=== PATIENT | male | born 1960 | race Caucasian/White ===

== ENCOUNTER 2016-06-12 13:14 | Inpatient (IN) | payer OTHER ==
[~2016-06-12] VITALS: Ht 170.2 cm; Wt 68.3 kg
[~2016-06-12 13:14] MED LIST: IBUP400T22 PO; OXYC-279 PO; RIVA20TA PO
--- NOTE | 2016-06-12 16:26 | RADRPT ---
PROCEDURE: US upper extremity Venous. CLINICAL INDICATION: arm swelling TECHNIQUE: Multiple sonographic images of the right upper extremity venous system was obtained uti lizing grayscale, color-flow, compressive sonography and doppler imaging with augmentation. The bella ges were reviewed on a PACS workstation. COMPARISON: None. FINDINGS: There is normal compressibility and flow within the right internal jugular vein, subclavian vein, ax illary vein, brachial, basilic, radial and ulnar veins. The right cephalic vein in the region of the mid and distal upper arm is not compressible, consisten t with thrombosis. RPTAT: AA IMPRESSION: Thrombosis of the right cephalic vein. A call report was made and the findings discussed with Kartik Rich (N) at 06/12/2016 4:19:29 PM. .Abel Thakur MD, Date Time Electronically viewed and signed by .Abel Thakur MD, on 06/12/2016 16:26 .S/
--- NOTE | 2016-06-12 16:38 | RADRPT ---
PROCEDURE: XR Cervical Spine. CLINICAL INDICATION: Cervical spine pain. TECHNIQUE: AP, lateral and odontoid views of the cervical spine were performed. The images were re viewed on a PACS workstation. COMPARISON: None available at the time of dictation. FINDINGS: There are extensive postoperative changes from posterior cervical stabilization with paired pedicle screws in the C1, C2 and C3 vertebral bodies with associated paraspinal fusion rods. The hardware a ppears intact. There is trace anterolisthesis of C2 on C3. The hardware appears intact. The remai [place] intervertebral discs are preserved. Limited visualization of the C2 vertebral body. The skull base appears intact. There is mild facet spondylosis. There is possble mild paraspinal soft tissu e swelling in the ventral soft tissues. CT would be helpful for further evaluation. There is strai ghtening of the cervical spine. The remaining visualized vertebral bodies are unremarkable. IMPRESSION: 1. Extensive postoperative changes from posterior stabilization at C1, C2 and C3, with intact surgi derik hardware. Limited visualization of the C2 vertebral body. 2. Suggestion of prevertebral soft tissue swelling, which is nonspecific. CT of the cervical spine is recommended for further evaluation. 3. Grade 1 anterolisthesis of the C2 on C3. The above findings were discussed with Patient's physician Kartik Nichole by telephone on 4:38:34 PM. RPTAT: HGAS .Barry Laureano MD, MD Date Time Electronically viewed and signed by .Barry Laureano MD, MD on 06/12/2016 16:38 .S/
[2016-06-12] MEDS ORDERED: APIXABAN 5 MG TABLET PO ONE (17:00)
[2016-06-12 17:09] LABS: ADD SCAN DIFF NO
[2016-06-12 17:22] LABS: BASOPHILS % 0.6 % (0.0-2.0); EOSINOPHILS # 0.1 10^3/ul (0.0-0.5); EOSINOPHILS % 1.7 % (0.0-7.0); HEMATOCRIT 39.5 % (42.0-52.0); HEMOGLOBIN 12.8 g/dl (14.0-18.0); INR 0.89; LYMPHOCYTES # 1.6 10^3/ul (0.8-2.9); LYMPHOCYTES % 22.8 % (15.0-51.0); MEAN CORPUSCULAR HGB CONC 32.4 g/dl (32.0-37.0); MEAN CORPUSCULAR VOLUME 92.7 fl (82.0-101.0); MEAN PLATELET VOLUME 9.3 fl (7.4-10.4); MONOCYTE # 0.9 10^3/ul (0.3-0.9); MONOCYTES % 12.9 % (0.0-11.0); NEUTROPHIL # 4.4 10^3/ul (1.6-7.5); NEUTROPHILS % 61.6 % (39.0-77.0); PLATELET COUNT 471 10^3/UL (140-415); PT RATIO 0.9; RED BLOOD COUNT 4.26 10^6/ul (4.70-6.10); RED CELL DISTRIBUTION WIDTH 12.8 % (11.5-14.5); WHITE BLOOD COUNT 7.1 10^3/ul (4.8-10.8)
[2016-06-12 17:23] LABS: PARTIAL THROMBOPLASTIN TIME 26.4 Sec (25.0-35.0)
[2016-06-12 17:29] LABS: CHLORIDE 101 mmol/L (97-110); SODIUM 145 mmol/L (135-144)
[2016-06-12 17:31] LABS: ANION GAP 18 (8-16); CARBON DIOXIDE 31 mmol/L (21-31); CREATININE 0.77 mg/dl (0.61-1.24)
[2016-06-12 17:32] LABS: BLOOD UREA NITROGEN 15 mg/dl (7-20); CALCIUM 10.1 mg/dl (8.4-10.2); GLUCOSE 98 mg/dl (70-220)
[2016-06-12 17:39] LABS: TROPONIN-I < 0.010 ng/ml (0.00-0.12)
[2016-06-12] MEDS ORDERED: ENOXAPARIN 80 MG/0.8 ML SYG SC SCH (18:00)
[2016-06-12] MEDS ORDERED: KETOROLAC 15 MG INJ IV PRN (18:00)
[2016-06-12] MEDS ORDERED: ONDANSETRON 4 MG INJ IV PRN (18:00)
[2016-06-12] MEDS ORDERED: hydrALAzine 20 MG INJ IV PRN (18:30)
[2016-06-12] MEDS ORDERED: ENOXAPARIN 40 MG/0.4 ML SYG SC SCH (18:30)
--- NOTE | 2016-06-12 19:07 | RADRPT ---
PROCEDURE: CT Head without contrast. CLINICAL INDICATION: recurrent falls TECHNIQUE: Continuous axial CT images were obtained from the base of skull to the vertex. No cont rast was administered. The calculated radiation dose measures 634 mGy centimeters. The CTDI measures 38 mGy COMPARISON: No prior studies are available for comparison. FINDINGS: The ventricles are symmetric and normal in size. There is no mass effect or midline shift. There i s no abnormal intra-axial or extra-axial fluid collection. There is no evidence of intracranial hem orrhage. There are scattered areas of mild decreased attenuation in the periventricular white matte r, consistent with mild small vessel ischemic change. The bony calvarium is intact. The orbital soft tissue contents are unremarkable. Paranasal sinuses appear clear IMPRESSION: No mass effect or acute intracranial bleed. Mild small vessel ischemic change. RPTAT: HBST . .Josr Canada MD, MD Date Time Electronically viewed and signed by .Josr Canada MD, on 06/12/2016 19:07 .T/
--- NOTE | 2016-06-12 19:08 | RADRPT ---
PROCEDURE: CT cervical spine without contrast. CLINICAL INDICATION: Trauma, neck pain. TECHNIQUE: A CT of the cervical spine was performed without intravenous contrast. Coronal and sag ittal reformats were generated. CTDIvol: 36.76 mGy. DLP: 730.18 mGy-cm. COMPARISON: Cervical spine CT for [facility] dated 02/20/2016, Chest CTA dated 01/29/2016 . FINDINGS: There is a normal cervical lordosis. The patient is status post posterior fusion from C1-C3, new si nce the prior outside CT. Discontinuity of the posterior C1 arch is unchanged, probably developmenta l. There is a healing fracture of the posterior C2 vertebral body and lateral masses. Alignment is i mproved since the prior CT due to the posterior fusion. Grade 1 C2 anterolisthesis is noted (3 mm). No acute fracture or subluxation is identified. The vertebral body heights are maintained. The pr evertebral soft tissues are normal. Streak artifact from the fusion hardware limits evaluation of the spinal canal at the operative leve ls. Borderline spinal canal stenosis is noted C3-C4 and C4-C5 secondary to a small central disk pro trusions. A broad-based central disk protrusion at C5-C6 causes mild spinal canal stenosis. There is moderate spinal canal stenosis at C6-C7 secondary to a 6 mm central disk extrusion. There is mild bilateral neural foraminal narrowing at C6-C7 due to uncovertebral joint hypertrophy. The soft tissue structures of the neck are unremarkable. Scarring and architectural distortion at the right lung apex is unchanged since the prior chest CT. IMPRESSION: 1. No acute spine fracture or subluxation. 2. Status post posterior fusion from C1-C3, transfixing a healing fracture of the posterior C2 vert ebral body and lateral masses. Osseous alignment is improved since the preoperative CT dated 2015. 3. Moderate spinal canal stenosis at C6-C7. RPTAT: HTAR .Compa De La Cruz MD, MD Date Time Electronically viewed and signed by .Compa De La Cruz MD, on 06/12/2016 19:07 .R/
--- NOTE | 2016-06-12 19:25 | RADRPT ---
PROCEDURE: US Carotids. CLINICAL INDICATION: Syncope. TECHNIQUE: Multiple sonographic of the carotid bifurcation region and vertebral arteries were obta ined utilizing hardwick scale, duplex and color-flow imaging. The images were reviewed on a PACS worksta tion. COMPARISON: Cervical spine CT of the same day. FINDINGS: Evaluation of the right carotid bifurcation region reveals mild atherosclerotic disease. Evaluation of the left carotid bifurcation region reveals minimal atherosclerotic disease. There is antegrade flow within the vertebral arteries bilaterally. RIGHT CAROTID MEASUREMENTS: Common Carotid Arterymoderate to (cm/sec) Internal Carotid Artery - proximal 51 (cm/sec) Internal Carotid Artery - mid56 (cm/sec) Internal Carotid Artery - (cm/sec) External Carotid Artery 59 (cm/sec) Vertebral Gguxbs18 (cm/sec) Internal Carotid/Common Carotid0.7 LEFT CAROTID MEASUREMENTS: Common Carotid Dsskvm232 (cm/sec) Internal Carotid Artery - proximal 52 (cm/sec) Internal Carotid Artery - mid46 (cm/sec) Internal Carotid Artery - ppqcxa10 (cm/sec) External Carotid Artery 83 (cm/sec) Vertebral Itllay49 (cm/sec) Internal Carotid/Common Carotid0.5 Validated velocity measurements with angiographic measurements, velocity criteria are extrapolated f rom diameter data as defined by the Society of Radiologists in Ultrasound Consensus Conference Radio logy 2003; 229;340-346. This study does indirectly reference the measurement of the distal ICA diam eter as the denominator for stenosis measurement. IMPRESSION: 1. Mild atherosclerotic plaques without evidence for hemodynamically significant stenosis or occlus ion. 2. Normal antegrade flow in the vertebral arteries bilaterally. RPTAT: QQ .Francine Blood MD, Date Time Electronically viewed and signed by .Francine Blood MD, MD on 06/12/2016 19:24 .N/
[2016-06-12 20:00] VITALS: TEMP 98.3
--- NOTE | 2016-06-12 20:21 | ERA ---
ER Documentation Chief Complaint Date/Time DATE: 06/12/16 TIME: 20:19 Chief Complaint HEADCAHE , RT ARM PAIN , SENT BY PMD HPI Patient is a 55-year-old male with previous DVT and PE who presents with neck pain and right arm swelling. The patient says that he has not been taking his Eliquis as he is supposed to and has not taken this medicine for the past 5 days. The patient was seen by his neurosurgeon today and was told to come to the ER to get an x-ray of his neck. He does not currently have a primary doctor. He said that he has run out of his Eliquis as well. ROS All systems reviewed and are negative except as per history of present illness. Medications Home Meds Active Scripts Oxycodone HCl/Acetaminophen (Percocet 5-325 mg Tablet) 1 Each Tablet, 1 EACH PO Q6, #1 TAB Prov:SHAD LUA MD 02/05/16 Rivaroxaban* (Xarelto*) 20 Mg Tablet, 20 MG PO WITH DINNER, #30 TAB 3 Refills Prov:SHAD LUA MD 02/05/16 Ibuprofen* (Ibuprofen*) 400 Mg Tablet, 400 MG PO Q6H Y for MILD PAIN OR TEMP ABOVE 38C, #30 TAB Prov:SHAD LUA MD 02/05/16 Allergies Allergies: Coded Allergies: No Known Allergy (Unverified , 01/29/16) PMhx/Soc History of Surgery: Yes (Hernia repair) Anesthesia Reaction: No Hx Neurological Disorder: No Hx Respiratory Disorders: Yes (LEFT LUNG PE 2015.) Hx Cardiac Disorders: No Hx Psychiatric Problems: No Hx Miscellaneous Medical Probl: No Hx Alcohol Use: No (QUIT DRINKING) Hx Substance Use: No (QUIT OVER 20 YRS AGO.) Hx Tobacco Use: No (QUIT ABOUT 16 MONTHS AGO.) Smoking Status: Former smoker FmHx Family History: No diabetes Physical Exam Vitals Vital Signs Date Time Temp Pulse Resp B/P Pulse Ox O2 Delivery O2 Flow Rate FiO2 06/12/16 20:00 98.3 60 11 127/76 100 Room Air 06/12/16 17:30 98.2 60 11 150/93 100 Room Air 06/12/16 13:28 98.1 78 18 158/83 98 Physical Exam Const: No acute distress Head: Atraumatic Eyes: Normal Conjunctiva ENT: Normal External Ears, Nose and Mouth. Neck: Full range of motion..~ No meningismus. Resp: Clear to auscultation bilaterally Cardio: Regular rate and rhythm, no murmurs Abd: Soft, non tender, non distended. Normal bowel sounds Skin: No petechiae or rashes Back: No midline or flank tenderness Ext: Right arm swelling mild compared to the left Neur: Awake and alert Psych: Normal Mood and Affect Result Diagram: 06/12/166 06/12/16 1656 Results 24 hrs Laboratory Tests Test 06/12/16 16:56 Activated Partial Thromboplast Time 26.4Sec Anion Gap 18 Basophils # 0.010^3/ul Basophils % 0.6% Blood Urea Nitrogen 15mg/dl Calcium Level 10.1mg/dl Carbon Dioxide Level 31mmol/L Chloride Level 101mmol/L Creatinine 0.77mg/dl Eosinophils # 0.110^3/ul Eosinophils % 1.7% Glucose Level 98mg/dl Hematocrit 39.5% Hemoglobin 12.8g/dl INR International Normalized Ratio 0.89 Lymphocytes # 1.610^3/ul Lymphocytes % 22.8% Mean Corpuscular Hemoglobin 30.0pg Mean Corpuscular Hemoglobin Concent 32.4g/dl Mean Corpuscular Volume 92.7fl Mean Platelet Volume 9.3fl Monocytes # 0.910^3/ul Monocytes % 12.9% Neutrophils # 4.410^3/ul Neutrophils % 61.6% Nucleated Red Blood Cells # 0.010^3/ul Nucleated Red Blood Cells % 0.0/100WBC Platelet Count 97455^3/UL Potassium Level 5.0mmol/L Prothrombin Time 12.0Sec Prothrombin Time Ratio 0.9 Red Blood Count 4.2610^6/ul Red Cell Distribution Width 12.8% Sodium Level 145mmol/L Troponin I < 0.010ng/ml White Blood Count 7.110^3/ul Current Medications Medications (Trade) Dose Ordered Sig/Imelda Route PRN Reason Start Time Stop Time Status Last Admin Dose Admin Apixaban (Eliquis) 10 mg ONCE ONCE PO 06/12/16 17:00 06/12/16 17:01 DC 06/12/16 17:01 Enoxaparin Sodium (Lovenox) 71 mg ONCE SC 06/12/16 18:00 06/12/16 18:05 DC Rivaroxaban (Xarelto) 20 mg BID PO 06/12/16 21:00 06/12/16 21:00 DC Famotidine (Pepcid) 20 mg BID PO 06/12/16 21:00 Ondansetron HCl (Zofran Inj) 4 mg Q6H PRN IV NAUSEA AND/OR VOMITING 06/12/16 18:00 Ketorolac Tromethamine (Toradol) 15 mg Q6H PRN IV PAIN 06/12/16 18:00 06/15/16 17:59 06/12/16 19:11 Acetaminophen/ Hydrocodone Bitart ([place] (10/325)) 1 tab Q6H PRN PO pain 06/12/16 18:00 Docusate Sodium (Colace) 200 mg BID PO 06/12/16 21:00 Hydralazine HCl (Apresoline) 10 mg Q6H PRN IV sbp>160mmhg 06/12/16 18:30 Enoxaparin Sodium (Lovenox) 40 mg ONCE SC 06/12/16 18:30 06/12/16 23:33 06/12/16 19:08 Procedures/MDM Ultrasound of the right arm shows cephalic vein thrombosis per radiology. PROCEDURE: CT cervical spine without contrast. CLINICAL INDICATION: Trauma, neck pain. TECHNIQUE: A CT of the cervical spine was performed without intravenous contrast. Coronal and sagittal reformats were generated. CTDIvol: 36.76 mGy. DLP: 730.18 mGy-cm. COMPARISON: Cervical spine CT for [facility] dated 02/20/2016, Chest CTA dated 01/29/2016. FINDINGS: There is a normal cervical lordosis. The patient is status post posterior fusion from C1-C3, new since the prior outside CT. Discontinuity of the posterior C1 arch is unchanged, probably developmental. There is a healing fracture of the posterior C2 vertebral body and lateral masses. Alignment is improved since the prior CT due to the posterior fusion. Grade 1 C2 anterolisthesis is noted (3 mm). No acute fracture or subluxation is identified. The vertebral body heights are maintained. The prevertebral soft tissues are normal. Streak artifact from the fusion hardware limits evaluation of the spinal canal at the operative levels. Borderline spinal canal stenosis is noted C3-C4 and C4 -C5 secondary to a small central disk protrusions. A broad-based central disk protrusion at C5-C6 causes mild spinal canal stenosis. There is moderate spinal canal stenosis at C6-C7 secondary to a 6 mm central disk extrusion. There is mild bilateral neural foraminal narrowing at C6-C7 due to uncovertebral joint hypertrophy. The soft tissue structures of the neck are unremarkable. Scarring and architectural distortion at the right lung apex is unchanged since the prior chest CT. IMPRESSION: 1. No acute spine fracture or subluxation. 2. Status post posterior fusion from C1-C3, transfixing a healing fracture of the posterior C2 vertebral body and lateral masses. Osseous alignment is improved since the preoperative CT dated 02/20/2016. 3. Moderate spinal canal stenosis at C6-C7. RPTAT: HTAR .Compa De La Cruz MD, Date Time Electronically viewed and signed by .Compa De La Cruz MD, MD on 06/12/2016 19:07 Patient is a 55-year-old male presents with right-sided arm swelling as well as cephalic vein thrombosis. The patient was given Eliquis 10 mg by mouth. The patient will need admission for further treatment as I am concerned for outpatient follow-up as he does not currently have a primary doctor and he is already out of his Eliquis. He is at high risk of a DVT and PE in the past. The patient had a CT scan which did not show any sign of acute fracture or subluxation of the neck. Departure Diagnosis: Primary Impression: Acute DVT (deep venous thrombosis) Qualified Code: I82.621 - Acute deep vein thrombosis (DVT) of other vein of right upper extremity Additional Impression: Swelling Condition: ARMIDA Barraza MD Jun 12, 2016 20:21
[2016-06-12] MEDS ORDERED: RIVAROXABAN 20 MG TABLET PO SCH (21:00)
[2016-06-12 21:20] VITALS: Ht 170.2 cm; Wt 68.3 kg
[2016-06-12 21:31] VITALS: BP 146/84; RESP 20
[2016-06-12] MEDS: DOCUSATE SODIUM 100 MG CAP PO SCH (21:52)
[2016-06-12] MEDS: FAMOTIDINE 20 MG TAB PO SCH (21:52)
[2016-06-12] MEDS: HYDROCODONE/APAP (10/325) TAB PO PRN (21:54)
[2016-06-13] MEDS ORDERED: **FLU VACCINE PREVIOUSLY DISPENSED XX PRN (00:30)
[2016-06-13 00:37] LABS: TROPONIN-I 0.013 ng/ml (0.00-0.12)
[2016-06-13 00:51] LABS: CK-MB 0.81 ng/ml (0.0-2.4)
[2016-06-13 05:11] LABS: ADD SCAN DIFF NO
[2016-06-13 05:23] LABS: BASOPHIL # 0.1 10^3/ul (0.0-0.1); BASOPHILS % 0.7 % (0.0-2.0); EOSINOPHILS # 0.2 10^3/ul (0.0-0.5); EOSINOPHILS % 2.3 % (0.0-7.0); HEMATOCRIT 39.5 % (42.0-52.0); HEMOGLOBIN 12.6 g/dl (14.0-18.0); LYMPHOCYTES # 1.8 10^3/ul (0.8-2.9); LYMPHOCYTES % 26.5 % (15.0-51.0); MEAN CORPUSCULAR HEMOGLOBIN 29.8 pg (29.0-33.0); MEAN CORPUSCULAR HGB CONC 31.9 g/dl (32.0-37.0); MEAN CORPUSCULAR VOLUME 93.4 fl (82.0-101.0); MEAN PLATELET VOLUME 9.3 fl (7.4-10.4); MONOCYTES % 14.8 % (0.0-11.0); NEUTROPHIL # 3.8 10^3/ul (1.6-7.5); PLATELET COUNT 440 10^3/UL (140-415); RED BLOOD COUNT 4.23 10^6/ul (4.70-6.10); RED CELL DISTRIBUTION WIDTH 12.9 % (11.5-14.5); WHITE BLOOD COUNT 6.8 10^3/ul (4.8-10.8)
[2016-06-13 05:37] LABS: INR 1.01; PROTIME 13.3 Sec (12.2-14.2)
[2016-06-13 05:38] LABS: PARTIAL THROMBOPLASTIN TIME 29.2 Sec (25.0-35.0)
[2016-06-13 05:42] LABS: TROPONIN-I 0.013 ng/ml (0.00-0.12)
[2016-06-13 06:11] LABS: CK-MB 0.8 ng/ml (0.0-2.4)
--- NOTE | 2016-06-13 06:16 | HP ---
DATE OF ADMISSION: 06/12/2016 PRESENTING COMPLAINT: Right upper extremity clot. HISTORY OF PRESENTING COMPLAINT: Jimmie Mccord is a 55-year-old male with a remote history of u pper and lower extremity deep venous thromboses, as well as a pulmonary embolism, who is supposed to be on Eliquis therapy who states he has not taken his Eliquis because he ran out. In addition to t hat, he had been told by his dentist that he needed a dental procedure, and as such needed to be off the Eliquis. He came to the hospital today to perform cervical x-rays as recommended by his neck s urgeon, and decided to come to the ER because he had been noticing that he had clots in upper extrem ity and wanted to get this checked out. Of note, the patient had neck surgery about February of 2016 and since he had the procedure he has been having multiple falls and has been having a lot of dizzi ness with ambulation. The neck pain is concerning and it is one of the reasons he came in, but he a lso wanted to get his upper extremity checked. An ultrasound done in the ER that showed that he had a cephalic vein thrombosis in the upper extremity and the imaging studies of his neck that was orde red by his outpatient surgeon showed extensive postoperative changes from posterior stabilization at C1, C2 and C3, with intact surgical hardware. A suggestion of prevertebral soft tissue swelling, which is nonspecific, and grade I anterolisthesis of C2 on C3. The exact circumstances surrounding the original fall is unclear; however, in the setting of a patient that needs to be on Eliquis thera py, with a history of dizziness and falls, the patient needs to be worked up to ensure that he is in deed safe to be on anticoagulation. PAST MEDICAL HISTORY: Positive for: 1. Chronic right lung mass. 2. Right lower lobe pulmonary embolism. 3. History of lower extremity deep venous thrombosis. 4. 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 Chronic pain. PAST SURGICAL HISTORY: Involves recent cervical surgery and hardware placement. ALLERGIES: THE PATIENT HAS NO KNOWN DRUG ALLERGIES. 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 The patient also reports being homeless. Denies illicit drug use, but does drink alcohol occasionally. Regarding illicit drug use , he quit over 20 years ago, and actually has quit drinking and smoking about a year ago. SURGICAL HISTORY: Positive for hernia repair. FAMILY HISTORY: Positive for cardiac disorder, hypertension, diabetes in siblings and his father. HOME MEDICATIONS: Include: 1. Eliquis 5 mg p.o. daily. 2. Ibuprofen 400 mg p.r.n. 3. Percocet 5/325, one tablet q.6. PHYSICAL EXAMINATION: VITAL SIGNS: Temperature 98.2, pulse is 60, respirations 11, blood pressure 150/93, saturations 100 % on room air. GENERAL: An unkempt gentleman, alert and oriented, currently in no distress. HEENT: Head is normocephalic. Pupils equal and reactive. Mucous membranes dry. Very poor dentitio n. NECK: Surgical scar on the back of the neck, well healed and dry. The neck is mildly stiff, but the patient says it has been since surgery. CHEST: Clear to auscultation. Reduced air entry bilaterally, likely secondary to chronic COPD. No wheezes or crackles. CARDIOVASCULAR: S1 and S2 normal. ABDOMEN: Soft, nontender, nondistended. Normal active bowel sounds. EXTREMITIES: There was no lower extremity edema. SKIN: Devoid of rash or jaundice. PSYCHIATRIC: The patient was calm and cooperative with the exam. LABORATORY VALUES: He has chronic anemia with a hemoglobin of 12, but is normocytic and normochromi c. He has also chronic thrombocytosis, with a platelet count of 471. His white count is normal. H is basic metabolic profile is also completely normal, as is his first troponin. Coagulation profile is also unremarkable. As mentioned earlier, upper extremity venous study showed cephalic vein. Cervical spine x-ray did s how some soft tissue edema and a CT scan of the brain and of the C-spine is pending at this time. ASSESSMENT: This is a 55-year-old male with multiple problems, admitted for the followin. Dizziness and recurrent falls, status post recent cervical spine repair, likely secondary to fal l in the past, who is being admitted to evaluate the safety of anticoagulation use. 2. Acute superficial DVT for which no acute treatment is indicated; however, the patient does have a chronic history of DVTs, as well as pulmonary embolism, so he will need to be restarted on his ant icoagulation. 3. History of lung mass secondary to Aspergillus, chronic. No workup is indicated at the patient d oes not complain of chest pain, cough or any pulmonary symptoms. 4. Chronic anemia, likely secondary to malnutrition and a history of heavy alcohol use in the past. 5. Remote tobacco and drug use. 6. Social issues including being homeless and gait assessment. PLAN: Admit him and have physical therapy evaluate him. Also rule out an acute coronary syndrome an d workup his dizziness with CT of the head and neck, as well as carotid Dopplers. If these come ajrrett k negative and the patient is safe to ambulate with anticoagulation, we will discharge him back on h is previous regimen. family preservation caseworker has spoken with the patient. We have given resources as to how t o get a primary care doctor that will follow. He may need assistance in finding a custodial. For pro phylaxis he will be on Lovenox and Pepcid. For further interventions and information, please review the patient's chart and my orders. Thank you very much. Dictated By: BARBARA TORREZ MD BA/FELY Conf#: [id number] DID#: [id number]
[2016-06-13 06:33] LABS: CREATININE 0.78 mg/dl (0.61-1.24)
[2016-06-13 06:34] LABS: CALCIUM 9.4 mg/dl (8.4-10.2); MAGNESIUM 1.9 mg/dl (1.7-2.5)
[2016-06-13 08:18] VITALS: BP 127/75; RESP 18
[2016-06-13] MEDS: FAMOTIDINE 20 MG TAB PO SCH ×2 (09:19→20:27)
[2016-06-13] MEDS: DOCUSATE SODIUM 100 MG CAP PO SCH ×2 (09:19→20:27)
[2016-06-13] MEDS: HYDROCODONE/APAP (10/325) TAB PO PRN ×2 (09:20→20:28)
[2016-06-13 09:27] LABS: THYROID STIMULATING HORMONE 2.14 MIU/L (0.465-4.680)
[2016-06-13 09:54] LABS: BARBITURATES Negative (NEGATIVE); BENZODIAZEPINES Negative (NEGATIVE)
[2016-06-13 09:59] LABS: CANNABINOIDS Negative (NEGATIVE); COCAINE Negative (NEGATIVE); OPIATES Negative (NEGATIVE)
[2016-06-13] MEDS: TRAMADOL XX SCH ×2 (10:00→16:00)
[2016-06-13] MEDS ORDERED: Hydrocodone/Apap (10/325) PO (10:53)
[2016-06-13] MEDS ORDERED: DOCU-216 PO (10:53)
[2016-06-13] MEDS ORDERED: APIX5TAB PO (10:53)
[2016-06-13 16:00] VITALS: BP 147/83; PULSE 59; RESP 18
[2016-06-13] MEDS ORDERED: ONDANSETRON 4 MG INJ IV STA (16:18)
[2016-06-13] MEDS ORDERED: MAGNESIUM CITRATE 300 ML BTL PO ONE (16:30)
--- NOTE | 2016-06-13 18:01 | RADRPT ---
Echocardiogram Report Patient Name: BEATRICE VALLES Gender: Male Date: 1960 Study Date: 13-Jun-2016 Mail Sorter: [facility] Location: [id number] Ref. Physician: BARBARA TORREZ Quality: Adequate Procedures: Transthoracic echocardiogram with complete 2D, M-Mode, and doppler examination. Indications: Dizziness. 2D/M Mode Doppler Measurement Value Normal Ranges Measurement Value Normal Ranges LVIDd 2D 4.7 3.5 - 5.6 cm AV Peak Zackary 1.3 m/sec LVIDs 2D 3.0 2.1 - 4.1 cm AV Peak PG 7.1 mmHg LVPWd 2D 1.0 0.6 - 1.1 cm LVOT Peak Zackary 1.3 m/sec IVSd 2D 1.0 0.6 - 1.1 cm LVOT Peak PG 6.5 mmHg AoR Diam 2D 2.9 2.0 - 3.7 cm MV E Peak Zackary 1.0 m/sec EDV 2D 100.6 cm3 MV A Peak Zackary 1.0 m/sec ESV 2D 25.8 cm3 MV E/A 0.9 MV Decel Time 294 msec MV Decel Stark 3 MV E/A 0.9 TR Peak Zackary 2.7 m/sec TR Peak PG 30.0 mmHg Findings Left Ventricle: Normal left ventricular systolic function. Normal left ventricular cavity size. Normal left ventricular wall thickness. Ejection fraction is visually estimated at 60 %. Abnormal Diastolic Function. Right Ventricle: Normal right ventricular size. Normal right ventricular systolic function. Left Atrium: The left atrium is normal in size. Right Atrium: The right atrium is normal in size. Mitral Valve: Mild mitral leaflet calcification. Mild mitral annular calcification. Trace mitral regurgitation. Aortic Valve: Trileaflet aortic valve. Trace aortic valve regurgitation. Tricuspid Valve: Estimated peak PA systolic pressure 33 mmHg. There is mild tricuspid regurgitation. Pulmonic Valve: There is trace pulmonic regurgitation. Pericardium: Normal pericardium with no significant pericardial effusion. Aorta: Normal aortic root. IVC: Normal size and normal respiratory collapse consistent with normal right atrial pressure. Conclusions 1.Normal left ventricular systolic function. Normal left ventricular cavity size. Normal left ventricular wall thickness. Ejection fraction is visually estimated at 60 %. Abnormal Diastolic Function. 2.Mild mitral leaflet calcification. Mild mitral annular calcification. Trace mitral regurgitation. 3.Trileaflet aortic valve. Trace aortic valve regurgitation. 4.Estimated peak PA systolic pressure 33 mmHg. There is mild tricuspid regurgitation. Electronically Signed By: Avery Noyola 13-Jun-2016 18:00:52 -0800 Patient Name: BEATRICE VALLES Study Date: 13-Jun-2016 [id number]
[2016-06-13] MEDS: APIXABAN 5 MG TABLET PO SCH (20:28)
[2016-06-13 21:38] VITALS: BP 137/79; RESP 20
[2016-06-14 06:17] LABS: ADD SCAN DIFF NO
[2016-06-14 06:25] LABS: BASOPHIL # 0.1 10^3/ul (0.0-0.1); BASOPHILS % 0.8 % (0.0-2.0); EOSINOPHILS # 0.1 10^3/ul (0.0-0.5); EOSINOPHILS % 1.8 % (0.0-7.0); HEMATOCRIT 39.1 % (42.0-52.0); HEMOGLOBIN 12.7 g/dl (14.0-18.0); LYMPHOCYTES # 1.6 10^3/ul (0.8-2.9); LYMPHOCYTES % 22.5 % (15.0-51.0); MEAN CORPUSCULAR HEMOGLOBIN 30.4 pg (29.0-33.0); MEAN CORPUSCULAR HGB CONC 32.5 g/dl (32.0-37.0); MEAN CORPUSCULAR VOLUME 93.5 fl (82.0-101.0); MEAN PLATELET VOLUME 9.5 fl (7.4-10.4); MONOCYTE # 1.1 10^3/ul (0.3-0.9); MONOCYTES % 14.6 % (0.0-11.0); NEUTROPHIL # 4.3 10^3/ul (1.6-7.5); NEUTROPHILS % 59.6 % (39.0-77.0); PLATELET COUNT 454 10^3/UL (140-415); RED BLOOD COUNT 4.18 10^6/ul (4.70-6.10); RED CELL DISTRIBUTION WIDTH 12.7 % (11.5-14.5); WHITE BLOOD COUNT 7.2 10^3/ul (4.8-10.8)
[2016-06-14 06:36] LABS: POTASSIUM 4.4 mmol/L (3.5-5.1)
[2016-06-14 06:39] LABS: CREATININE 0.81 mg/dl (0.61-1.24)
[2016-06-14 08:57] VITALS: BP 136/79; RESP 20
[2016-06-14] MEDS: FAMOTIDINE 20 MG TAB PO SCH (09:15)
[2016-06-14] MEDS: APIXABAN 5 MG TABLET PO SCH (09:15)
[2016-06-14] MEDS: DOCUSATE SODIUM 100 MG CAP PO SCH (09:15)
[2016-06-14] MEDS: TRAMADOL XX SCH (10:00)
[2016-06-14] MEDS ORDERED: MECL-77 PO (13:27)
[2016-06-14] MEDS ORDERED: MECLIZINE 12.5 MG TAB PO SCH ×2 (13:30→21:00)
--- NOTE | 2016-06-14 14:13 | DS ---
Date/Time of Note Date/Time of Note DATE: 06/14/16 TIME: 14:10 Discharge Summary Admission/Discharge Info Admit Date/Time Jun 12, 2016 at 17:58 Discharge Date/Time 06/14/16 Final Diagnosis See dictated d/c summery from 06/13/16 Patient Condition: Stable Hospital Course see dictated d/c summary from 06/13/16. The patient's discharge was held because of dizziness and we tried to do an MRI , however this could not be done because patient has plates and screws in his neck. As of today, his dizziness while still present is much better per patient , he's tolerating a diet without nausea and is stable for continued outpt followup. Patient is to followup with his neck surgeon and he is to pick a primary care clinic from the list he was given and followup as soon as possible. Patient has verbalized understanding and agreement with this plan. Home Meds Active Scripts Meclizine Hcl* (Meclizine Hcl*) 25 Mg Tablet, 12.5 MG PO TID for 30 Days, TAB Prov:BARBARA TORREZ 06/14/16 Apixaban* (Eliquis*) 5 Mg Tablet, 5 MG PO BID for 30 Days, TAB 2 Refills Prov:BARBARA TORREZ 06/13/16 [Hydrocodone/Apap (10325)] 1 TAB TAB No Conflict Check, 1 TAB PO Q6H Y for pain , #30 Prov:BARBARA TORREZ 06/13/16 Docusate Sodium (Dok) 100 Mg Capsule, 200 MG PO BID for 30 Days, CAP Prov:BARBARA TORREZ 06/13/16 Ibuprofen* (Ibuprofen*) 400 Mg Tablet, 400 MG PO Q6H Y for MILD PAIN OR TEMP ABOVE 38C, #30 TAB Prov:SHAD LUA MD 02/05/16 Discontinued Scripts Oxycodone HCl/Acetaminophen (Percocet 5-325 mg Tablet) 1 Each Tablet, 1 EACH PO Q6, #1 TAB Prov:SHAD LUA MD 02/05/16 Rivaroxaban* (Xarelto*) 20 Mg Tablet, 20 MG PO WITH DINNER, #30 TAB 3 Refills Prov:SHAD LUA MD 02/05/16 Pending Labs Laboratory Tests Test 06/14/16 05:15 06/14/16 05:25 Anion Gap 14 (8-16) Blood Urea Nitrogen 15mg/dl (7-20) Calcium Level 9.0mg/dl (8.4-10.2) Carbon Dioxide Level 30mmol/L (21-31) Chloride Level 101mmol/L (97-110) Creatinine 0.81mg/dl (0.61-1.24) Glucose Level 89mg/dl (70-220) Potassium Level 4.4mmol/L (3.5-5.1) Sodium Level 141mmol/L (135-144) Basophils # 0.110^3/ul (0.0-0.1) Basophils % 0.8% (0.0-2.0) Eosinophils # 0.110^3/ul (0.0-0.5) Eosinophils % 1.8% (0.0-7.0) Hematocrit 39.1% (42.0-52.0) Hemoglobin 12.7g/dl (14.0-18.0) Lymphocytes # 1.610^3/ul (0.8-2.9) Lymphocytes % 22.5% (15.0-51.0) Mean Corpuscular Hemoglobin 30.4pg (29.0-33.0) Mean Corpuscular Hemoglobin Concent 32.5g/dl (32.0-37.0) Mean Corpuscular Volume 93.5fl (82.0-101.0) Mean Platelet Volume 9.5fl (7.4-10.4) Monocytes # 1.110^3/ul (0.3-0.9) Monocytes % 14.6% (0.0-11.0) Neutrophils # 4.310^3/ul (1.6-7.5) Neutrophils % 59.6% (39.0-77.0) Nucleated Red Blood Cells # 0.010^3/ul (0.0-0.0) Nucleated Red Blood Cells % 0.0/100WBC (0.0-0.0) Platelet Count 95619^3/UL (140-415) Red Blood Count 4.1810^6/ul (4.70-6.10) Red Cell Distribution Width 12.7% (11.5-14.5) White Blood Count 7.210^3/ul (4.8-10.8) BARBARA TORREZ Jun 14, 2016 14:13
--- NOTE | 2016-06-14 19:50 | DS ---
DATE OF ADMISSION: 06/12/2016 DATE OF DISCHARGE: 06/14/2016 PRESENTING COMPLAINTS: Were multiple and included: 1. Feeling of having a blood clot in the right upper extremity. 2. Dizziness. 3. Frequent falls. 4. Neck pain. ADMISSION DIAGNOSES: 1. Essentially dizziness and recurrent falls, status post recent cervical spine repair in February 2016 who is being admitted to evaluate safety of anticoagulation use. 2. Acute superficial deep vein thrombosis in the setting of chronic deep vein thromboses, as well a s a pulmonary embolism. 3. 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 4. Chronic anemia. 5. Remote tobacco and drug use. 6. Homelessness. DISCHARGE DIAGNOSES: 1. Essentially dizziness and recurrent falls, status post recent cervical spine repair in February 2016 who is being admitted to evaluate safety of anticoagulation use. His dizziness had been evalua jammie multiple studies including a CT scan of brain, carotid Dopplers of the neck, CT spine of the nec k as well. The CT spine of the neck did show a recent fusion from February 2016 as well as moderate spinal canal stenosis at C6 and C7, but showed that his fracture is healing well. Did not recommen d any further interventions. The patient had just seen his surgeon prior to coming to the emergency room. He was also seen by physical therapy and in their evaluation, they recommended that the [place] ent be found a homeless halfway and did not need any acute care PT needs. 2. Acute superficial deep vein thrombosis in the setting of chronic deep vein thromboses, as well a s a pulmonary embolism. 3. 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 4. Chronic anemia. 5. Remote tobacco and drug use. 6. Homelessness. HOSPITAL COURSE: Full details are available in the chart for review. In summary, this is a fairly pleasant 55-year-old unfortunate male came to the emergency room today after he had come to the [facility] to obtain cervical spine x-rays that were recommended by his neck surgeon. He had sustained a fracture in the neck and this was repaired in 02/2016. He went in today for a follow up with his [facility] dol[facility] and his surgeon recommended that he get C spine x-rays. He came to get that done in the [facility] and then he decided to stop in the emergency room because he was having some pain in the neck, h ad been having some history of falls. He also felt a knot in his right upper extremity that he was concerned was a new DVT. He had some dizziness as well. In the emergency room, they did a right up per extremity ultrasound and erroneously felt the patient had a new DVT when in actual fact he had a superficial thrombophlebitis. We were called to admit the patient for thrombolysis management. Ho wever, the patient ended up being admitted to evaluate this dizziness and his falls, especially in t he setting of anticoagulation use. He has been worked up extensively. The only concerning factor i n his symptomatology was the persistent dizziness. We tried to get an MRI, but due to the presence of plates and screws in his neck, we could not due this. As such, once physical therapy ____ him, alisha morris was started on meclizine therapy. This seemed to improve his symptoms significantly and, at this time, he is able to tolerate a diet, had no nausea or vomiting, ambulating without assistance, and i t is my opinion that the patient remained stable for outpatient followup. He has been seen by huseyin greene and given resources to pick a primary care clinic where he can be followed for his symptoms . He was also encouraged to keep this follow up with neck surgeon what was prescribed further. He is also encouraged, as well, to return to the emergency room if any symptoms recur. He is encourage d to stay away from substance use. Encouraged to stay away from alcohol, as he is on blood thinner medication that can really cause a lot of problems if he falls or he hits his head. He is also enco uraged to stay compliant with his medication and not to stop blood thinner medicine except told inte rpreted by the physician. He has verbalized understanding with this plan and he is stable to be dis charged. DISCHARGE MEDICATIONS: 1. Eliquis 5 mg b.i.d. 2. Colace 200 b.i.d. 3. Meclizine 12.5 p.o. t.i.d. 4. [place] 10/325 one tab every 6. DISCHARGE INSTRUCTIONS: The patient has been strongly encouraged to use fall precautions and stay o n a low cholesterol, low fat diet. Is encouraged as well to use his pain medication only when he is close to a bed or when he can lie down. Again, the patient verbalized understanding and agreement with all this. Overall time spent with discharge coordination so far has been in fact more than half an hour. Dictated By: BARBARA TORREZ MD, BA/FELY Conf#: [id number] DID#: [id number]
== END 2016-06-14 15:00 | disposition home or self-care (01) | DRG 301 ==
LOC: FTE 13:14 → PP2 17:58
PROVIDERS: ADMIT Family Medicine; ATTEND Family Medicine
DX: I82.621 Acute embolism and thrombosis of deep veins of right upper extremity (principal); D64.9 Anemia, unspecified; R42 Dizziness and giddiness; Z87.891 Personal history of nicotine dependence; Z59.0 Homelessness; R29.6 Repeated falls; Z98.1 Arthrodesis status
CPT/HCPCS: 36415; 70450; 72040; 72125; 80048; 80061; 80307; 82550; 82553; 83036; 83735; 84443; 84484; 85025; 85610; 85730; 93005; 93306; 93880; 93971; 96372; 96374; 97161; J1650; J1885; J2405

== ENCOUNTER 2016-07-08 19:02 | Emergency (ER) | payer OTHER ==
[~2016-07-08] VITALS: Ht 172.7 cm; Wt 72.0 kg
[~2016-07-08 19:02] MED LIST changes: +APIX5TAB PO; +DOCU-216 PO; +Hydrocodone/Apap (10/325) PO; +MECL-77 PO; -OXYC-279 PO; -RIVA20TA PO
[2016-07-08 19:52] VITALS: Ht 172.7 cm; Wt 72.0 kg
[2016-07-09] MEDS ORDERED: SOD CHLORIDE 0.9% 500 ML IV STA (00:05)
[2016-07-09] MEDS ORDERED: METOCLOPRAMIDE 10 MG INJ IV STA (00:05)
--- NOTE | 2016-07-09 00:51 | RADRPT ---
PROCEDURE: CT Brain without contrast. CLINICAL INDICATION: Fall 1 week ago. Pain. TECHNIQUE: Serial axial computed tomographic images of the brain was performed on a multidetector CT scanner from the skull base through the vertex without contrast. CTDlvol = 45 mGy and DLP = 720 m Gy-cm. One of the following 3 dose reduction techniques were used: Automated exposure control; adju stment of the mA and/or kV according to patient size; or use of iterative reconstruction technique. COMPARISON: 06/12/2016 FINDINGS: There is no fracture. The ventricles and sulci are normal in size and configuration for age. There is no midline shift. There is no acute stroke. There is moderate degree of supratentorial periven tricular and subcortical white matter hypodensities. No acute intracranial hemorrhage or abnormal e xtra-axial fluid collection. Visualized paranasal sinuses are clear. IMPRESSION: 1. No fracture. 2. No acute post-traumatic intracranial abnormality. 3. Nonspecific white matter changes most commonly seen with small vessel disease. RPTAT: HMVK .Michel Garcia MD, Date Time Electronically viewed and signed by .Michel Garcia MD, on 07/09/2016 00:51 .K/
--- NOTE | 2016-07-09 00:58 | RADRPT ---
PROCEDURE: CT cervical spine without contrast. CLINICAL INDICATION: Fall 1 week ago, neck pain. TECHNIQUE: A CT of the cervical spine was performed without intravenous contrast. Coronal and sagitt al reformats were generated. CTDIvol: 22 mGy. DLP: 126 mGy-cm. COMPARISON: 06/12/2016. FINDINGS: There is a normal cervical lordosis. The patient is status post posterior fusion from C1-C3, unchang ed since prior study. Discontinuity of the posterior C1 arch is unchanged, likely developmental. The re is a healing fracture of the posterior C2 vertebral body and lateral masses. Alignment is unchang ed since the prior CT due to the posterior fusion. There is unchanged 3 mm grade 1 C2 anterolisthesi s. No acute fracture or subluxation is identified. The vertebral body heights are maintained. The pr evertebral soft tissues are normal. Streak artifact from the fusion hardware limits evaluation of the spinal canal at the operative leve ls. Borderline spinal canal stenosis is noted C3-C4 and C4-C5 secondary to a small central disk prot rusions. A broad-based central disk protrusion at C5-C6 causes mild spinal canal stenosis. There is moderate spinal canal stenosis at C6-C7 secondary to a 6 mm central disk extrusion. There is mild b ilateral neural foraminal narrowing at C6-C7 due to uncovertebral joint hypertrophy. Extensive right upper lobe apical pleuroparenchymal changes including a spiculated cavitary lesion i s redemonstrated. IMPRESSION: 1. No acute spine fracture or subluxation. 2. Status post posterior fusion from C1-C3, transfixing a healing fracture of the posterior C2 vert ebral body and lateral masses. Alignment is unchanged as compared to 06/12/2016. 3. Unchanged multilevel degenerative changes. 4. Redemonstrated spiculated cavitary lesion right upper lobe with pleural-parenchymal changes. Co nsiderations include a infectious/inflammatory or neoplastic process. RPTAT: HMVK .Michel Garcia MD, Date Time Electronically viewed and signed by .Michel Garcia MD, on 07/09/2016 00:58 .K/
[2016-07-09 01:07] LABS: ADD SCAN DIFF NO
[2016-07-09 01:09] LABS: BASOPHIL # 0.1 10^3/ul (0.0-0.1); BASOPHILS % 0.7 % (0.0-2.0); EOSINOPHILS # 0.2 10^3/ul (0.0-0.5); HEMATOCRIT 37.3 % (42.0-52.0); HEMOGLOBIN 11.8 g/dl (14.0-18.0); LYMPHOCYTES # 1.7 10^3/ul (0.8-2.9); LYMPHOCYTES % 24.1 % (15.0-51.0); MEAN CORPUSCULAR HEMOGLOBIN 29.4 pg (29.0-33.0); MEAN CORPUSCULAR HGB CONC 31.6 g/dl (32.0-37.0); MEAN CORPUSCULAR VOLUME 92.8 fl (82.0-101.0); MONOCYTE # 0.9 10^3/ul (0.3-0.9); MONOCYTES % 12.6 % (0.0-11.0); NEUTROPHIL # 4.2 10^3/ul (1.6-7.5); NEUTROPHILS % 58.9 % (39.0-77.0); PLATELET COUNT 353 10^3/UL (140-415); RED BLOOD COUNT 4.02 10^6/ul (4.70-6.10); RED CELL DISTRIBUTION WIDTH 12.9 % (11.5-14.5); WHITE BLOOD COUNT 7.1 10^3/ul (4.8-10.8)
[2016-07-09 01:26] LABS: POTASSIUM 3.7 mmol/L (3.5-5.1)
[2016-07-09 01:28] LABS: CREATININE 0.7 mg/dl (0.61-1.24)
[2016-07-09 01:29] LABS: CALCIUM 8.7 mg/dl (8.4-10.2)
[2016-07-09 01:37] LABS: INR 0.91; PROTIME 12.3 Sec (12.2-14.2)
[2016-07-09 02:25] VITALS: BP 131/75; PULSE 68; RESP 17; TEMP 98.6
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
== END 2016-07-09 02:25 | disposition home or self-care (01) ==
LOC: E/R 19:02
DX: R42 Dizziness and giddiness (principal); F17.210 Nicotine dependence, cigarettes, uncomplicated; R40.2142 Coma scale, eyes open, spontaneous, at arrival to emergency department; R40.2252 Coma scale, best verbal response, oriented, at arrival to emergency department; R40.2362 Coma scale, best motor response, obeys commands, at arrival to emergency department; I82.409 Acute embolism and thrombosis of unspecified deep veins of unspecified lower extremity
CPT/HCPCS: 70450; 72125; 80048; 85025; 85610; 85730; J2765; J7040; 36415; 96374

== ENCOUNTER 2016-08-05 16:24 | Emergency (ER) | payer OTHER ==
[~2016-08-05] VITALS: Ht 167.6 cm; Wt 73.5 kg
[2016-08-05 16:37] VITALS: Ht 167.6 cm; Wt 73.5 kg
[2016-08-05] MEDS ORDERED: CETI10CA PO (17:01)
[2016-08-05] MEDS ORDERED: FLUT9.9S NASAL (17:01)
[2016-08-05] MEDS ORDERED: CYCL-319 PO (17:01)
[2016-08-05] MEDS ORDERED: ACET500C5 PO (17:03)
[2016-08-05] MEDS ORDERED: TRAM50TA2 PO (17:08)
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
== END 2016-08-05 17:06 | disposition home or self-care (01) ==
LOC: FTE 16:24 → E/R 17:06
DX: H93.93 Unspecified disorder of ear, bilateral (principal); M54.2 Cervicalgia; Z79.01 Long term (current) use of anticoagulants; Z87.891 Personal history of nicotine dependence
CPT/HCPCS: 99284

== ENCOUNTER 2016-08-14 12:31 | Emergency (ER) | payer OTHER ==
[~2016-08-14] VITALS: Ht 167.6 cm; Wt 74.0 kg
[~2016-08-14 12:31] MED LIST changes: +ACET500C5 PO; +CETI10CA PO; +CYCL-319 PO; +FLUT9.9S NASAL; +TRAM50TA2 PO
[2016-08-14 12:40] VITALS: Ht 167.6 cm; Wt 74.0 kg
[2016-08-14] MEDS ORDERED: ONDANSETRON 4 MG INJ IV STA (14:50)
[2016-08-14] MEDS ORDERED: HYDROCODONE/APAP (5/325) TAB PO ONE (15:00)
[2016-08-14] MEDS ORDERED: ONDANSETRON 4 MG TAB PO ONE (15:00)
[2016-08-14] MEDS ORDERED: SOD CHLORIDE 0.9% 500 ML IV ONE (15:00)
[2016-08-14] MEDS ORDERED: ONDANSETRON (ODT) 4 MG TAB ODT STA (15:04)
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
[2016-08-14 15:26] LABS: ADD SCAN DIFF NO
[2016-08-14 15:29] LABS: BASOPHILS % 0.5 % (0.0-2.0); EOSINOPHILS # 0.1 10^3/ul (0.0-0.5); EOSINOPHILS % 1.7 % (0.0-7.0); HEMATOCRIT 37.8 % (42.0-52.0); HEMOGLOBIN 12.4 g/dl (14.0-18.0); LYMPHOCYTES # 1.8 10^3/ul (0.8-2.9); LYMPHOCYTES % 22.2 % (15.0-51.0); MEAN CORPUSCULAR HEMOGLOBIN 28.8 pg (29.0-33.0); MEAN CORPUSCULAR HGB CONC 32.8 g/dl (32.0-37.0); MEAN CORPUSCULAR VOLUME 87.9 fl (82.0-101.0); MEAN PLATELET VOLUME 8.7 fl (7.4-10.4); MONOCYTE # 0.9 10^3/ul (0.3-0.9); MONOCYTES % 10.4 % (0.0-11.0); NEUTROPHIL # 5.3 10^3/ul (1.6-7.5); NEUTROPHILS % 64.2 % (39.0-77.0); PLATELET COUNT 606 10^3/UL (140-415); RED CELL DISTRIBUTION WIDTH 13.1 % (11.5-14.5); WHITE BLOOD COUNT 8.2 10^3/ul (4.8-10.8)
[2016-08-14 15:39] LABS: ALBUMIN 4.5 g/dl (3.3-4.9); POTASSIUM 4.1 mmol/L (3.5-5.1)
[2016-08-14 15:41] LABS: ALBUMIN/GLOBULIN RATIO 1.12; BILIRUBIN,INDIRECT 0.2 mg/dl (0-1.1); BILIRUBIN,TOTAL 0.2 mg/dl (0.2-1.3); CREATININE 0.88 mg/dl (0.61-1.24); TOTAL PROTEIN 8.5 g/dl (6.1-8.1)
[2016-08-14 15:42] LABS: CALCIUM 9.7 mg/dl (8.4-10.2)
[2016-08-14] MEDS ORDERED: HYDR-906 PO (17:00)
== END 2016-08-14 17:35 | disposition home or self-care (01) ==
LOC: FTE 12:31
DX: M54.2 Cervicalgia (principal); R42 Dizziness and giddiness; Z87.891 Personal history of nicotine dependence
CPT/HCPCS: 80053; 85025; 93005; Z7610

== ENCOUNTER 2018-01-27 00:05 | Inpatient (IN) | END 2018-02-18 09:20 | disposition left against medical advice (07) | DRG 163 ==

== ENCOUNTER 2018-03-07 20:48 | Inpatient (IN) | END 2018-03-17 12:37 | disposition home or self-care (01) | DRG 200 ==

== ENCOUNTER 2018-03-23 14:34 | Emergency (ER) | END 2018-03-23 23:00 | disposition home or self-care (01) ==

== ENCOUNTER 2018-04-21 15:22 | Inpatient (IN) | payer OTHER ==
[~2018-04-21] VITALS: Ht 167.6 cm; Wt 67.0 kg
[~2018-04-21 15:22] MED LIST changes: -ACET500C5 PO; -APIX5TAB PO; -CETI10CA PO; -CYCL-319 PO; -DOCU-216 PO; -FLUT9.9S NASAL; -Hydrocodone/Apap (10/325) PO; -IBUP400T22 PO; -MECL-77 PO; +MUPI22OI2 TOP; +RIVA20TA5 PO; +SULF-182 PO; -TRAM50TA2 PO
[2018-04-21] MEDS ORDERED: IOHEXOL 300MG/ML 150 ML BTL ONE (19:32)
[2018-04-21] MEDS ORDERED: SOD CHLORIDE 0.9% 100 ML ONE (19:32)
--- NOTE | 2018-04-21 19:35 | ERD ---
ER Documentation Chief Complaint Chief Complaint CWP R side, SOB, requests suture removal from lung Sx w months ago HPI 57-year-old male presents to the emergency department on referral from his primary care doctor for evaluation of right-sided chest pain. Patient is a somewhat limited historian. History is further obtained from sarai valiente of his records. Patient is a few months removed from a tube drainage of a right-sided hydropne umothorax with multiple complications including a previous pulmonary embolism, for which she is anticoagulated, as well as aspergillosis. He presents the emergency department complaining of right-sided chest wall pain with no fevers, chills or sputum production. He states he is feeling slightly short of breath and the chest pain is new. However, he is unable to describe for me exactly what happened since his last hospitalization and how this pain has changed. ROS All systems reviewed and are negative except as per history of present illness. Medications Home Meds Discontinued Scripts Sulfamethoxazole/Trimethoprim (Sulfamethoxazole-Tmp Ds Tablet) 1 Each Tablet, 1 TAB PO BID, #20 TAB Prov:KELIN SCHULTZ NP 03/16/18 Mupirocin* (Bactroban*) 2% -22 Gram Oint...g., 1 APPLIC TOP BID for 7 Days, #1 UNIT Prov:KELIN SCHULTZ NP 03/16/18 Rivaroxaban* (Xarelto*) 20 Mg Tablet, 20 MG PO WITH DINNER for 30 Days, #30 TAB Prov:KELIN SCHULTZ NP 03/16/18 Allergies Allergies: Coded Allergies: No Known Allergy (Unverified , 04/21/18) PMhx/Soc History of Surgery: Yes (R lung sx, cervical spine w/ titanium screws, IVC filter, L inguinal hernia) Anesthesia Reaction: No Hx Neurological Disorder: No Hx Respiratory Disorders: Yes (R lung surgery) Hx Cardiac Disorders: No Hx Psychiatric Problems: No Hx Miscellaneous Medical Probl: No Hx Alcohol Use: Yes (sometimes daily) Hx Substance Use: Yes (marijuana 30 yrs ago) Hx Tobacco Use: Yes (smoked for 41 yrs, quit 4 yrs ago) FmHx Noncontributory for chief complaint Physical Exam Vitals Vital Signs Date Temp Pulse Resp B/P (MAP) Pulse Ox O2 O2 Flow FiO2 Time Delivery Rate 04/21/18 98.7 112 18 129/90 98 15:31 (103) Physical Exam GENERAL: Disheveled gentleman with poor hygiene HEENT: Pupils equal, round, and reactive to light. EOMI. There is no scleral icterus. NECK: C-spine is soft and supple, there is no meningismus. There is no cervical lymphadenopathy. LUNGS: Decreased breath sounds in the right side. No significant tachypnea or retractions. The left side appears normal. Chest wall has previous thoracotomy scars as well as sutures in place without evidence of infection on the anterior chest wall. HEART: Regular rate and rhythm, no murmurs, clicks, rubs or gallops. ABDOMEN: Soft, non-tender, non-distended. There are bowel sounds in all four quadrants. No rebound or guarding. EXTREMITIES: There is no peripheral cyanosis or edema. No focal swelling or erythema. NEURO: The patient moves all four extremities with 5/5 strength. Cranial nerves II - XII are intact. Normal gait. Alert and oriented SKIN: There is no apparent rash or petechiae. HEME/LYMPHATIC: There is no evidence of excessive bruising or lymphedema. PSYCHIATRIC: The patient does not appear anxious or depressed. Result Diagram: 04/21/18184604/21/181846 Results 24 hrs Laboratory Tests Test 04/21/18 18:47 White Blood Count 12.6 10^3/ul Red Blood Count 4.06 10^6/ul Hemoglobin 10.5 g/dl Hematocrit 33.1 % Mean Corpuscular Volume 81.5 fl Mean Corpuscular Hemoglobin 25.9 pg Mean Corpuscular Hemoglobin Concent 31.7 g/dl Red Cell Distribution Width 17.1 % Platelet Count 719 10^3/UL Mean Platelet Volume 8.3 fl Immature Granulocytes % 2.000 % Neutrophils % % Lymphocytes % % Monocytes % % Eosinophils % % Basophils % % Nucleated Red Blood Cells % 0.0 /100WBC Immature Granulocytes # 0.250 10^3/ul Neutrophils # 10^3/ul Lymphocytes # 10^3/ul Monocytes # 10^3/ul Eosinophils # 10^3/ul Basophils # 10^3/ul Nucleated Red Blood Cells # 10^3/ul Prothrombin Time 13.7 Sec Prothrombin Time Ratio 1.1 INR International Normalized Ratio 1.04 Activated Partial Thromboplast Time 30.0 Sec Sodium Level 137 mmol/L Potassium Level 4.6 mmol/L Chloride Level 100 mmol/L Carbon Dioxide Level 30 mmol/L Anion Gap 7 Blood Urea Nitrogen 12 mg/dl Creatinine 0.88 mg/dl Est Glomerular Filtrat Rate mL/min > 60 mL/min Glucose Level 99 mg/dl Calcium Level 9.2 mg/dl Troponin I < 0.012 ng/ml Procedures/MDM Patient was taken to a room, seen and evaluated. Comfort measures were initiated. Diagnostic tests were ordered and reviewed. 3 LEAD RHYTHM STRIP: Normal sinus rhythm without ectopy EK lead EKG reviewed by myself: Normal Sinus Rhythm Normal [place] and intervals No ST elevation, depression, or T wave inversion Impression: Normal EKG RADIOLOGY: Reviewed with the radiologist CONSULTATION: Hospitalist was notified for admission, Dr Sol has been called for consultation REEVALUATION: 193: Diagnostic tests were appreciated and arrangements were made for admission to the hospital MEDICAL DECISION MAKIN-year-old male who appears somewhat homeless presents the emergency department with right-sided chest pain and shortness of breath. His evaluation demonstrates what appears to be a reaccumulation of an underlying hydropneumothorax according to his x-ray and compared to studies from previous x-rays. He does not appear to be septic with no evidence of empyema based on his clinical presentation and normal white count and afebrile status. However, given the ongoing recurrence of this fluid and possible pneumothorax, he will require admission to the hospital for further surgical consultation, consideration of IR placement of a drainage catheter as it appears to be localized and potentially lobulated. A CT scan of the chest has been ordered and is pending at this time which will further define what is happening with the right sided chest concerns. Departure Diagnosis: Primary Impression: Hydropneumothorax Condition: ANABELL Vinson Apr 21, 2018 19:35
--- NOTE | 2018-04-21 20:05 | NUR ---
Procedure Ordered:CHEST W/IV CONTRAST Reason for Exam Today: Previous Exams: Allergies:NKDA Current Medications Taken: Glucophage ( ) Metformin ( ) Previous reaction to contrast media: Yes ( ) No ( ) : Yes ( ) No ( ) Asthma: Yes ( ) No (X ) Diabetes: Yes ( ) No ( X) Myeloma: Yes ( ) No ( X) Heart Disease: Yes ( ) No (X ) Cardiac Disease: Yes ( ) No ( X) Kidney Disease: Yes ( ) No ( X) Vascular Disease: Yes ( ) No ( X) Patient Teaching done: Yes ( X) No ( ) Outboard Technician Used: Yes ( ) No ( X) Name of Outboard Technician: Language Used: As part of the test requested by your doctor, contrast media may be injected into your vein while the x-rays are being taken. Occasionally, reactions from IV contrast may occur. The physician and staff of this hospital are trained to treat these reactions. Select the type of Contrast that will be given to patient: Isovue 300 ( ) Isovue 370 ( ) Visipaque ( ) Cystografin ( ) Gastrographin ( ) Redi-cat ( ) Volumen ( ) [id number](X) Amount of contrast to be given: 90CC IV ( X) PO ( ) Date given:04/21/18 Lab Values: BUN: 12 Creatinine:0.88 Reason why contrast cannot be given: Location of patient pre-procedure:[facility] 14 Location of patient post procedure:[facility] 14
[2018-04-21] MEDS ORDERED: VANCOMYCIN 1 GM (PMX) 250 ML IVPB ONE (21:30)
[2018-04-21] MEDS ORDERED: PIPER-TAZO 3.375 GM IV (PMX) 100 ML IVPB ONE (21:30)
[2018-04-21 22:48] VITALS: PULSE 78
[2018-04-21 22:50] VITALS: BP 130/75; PULSE 77; RESP 20; Ht 167.6 cm; Wt 67.0 kg
[2018-04-21 23:42] VITALS: BP 130/74; PULSE 77; RESP 18
--- NOTE | 2018-04-21 23:57 | HP ---
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 PLAN -ER is reached out to cardiothoracic surgeon recommended addressing issue with IR -He will be placed on broad-spectrum antibiotic -Supplemental oxygen and bronchodilators as needed -Patient stated that he has not been taking his blood thinners saying that he is homeless. -Social work/case work aide consult Result Diagram: 04/21/187 04/21/18 1847 Results 24hrs Laboratory Tests Test 04/21/18 18:47 White Blood Count 12.6 #H Red Blood Count 4.06 L Hemoglobin 10.5 L Hematocrit 33.1 L Mean Corpuscular Volume 81.5 L Mean Corpuscular Hemoglobin 25.9 L Mean Corpuscular Hemoglobin Concent 31.7 L Red Cell Distribution Width 17.1 H Platelet Count 719 #H Mean Platelet Volume 8.3 Immature Granulocytes % 2.000 H Neutrophils % Segmented Neutrophils % (Manual) 75 Lymphocytes % Lymphocytes % (Manual) 9 L Monocytes % Monocytes % (Manual) 11 Eosinophils % Eosinophils % (Manual) 4 Basophils % Basophils % (Manual) 1 Nucleated Red Blood Cells % 0.0 Immature Granulocytes # 0.250 H Neutrophils # Lymphocytes (Manual) 1.1 Lymphocytes # Monocytes # Monocytes # (Manual) 1.3 H Eosinophils # Basophils # Basophils # (Manual) 0.1 H Nucleated Red Blood Cells # Platelet Estimate INCREASED Giant Platelets 4 H Polychromasia 1+ Anisocytosis 1+ Target Cells 1+ Prothrombin Time 13.7 Prothrombin Time Ratio 1.1 INR International Normalized Ratio 1.04 Activated Partial Thromboplast Time 30.0 Sodium Level 137 Potassium Level 4.6 Chloride Level 100 Carbon Dioxide Level 30 Anion Gap 7 Blood Urea Nitrogen 12 Creatinine 0.88 Est Glomerular Filtrat Rate mL/min > 60 Glucose Level 99 Calcium Level 9.2 Troponin I < 0.012 HPI/ROS Admit Date/Time Admit Date/Time Apr 21, 2018 at 19:36 Hx of Present Illness This is a 57-year-old homeless male with a history of COPD, chronic PE on anticoagulation, right lower leg DVT(2015), right pleural effusion status post right thoracotomy and total pulmonary decortication along with bronchoscopy on 02/07/2018, and right-sided pneumothorax status post chest tube 03/07/18 and placement of a Heimlich valve 03/18/18. Patient presents the ER complaining of shortness of breath and right-sided chest pain. He was admitted here recently and had placement of a chest tube and placement of a Heimlich valve. Chest tube has been removed and Heimlich valve has since discharge been removed. Today in the ER, chest CT shows Large loculated relatively thick-walled hydropneumothorax on the right, with relatively high attenuation fluid which could represent pus or blood. He said he is homeless. He said he only takes his blood thinners sporadically. He is a symptom of right-sided chest pain and shortness of breath has been progressively getting worse. Upon presentation, oxygen saturation was 90% on room air. PMH/Family/Social Past Medical History Medical History: other (See HPI) Coded Allergies: No Known Allergy (Unverified , 04/21/18) Past Surgical History Past Surgical Hx: other (See HPI) Family History Significant Family History: no pertinent family hx Social History Alcohol Use: other Smoking Status: Former smoker Drug Use: other Exam/Review of Systems Vital Signs Vitals Vital Signs Date Temp Pulse Resp B/P (MAP) Pulse Ox O2 O2 Flow FiO2 Time Delivery Rate 04/21/18 98.3 77 18 130/74 97 23:42 (92) 04/21/18 Nasal 2.0 22:50 Cannula Exam Constitutional: alert, oriented Eyes: EOMI, PERRL Respiratory: other (Severely diminished breath sounds on the right side. Thank you right lateral chest/upper back scar which is healing well) Cardiovascular: regular rate and rhythm, nl pulses Gastrointestinal: soft Extremities: normal pulses AMBER MORALES MD Apr 21, 2018 23:57
[2018-04-22] VITALS (12 sets, daily range): BP systolic 122–139; BP diastolic 70–84; PULSE 71–99; RESP 19–20
[2018-04-22] MEDS ORDERED: ALBUTEROL/IPRATROPIUM (NEB) 3 ML AMP HHN PRN
[2018-04-22] MEDS ORDERED: NACL 0.9% 3 ML SYG IV SCH
--- NOTE | 2018-04-22 | NUR ---
PT ADMITTED FROM ER WITH STABLE CONDITION VITAL SIGN STABLE SEND MONEY SAMPSON $93 dollar and two knife and I/D CARD CREDIT CARD WITH SAFE DEPOSIT WITH SECURITY AND CARRY OUT MD ORDERS
[2018-04-22] MEDS: PIPER-TAZO 3.375 GM IV (PMX) 100 ML IVPB SCH ×5 (02:00→23:54)
[2018-04-22] MEDS: HYDROCODONE/APAP (5/325) TAB PO PRN ×3 (05:49→19:54)
--- NOTE | 2018-04-22 07:13 | NUR ---
VANCOMYCIN PER RX 57 yo MALE Allergy: NKA 56 67kg CC: right-sided pneumothorax status post chest tube 03/07/18 and placement of a Heimlich valve 03/18/18 OtHer antibiotics: Zosyn Labs: WBC 10.2 BUN and creatinine 11/0.85 A/P: Vancomycin 1000MG IVPB Q12H
[2018-04-22] MEDS ORDERED: VANCOMYCIN 750 MG (PMX) 250 ML IVPB SCH (08:00)
[2018-04-22] MEDS ORDERED: VANCOMYCIN IV PER PHARMACY XX SCH (09:00)
[2018-04-22] MEDS: VANCOMYCIN 1 GM 250 ML IVPB SCH ×2 (09:04→19:53)
--- NOTE | 2018-04-22 12:41 | PN ---
Date/Time of Note Date/Time of Note DATE: 04/22/18 TIME: 12:37 Assessment/Plan VTE Prophylaxis Risk score (from Ns)>0 risk: 3 SCD applied (from Ns): No SCD contraindicated: low risk/ambulating Pharmacological prophylaxis: NA/contraindicated Pharm contraindication: surgical contra Lines/Catheters [facility] Saline Lock Assessment/Plan Hospital Course Assessment and plan 1. Recurrent right hemopneumothorax. h/o VATS. Mild stable, consider IR guided pigtail. 2. Failure to thrive consider snf 3. Nonadherence high risk of recurrent pneumothorax demise. Patient has been counseled regarding this safety issue over the last few months 4. History of aspergillosis 5. Chronic PE w rt lwr ext DVT; sp IVCf status, due to nonadherence/high risk coagulopathy 6. Past tobacco 7. Likely chronic COPD 8 H/o MRSA chest wall cellulitis 9. Cervical spine disease 10. Anemia Subjective: No distress. Occasional cough with taking deep breaths. No hemoptysis. No diaphoresis fever. Objective vital signs stable Physical exam No pallor icterus adenopathy Regular no murmur gallop Diminished right no tachypnea at rest Bowel sounds diminished nontender nondistended no RG No edema Result Diagram: 04/22/18 0530 04/22/18 0530 Results 24hrs Laboratory Tests Test 04/21/18 18:47 04/22/18 05:30 White Blood Count 12.6 #H 10.2 Red Blood Count 4.06 L 4.22 L Hemoglobin 10.5 L 10.8 L Hematocrit 33.1 L 34.8 L Mean Corpuscular Volume 81.5 L 82.5 Mean Corpuscular Hemoglobin 25.9 L 25.6 L Mean Corpuscular Hemoglobin Concent 31.7 L 31.0 L Red Cell Distribution Width 17.1 H 17.3 H Platelet Count 719 #H 763 H Mean Platelet Volume 8.3 8.6 Immature Granulocytes % 2.000 H 1.900 H Neutrophils % 63.6 Segmented Neutrophils % (Manual) 75 Lymphocytes % 14.3 L Lymphocytes % (Manual) 9 L Monocytes % 11.0 Monocytes % (Manual) 11 Eosinophils % 7.9 H Eosinophils % (Manual) 4 Basophils % 1.3 Basophils % (Manual) 1 Nucleated Red Blood Cells % 0.0 0.0 Immature Granulocytes # 0.250 H 0.190 H Neutrophils # 6.5 Lymphocytes (Manual) 1.1 Lymphocytes # 1.5 Monocytes # 1.1 H Monocytes # (Manual) 1.3 H Eosinophils # 0.8 H Basophils # 0.1 Basophils # (Manual) 0.1 H Nucleated Red Blood Cells # 0.0 Platelet Estimate INCREASED Giant Platelets 4 H Polychromasia 1+ Anisocytosis 1+ Target Cells 1+ Prothrombin Time 13.7 Prothrombin Time Ratio 1.1 INR International Normalized Ratio 1.04 Activated Partial Thromboplast Time 30.0 Sodium Level 137 141 Potassium Level 4.6 3.9 Chloride Level 100 106 Carbon Dioxide Level 30 26 Anion Gap 7 9 Blood Urea Nitrogen 12 11 Creatinine 0.88 0.85 Est Glomerular Filtrat Rate mL/min > 60 > 60 Glucose Level 99 118 Calcium Level 9.2 9.2 Troponin I < 0.012 Magnesium Level 2.1 Total Bilirubin 0.0 L Direct Bilirubin 0.00 Indirect Bilirubin 0.0 Aspartate Amino Transf (AST/SGOT) 19 Alanine Aminotransferase (ALT/SGPT) < 6 L Alkaline Phosphatase 94 Total Protein 8.0 Albumin 3.8 Globulin 4.20 H Albumin/Globulin Ratio 0.90 Exam/Review of Systems Vital Signs Vitals Vital Signs Date Temp Pulse Resp B/P (MAP) Pulse Ox O2 O2 Flow FiO2 Time Delivery Rate 04/22/18 93 12:06 04/22/18 98.7 20 122/70 97 Room Air 11:30 (87) 04/21/18 2.0 22:50 Intake and Output 04/21/18 04/21/18 04/22/18 1515:00 23:00 07:00 IntakeIntake Total 400 ml OutputOutput Total 750 ml BalanceBalance -350 ml Medications Medications Current Medications IV Flush (NS 3 ml) 3 ml PER PROTOCOL IV ; Start 04/22/18 at 00:00 Ondansetron HCl (Zofran Inj) 4 mg Q6H PRN IV NAUSEA AND/OR VOMITING; Start 04/22/18 at 00:00 Acetaminophen (Tylenol Tab) 650 mg Q6H PRN PO PAIN LEVEL 1-3 OR FEVER; Start 04/22/18 at 00:00 Acetaminophen/ Hydrocodone Bitart ([place] (5/325)) 1 tab Q6H PRN PO PAIN LEVEL 4-6 Last administered on 04/22/18at 05:49; Admin Dose 1 TAB; Start 04/22/18 at 00:00 Acetaminophen/ Hydrocodone Bitart ([place] (5/325)) 2 tab Q6H PRN PO PAIN LEVEL 7-10; Start 04/22/18 at 00:00 Albuterol/ Ipratropium (Duoneb) 3 ml Q2H RESP THERAPY PRN HHN SHORTNESS OF BREATH; Start 04/22/18 at 00:00 Piperacillin Sod/ Tazobactam Sod 100 ml @ 200 mls/hr Q6 IVPB Last administered on 04/22/18at 11:25; Admin Dose 200 MLS/HR; Start 04/22/18 at 02:00 Influenza Virus Vaccine Quadrival (Fluzone) 0.5 ml ONCE ONCE IM* ; Start 04/23/18 at 10:00; Stop 04/23/18 at 10:01 Vancomycin HCl (Vanco Iv Per Pharmacy) VANCOMYCIN PER PHARMACY PER PROTOCOL XX ; Start 04/22/18 at 09:00 Vancomycin HCl 250 ml @ 125 mls/hr Q12H IVPB Last administered on 04/22/18at 09:04; Admin Dose 125 MLS/HR; Start 04/22/18 at 08:00 KALEY RAYGOZA MD Apr 22, 2018 12:41
[2018-04-22] MEDS ORDERED: DOCUSATE SODIUM 100 MG CAP PO PRN (13:00)
[2018-04-22] MEDS: LACTOBACILLUS RHAMNOSUS CAP PO SCH ×2 (14:00→23:02)
--- NOTE | 2018-04-22 14:10 | NUR ---
SW: HOMELESS KIMI met with this 57-year-old Divehi speaking male at bedside to assess living situation, and to provide appropriate community resources. Patient familiar to this database report writer from previous admissions, please see previous admission SW notes for more information. Patient states he is currently homeless, and stats that he stays in front of a business. Patient states that he has been housed for a total of 9 months between 2004 and today. Patient states that he got a divorce about 20 years ago. Patient states that he is currently disabled and is receiving about $221 in GR and $192 in foodstamps monthly. Patient states that he has a mother who lives in [place], and some family who lives in [place]. However, patient states that he does not want to go stay with family. He states that he wants to return back to his current residency, which is on the [place] on [facility]. Patient adamant that he wants to return back to [facility]. SW offered him viable placement options, such as recuperative care in [place], as well as winter shelters, however patient adamantly refused and states that he wants to go back to his current living armaments because he is "used to it." Patient states that he no longer has a gym membership, and he showers by cleaning up with a bucket of water. Patient declined resources for showers, food pantry, shelters, recuperative care, litigation attorney who specializes for SS benefits, etc, however patient declined any/ all resources. Patient was receptive to section 8 housing resource. SW also provided patient with 2 bus tokens. All other questions/ concerns denied at this time. SW remains available as needed throughout patient's treatment process. Addendum: 04/22/18 at 1427 by ADAM ESTES KIMI offered patient new clothing, however patient declined stating he has clothing.
[2018-04-22] MEDS: FAMOTIDINE 20 MG TAB PO SCH (14:28)
--- NOTE | 2018-04-22 18:44 | NUR ---
RN Notes Pt a/o x 4, stable on O2 2L NC. POC reviewed and was carried out, hourly rounding performed, needs anticipated, complained of pain & was medicated as ordered, room kept clean and clutter free. Pt scheduled to have pigtail insertion in IR on Wednesday. Per Pantera BADILLO, he will consent the pt on Wednesday prior to procedure. Will endorse accordingly to night RN.
[2018-04-23] VITALS (9 sets, daily range): BP systolic 106–136; BP diastolic 51–82; PULSE 66–101; RESP 20–22
--- NOTE | 2018-04-23 05:28 | NUR ---
END OF SHIFT REPORT NO UNDUE DEVELOPMENT. VITALS STABLE. PAIN MEDS GIVEN ONCE
[2018-04-23] MEDS: PIPER-TAZO 3.375 GM IV (PMX) 100 ML IVPB SCH ×2 (05:55→12:27)
[2018-04-23] MEDS: HYDROCODONE/APAP (5/325) TAB PO PRN ×2 (07:20→12:27)
[2018-04-23] MEDS: FAMOTIDINE 20 MG TAB PO SCH (08:28)
[2018-04-23] MEDS: VANCOMYCIN 1 GM 250 ML IVPB SCH (08:29)
[2018-04-23] MEDS: LACTOBACILLUS RHAMNOSUS CAP PO SCH ×2 (08:29→21:30)
--- NOTE | 2018-04-23 09:49 | NUR ---
VANCO PER RX PROTOCOL: DAY # 2 S/O: TEMP = 99 SCR/BUN = 0.83/9 WBC = 10.2 VANCO TR = 6.7 A/P: PT CLEARING VANCO 1GM Q 12HR BETTER THAN EXPECTED. CHANGE VANCO TO 1.5GM Q 12HR WITH TR LEVEL ON 4TH DOSE TO CHECK CLEARANCE. WILL CONTINUE TO FOLLOW.
--- NOTE | 2018-04-23 10:52 | NUR ---
RN NOTES Flu Vaccine followed up from pharmacy, still pending. RN to follow up again,
--- NOTE | 2018-04-23 15:54 | PN ---
Date/Time of Note Date/Time of Note DATE: 04/23/18 TIME: 15:53 Assessment/Plan VTE Prophylaxis Risk score (from Ns)>0 risk: 7 SCD applied (from Ns): No SCD contraindicated: low risk/ambulating Pharmacological prophylaxis: LMWH Lines/Catheters [facility] Saline Lock Assessment/Plan Hospital Course Assessment and plan 1. Recurrent right hemopneumothorax. h/o VATS. Mild stable, IR guided pigtail on Wednesday. 2. Failure to thrive consider snf 3. Nonadherence high risk of recurrent pneumothorax/progression of comorbidities. 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 Past tobacco 7. Likely chronic COPD 8 H/o MRSA chest wall cellulitis 9. Cervical spine disease 10. Anemia S: 04/22 no distress. Occasional cough with taking deep breaths. No hemoptysis. No diaphoresis fever. 04/23 no events. Some pleurisy chest pain. Some neck pain. Some cough no hemoptysis. No fever. Objective vital signs stable Physical exam No pallor Regular no murmur gallop Dimin rt no tachypnea at rest Bowel sounds dimin nt nd no RRG No edema Result Diagram: 04/23/18 0718 04/23/18 0718 Results 24hrs Laboratory Tests Test 04/23/18 07:18 White Blood Count 10.2 Red Blood Count 4.27 L Hemoglobin 10.9 L Hematocrit 34.9 L Mean Corpuscular Volume 81.7 L Mean Corpuscular Hemoglobin 25.5 L Mean Corpuscular Hemoglobin Concent 31.2 L Red Cell Distribution Width 17.1 H Platelet Count 710 H Mean Platelet Volume 8.2 Immature Granulocytes % 1.600 H Neutrophils % 67.4 Lymphocytes % 13.2 L Monocytes % 10.1 Eosinophils % 6.6 Basophils % 1.1 Nucleated Red Blood Cells % 0.0 Immature Granulocytes # 0.160 H Neutrophils # 6.9 Lymphocytes # 1.3 Monocytes # 1.0 H Eosinophils # 0.7 H Basophils # 0.1 Nucleated Red Blood Cells # 0.0 Prothrombin Time 14.0 Prothrombin Time Ratio 1.1 INR International Normalized Ratio 1.07 Sodium Level 140 Potassium Level 4.5 Chloride Level 104 Carbon Dioxide Level 27 Anion Gap 9 Blood Urea Nitrogen 9 Creatinine 0.83 Est Glomerular Filtrat Rate mL/min > 60 Glucose Level 108 Hemoglobin A1c 5.3 Calcium Level 9.6 Magnesium Level 2.0 Total Bilirubin 0.1 L Direct Bilirubin 0.00 Indirect Bilirubin 0.1 Aspartate Amino Transf (AST/SGOT) 18 Alanine Aminotransferase (ALT/SGPT) 12 L Alkaline Phosphatase 84 Total Protein 7.8 Albumin 3.8 Globulin 4.00 H Albumin/Globulin Ratio 0.95 Thyroid Stimulating Hormone (TSH) 0.833 Vancomycin Level Trough 6.7 L Exam/Review of Systems Vital Signs Vitals Vital Signs Date Temp Pulse Resp B/P (MAP) Pulse Ox O2 O2 Flow FiO2 Time Delivery Rate 04/23/18 98.0 66 20 136/76 96 Nasal 2.0 15:06 (96) Cannula Intake and Output 04/22/18 04/22/18 04/23/18 1515:00 23:00 07:00 IntakeIntake Total 350 ml 1550 ml 100 ml OutputOutput Total 800 ml BalanceBalance 350 ml 750 ml 100 ml Medications Medications Current Medications IV Flush (NS 3 ml) 3 ml PER PROTOCOL IV ; Start 04/22/18 at 00:00 Ondansetron HCl (Zofran Inj) 4 mg Q6H PRN IV NAUSEA AND/OR VOMITING; Start 04/22/18 at 00:00 Acetaminophen (Tylenol Tab) 650 mg Q6H PRN PO PAIN LEVEL 1-3 OR FEVER; Start 04/22/18 at 00:00 Acetaminophen/ Hydrocodone Bitart ([place] (5/325)) 1 tab Q6H PRN PO PAIN LEVEL 4-6 Last administered on 04/22/18at 14:28; Admin Dose 1 TAB; Start 04/22/18 at 00:00 Acetaminophen/ Hydrocodone Bitart ([place] (5/325)) 2 tab Q6H PRN PO PAIN LEVEL 7-10 Last administered on 04/23/18at 12:27; Admin Dose 2 TAB; Start 04/22/18 at 00:00 Albuterol/ Ipratropium (Duoneb) 3 ml Q2H RESP THERAPY PRN HHN SHORTNESS OF BREATH; Start 04/22/18 at 00:00 Piperacillin Sod/ Tazobactam Sod 100 ml @ 200 mls/hr Q6 IVPB Last administered on 04/23/18at 12:27; Admin Dose 200 MLS/HR; Start 04/22/18 at 02:00 Vancomycin HCl (Vanco Iv Per Pharmacy) VANCOMYCIN PER PHARMACY PER PROTOCOL XX ; Start 04/22/18 at 09:00 Lactobacillus Acidophilus/ Rhamnosus (Culturelle) 1 cap BID PO Last administered on 04/23/18at 08:29; Admin Dose 1 CAP; Start 04/22/18 at 14:00 Docusate Sodium (Colace) 200 mg BID PRN PO CONSTIPATION; Start 04/22/18 at 13:00 Famotidine (Pepcid) 20 mg DAILY PO Last administered on 04/23/18at 08:28; Admin Dose 20 MG; Start 04/22/18 at 13:00 Vancomycin HCl 1.5 gm/Sodium Chloride 250 ml @ 83.333 mls/ hr Q12H IVPB ; Start 04/23/18 at 20:00 KALEY RAYGOZA MD Apr 23, 2018 15:54
[2018-04-23] MEDS ORDERED: BISACODYL 10 MG SUPP PR PRN (16:00)
[2018-04-23] MEDS ORDERED: MAGNESIUM HYDROXIDE 30ML CUP PO PRN (16:00)
[2018-04-23] MEDS ORDERED: BISACODYL (EC) 5 MG TAB PO PRN (16:00)
[2018-04-23] MEDS ORDERED: IBUPROFEN 800 MG TAB PO PRN (16:00)
[2018-04-23] MEDS: HYDROCODONE/APAP (10/325) TAB PO PRN ×2 (16:45→20:45)
[2018-04-23] MEDS: ENOXAPARIN 40 MG/0.4 ML SYG SC SCH (17:19)
[2018-04-23] MEDS: VANCOMYCIN 1.5 GM in SOD CHLORIDE 0.9% 250 ML IVPB SCH (20:47)
[2018-04-24] VITALS (10 sets, daily range): BP systolic 99–140; BP diastolic 60–89; PULSE 67–99; RESP 18–22
[2018-04-24] MEDS: FAMOTIDINE 20 MG TAB PO SCH (08:20)
[2018-04-24] MEDS: HYDROCODONE/APAP (10/325) TAB PO PRN ×2 (08:20→21:20)
[2018-04-24] MEDS: LACTOBACILLUS RHAMNOSUS CAP PO SCH ×2 (08:20→21:20)
[2018-04-24] MEDS: VANCOMYCIN 1.5 GM in SOD CHLORIDE 0.9% 250 ML IVPB SCH ×2 (08:21→21:20)
[2018-04-24] MEDS: ENOXAPARIN 40 MG/0.4 ML SYG SC SCH (08:27)
--- NOTE | 2018-04-24 13:53 | PN ---
Date/Time of Note Date/Time of Note DATE: 04/24/18 TIME: 13:50 Assessment/Plan VTE Prophylaxis Risk score (from Ns)>0 risk: 7 SCD applied (from Ns): No SCD contraindicated: low risk/ambulating Pharmacological prophylaxis: NA/contraindicated Pharm contraindication: low risk/ambulating Lines/Catheters IV Catheter Type (from Nrs): Saline Lock Assessment/Plan Hospital Course Assessment and plan 1. Recurrent RT hemopneumothorax. h/o VATS. Mild stable, IR guided pigtail on tomorrow. 2. Ftt consider snf 3. Nonadherence high risk of recurrent pneumothorax/progression of comorbidities. has been counseled regarding this issue over the last few months 4. History of aspergillosis 5. Chr PE w rt lwr ext DVT; sp IVCf status, due to nonadherence/high risk coagu lopathy 6. Past tobacco 7. Likely chronic COPD 8 H/o MRSA chest wall cellulitis 9. Cervical spine disease 10. Anemia S: 04/22 no distress. Occasional cough with taking deep breaths. No hemoptysis. No diaphoresis fever. 04/23 no events. Some pleurisy chest pain. Some neck pain. Some cough no hemoptysis. No fever. /6: No events O: vss Physical exam No pallor Regular no m/r/g Dimin rt no tachypnea at rest Bs dimin nt nd no RRG No edema Result Diagram: 04/23/1818 04/23/18 0718 Exam/Review of Systems Vital Signs Vitals Vital Signs Date Temp Pulse Resp B/P (MAP) Pulse Ox O2 O2 Flow FiO2 Time Delivery Rate 04/24/18 97.6 99 20 140/89 96 Nasal 2.0 11:46 (106) Cannula Intake and Output 04/23/18 04/23/18 04/24/18 1515:00 23:00 07:00 IntakeIntake Total 350 ml 1400 ml 600 ml OutputOutput Total 2000 ml 1000 ml BalanceBalance 350 ml -600 ml -400 ml Medications Medications Current Medications IV Flush (NS 3 ml) 3 ml PER PROTOCOL IV ; Start 04/22/18 at 00:00 Ondansetron HCl (Zofran Inj) 4 mg Q6H PRN IV NAUSEA AND/OR VOMITING; Start 04/22 at 00:00 Acetaminophen (Tylenol Tab) 650 mg Q6H PRN PO PAIN LEVEL 1-3 OR FEVER; Start 04/22/18 at 00:00 Albuterol/ Ipratropium (Duoneb) 3 ml Q2H RESP THERAPY PRN HHN SHORTNESS OF BREATH; Start 04/22/18 at 00:00 Vancomycin HCl (Vanco Iv Per Pharmacy) VANCOMYCIN PER PHARMACY PER PROTOCOL XX ; Start 04/22/18 at 09:00 Lactobacillus Acidophilus/ Rhamnosus (Culturelle) 1 cap BID PO Last administered on 04/24/18at 08:20; Admin Dose 1 CAP; Start 04/22/18 at 14:00 Famotidine (Pepcid) 20 mg DAILY PO Last administered on 04/24/18at 08:20; Admin Dose 20 MG; Start 04/22/18 at 13:00 Vancomycin HCl 1.5 gm/Sodium Chloride 250 ml @ 83.333 mls/ hr Q12H IVPB Last administered on 04/24/18at 08:21; Admin Dose 83.333 MLS/HR; Start 04/23/18 at 20:00 Enoxaparin Sodium (Lovenox) 40 mg DAILY SC Last administered on 04/24/18at 08:27; Admin Dose 40 MG; Start 04/23/18 at 16:00; Stop 04/24/18 at 17:00 Docusate Sodium (Colace) 100 mg BID PRN PO CONSTIPATION; Start 04/23/18 at 16:00 Magnesium Hydroxide (Milk Of Mag) 30 ml DAILY PRN PO CONSTIPATION; Start 04/23/18 at 16:00 Bisacodyl (Dulcolax) 10 mg DAILY PRN PO CONSTIPATION; Start 04/23/18 at 16:00 Bisacodyl (Dulcolax Supp) 10 mg Q48H PRN [place] CONSTIPATION; Start 04/23/18 at 16:00 Acetaminophen/ Hydrocodone Bitart ([place] (10/325)) 1 tab Q3H PRN PO MODERATE PAIN LEVEL 4-6 Last administered on 04/24/18at 08:20; Admin Dose 1 TAB; Start 04/23/18 at 16:00 Ibuprofen (Motrin) 800 mg Q6H PRN PO MILD PAIN LEVEL 1-3; Start 04/23/18 at 16:00 Miscellaneous Information (*Rx Drug Level Order Reminder*) VANCO TR 04/25 AT 0700 ONCE ONCE XX ; Start 04/25/18 at 07:00; Stop 04/25/18 at 07:01 KALEY RAYGOZA MD Apr 24, 2018 13:53
--- NOTE | 2018-04-24 17:54 | NUR ---
EOSS Pt a/o x 4, stable on O2 2L NC, no sob/ noted. POC reviewed and was carried out, hourly rounding performed, needs anticipated, complained of pain & was medicated as ordered, room kept clean and clutter free. Pt scheduled to have pigtail insertion in IR on Wednesday. Per Pantera BADILLO, he will consent the pt on Wednesday prior to procedure. NPO PMN. Will endorse accordingly to night RN.
[2018-04-25] VITALS (12 sets, daily range): BP systolic 100–125; BP diastolic 62–79; PULSE 50–108; RESP 16–18
[2018-04-25] MEDS ORDERED: KETOROLAC 30 MG INJ IV ONE (01:00)
[2018-04-25] MEDS ORDERED: traMADol 50 MG TAB ONE (01:09)
[2018-04-25] MEDS ORDERED: KETOROLAC 30 MG INJ ONE (01:13)
[2018-04-25] MEDS: HYDROCODONE/APAP (10/325) TAB PO PRN ×3 (01:30→20:03)
[2018-04-25] MEDS: traMADol 50 MG TAB PO PRN (01:30)
[2018-04-25] MEDS ORDERED: RIVA20TA5 PO (03:50)
--- NOTE | 2018-04-25 06:03 | NUR ---
EOSS -Pt VSS -on 2L O2 nasal cannula, sats WNL -SR on monitor -PRN Haviland given for back pain -No s/sx of distress or acute changes noted -NPO since midnight for IR guided pigtail procedure. Radiology to obtain consent. -Flu vaccine has been requested again from pharmacy -Pt been taking xarelto at bedside while inpatient. Med not listed as ordered med on eMAR. Medrecon seems incomplete, no home meds reported. Pt stated he's been taking this since and the prescription was also from [facility]. Home medrecon updated. Added Xarelto. -Pt complained Haviland was not helping his pain at all. Notified Dr. Geiger, orders received and carried out to administer one time dose of Toradol and add tramadol 50mg q6 PRN. -Hourly rouding done -Fall precautions implemented -Needs attended -Will endorse to AM nurse accordingly
[2018-04-25] MEDS: VANCOMYCIN 1.5 GM in SOD CHLORIDE 0.9% 250 ML IVPB SCH ×2 (09:14→20:34)
[2018-04-25] MEDS: FAMOTIDINE 20 MG TAB PO SCH (09:15)
[2018-04-25] MEDS: LACTOBACILLUS RHAMNOSUS CAP PO SCH ×2 (09:21→20:39)
--- NOTE | 2018-04-25 09:39 | NUR ---
Chest Tube placement- THIS NURSE SPOKE WITH DR TY REGARDING PROCEDURE FOR TODAY AND INFORMED HIM OF PT TAKING HIS OWN BLOOD THINNER MEDICATION ON CORNER CUTTER LAST NIGHT. DR TY INFORMED THIS NURSE THAT PROCEDURE TO BE CANCELLED AND RESCHEDULED FOR OR ON 04/26/18. [employer] NOTIFIED OF CHANGE IN PROCEDURE TO OR. THIS NURSE TALKED WITH PT'S PRIMARY NURSE JUSTINO WYNN AND INFORMED HER THAT PROCEDURE CANCELLED FOR TODAY AND WILL BE DONE IN OR ON 04/26/[address] TY. SHE VERBALIZED UNDERSTANDING, AND PT TO BE NPO AFTER MIDNIGHT TONIGHT.
--- NOTE | 2018-04-25 10:15 | NUR ---
VANCO PER RX: 04/25 VANC TR = 13.2 Comments/Plan: CONTINUE VANCO 1.5 GM IVPB Q12H.
--- NOTE | 2018-04-25 10:46 | PN ---
Date/Time of Note Date/Time of Note DATE: 04/25/18 TIME: 10:45 Assessment/Plan VTE Prophylaxis Risk score (from Ns)>0 risk: 4 SCD applied (from [facility]): No SCD contraindicated: other Pharmacological prophylaxis: NA/contraindicated Pharm contraindication: other (Awaiting procedure) Lines/Catheters IV Catheter Type (from [facility]): Saline Lock Assessment/Plan Hospital Course SUBJECTIVE: Complains of right chest wall pain. OBJECTIVE: Physical Exam General: Adequately build 57 year-old male lying in bed in no apparent distress. HEENT: Normocephalic, atraumatic. Eyes: Anicteric sclerae, conjunctivae clear. ENT: Nasal septum midline, oral mucosa is moist. Neck supple, no JVD noticed. Respiratory: Bilaterally diminished breath sounds. No use of accessory muscles of respiration. Right-sided chest tube to water seal. Cardiovascular: S1, S2 heard. Regular rate and rhythm. Abdomen: Soft, nontender, and nondistended. Bowel sounds positive in all 4 quadrants. Genitourinary: Deferred. Extremities: No cyanosis, no clubbing, no edema. Peripheral pulses palpable. Neurologic: Cranial nerves II through XII grossly intact. The patient is awake, alert, and oriented. Skin: Right chest wall incision from thoracotomy. Labs & Vitals per chart ASSESSMENT & PLAN This is a 57-year-old male with COPD, chronic PE on anticoagulation, right pleural effusion status post right thoracotomy and total pulmonary decortication along with bronchoscopy on 02/07/2018, and right-sided pneumothorax The patient was S/P chest tube placement on 03/08/2018 by IR and was discharged with a Heimlich valve in place. The patient's chest tube was recently discontinued by thoracic surgery. The patient came back to the emergency room on 04/21/2017 complaining of dyspnea with the chest x-ray done on 04/21/2018 showing interval d evelopment of a probably loculated right pneumohydrothorax. Therefore, the patient was admitted to inpatient setting. 1. Right Hydropneumothorax. -Plan for IR placement of chest tube. 2. History of pulmonary embolism and DVT. -Status post IVC filter placement. -Factor Xa inhibitors on hold because of planned CT placement. 3. History of aspergillosis. 4. COPD. -Continue inhaled bronchodilators. 5. Microcytic anemia. -Monitor H&H closely. 6. Fluids, electrolytes, and nutrition. -Regular diet. 7. DVT prophylaxis -Resume factor Xa inhibitors after chest tube placement. 8. Plan. -Await history of placement by IR. The patient was seen in collaboration with Dr. Roth. Result Diagram: 04/23/18 0718 04/25/18 0658 Results 24hrs Laboratory Tests Test 04/25/18 06:58 Blood Urea Nitrogen 16 Creatinine 0.80 Vancomycin Level Trough 13.2 Exam/Review of Systems Vital Signs Vitals Vital Signs Date Temp Pulse Resp B/P (MAP) Pulse Ox O2 O2 Flow FiO2 Time Delivery Rate 04/25/18 64 09:01 04/25/18 98.2 16 100/62 97 Room Air 07:35 (75) 04/24/18 2.0 20:01 Intake and Output 04/24/18 04/24/18 04/25/18 1515:00 23:00 07:00 IntakeIntake Total 750 ml 650 ml BalanceBalance 750 ml 650 ml Medications Medications Current Medications IV Flush (NS 3 ml) 3 ml PER PROTOCOL IV ; Start 04/22/18 at 00:00 Ondansetron HCl (Zofran Inj) 4 mg Q6H PRN IV NAUSEA AND/OR VOMITING; Start 04/22/18 at 00:00 Acetaminophen (Tylenol Tab) 650 mg Q6H PRN PO PAIN LEVEL 1-3 OR FEVER; Start 04/22/18 at 00:00 Albuterol/ Ipratropium (Duoneb) 3 ml Q2H RESP THERAPY PRN HHN SHORTNESS OF BRINA ATH; Start 04/22/18 at 00:00 Vancomycin HCl (Vanco Iv Per Pharmacy) VANCOMYCIN PER PHARMACY PER PROTOCOL XX ; Start 04/22/18 at 09:00 Lactobacillus Acidophilus/ Rhamnosus (Culturelle) 1 cap BID PO Last administered on 04/25/18at 09:21; Admin Dose 1 CAP; Start 04/22/18 at 14:00 Famotidine (Pepcid) 20 mg DAILY PO Last administered on 04/25/18at 09:15; Admin Dose 20 MG; Start 04/22/18 at 13:00 Vancomycin HCl 1.5 gm/Sodium Chloride 250 ml @ 83.333 mls/ hr Q12H IVPB Last administered on 04/25/18at 09:14; Admin Dose 83.333 MLS/HR; Start 04/23/18 at 20:00 Docusate Sodium (Colace) 100 mg BID PRN PO CONSTIPATION; Start 04/23/18 at 16:00 Magnesium Hydroxide (Milk Of Mag) 30 ml DAILY PRN PO CONSTIPATION; Start 04/23/18 at 16:00 Bisacodyl (Dulcolax) 10 mg DAILY PRN PO CONSTIPATION; Start 04/23/18 at 16:00 Bisacodyl (Dulcolax Supp) 10 mg Q48H PRN [place] CONSTIPATION; Start 04/23/18 at 16:00 Acetaminophen/ Hydrocodone Bitart ([place] (10/325)) 1 tab Q3H PRN PO MODERATE PAIN LEVEL 4-6 Last administered on 04/25/18at 01:30; Admin Dose 1 TAB; Start 04/23/18 at 16:00 Ibuprofen (Motrin) 800 mg Q6H PRN PO MILD PAIN LEVEL 1-3 Last administered on 04/25/18at 09:15; Admin Dose 800 MG; Start 04/23/18 at 16:00 Tramadol HCl (Ultram) 50 mg Q6H PRN PO MODERATE PAIN LEVEL 4-6 Last administered on 04/25/18at 01:30; Admin Dose 50 MG; Start 04/25/18 at 01:00 KELIN SCHULTZ NP Apr 25, 2018 10:46
[2018-04-25] MEDS: ALBUTEROL/IPRATROPIUM (NEB) 3 ML AMP HHN SCH ×2 (13:25→20:00)
[2018-04-26] VITALS (23 sets, daily range): BP systolic 95–160; BP diastolic 46–90; PULSE 66–93; RESP 14–23
--- NOTE | 2018-04-26 05:28 | NUR ---
END OF SHIFT REPORT NO UNDUE DEVELOPMENT. VITALS STABLE. KEPT ON NPO FOR PLEURX PLACEMENT
[2018-04-26] MEDS: ALBUTEROL/IPRATROPIUM (NEB) 3 ML AMP HHN SCH ×3 (07:59→20:08)
[2018-04-26] MEDS: HYDROCODONE/APAP (10/325) TAB PO PRN ×2 (08:18→20:00)
[2018-04-26] MEDS: LACTOBACILLUS RHAMNOSUS CAP PO SCH ×2 (08:18→20:00)
[2018-04-26] MEDS: VANCOMYCIN 1.5 GM in SOD CHLORIDE 0.9% 250 ML IVPB SCH ×2 (08:19→19:59)
[2018-04-26] MEDS: FAMOTIDINE 20 MG TAB PO SCH (08:19)
--- NOTE | 2018-04-26 09:38 | NUR ---
Nurses Note: Pt. off Unit. Pt. went down to OR for Pigtail Placement. Report given to Sindy OR nurse.
--- NOTE | 2018-04-26 09:50 | PREAC ---
Date/Time of Note Date/Time of Note DATE: 04/26/18 TIME: 09:49 Anesthesia Eval and Record Evaluation Time Pre-Procedure Interview DATE: 04/26/18 TIME: 09:49 Age 57 Sex male NPO: 8 hrs Preoperative diagnosis Right hydropneumothorax Planned procedure Placement of right chest pigtail catheter Past Medical History Past Medical History: Includes Pulm: Other (Right hydropneumothorax) Heme: Anemia Surgery & Anesthesia Issues No known issue Meds Anticoagulation: No Beta Leydi within 24 hr: No Reason Beta Leydi not given: Pt. not on B-Leydi Reported Medications Rivaroxaban* (Xarelto*) 20 Mg Tablet, 20 MG PO WITH DINNER, TAB 04/25/18 Discontinued Scripts Sulfamethoxazole/Trimethoprim (Sulfamethoxazole-Tmp Ds Tablet) 1 Each Tablet, 1 TAB PO BID, #20 TAB Prov:KELIN SCHULTZ NP 03/16/18 Mupirocin* (Bactroban*) 2% -22 Gram Oint...g., 1 APPLIC TOP BID for 7 Days, #1 UNIT Prov:KELIN SCHULTZ NP 03/16/18 Rivaroxaban* (Xarelto*) 20 Mg Tablet, 20 MG PO WITH DINNER for 30 Days, #30 TAB Prov:KELIN SCHULTZ NP 03/16/18 Current Medications IV Flush (NS 3 ml) 3 ml PER PROTOCOL IV ; Start 04/22/18 at 00:00 Ondansetron HCl (Zofran Inj) 4 mg Q6H PRN IV NAUSEA AND/OR VOMITING; Start 04/22/18 at 00:00 Acetaminophen (Tylenol Tab) 650 mg Q6H PRN PO PAIN LEVEL 1-3 OR FEVER; Start 04/22/18 at 00:00 Albuterol/ Ipratropium (Duoneb) 3 ml Q2H RESP THERAPY PRN HHN SHORTNESS OF BREATH; Start 04/22/18 at 00:00 Vancomycin HCl (Vanco Iv Per Pharmacy) VANCOMYCIN PER PHARMACY PER PROTOCOL XX ; Start 04/22/18 at 09:00 Lactobacillus Acidophilus/ Rhamnosus (Culturelle) 1 cap BID PO Last administered on 04/26/18at 08:18; Admin Dose 1 CAP; Start 04/22/18 at 14:00 Famotidine (Pepcid) 20 mg DAILY PO Last administered on 04/26/18 08:19; Admin Dose 20 MG; Start 04/22/18 at 13:00 Vancomycin HCl 1.5 gm/Sodium Chloride 250 ml @ 83.333 mls/ hr Q12H IVPB Last administered on 04/26/18 08:19; Admin Dose 83.333 MLS/HR; Start 04/23/18 at 20:00 Docusate Sodium (Colace) 100 mg BID PRN PO CONSTIPATION; Start 04/23/18 at 16:00 Magnesium Hydroxide (Milk Of Mag) 30 ml DAILY PRN PO CONSTIPATION; Start 04/23/18 at 16:00 Bisacodyl (Dulcolax) 10 mg DAILY PRN PO CONSTIPATION; Start 04/23/18 at 16:00 Bisacodyl (Dulcolax Supp) 10 mg Q48H PRN [place] CONSTIPATION; Start 04/23/18 at 16:00 Acetaminophen/ Hydrocodone Bitart ([place] (10/325)) 1 tab Q3H PRN PO MODERATE PAIN LEVEL 4-6 Last administered on 04/26/18at 08:18; Admin Dose 1 TAB; Start 04/23/18 at 16:00 Ibuprofen (Motrin) 800 mg Q6H PRN PO MILD PAIN LEVEL 1-3 Last administered on 04/25/18 09:15; Admin Dose 800 MG; Start 04/23/18 at 16:00 Tramadol HCl (Ultram) 50 mg Q6H PRN PO MODERATE PAIN LEVEL 4-6 Last administered on 04/25/18 01:30; Admin Dose 50 MG; Start 04/25/18 at 01:00 Albuterol/ Ipratropium (Duoneb) 3 ml Q6HWA RESP THERAPY HHN Last administered on 04/26/18at 07:59; Admin Dose 3 ML; Start 04/25/18 at 14:00 Meds reviewed: Yes Allergies Coded Allergies: No Known Allergy (Unverified , 04/21/18) Allergies Reviewed: Yes Labs/Studies Labs Reviewed: Reviewed by anesthesiologist Result Diagram: 04/26/1821 04/26/1821 Laboratory Tests 04/26/18 05:21 test: N/A Pre-procedure Exam Last vitals Vital Signs Date Temp Pulse Resp B/P (MAP) Pulse Ox O2 O2 Flow FiO2 Time Delivery Rate 04/26/18 93 09:06 04/26/18 18 96 21 08:00 04/26/18 98.1 107/63 Nasal 07:24 (78) Cannula 04/25/18 2.0 08:00 Airway: Adequate mouth opening ( ) Mallampati: Mallampati I Teeth: Abnormal (4 lower teeth left) Lung: Abnormal (Coarse and attenuated on right lung) Heart: Normal ASA Physical Status ASA physical status: 3 Emergency: None Planned Anesthetic General/MAC: LMA, MAC Planned Pain Management Parenteral pain med Pre-operative Attestations Prior to commencing anesthesia and surgery, the patient was re-evaluated, there was verification of: *The patient's identity *The results of appropriate recent lab work and preoperative vital signs *The above evaluation not changing prior to induction *Anesthetic plan, risk benefits, alternative and complications discussed with patient/family; questions answered; patient/family understands, accepts and wishes to proceed. ABEBA ANTHONY MD Apr 26, 2018 09:50
[2018-04-26] MEDS ORDERED: PROPOFOL 20 ML ONE (10:12)
[2018-04-26] MEDS ORDERED: FENTAnyl 50 MCG/ML VIAL ONE (10:15)
[2018-04-26] MEDS ORDERED: MIDAZOLAM 1 MG/ML 2 ML INJ ONE (10:15)
[2018-04-26] MEDS ORDERED: LIDOCAINE 2% (MDV) 20 ML INJ ONE (10:51)
[2018-04-26] MEDS ORDERED: FENTAnyl 50 MCG/ML VIAL IV PRN ×3 (11:30)
[2018-04-26] MEDS ORDERED: MIDAZOLAM 1 MG/ML 2 ML INJ IV PRN (11:30)
[2018-04-26] MEDS ORDERED: ONDANSETRON 4 MG INJ IV PRN (11:30)
[2018-04-26] MEDS ORDERED: DIPHENHYDRAMINE 50 MG INJ IV PRN (11:30)
[2018-04-26] MEDS ORDERED: METOCLOPRAMIDE 10 MG INJ IV PRN (11:30)
[2018-04-26] MEDS ORDERED: MEPERIDINE 25 MG INJ IV PRN (11:30)
--- NOTE | 2018-04-26 11:47 | HPN ---
Date/Time of Note Date/Time of Note DATE: 04/26/18 TIME: 11:47 Interval H&P Admission Note Pt. seen H&P reviewed: No system changes INOCENCIO TY MD Apr 26, 2018 11:47
--- NOTE | 2018-04-26 11:55 | NUR ---
PACU NOTES: PATIENT AWAKE AND ALERT. ON 2 L NC 100% S/P RIGHT CHEST PIGTAIL CATHETER PLACEMENT W/ TEGADERM DRESSING PLACED. PIGTAIL CONNECTED TO CHEST TUBE W/ 35 ML PURULENT OUTPUT. TOLERATED P.O FLUIDS AND VOIDED IN THE URINAL 200 ML. COMPLAIN OF PAIN MEDICATED. Addendum: 04/26/18 at 1212 by FREDDY SHANE RN MEDICATED W/ FENTANYL IV 50 MCQ FOR PAIN 12/27 DR. TY PLACED ORDER TO PLACE PLEUR EVAC TO 80 WALL SUCTION, RESUME PRE OP DIET, TRANSFER TO ROOM 605.
--- NOTE | 2018-04-26 12:25 | PAC ---
Date/Time of Note Date/Time of Note DATE: 04/26/18 TIME: 12:25 Post-Anesthesia Notes Post-Anesthesia Note Last documented vital signs Vital Signs Date Temp Pulse Resp B/P (MAP) Pulse Ox O2 O2 Flow FiO2 Time Delivery Rate 04/26/18 70 12:16 04/26/18 15 104/71 100 Nasal 11:49 (82) Cannula 04/26/18 3.0 11:47 04/26/18 98.3 11:18 04/26/18 21 08:00 Activity: WNL Respiratory function: WNL Cardiovascular function: WNL Mental status: Baseline Pain reasonably controlled: Yes Hydration appropriate: Yes Nausea/Vomiting absent: Yes ABEBA ANTHONY MD Apr 26, 2018 12:25
--- NOTE | 2018-04-26 12:44 | NUR ---
Nurses Note: Pt. back to room 605 from OR. Pt. came back with Right Chest Tube to Pleur-Evac connected to 80 wall suction. Chest Tube output 100ml. Pt. is awake and oriented. Vital signs are stable. Pt. on 2L NC saturation 100%. Diet resumed to regular. Pt. eating lunch at this time. Will continue to monitor.
--- NOTE | 2018-04-26 13:01 | NUR ---
Pt. was off unit. Addendum: 04/26/18 at 1301 by CANDICE CROFT RN Amended: Links added.
--- NOTE | 2018-04-26 14:30 | PN ---
Date/Time of Note Date/Time of Note DATE: 04/26/18 TIME: 14:26 Assessment/Plan VTE Prophylaxis Risk score (from Ns)>0 risk: 1 SCD applied (from [facility] [place] Yes Pharmacological prophylaxis: NA/contraindicated Pharm contraindication: other (S/P CT placement on 04/26/2017.) Lines/Catheters IV Catheter Type (from [place]): Peripheral IV Assessment/Plan Hospital Course SUBJECTIVE: Complains of right chest wall pain. OBJECTIVE: Physical Exam General: Adequately build 57 year-old male lying in bed in no apparent distress. HEENT: Normocephalic, atraumatic. Eyes: Anicteric sclerae, conjunctivae clear. ENT: Nasal septum midline, oral mucosa is moist. Neck supple, no JVD noticed. Respiratory: Bilaterally diminished breath sounds. No use of accessory muscles of respiration. Right-sided chest tube to water seal. Cardiovascular: S1, S2 heard. Regular rate and rhythm. Abdomen: Soft, nontender, and nondistended. Bowel sounds positive in all 4 quadrants. Genitourinary: Deferred. Extremities: No cyanosis, no clubbing, no edema. Peripheral pulses palpable. Neurologic: Cranial nerves II through XII grossly intact. The patient is awake, alert, and oriented. Skin: Right chest wall incision from thoracotomy. Right sided chest tube to suction draining whitish yellow fluid. Labs & Vitals per chart ASSESSMENT & PLAN This is a 57-year-old male with COPD, chronic PE on anticoagulation, right pleural effusion status post right thoracotomy and total pulmonary decortication along with bronchoscopy on 02/07/2018, and right-sided pneumothorax The patient was S/P chest tube placement on 03/08/2018 by IR and was discharged with a Espinoza lich valve in place. The patient's chest tube was recently discontinued by thoracic surgery. The patient came back to the emergency room on 04/21/2017 complaining of dyspnea with the chest x-ray done on 04/21/2018 showing interval development of a probably loculated right pneumohydrothorax. Therefore, the patient was admitted to inpatient setting. 1. Right Hydropneumothorax. -S/P IR placement of chest tube on 04/26/2018. -Send fluid studies. 2. History of pulmonary embolism and DVT. -Status post IVC filter placement. -Factor Xa inhibitors on hold because of recent CT placement. 3. History of aspergillosis. 4. COPD. -Continue inhaled bronchodilators. 5. Microcytic anemia. -Monitor H&H closely. 6. Fluids, electrolytes, and nutrition. -Regular diet. 7. DVT prophylaxis -Resume factor Xa inhibitors after chest tube placement when it is safe. 8. Plan. -Continue CT drainage. -Send fluid studies. -Await pulmonary evaluation. The patient was seen in collaboration with Dr. Roth. Result Diagram: 04/26/1852004/26/1821 Results 24hrs Laboratory Tests Test 04/26/18 05:21 White Blood Count 11.7 H Red Blood Count 4.49 L Hemoglobin 11.2 L Hematocrit 37.2 L Mean Corpuscular Volume 82.9 Mean Corpuscular Hemoglobin 24.9 L Mean Corpuscular Hemoglobin Concent 30.1 L Red Cell Distribution Width 16.6 H Platelet Count 664 H Mean Platelet Volume 8.4 Immature Granulocytes % 1.600 H Neutrophils % 73.2 Lymphocytes % 10.4 L Monocytes % 9.7 Eosinophils % 4.2 Basophils % 0.9 Nucleated Red Blood Cells % 0.0 Immature Granulocytes # 0.190 H Neutrophils # 8.6 H Lymphocytes # 1.2 Monocytes # 1.1 H Eosinophils # 0.5 Basophils # 0.1 Nucleated Red Blood Cells # 0.0 Sodium Level 138 Potassium Level 5.2 H Chloride Level 101 Carbon Dioxide Level 30 Anion Gap 7 Blood Urea Nitrogen 15 Creatinine 0.75 Est Glomerular Filtrat Rate mL/min > 60 Glucose Level 106 Calcium Level 9.8 Phosphorus Level 4.1 Magnesium Level 1.8 Exam/Review of Systems Vital Signs Vitals Vital Signs Date Temp Pulse Resp B/P (MAP) Pulse Ox O2 O2 Flow FiO2 Time Delivery Rate 04/26/18 88 18 95 21 14:00 04/26/18 Nasal 2.0 12:50 Cannula 04/26/18 98.6 115/70 12:39 (85) Intake and Output 04/25/18 04/25/18 04/26/18 1515:00 23:00 07:00 IntakeIntake Total 100 ml 900 ml 500 ml OutputOutput Total 300 ml 1050 ml BalanceBalance -200 ml 900 ml -550 ml Medications Medications Current Medications IV Flush (NS 3 ml) 3 ml PER PROTOCOL IV ; Start 04/22/18 at 00:00 Ondansetron HCl (Zofran Inj) 4 mg Q6H PRN IV NAUSEA AND/OR VOMITING; Start 04/22/18 at 00:00 Acetaminophen (Tylenol Tab) 650 mg Q6H PRN PO PAIN LEVEL 1-3 OR FEVER; Start 04/22/18 at 00:00 Albuterol/ Ipratropium (Duoneb) 3 ml Q2H RESP THERAPY PRN HHN SHORTNESS OF BREATH; Start 04/22/18 at 00:00 Vancomycin HCl (Vanco Iv Per Pharmacy) VANCOMYCIN PER PHARMACY PER PROTOCOL XX ; Start 04/22/18 at 09:00 Lactobacillus Acidophilus/ Rhamnosus (Culturelle) 1 cap BID PO Last administered on 04/26/18at 08:18; Admin Dose 1 CAP; Start 04/22/18 at 14:00 Famotidine (Pepcid) 20 mg DAILY PO Last administered on 04/26/18at 08:19; Admin Dose 20 MG; Start 04/22/18 at 13:00 Vancomycin HCl 1.5 gm/Sodium Chloride 250 ml @ 83.333 mls/ hr Q12H IVPB Last administered on 04/26/18at 08:19; Admin Dose 83.333 MLS/HR; Start 04/23/18 at 20:00 Docusate Sodium (Colace) 100 mg BID PRN PO CONSTIPATION; Start 04/23/18 at 16:00 Magnesium Hydroxide (Milk Of Mag) 30 ml DAILY PRN PO CONSTIPATION; Start 04/23/18 at 16:00 Bisacodyl (Dulcolax) 10 mg DAILY PRN PO CONSTIPATION; Start 04/23/18 at 16:00 Bisacodyl (Dulcolax Supp) 10 mg Q48H PRN [place] CONSTIPATION; Start 04/23/18 at 16:00 Acetaminophen/ Hydrocodone Bitart ([place] (10/325)) 1 tab Q3H PRN PO MODERATE PAIN LEVEL 4-6 Last administered on 04/26/18at 08:18; Admin Dose 1 TAB; Start 04/23/18 at 16:00 Ibuprofen (Motrin) 800 mg Q6H PRN PO MILD PAIN LEVEL 1-3 Last administered on 04/25/18at 09:15; Admin Dose 800 MG; Start 04/23/18 at 16:00 Tramadol HCl (Ultram) 50 mg Q6H PRN PO MODERATE PAIN LEVEL 4-6 Last administered on 04/25/18at 01:30; Admin Dose 50 MG; Start 04/25/18 at 01:00 Albuterol/ Ipratropium (Duoneb) 3 ml Q6HWA RESP THERAPY HHN Last administered on 04/26/18at 14:00; Admin Dose 3 ML; Start 04/25/18 at 14:00 Fentanyl (Sublimaze) 25 mcg PACU ORDER PRN IV MILD PAIN LEVEL 1-3; Start 04/26/18 at 11:30; Stop 04/26/18 at 16:00 Fentanyl (Sublimaze) 50 mcg PACU ORDER PRN IV MODERATE PAIN LEVEL 4-6 Last administered on 04/26/18at 12:01; Admin Dose 50 MCG; Start 04/26/18 at 11:30; Stop 04/26/18 at 16:00 Fentanyl (Sublimaze) 75 mcg PACU ORDER PRN IV SEVERE PAIN LEVEL 7-10; Start 04/26/18 at 11:30; Stop 04/26/18 at 16:00 Ondansetron HCl (Zofran Inj) 4 mg PACU ORDER PRN IV NAUSEA AND/OR VOMITING; Start 04/26/18 at 11:30; Stop 04/26/18 at 16:00 Metoclopramide HCl (Reglan) 10 mg PACU ORDER PRN IV NAUSEA AND/OR VOMITING; Start 04/26/18 at 11:30; Stop 04/26/18 at 16:00 Meperidine HCl (Demerol) 25 mg PACU ORDER PRN IV POST OPERATIVE SHIVERING; Start 04/26/18 at 11:30; Stop 04/26/18 at 16:00 Diphenhydramine HCl (Benadryl) 25 mg PACU ORDER PRN IV PRURITUS; Start 04/26/18 at 11:30; Stop 04/26/18 at 16:00 Midazolam HCl (Versed) 0.5 mg PACU ORDER PRN IV ANXIETY; Start 04/26/18 at 11:30; Stop 04/26/18 at 16:00 KELIN SCHULTZ NP Apr 26, 2018 14:30
--- NOTE | 2018-04-26 18:38 | NUR ---
EOSS: Pt. went down to OR for Pigtail placement. Pt. with Right Chest Tube to Pleur-Evac to 80 wall suction. Body fluid specimen collected and sent to lab. Vital signs remained stable. Pt's diet resumed to regular. Pt. tolerated feeding very well. Pt. did not complain of pain since pt's got back to unit. Effective hourly rounding complete. All needs meet. Will continue to monitor and report care to day shift.
[2018-04-27] VITALS (11 sets, daily range): BP systolic 103–138; BP diastolic 60–77; PULSE 57–120; RESP 18–20
--- NOTE | 2018-04-27 06:42 | NUR ---
END OF SHIFT REPORT DRAINED 150 ML OF PALE YELLOW EXUDATE FROM THE PLEURX CATHETER.. PLEUREVAC CONNECTED TO 80 MM WALL SUCTION PRESSURE GIVEN PAIN MEDS ONCE; VITALS STABLE; SINUS RHYTHM ON MONITOR.
[2018-04-27] MEDS: ALBUTEROL/IPRATROPIUM (NEB) 3 ML AMP HHN SCH ×3 (08:52→19:52)
[2018-04-27] MEDS: VANCOMYCIN 1.5 GM in SOD CHLORIDE 0.9% 250 ML IVPB SCH ×2 (09:27→20:02)
[2018-04-27] MEDS: FAMOTIDINE 20 MG TAB PO SCH (09:27)
[2018-04-27] MEDS: LACTOBACILLUS RHAMNOSUS CAP PO SCH ×2 (09:28→20:39)
--- NOTE | 2018-04-27 10:53 | CONS ---
Date/Time of Note Date/Time of Note DATE: 04/27/18 TIME: 10:50 Assessment/Plan Assessment/Plan Assessment/Plan Assessment and recommendations; 1. Patient admitted with right recurrent pneumothorax with pneumonia involving right lung. Status post chest tube placement. Currently on appropriate antimicrobial regimen. 2. Significant right-sided pleural thickening preventing full right lung reexpansion also explaining failed VATS procedure. Continue current supportive care. Result Diagram: 04/27/18 0520 04/27/18 0520 Results 24hrs Laboratory Tests Test 04/26/18 14:51 04/26/18 15:30 04/27/18 05:20 Lactate Dehydrogenase 431 Body Fluid Type THORACENTHESIS Body Fluid Volume 10.0 Body Fluid Color MILKY Body Fluid Appearance TURBID Body Fluid WBC 7039 Body Fluid RBC (Auto) 633846 Body Fluid Polynuclear WBCs (%) 87.3 Body Fluid Mononuclear Cells % Auto 12.7 White Blood Count 9.8 Red Blood Count 4.26 L Hemoglobin 10.7 L Hematocrit 35.1 L Mean Corpuscular Volume 82.4 Mean Corpuscular Hemoglobin 25.1 L Mean Corpuscular Hemoglobin Concent 30.5 L Red Cell Distribution Width 16.7 H Platelet Count 613 H Mean Platelet Volume 8.6 Immature Granulocytes % 1.900 H Neutrophils % 65.6 Lymphocytes % 14.2 L Monocytes % 13.3 H Eosinophils % 4.0 Basophils % 1.0 Nucleated Red Blood Cells % 0.0 Immature Granulocytes # 0.190 H Neutrophils # 6.4 Lymphocytes # 1.4 Monocytes # 1.3 H Eosinophils # 0.4 Basophils # 0.1 Nucleated Red Blood Cells # 0.0 Sodium Level 140 Potassium Level 4.9 Chloride Level 102 Carbon Dioxide Level 29 Anion Gap 9 Blood Urea Nitrogen 14 Creatinine 0.73 Est Glomerular Filtrat Rate mL/min > 60 Glucose Level 115 Calcium Level 9.9 Phosphorus Level 5.0 H Magnesium Level 2.0 Consultation Date/Type/Reason Admit Date/Time Apr 21, 2018 at 19:36 Date of Consultation: Apr 27, 2018 Type of Consult Pulmonary History of presenting illness; Patient is a 57-year-old male with a history of recurrent right pneumothorax status post attempted VATS admitted again for shortness of breath. Chest x-ray showing recurrent 50% right pneumothorax with infiltrative changes on chest x- ray. Patient underwent a tube thoracostomy by interventional radiology yesterday. Patient is feeling better and denies any significant shortness of breath. Past medical history; 1. History of underlying severe emphysema. 2. Status post right-sided VATS for recurrent right pneumothorax with apparent failure. 3. History of recurrent right pneumothorax status post multiple chest tube placements. 4. Chronic pain. Medications; reviewed. Allergies; none. Social history; patient is a strong history of heavy smoking. Family history; noncontributory. Occupational history; patient is on disability. Review of systems; denies any headache, chest pain, shortness of breath has improved. Denies any coughing or wheezing. Any hemoptysis or sputum production. Any fever or chills. Denies any weight loss. Any orthopnea. Any melena or hematochezia. General exam; middle-aged male, appears quite emaciated awake and alert. Currently in no distress. Past Medical History Medical History: other (See HPI) Medications Current Medications IV Flush (NS 3 ml) 3 ml PER PROTOCOL IV ; Start 04/22/18 at 00:00 Ondansetron HCl (Zofran Inj) 4 mg Q6H PRN IV NAUSEA AND/OR VOMITING; Start 04/22/18 at 00:00 Acetaminophen (Tylenol Tab) 650 mg Q6H PRN PO PAIN LEVEL 1-3 OR FEVER; Start 04/22/18 at 00:00 Albuterol/ Ipratropium (Duoneb) 3 ml Q2H RESP THERAPY PRN HHN SHORTNESS OF BREATH; Start 04/22/18 at 00:00 Vancomycin HCl (Vanco Iv Per Pharmacy) VANCOMYCIN PER PHARMACY PER PROTOCOL XX ; Start 04/22/18 at 09:00 Lactobacillus Acidophilus/ Rhamnosus (Culturelle) 1 cap BID PO Last administered on 04/27/18at 09:28; Admin Dose 1 CAP; Start 04/22/18 at 14:00 Famotidine (Pepcid) 20 mg DAILY PO Last administered on 04/27/18at 09:27; Admin Dose 20 MG; Start 04/22/18 at 13:00 Vancomycin HCl 1.5 gm/Sodium Chloride 250 ml @ 83.333 mls/ hr Q12H IVPB Last administered on 04/27/18at 09:27; Admin Dose 83.333 MLS/HR; Start 04/23/18 at 20:00 Docusate Sodium (Colace) 100 mg BID PRN PO CONSTIPATION; Start 04/23/18 at 16:00 Magnesium Hydroxide (Milk Of Mag) 30 ml DAILY PRN PO CONSTIPATION; Start 04/23/18 at 16:00 Bisacodyl (Dulcolax) 10 mg DAILY PRN PO CONSTIPATION; Start 04/23/18 at 16:00 Bisacodyl (Dulcolax Supp) 10 mg Q48H PRN [place] CONSTIPATION; Start 04/23/18 at 16:00 Acetaminophen/ Hydrocodone Bitart ([place] (10/325)) 1 tab Q3H PRN PO MODERATE PAIN LEVEL 4-6 Last administered on 04/26/18at 20:00; Admin Dose 1 TAB; Start 04/23/18 at 16:00 Ibuprofen (Motrin) 800 mg Q6H PRN PO MILD PAIN LEVEL 1-3 Last administered on 04/25/18at 09:15; Admin Dose 800 MG; Start 04/23/18 at 16:00 Tramadol HCl (Ultram) 50 mg Q6H PRN PO MODERATE PAIN LEVEL 4-6 Last administered on 04/25/18at 01:30; Admin Dose 50 MG; Start 04/25/18 at 01:00 Albuterol/ Ipratropium (Duoneb) 3 ml Q6HWA RESP THERAPY HHN Last administered on 04/27/18at 08:52; Admin Dose 3 ML; Start 04/25/18 at 14:00 Allergies: Coded Allergies: No Known Allergy (Unverified , 04/21/18) Past Surgical History Past Surgical Hx: other (See HPI) Social History Alcohol Use: other Smoking Status: Former smoker Drug Use: other Exam/Review of Systems Vital Signs Vitals Vital Signs Date Temp Pulse Resp B/P (MAP) Pulse Ox O2 O2 Flow FiO2 Time Delivery Rate 04/27/18 82 20 96 21 08:52 04/27/18 98.1 124/77 Room Air 07:48 (93) 04/27/18 2.0 07:33 Intake and Output 04/26/18 04/26/18 04/27/18 1515:00 23:00 07:00 IntakeIntake Total 380 ml 1750 ml 600 ml OutputOutput Total 555 ml 900 ml 1250 ml BalanceBalance -175 ml 850 ml -650 ml Exam HEENT exam; supple neck, no JVD. No lymphadenopathy. Midline trachea. No thyromegaly. Patient has a multiple carious teeth. Chest exam; diminished breath sounds throughout. S1-S2 audible, no murmurs. Regular rhythm. Right sided chest tube in place. Abdomen exam; soft, scaphoid. Nontender. No organomegaly. Bowel sounds audible. Extremity exam; no peripheral edema or clubbing. ARCHIT[employer]DEL [employer]ER exam; no focal deficit. Medications Medications Current Medications IV Flush (NS 3 ml) 3 ml PER PROTOCOL IV ; Start 04/22/18 at 00:00 Ondansetron HCl (Zofran Inj) 4 mg Q6H PRN IV NAUSEA AND/OR VOMITING; Start 04/22/18 at 00:00 Acetaminophen (Tylenol Tab) 650 mg Q6H PRN PO PAIN LEVEL 1-3 OR FEVER; Start 04/22/18 at 00:00 Albuterol/ Ipratropium (Duoneb) 3 ml Q2H RESP THERAPY PRN HHN SHORTNESS OF BREATH; Start 04/22/18 at 00:00 Vancomycin HCl (Vanco Iv Per Pharmacy) VANCOMYCIN PER PHARMACY PER PROTOCOL XX ; Start 04/22/18 at 09:00 Lactobacillus Acidophilus/ Rhamnosus (Culturelle) 1 cap BID PO Last administered on 04/27/18at 09:28; Admin Dose 1 CAP; Start 04/22/18 at 14:00 Famotidine (Pepcid) 20 mg DAILY PO Last administered on 04/27/18at 09:27; Admin Dose 20 MG; Start 04/22/18 at 13:00 Vancomycin HCl 1.5 gm/Sodium Chloride 250 ml @ 83.333 mls/ hr Q12H IVPB Last administered on 04/27/18at 09:27; Admin Dose 83.333 MLS/HR; Start 04/23/18 at 20:00 Docusate Sodium (Colace) 100 mg BID PRN PO CONSTIPATION; Start 04/23/18 at 16:00 Magnesium Hydroxide (Milk Of Mag) 30 ml DAILY PRN PO CONSTIPATION; Start 04/23/18 at 16:00 Bisacodyl (Dulcolax) 10 mg DAILY PRN PO CONSTIPATION; Start 04/23/18 at 16:00 Bisacodyl (Dulcolax Supp) 10 mg Q48H PRN [place] CONSTIPATION; Start 04/23/18 at 16:00 Acetaminophen/ Hydrocodone Bitart ([place] (325)) 1 tab Q3H PRN PO MODERATE PAIN LEVEL 4-6 Last administered on 04/26/18 20:00; Admin Dose 1 TAB; Start 04/23/18 at 16:00 Ibuprofen (Motrin) 800 mg Q6H PRN PO MILD PAIN LEVEL 1-3 Last administered on 04/25/18 09:15; Admin Dose 800 MG; Start 04/23/18 at 16:00 Tramadol HCl (Ultram) 50 mg Q6H PRN PO MODERATE PAIN LEVEL 4-6 Last administered on 04/25/18at 01:30; Admin Dose 50 MG; Start 04/25/18 at 01:00 Albuterol/ Ipratropium (Duoneb) 3 ml Q6HWA RESP THERAPY HHN Last administered on 04/27/18at 08:52; Admin Dose 3 ML; Start 04/25/18 at 14:00 NEEL BAZZI Apr 27, 2018 10:53
[2018-04-27] MEDS: HYDROCODONE/APAP (10/325) TAB PO PRN ×3 (14:30→21:53)
--- NOTE | 2018-04-27 14:51 | PN ---
Date/Time of Note Date/Time of Note DATE: 04/27/18 TIME: 14:49 Assessment/Plan VTE Prophylaxis Risk score (from Ns)>0 risk: 6 SCD applied (from [facility] [place]): No SCD contraindicated: other Pharmacological prophylaxis: other Lines/Catheters IV [facility] Type (from [facility]): Peripheral IV Assessment/Plan Hospital Course SUBJECTIVE: Complains of right chest wall pain. OBJECTIVE: Physical Exam General: Adequately build 57 year-old male lying in bed in no apparent distress. HEENT: Normocephalic, atraumatic. Eyes: Anicteric sclerae, conjunctivae clear. ENT: Nasal septum midline, oral mucosa is moist. Neck supple, no JVD noticed. Respiratory: Bilaterally diminished breath sounds. No use of accessory muscles of respiration. Right-sided chest tube to suction. Cardiovascular: S1, S2 heard. Regular rate and rhythm. Abdomen: Soft, nontender, and nondistended. Bowel sounds positive in all 4 quadrants. Genitourinary: Deferred. Extremities: No cyanosis, no clubbing, no edema. Peripheral pulses palpable. Neurologic: Cranial nerves II through XII grossly intact. The patient is awake, alert, and oriented. Skin: Right chest wall incision from thoracotomy. Right sided chest tube to suction draining whitish yellow fluid. Labs & Vitals per chart ASSESSMENT & PLAN This is a 57-year-old male with COPD, chronic PE on anticoagulation, right pleural effusion status post right thoracotomy and total pulmonary decortication along with bronchoscopy on 02/07/2018, and right-sided pneumothorax The patient was S/P chest tube placement on 03/08/2018 by IR and was discharged with a Heimlich valve in place. The patient's chest tube was recently discontinued by thoracic surgery. The patient came back to the emergency room on 04/21/2017 c omplaining of dyspnea with the chest x-ray done on 04/21/2018 showing interval development of a probably loculated right pneumohydrothorax. Therefore, the patient was admitted to inpatient setting. 1. Right Hydropneumothorax. -S/P IR placement of chest tube on 04/26/2018. -Fluid studies negative so far. -On antimicrobials. 2. History of pulmonary embolism and DVT. -Status post IVC filter placement. -Factor Xa inhibitors on hold because of recent CT placement. 3. History of aspergillosis. 4. COPD. -Continue inhaled bronchodilators. 5. Microcytic anemia. -Monitor H&H closely. 6. Fluids, electrolytes, and nutrition. -Regular diet. 7. DVT prophylaxis -Resume factor Xa inhibitors after chest tube placement when it is safe. 8. Plan. -Continue CT drainage. -Await clinical improvement and further pulmonology recommendations. The patient was seen in collaboration with Dr. Roth. Result Diagram: 04/27/18 0520 04/27/18 0520 Results 24hrs Laboratory Tests Test 04/26/18 14:51 04/26/18 15:30 04/27/18 05:20 Lactate Dehydrogenase 431 Body Fluid Type THORACENTHESIS Body Fluid Volume 10.0 Body Fluid Color MILKY Body Fluid Appearance TURBID Body Fluid WBC 7039 Body Fluid RBC (Auto) 214688 Body Fluid Polynuclear WBCs (%) 87.3 Body Fluid Mononuclear Cells % Auto 12.7 White Blood Count 9.8 Red Blood Count 4.26 L Hemoglobin 10.7 L Hematocrit 35.1 L Mean Corpuscular Volume 82.4 Mean Corpuscular Hemoglobin 25.1 L Mean Corpuscular Hemoglobin Concent 30.5 L Red Cell Distribution Width 16.7 H Platelet Count 613 H Mean Platelet Volume 8.6 Immature Granulocytes % 1.900 H Neutrophils % 65.6 Lymphocytes % 14.2 L Monocytes % 13.3 H Eosinophils % 4.0 Basophils % 1.0 Nucleated Red Blood Cells % 0.0 Immature Granulocytes # 0.190 H Neutrophils # 6.4 Lymphocytes # 1.4 Monocytes # 1.3 H Eosinophils # 0.4 Basophils # 0.1 Nucleated Red Blood Cells # 0.0 Sodium Level 140 Potassium Level 4.9 Chloride Level 102 Carbon Dioxide Level 29 Anion Gap 9 Blood Urea Nitrogen 14 Creatinine 0.73 Est Glomerular Filtrat Rate mL/min > 60 Glucose Level 115 Calcium Level 9.9 Phosphorus Level 5.0 H Magnesium Level 2.0 Exam/Review of Systems Vital Signs Vitals Vital Signs Date Temp Pulse Resp B/P (MAP) Pulse Ox O2 O2 Flow FiO2 Time Delivery Rate 04/27/18 120 12:06 04/27/18 98.6 20 105/60 96 Room Air 11:33 (75) 04/27/18 21 08:52 04/27/18 2.0 07:33 Intake and Output 04/26/18 04/26/18 04/27/18 1515:00 23:00 07:00 IntakeIntake Total 380 ml 1750 ml 600 ml OutputOutput Total 555 ml 900 ml 1250 ml BalanceBalance -175 ml 850 ml -650 ml Medications Medications Current Medications IV Flush (NS 3 ml) 3 ml PER PROTOCOL IV ; Start 04/22/18 at 00:00 Ondansetron HCl (Zofran Inj) 4 mg Q6H PRN IV NAUSEA AND/OR VOMITING; Start 04/22/18 at 00:00 Acetaminophen (Tylenol Tab) 650 mg Q6H PRN PO PAIN LEVEL 1-3 OR FEVER; Start at 00:00 Albuterol/ Ipratropium (Duoneb) 3 ml Q2H RESP THERAPY PRN HHN SHORTNESS OF BREATH; Start 04/22/18 at 00:00 Vancomycin HCl (Vanco Iv Per Pharmacy) VANCOMYCIN PER PHARMACY PER PROTOCOL XX ; Start 04/22/18 at 09:00 Lactobacillus Acidophilus/ Rhamnosus (Culturelle) 1 cap BID PO Last admin istered on 04/27/18at 09:28; Admin Dose 1 CAP; Start 04/22/18 at 14:00 Famotidine (Pepcid) 20 mg DAILY PO Last administered on 04/27/18at 09:27; Admin Dose 20 MG; Start 04/22/18 at 13:00 Vancomycin HCl 1.5 gm/Sodium Chloride 250 ml @ 83.333 mls/ hr Q12H IVPB Last administered on 04/27/18at 09:27; Admin Dose 83.333 MLS/HR; Start 04/23/18 at 20:00 Docusate Sodium (Colace) 100 mg BID PRN PO CONSTIPATION; Start 04/23/18 at 16:00 Magnesium Hydroxide (Milk Of Mag) 30 ml DAILY PRN PO CONSTIPATION; Start 04/23/18 at 16:00 Bisacodyl (Dulcolax) 10 mg DAILY PRN PO CONSTIPATION; Start 04/23/18 at 16:00 Bisacodyl (Dulcolax Supp) 10 mg Q48H PRN [place] CONSTIPATION; Start 04/23/18 at 16:00 Acetaminophen/ Hydrocodone Bitart ([place] (10/325)) 1 tab Q3H PRN PO MODERATE PAIN LEVEL 4-6 Last administered on 04/27/18at 14:30; Admin Dose 1 TAB; Start 04/23/18 at 16:00 Ibuprofen (Motrin) 800 mg Q6H PRN PO MILD PAIN LEVEL 1-3 Last administered on 04/25/18at 09:15; Admin Dose 800 MG; Start 04/23/18 at 16:00 Tramadol HCl (Ultram) 50 mg Q6H PRN PO MODERATE PAIN LEVEL 4-6 Last administered on 04/25/18at 01:30; Admin Dose 50 MG; Start 04/25/18 at 01:00 Albuterol/ Ipratropium (Duoneb) 3 ml Q6HWA RESP THERAPY HHN Last administered on 04/27/18at 08:52; Admin Dose 3 ML; Start 04/25/18 at 14:00 KELIN SCHULTZ NP Apr 27, 2018 14:51
--- NOTE | 2018-04-27 18:27 | NUR ---
EOSS: No acute events during shift. Pt's vital signs remained stable. Pending microbiology cultures. Continue Chest Tube draining. Hourly rounding complete. All needs meet. Fall precautions initiated. Bed in lowest position. Call light within reach. --Pt. refused bed alarm during shift.
[2018-04-28] VITALS (11 sets, daily range): BP systolic 109–131; BP diastolic 70–82; PULSE 71–96; RESP 20
--- NOTE | 2018-04-28 07:05 | NUR ---
END OF SHIFT REPORT NO UNDUE DEVELOPMENT. MINIMAL DRAINAGE (25 CC FOR SHIFT). PLEASE COUNT OVER 575 ML. CULTURE STUDIES OF PLEURAL FLUID PENDING.
[2018-04-28] MEDS: FAMOTIDINE 20 MG TAB PO SCH (08:19)
[2018-04-28] MEDS: LACTOBACILLUS RHAMNOSUS CAP PO SCH ×2 (08:19→20:21)
[2018-04-28] MEDS: VANCOMYCIN 1.5 GM in SOD CHLORIDE 0.9% 250 ML IVPB SCH ×2 (08:19→20:21)
[2018-04-28] MEDS: HYDROCODONE/APAP (10/325) TAB PO PRN ×4 (08:24→20:21)
[2018-04-28] MEDS: ALBUTEROL/IPRATROPIUM (NEB) 3 ML AMP HHN SCH ×3 (08:55→20:00)
--- NOTE | 2018-04-28 10:43 | CONS ---
Date/Time of Note Date/Time of Note DATE: 04/28/18 TIME: 10:41 Assessment/Plan Assessment/Plan Assessment/Plan Assessment recommendations; 1. Patient with a history of severe emphysema admitted for recurrent right pneu mothorax. Status post failed VATS procedure as well as failed chest tube placement in the past. 2. Significant right pleural thickening preventing lung reexpansion. Causing a significant therapeutic challenge. 3. Right-sided pneumonia. Continue current supportive care. Obtain follow-up chest x-ray in 48 hours. Result Diagram: 04/28/18 0526 04/28/18 0526 Results 24hrs Laboratory Tests Test 04/28/18 05:26 White Blood Count 11.2 H Red Blood Count 4.17 L Hemoglobin 10.5 L Hematocrit 33.6 L Mean Corpuscular Volume 80.6 L Mean Corpuscular Hemoglobin 25.2 L Mean Corpuscular Hemoglobin Concent 31.3 L Red Cell Distribution Width 16.7 H Platelet Count 571 H Mean Platelet Volume 8.6 Immature Granulocytes % 1.500 H Neutrophils % 68.2 Lymphocytes % 12.3 L Monocytes % 12.3 H Eosinophils % 4.8 Basophils % 0.9 Nucleated Red Blood Cells % 0.0 Immature Granulocytes # 0.170 H Neutrophils # 7.6 H Lymphocytes # 1.4 Monocytes # 1.4 H Eosinophils # 0.5 Basophils # 0.1 Nucleated Red Blood Cells # 0.0 Sodium Level 138 Potassium Level 4.6 Chloride Level 102 Carbon Dioxide Level 27 Anion Gap 9 Blood Urea Nitrogen 14 Creatinine 0.69 Est Glomerular Filtrat Rate mL/min > 60 Glucose Level 114 Calcium Level 9.9 Phosphorus Level 4.8 Magnesium Level 1.8 Consultation Date/Type/Reason Admit Date/Time Apr 21, 2018 at 19:36 Initial Consult Date 04/27/18 Type of Consult Pulmonary History of presenting illness; Patient is a 57-year-old male with a history of recurrent right pneumothorax status post attempted VATS admitted again for shortness of breath. Chest x-ray showing recurrent 50% right pneumothorax with infiltrative changes on chest x- ray. Patient underwent a tube thoracostomy by interventional radiology yesterday. Patient is feeling better and denies any significant shortness of breath. Past medical history; 1. History of underlying severe emphysema. 2. Status post right-sided VATS for recurrent right pneumothorax with apparent failure. 3. History of recurrent right pneumothorax status post multiple chest tube placements. 4. Chronic pain. Medications; reviewed. Allergies; none. Social history; patient is a strong history of heavy smoking. Family history; noncontributory. Occupational history; patient is on disability. Review of systems; denies any headache, chest pain, shortness of breath has improved. Denies any coughing or wheezing. Any hemoptysis or sputum production. Any fever or chills. Denies any weight loss. Any orthopnea. Any melena or hematochezia. General exam; middle-aged male, appears quite emaciated awake and alert. Currently in no distress. 24 HR Interval Summary Free Text/Dictation Patient's condition is stable. Denies any shortness of breath. Any coughing or chest pain. General exam; middle-aged male, awake alert, currently in no distress. Exam/Review of Systems Vital Signs Vitals Vital Signs Date Temp Pulse Resp B/P (MAP) Pulse Ox O2 O2 Flow FiO2 Time Delivery Rate 04/28/18 96 08:24 04/28/18 97.6 20 129/80 100 Nasal 08:05 (96) Cannula 04/27/18 2.0 20:00 04/27/18 21 19:52 Intake and Output 04/27/18 04/27/18 04/28/18 1515:00 23:00 07:00 IntakeIntake Total 1250 ml 1000 ml OutputOutput Total 900 ml 2025 ml BalanceBalance 350 ml -1025 ml Exam H HEENT exam; supple neck, no JVD. No lymphadenopathy. Midline trachea. No thyromegaly. Patient has carious teeth. Chest exam; diminished breath sounds bilaterally. Right side chest tube in place. S1-S2 audible, no murmurs. Regular rhythm. Abdomen exam; soft, scaphoid. Nontender. Bowel sounds audible. Extremity exam; no peripheral edema or clubbing. SHELTER MONITOR exam; no focal deficit. Medications Medications Current Medications IV Flush (NS 3 ml) 3 ml PER PROTOCOL IV ; Start 04/22/18 at 00:00 Ondansetron HCl (Zofran Inj) 4 mg Q6H PRN IV NAUSEA AND/OR VOMITING; Start 04/22/18 at 00:00 Acetaminophen (Tylenol Tab) 650 mg Q6H PRN PO PAIN LEVEL 1-3 OR FEVER; Start 04/22/18 at 00:00 Albuterol/ Ipratropium (Duoneb) 3 ml Q2H RESP THERAPY PRN HHN SHORTNESS OF BREATH; Start 04/22/18 at 00:00 Vancomycin HCl (Vanco Iv Per Pharmacy) VANCOMYCIN PER PHARMACY PER PROTOCOL XX ; Start 04/22/18 at 09:00 Lactobacillus Acidophilus/ Rhamnosus (Culturelle) 1 cap BID PO Last administered on 04/28/18at 08:19; Admin Dose 1 CAP; Start 04/22/18 at 14:00 Famotidine (Pepcid) 20 mg DAILY PO Last administered on 04/28/18 08:19; Admin Dose 20 MG; Start 04/22/18 at 13:00 Vancomycin HCl 1.5 gm/Sodium Chloride 250 ml @ 83.333 mls/ hr Q12H IVPB Last administered on 04/28/18 08:19; Admin Dose 83.333 MLS/HR; Start 04/23/18 at 20:00 Docusate Sodium (Colace) 100 mg BID PRN PO CONSTIPATION; Start 04/23/18 at 16:00 Magnesium Hydroxide (Milk Of Mag) 30 ml DAILY PRN PO CONSTIPATION; Start 04/23/18 at 16:00 Bisacodyl (Dulcolax) 10 mg DAILY PRN PO CONSTIPATION; Start 04/23/18 at 16:00 Bisacodyl (Dulcolax Supp) 10 mg Q48H PRN [place] CONSTIPATION; Start 04/23/18 at 16:00 Acetaminophen/ Hydrocodone Bitart ([place] (10/325)) 1 tab Q3H PRN PO MODERATE PAIN LEVEL 4-6 Last administered on 04/28/18at 08:24; Admin Dose 1 TAB; Start 04/23/18 at 16:00 Ibuprofen (Motrin) 800 mg Q6H PRN PO MILD PAIN LEVEL 1-3 Last administered on 04/25/18at 09:15; Admin Dose 800 MG; Start 04/23/18 at 16:00 Tramadol HCl (Ultram) 50 mg Q6H PRN PO MODERATE PAIN LEVEL 4-6 Last administered on 04/25/18at 01:30; Admin Dose 50 MG; Start 04/25/18 at 01:00 Albuterol/ Ipratropium (Duoneb) 3 ml Q6HWA RESP THERAPY HHN Last administered on 1/9/19at 19:52; Admin Dose 3 ML; Start 04/25/18 at 14:00 NEEL BAZZI Apr 28, 2018 10:43
--- NOTE | 2018-04-28 13:43 | PN ---
Date/Time of Note Date/Time of Note DATE: 04/28/18 TIME: 13:43 Assessment/Plan VTE Prophylaxis Risk score (from Ns)>0 risk: 3 [place] [facility] [place] contraindicated: other Pharmacological prophylaxis: rivaroxaban Lines/Catheters IV Catheter Type (from [facility]): Saline Lock Urinary Cath still in place: No Assessment/Plan Hospital Course SUBJECTIVE: Complains of right chest wall pain. OBJECTIVE: Physical Exam General: Adequately build 57 year-old male lying in bed in no apparent distress. HEENT: Normocephalic, atraumatic. Eyes: Anicteric sclerae, conjunctivae clear. ENT: Nasal septum midline, oral mucosa is moist. Neck supple, no JVD noticed. Respiratory: Bilaterally diminished breath sounds. No use of accessory muscles of respiration. Right-sided chest tube to suction. Cardiovascular: S1, S2 heard. Regular rate and rhythm. Abdomen: Soft, nontender, and nondistended. Bowel sounds positive in all 4 quadrants. Genitourinary: Deferred. Extremities: No cyanosis, no clubbing, no edema. Peripheral pulses palpable. Neurologic: Cranial nerves II through XII grossly intact. The patient is awake, alert, and oriented. Skin: Right chest wall incision from thoracotomy. Right sided chest tube to suction draining whitish yellow fluid. Labs & Vitals per chart ASSESSMENT & PLAN This is a 57-year-old male with COPD, chronic PE on anticoagulation, right pleural effusion status post right thoracotomy and total pulmonary decortication along with bronchoscopy on 02/07/2018, and right-sided pneumothorax The patient was S/P chest tube placement on 03/08/2018 by IR and was discharged with a Heimlich valve in place. The patient's chest tube was recently discontinued by thoracic surgery. The patient came back to the emergency room on 04/21/2017 complaining of dyspnea with the chest x-ray done on 04/21/2018 showing interval development of a probably loculated right pneumohydrothorax. Therefore, the patient was admitted to inpatient setting. 1. Right Hydropneumothorax. -S/P IR placement of chest tube on 04/26/2018. -Fluid studies negative so far. -On antimicrobials. 2. History of pulmonary embolism and DVT. -Status post IVC filter placement. -Factor Xa inhibitors will be resumed. 3. History of aspergillosis. 4. COPD. -Continue inhaled bronchodilators. 5. Microcytic anemia. -Monitor H&H closely. 6. Fluids, electrolytes, and nutrition. -Regular diet. 7. DVT prophylaxis -Resume factor Xa inhibitors. 8. Plan. -Continue CT drainage. -Await clinical improvement and further pulmonology recommendations. The patient was seen in collaboration with Dr. Roth. Result Diagram: 04/28/18 0526 04/28/18 0526 Results 24hrs Laboratory Tests Test 04/28/18 05:26 White Blood Count 11.2 H Red Blood Count 4.17 L Hemoglobin 10.5 L Hematocrit 33.6 L Mean Corpuscular Volume 80.6 L Mean Corpuscular Hemoglobin 25.2 L Mean Corpuscular Hemoglobin Concent 31.3 L Red Cell Distribution Width 16.7 H Platelet Count 571 H Mean Platelet Volume 8.6 Immature Granulocytes % 1.500 H Neutrophils % 68.2 Lymphocytes % 12.3 L Monocytes % 12.3 H Eosinophils % 4.8 Basophils % 0.9 Nucleated Red Blood Cells % 0.0 Immature Granulocytes # 0.170 H Neutrophils # 7.6 H Lymphocytes # 1.4 Monocytes # 1.4 H Eosinophils # 0.5 Basophils # 0.1 Nucleated Red Blood Cells # 0.0 Sodium Level 138 Potassium Level 4.6 Chloride Level 102 Carbon Dioxide Level 27 Anion Gap 9 Blood Urea Nitrogen 14 Creatinine 0.69 Est Glomerular Filtrat Rate mL/min > 60 Glucose Level 114 Calcium Level 9.9 Phosphorus Level 4.8 Magnesium Level 1.8 Exam/Review of Systems Vital Signs Vitals Vital Signs Date Temp Pulse Resp B/P (MAP) Pulse Ox O2 O2 Flow FiO2 Time Delivery Rate 04/28/18 86 20 96 21 13:22 04/28/18 98.5 112/70 Room Air 11:36 (84) 04/27/18 2.0 20:00 Intake and Output 04/27/18 04/27/18 04/28/18 1414:59 22:59 06:59 IntakeIntake Total 1250 ml 1000 ml OutputOutput Total 900 ml 2025 ml BalanceBalance 350 ml -1025 ml Medications Medications Current Medications IV Flush (NS 3 ml) 3 ml PER PROTOCOL IV ; Start 04/22/18 at 00:00 Ondansetron HCl (Zofran Inj) 4 mg Q6H PRN IV NAUSEA AND/OR VOMITING; Start 04/22/18 at 00:00 Acetaminophen (Tylenol Tab) 650 mg Q6H PRN PO PAIN LEVEL 1-3 OR FEVER; Start 04/22/18 at 00:00 Albuterol/ Ipratropium (Duoneb) 3 ml Q2H RESP THERAPY PRN HHN SHORTNESS OF BREATH; Start 04/22/18 at 00:00 Vancomycin HCl (Vanco Iv Per Pharmacy) VANCOMYCIN PER PHARMACY PER PROTOCOL XX ; Start 04/22/18 at 09:00 Lactobacillus Acidophilus/ Rhamnosus (Culturelle) 1 cap BID PO Last administered on 04/28/18at 08:19; Admin Dose 1 CAP; Start 04/22/18 at 14:00 Famotidine (Pepcid) 20 mg DAILY PO Last administered on 04/28/18at 08:19; Admin Dose 20 MG; Start 04/22/18 at 13:00 Vancomycin HCl 1.5 gm/Sodium Chloride 250 ml @ 83.333 mls/ hr Q12H IVPB Last a dministered on 04/28/18at 08:19; Admin Dose 83.333 MLS/HR; Start 04/23/18 at 20:00 Docusate Sodium (Colace) 100 mg BID PRN PO CONSTIPATION; Start 04/23/18 at 16:00 Magnesium Hydroxide (Milk Of Mag) 30 ml DAILY PRN PO CONSTIPATION; Start 04/23/18 at 16:00 Bisacodyl (Dulcolax) 10 mg DAILY PRN PO CONSTIPATION; Start 04/23/18 at 16:00 Bisacodyl (Dulcolax Supp) 10 mg Q48H PRN [place] CONSTIPATION; Start 04/23/18 at 16:00 Acetaminophen/ Hydrocodone Bitart ([place] (10/325)) 1 tab Q3H PRN PO MODERATE PAIN LEVEL 4-6 Last administered on 04/28/18at 13:20; Admin Dose 1 TAB; Start 04/23/18 at 16:00 Ibuprofen (Motrin) 800 mg Q6H PRN PO MILD PAIN LEVEL 1-3 Last administered on 04/25/18at 09:15; Admin Dose 800 MG; Start 04/23/18 at 16:00 Tramadol HCl (Ultram) 50 mg Q6H PRN PO MODERATE PAIN LEVEL 4-6 Last administe red on 04/25/18at 01:30; Admin Dose 50 MG; Start 04/25/18 at 01:00 Albuterol/ Ipratropium (Duoneb) 3 ml Q6HWA RESP THERAPY HHN Last administered on 04/28/18at 13:22; Admin Dose 3 ML; Start 04/25/18 at 14:00 KELIN SCHULTZ NP Apr 28, 2018 13:43
[2018-04-28] MEDS: RIVAROXABAN 20 MG TABLET PO SCH (17:55)
--- NOTE | 2018-04-28 18:36 | NUR ---
EOSS Patient stable, pain controlled with PRN norco 10325 1 tab Q3H, right pleurX patent to pleurvac with only 20cc out of purulent drainage, administered vancomycin and patient will start maxipime on shift superintendent, restarted xarelto for left leg DVT, tolerating diet well, ambulating independently, no complaints, will endorse care to shift superintendent. Addendum: 04/28/18 at 1840 by NATACHA MARTINEZ RN Patient refusing bed alarm.
[2018-04-28] MEDS: traMADol 50 MG TAB PO PRN (20:25)
[2018-04-28] MEDS: CEFEPIME 1GM/50 ML (PMX) 50 ML IVPB SCH (20:29)
[2018-04-29] VITALS (9 sets, daily range): BP systolic 99–117; BP diastolic 59–77; PULSE 81–95; RESP 18–81
[2018-04-29] MEDS: HYDROCODONE/APAP (10/325) TAB PO PRN ×6 (03:36→22:32)
[2018-04-29] MEDS: traMADol 50 MG TAB PO PRN (03:36)
--- NOTE | 2018-04-29 06:45 | NUR ---
EOSS VSS. SR on monitor. On room air. No acute changes overnight. PRN [place] & Tramadol given for pain. Right pleurX patent and draining, 10cc out for this shift. Can ambulate independently. No respiratory distress noted. Pt refusing bed alarm. Educated aboutpt on fall precautions. Hourly rounding done.
[2018-04-29] MEDS: LACTOBACILLUS RHAMNOSUS CAP PO SCH ×2 (08:32→20:47)
[2018-04-29] MEDS: FAMOTIDINE 20 MG TAB PO SCH (08:32)
[2018-04-29] MEDS: CEFEPIME 1GM/50 ML (PMX) 50 ML IVPB SCH ×2 (08:32→20:47)
[2018-04-29] MEDS: ALBUTEROL/IPRATROPIUM (NEB) 3 ML AMP HHN SCH ×3 (08:50→20:58)
--- NOTE | 2018-04-29 08:56 | PN ---
Date/Time of Note Date/Time of Note DATE: 04/29/18 TIME: 08:56 Assessment/Plan VTE Prophylaxis Risk score (from Ns)>0 risk: 5 SCD applied (from [facility] [place]): No SCD contraindicated: other Pharmacological prophylaxis: apixaban Lines/Catheters IV Catheter Type (from [facility]): Saline Lock Urinary Cath still in place: No Assessment/Plan Hospital Course SUBJECTIVE: Complains of right chest wall pain. OBJECTIVE: Physical Exam General: Adequately build 57 year-old male lying in bed in no apparent distress. HEENT: Normocephalic, atraumatic. Eyes: Anicteric sclerae, conjunctivae clear. ENT: Nasal septum midline, oral mucosa is moist. Neck supple, no JVD noticed. Respiratory: Bilaterally diminished breath sounds. No use of accessory muscles of respiration. Right-sided chest tube to suction. Cardiovascular: S1, S2 heard. Regular rate and rhythm. Abdomen: Soft, nontender, and nondistended. Bowel sounds positive in all 4 quadrants. Genitourinary: Deferred. Extremities: No cyanosis, no clubbing, no edema. Peripheral pulses palpable. Neurologic: Cranial nerves II through XII grossly intact. The patient is awake, alert, and oriented. Skin: Right chest wall incision from thoracotomy. Right sided chest tube to suction draining whitish yellow fluid. Labs & Vitals per chart ASSESSMENT & PLAN This is a 57-year-old male with COPD, chronic PE on anticoagulation, right pleural effusion status post right thoracotomy and total pulmonary decortication along with bronchoscopy on 02/07/2018, and right-sided pneumothorax The patient was S/P chest tube placement on 03/08/2018 by IR and was discharged with a Heimlich valve in place. The patient's chest tube was recently discontinued by thoracic surgery. The patient came back to the emergency room on 04/21/2017 complaining of dyspnea with the chest x-ray done on 04/21/2018 showing interval development of a probably loculated right pneumohydrothorax. Therefore, the patient was admitted to inpatient setting. 1. Right Hydropneumothorax. -S/P IR placement of chest tube on 04/26/2018. -Fluid studies negative so far. -On antimicrobials. 2. History of pulmonary embolism and DVT. -Status post IVC filter placement. -On factor Xa inhibitors. 3. History of aspergillosis. 4. COPD. -Continue inhaled bronchodilators. 5. Microcytic anemia. -Monitor H&H closely. 6. Fluids, electrolytes, and nutrition. -Regular diet. 7. DVT prophylaxis -Factor Xa inhibitors. 8. Plan. -Continue CT drainage. -Await clinical improvement and further pulmonology recommendations. -Transfer the patient to Med/Surg. The patient was seen in collaboration with Dr. Roth. Result Diagram: 04/29/18 0515 04/29/18 0515 Results 24hrs Laboratory Tests Test 04/29/18 05:15 04/29/18 07:25 White Blood Count 9.1 Red Blood Count 4.16 L Hemoglobin 10.5 L Hematocrit 33.7 L Mean Corpuscular Volume 81.0 L Mean Corpuscular Hemoglobin 25.2 L Mean Corpuscular Hemoglobin Concent 31.2 L Red Cell Distribution Width 16.7 H Platelet Count 541 H Mean Platelet Volume 8.8 Immature Granulocytes % 2.400 H Neutrophils % 71.5 Lymphocytes % 7.7 L Monocytes % 13.1 H Eosinophils % 4.4 Basophils % 0.9 Nucleated Red Blood Cells % 0.0 Immature Granulocytes # 0.220 H Neutrophils # 6.5 Lymphocytes # 0.7 L Monocytes # 1.2 H Eosinophils # 0.4 Basophils # 0.1 Nucleated Red Blood Cells # 0.0 Sodium Level 135 Potassium Level 4.2 Chloride Level 100 Carbon Dioxide Level 28 Anion Gap 7 Blood Urea Nitrogen 12 Creatinine 0.67 Est Glomerular Filtrat Rate mL/min > 60 Glucose Level 109 Calcium Level 9.6 Phosphorus Level 4.1 Magnesium Level 1.8 Vancomycin Level Trough 15.6 Exam/Review of Systems Vital Signs Vitals Vital Signs Date Temp Pulse Resp B/P (MAP) Pulse Ox O2 O2 Flow FiO2 Time Delivery Rate 04/29/18 83 08:24 04/29/18 98.0 20 99/59 (72) 98 Room Air 07:52 04/28/18 21 13:22 04/27/18 2.0 20:00 Intake and Output 04/28/18 04/28/18 04/29/18 1515:00 23:00 07:00 IntakeIntake Total 250 ml 1550 ml 1050 ml OutputOutput Total 1340 ml 1100 ml BalanceBalance 250 ml 210 ml -50 ml Medications Medications Current Medications IV Flush (NS 3 ml) 3 ml PER PROTOCOL IV ; Start 04/22/18 at 00:00 Ondansetron HCl (Zofran Inj) 4 mg Q6H PRN IV NAUSEA AND/OR VOMITING; Start 04/22/18 at 00:00 Acetaminophen (Tylenol Tab) 650 mg Q6H PRN PO PAIN LEVEL 1-3 OR FEVER; Start 04/22/18 at 00:00 Albuterol/ Ipratropium (Duoneb) 3 ml Q2H RESP THERAPY PRN HHN SHORTNESS OF BREATH; Start 04/22/18 at 00:00 Vancomycin HCl (Vanco Iv Per Pharmacy) VANCOMYCIN PER PHARMACY PER PROTOCOL XX ; Start 04/22/18 at 09:00 Lactobacillus Acidophilus/ Rhamnosus (Culturelle) 1 cap BID PO Last administered on 04/29/18at 08:32; Admin Dose 1 CAP; Start 04/22/18 at 14:00 Famotidine (Pepcid) 20 mg DAILY PO Last administered on 04/29/18at 08:32; Admin Dose 20 MG; Start 04/22/18 at 13:00 Vancomycin HCl 1.5 gm/Sodium Chloride 250 ml @ 83.333 mls/ hr Q12H IVPB Last administered on 04/28/18at 20:21; Admin Dose 83.333 MLS/HR; Start 04/23/18 at 20:00 Docusate Sodium (Colace) 100 mg BID PRN PO CONSTIPATION; Start 04/23/18 at 16:00 Magnesium Hydroxide (Milk Of Mag) 30 ml DAILY PRN PO CONSTIPATION; Start 04/23/18 at 16:00 Bisacodyl (Dulcolax) 10 mg DAILY PRN PO CONSTIPATION; Start 04/23/18 at 16:00 Bisacodyl (Dulcolax Supp) 10 mg Q48H PRN [place] CONSTIPATION; Start 04/23/18 at 16:00 Acetaminophen/ Hydrocodone Bitart ([place] (10/325)) 1 tab Q3H PRN PO MODERATE PAIN LEVEL 4-6 Last administered on 04/29/18at 08:32; Admin Dose 1 TAB; Start 04/23/18 at 16:00 Ibuprofen (Motrin) 800 mg Q6H PRN PO MILD PAIN LEVEL 1-3 Last administered on 04/25/18at 09:15; Admin Dose 800 MG; Start 04/23/18 at 16:00 Tramadol HCl (Ultram) 50 mg Q6H PRN PO MODERATE PAIN LEVEL 4-6 Last administered on 04/29/18 03:36; Admin Dose 50 MG; Start 04/25/18 at 01:00 Albuterol/ Ipratropium (Duoneb) 3 ml Q6HWA RESP THERAPY HHN Last administered on 04/28/18 13:22; Admin Dose 3 ML; Start 04/25/18 at 14:00 Cefepime HCl 50 ml @ 100 mls/hr Q12 IVPB Last administered on 04/29/18 08:32; Admin Dose 100 MLS/HR; Start 04/28/18 at 21:00 Rivaroxaban (Xarelto) 20 mg WITH DINNER PO Last administered on 04/28/18 17:55; Admin Dose 20 MG; Start 04/28/18 at 18:00 KELIN SCHULTZ NP Apr 29, 2018 08:56
[2018-04-29] MEDS: VANCOMYCIN 1.5 GM in SOD CHLORIDE 0.9% 250 ML IVPB SCH ×2 (09:51→10:26)
--- NOTE | 2018-04-29 10:09 | CONS ---
Date/Time of Note Date/Time of Note DATE: 04/29/18 TIME: 10:07 Assessment/Plan Assessment/Plan Assessment/Plan Assessment and recommendations; 1. Patient admitted with recurrent right pneumothorax status post VATS proc edure on the right side with apparent failure. This likely is due to very stiff right lung with significant right pleural thickening preventing full lung reexpansion. 2. Underlying severe emphysema. 3. Right-sided superimposed pneumonia. Continue current supportive care. Obtain follow-up chest x-ray. Result Diagram: 04/29/18 0515 04/29/18 0515 Results 24hrs Laboratory Tests Test 04/29/18 05:15 04/29/18 07:25 White Blood Count 9.1 Red Blood Count 4.16 L Hemoglobin 10.5 L Hematocrit 33.7 L Mean Corpuscular Volume 81.0 L Mean Corpuscular Hemoglobin 25.2 L Mean Corpuscular Hemoglobin Concent 31.2 L Red Cell Distribution Width 16.7 H Platelet Count 541 H Mean Platelet Volume 8.8 Immature Granulocytes % 2.400 H Neutrophils % 71.5 Lymphocytes % 7.7 L Monocytes % 13.1 H Eosinophils % 4.4 Basophils % 0.9 Nucleated Red Blood Cells % 0.0 Immature Granulocytes # 0.220 H Neutrophils # 6.5 Lymphocytes # 0.7 L Monocytes # 1.2 H Eosinophils # 0.4 Basophils # 0.1 Nucleated Red Blood Cells # 0.0 Sodium Level 135 Potassium Level 4.2 Chloride Level 100 Carbon Dioxide Level 28 Anion Gap 7 Blood Urea Nitrogen 12 Creatinine 0.67 Est Glomerular Filtrat Rate mL/min > 60 Glucose Level 109 Calcium Level 9.6 Phosphorus Level 4.1 Magnesium Level 1.8 Vancomycin Level Trough 15.6 Consultation Date/Type/Reason Admit Date/Time Apr 21, 2018 at 19:36 Initial Consult Date 04/27/18 Type of Consult Pulmonary History of presenting illness; Patient is a 57-year-old male with a history of recurrent right pneumothorax status post attempted VATS admitted again for shortness of breath. Chest x-ray showing recurrent 50% right pneumothorax with infiltrative changes on chest x- ray. Patient underwent a tube thoracostomy by interventional radiology yesterday. Patient is feeling better and denies any significant shortness of breath. Past medical history; 1. History of underlying severe emphysema. 2. Status post right-sided VATS for recurrent right pneumothorax with apparent failure. 3. History of recurrent right pneumothorax status post multiple chest tube placements. 4. Chronic pain. Medications; reviewed. Allergies; none. Social history; patient is a strong history of heavy smoking. Family history; noncontributory. Occupational history; patient is on disability. Review of systems; denies any headache, chest pain, shortness of breath has improved. Denies any coughing or wheezing. Any hemoptysis or sputum production. Any fever or chills. Denies any weight loss. Any orthopnea. Any melena or hematochezia. General exam; middle-aged male, appears quite emaciated awake and alert. Currently in no distress. 24 HR Interval Summary Free Text/Dictation Patient's condition is stable. Remains awake and alert. Denies any shortness of breath at rest. Any chest pain. General exam; middle-aged male, awake alert, currently in no distress. Exam/Review of Systems Vital Signs Vitals Vital Signs Date Temp Pulse Resp B/P (MAP) Pulse Ox O2 O2 Flow FiO2 Time Delivery Rate 04/29/18 83 08:24 04/29/18 98.0 20 99/59 (72) 98 Room Air 07:52 04/28/18 21 13:22 04/27/18 2.0 20:00 Intake and Output 04/28/18 04/28/18 04/29/18 1515:00 23:00 07:00 IntakeIntake Total 250 ml 1550 ml 1050 ml OutputOutput Total 1340 ml 1100 ml BalanceBalance 250 ml 210 ml -50 ml Exam H EENT exam; supple neck, no JVD. No lymphadenopathy. Midline trachea. No thyromegaly. No neck masses. Chest exam; diminished breath sounds bilaterally. More pronounced in right lung. Right-sided chest tube in place. S1-S2 audible, no murmurs. Regular rh ythm. Abdomen exam; soft, scaphoid. Nontender. No organomegaly. Bowel sounds audible. Extremity exam; no peripheral edema or clubbing. SUPPLIER QUALITY MANAGER exam; no focal deficit. Medications Medications Current Medications IV Flush (NS 3 ml) 3 ml PER PROTOCOL IV ; Start 04/22/18 at 00:00 Ondansetron HCl (Zofran Inj) 4 mg Q6H PRN IV NAUSEA AND/OR VOMITING; Start 04/22/18 at 00:00 Acetaminophen (Tylenol Tab) 650 mg Q6H PRN PO PAIN LEVEL 1-3 OR FEVER; Start 04/22/18 at 00:00 Albuterol/ Ipratropium (Duoneb) 3 ml Q2H RESP THERAPY PRN HHN SHORTNESS OF BREATH; Start 04/22/18 at 00:00 Vancomycin HCl (Vanco Iv Per Pharmacy) VANCOMYCIN PER PHARMACY PER PROTOCOL XX ; Start 04/22/18 at 09:00 Lactobacillus Acidophilus/ Rhamnosus (Culturelle) 1 cap BID PO Last ad ministered on 04/29/18at 08:32; Admin Dose 1 CAP; Start 04/22/18 at 14:00 Famotidine (Pepcid) 20 mg DAILY PO Last administered on 04/29/18 08:32; Admin Dose 20 MG; Start 04/22/18 at 13:00 Vancomycin HCl 1.5 gm/Sodium Chloride 250 ml @ 83.333 mls/ hr Q12H IVPB Last administered on 04/29/18at 09:51; Admin Dose 83.333 MLS/HR; Start 04/23/18 at 20:00 Docusate Sodium (Colace) 100 mg BID PRN PO CONSTIPATION; Start 04/23/18 at 16:00 Magnesium Hydroxide (Milk Of Mag) 30 ml DAILY PRN PO CONSTIPATION; Start 04/23/18 at 16:00 Bisacodyl (Dulcolax) 10 mg DAILY PRN PO CONSTIPATION; Start 04/23/18 at 16:00 Bisacodyl (Dulcolax Supp) 10 mg Q48H PRN [place] CONSTIPATION; Start 04/23/18 at 16:00 Acetaminophen/ Hydrocodone Bitart ([place] (10/325)) 1 tab Q3H PRN PO MODERATE PAIN LEVEL 4-6 Last administered on 04/29/18 08:32; Admin Dose 1 TAB; Start 04/23/18 at 16:00 Ibuprofen (Motrin) 800 mg Q6H PRN PO MILD PAIN LEVEL 1-3 Last administered on 04/25/18at 09:15; Admin Dose 800 MG; Start 04/23/18 at 16:00 Tramadol HCl (Ultram) 50 mg Q6H PRN PO MODERATE PAIN LEVEL 4-6 Last administered on 04/29/18at 03:36; Admin Dose 50 MG; Start 04/25/18 at 01:00 Albuterol/ Ipratropium (Duoneb) 3 ml Q6HWA RESP THERAPY HHN Last administered on 04/28/18at 13:22; Admin Dose 3 ML; Start 04/25/18 at 14:00 Cefepime HCl 50 ml @ 100 mls/hr Q12 IVPB Last administered on 04/29/18at 08:32; Admin Dose 100 MLS/HR; Start 04/28/18 at 21:00 Rivaroxaban (Xarelto) 20 mg WITH DINNER PO Last administered on 04/28/18at 17:55; Admin Dose 20 MG; Start 04/28/18 at 18:00 Ketorolac Tromethamine (Toradol) 30 mg Q6H PRN IV PAIN LEVEL 1-3; Start at 09:30; Stop 05/01/18 at 09:30 NEEL BAZZI Apr 29, 2018 10:09
[2018-04-29] MEDS: KETOROLAC 30 MG INJ IV PRN ×3 (10:25→23:07)
--- NOTE | 2018-04-29 11:33 | NUR ---
Vancomycin per Rx Vancomycin trough = 15.6 SCr 0.67 Change Vancomycin to 1.25 gm IV q12h
--- NOTE | 2018-04-29 14:14 | NUR ---
Patient cleared for downgrade to Med/Surg Rm [id number], handicapped teacher discontinued and returned to nursing station, belongings sent with patient, endorsed care to Socorro BADILLO @ [phone], patient transferred via bed by transport.
--- NOTE | 2018-04-29 17:56 | NUR ---
Chest tube output noted to be very thick. ISAK Tirado made aware. Ordered to call the machine burrer. Dr. Mann, flight communications operator for [facility], made aware. Ordered chest x-ray for tomorrow.
[2018-04-29] MEDS: RIVAROXABAN 20 MG TABLET PO SCH (18:18)
--- NOTE | 2018-04-29 18:39 | NUR ---
No acute changes during shift. Pt safe and free from injury. Chest tube draining thick purulent output. 20mL output from chest tube. Pt pain monitored and controlled through shift. No signs of discomfort or distress. No SOB. Pt currently in bed watching TV. Bed alarm on, call light within reach. Will continue to monitor.
[2018-04-29] MEDS: VANCOMYCIN HCL 1.25 GM in SOD CHLORIDE 0.9% 250 ML IVPB SCH (22:26)
--- NOTE | 2018-04-29 23:38 | NUR ---
Home medications sent down to pharmacy. 1. Tussin Mucus and Chest Congestion bottle 2. [employer] cough drops 3. Vapor rub bottle 4. Pure Aid antibiotic ointment 5. Xarelto 20mg tablet bottle Patient agreed to allow RN to send down to pharmacy. Please dispense back to patient upon discharge.
[2018-04-30] MEDS: GUAIFENESIN 20 MG/ML 5ML CUP PO PRN ×5 (00:33→20:40)
[2018-04-30] MEDS: CEPASTAT LOZENGE MT PRN ×4 (00:33→20:40)
[2018-04-30] MEDS: HYDROCODONE/APAP (10/325) TAB PO PRN ×2 (01:26→08:31)
[2018-04-30] MEDS: ONDANSETRON 4 MG INJ IV PRN (01:29)
[2018-04-30] MEDS: KETOROLAC 30 MG INJ IV PRN ×3 (05:04→20:26)
--- NOTE | 2018-04-30 06:51 | NUR ---
RN Notes Patient had non changes in condition overnight. Pain adequately managed with PRN Toradol and [place]. Received order for cough syrup and cough drops from Dr. Sinha and carried out. Patient continues to have intermittent coughing. Chest tube drainage output noted and recorded. Hourly rounding provided; patient's bed at lowest position and bed alarm activated. Will continue to montior and endorse to oncoming RN for continuity of care.
[2018-04-30 08:00] VITALS: BP 110/62; PULSE 84; RESP 20
[2018-04-30] MEDS: CEFEPIME 1GM/50 ML (PMX) 50 ML IVPB SCH (08:31)
[2018-04-30] MEDS: FAMOTIDINE 20 MG TAB PO SCH (08:32)
[2018-04-30] MEDS: LACTOBACILLUS RHAMNOSUS CAP PO SCH ×2 (08:32→20:26)
[2018-04-30] MEDS: ALBUTEROL/IPRATROPIUM (NEB) 3 ML AMP HHN SCH ×3 (09:06→20:13)
[2018-04-30] MEDS: VANCOMYCIN HCL 1.25 GM in SOD CHLORIDE 0.9% 250 ML IVPB SCH (10:57)
[2018-04-30 14:00] VITALS: BP 120/74; PULSE 76; RESP 20
--- NOTE | 2018-04-30 14:59 | PN ---
Date/Time of Note Date/Time of Note DATE: 04/30/18 TIME: 14:58 Assessment/Plan VTE Prophylaxis Risk score (from Ns)>0 risk: 6 SCD applied (from [facility] [place] No SCD contraindicated: other Pharmacological prophylaxis: apixaban Lines/Catheters IV Catheter Type (from [facility]): Saline Lock Urinary Cath still in place: No Assessment/Plan Hospital Course SUBJECTIVE: Complains of right chest wall pain. OBJECTIVE: Physical Exam General: Adequately build 57 year-old male lying in bed in no apparent distress. HEENT: Normocephalic, atraumatic. Eyes: Anicteric sclerae, conjunctivae clear. ENT: Nasal septum midline, oral mucosa is moist. Neck supple, no JVD noticed. Respiratory: Bilaterally diminished breath sounds. No use of accessory muscles of respiration. Right-sided chest tube to suction. Cardiovascular: S1, S2 heard. Regular rate and rhythm. Abdomen: Soft, nontender, and nondistended. Bowel sounds positive in all 4 quadrants. Genitourinary: Deferred. Extremities: No cyanosis, no clubbing, no edema. Peripheral pulses palpable. Neurologic: Cranial nerves II through XII grossly intact. The patient is awake, alert, and oriented. Skin: Right chest wall incision from thoracotomy. Right sided chest tube to suction draining whitish yellow fluid. Labs & Vitals per chart ASSESSMENT & PLAN This is a 57-year-old male with COPD, chronic PE on anticoagulation, right pleural effusion status post right thoracotomy and total pulmonary decortication along with bronchoscopy on 02/07/2018, and right-sided pneumothorax The patient was S/P chest tube placement on 03/08/2018 by IR and was discharged with a Heimlich valve in place. The patient's chest tube was recently discontinued by thoracic surgery. The patient came back to the emergency room on 04/21/2017 complaining of dyspnea with the chest x-ray done on 04/21/2018 showing interval development of a probably loculated right pneumohydrothorax. Therefore, the patient was admitted to inpatient setting. 1. Right Hydropneumothorax. -S/P IR placement of chest tube on 04/26/2018. -Fluid studies negative so far. -On antimicrobials. 2. History of pulmonary embolism and DVT. -Status post IVC filter placement. -On factor Xa inhibitors. 3. History of aspergillosis. 4. COPD. -Continue inhaled bronchodilators. 5. Microcytic anemia. -Monitor H&H closely. 6. Fluids, electrolytes, and nutrition. -Regular diet. 7. DVT prophylaxis -Factor Xa inhibitors. 8. Plan. -Continue CT drainage. -Await clinical improvement and further pulmonology recommendations. -DC antimicrobials since the fluid cultures are negative to date. The patient was seen in collaboration with Dr. Roth. Result Diagram: 04/30/18 1329 04/30/18 1329 Results 24hrs Laboratory Tests Test 04/30/18 10:35 04/30/18 13:29 Lab Scanned Report REFERENCE LAB White Blood Count 6.2 # Red Blood Count 4.00 L Hemoglobin 9.9 L Hematocrit 32.4 L Mean Corpuscular Volume 81.0 L Mean Corpuscular Hemoglobin 24.8 L Mean Corpuscular Hemoglobin Concent 30.6 L Red Cell Distribution Width 16.4 H Platelet Count 458 H Mean Platelet Volume 9.0 Immature Granulocytes % 1.600 H Neutrophils % 65.0 Lymphocytes % 11.9 L Monocytes % 16.2 H Eosinophils % 4.2 Basophils % 1.1 Nucleated Red Blood Cells % 0.0 Immature Granulocytes # 0.100 H Neutrophils # 4.0 Lymphocytes # 0.7 L Monocytes # 1.0 H Eosinophils # 0.3 Basophils # 0.1 Nucleated Red Blood Cells # 0.0 Sodium Level 140 Potassium Level 4.2 Chloride Level 103 Carbon Dioxide Level 27 Anion Gap 10 Blood Urea Nitrogen 18 Creatinine 0.82 Est Glomerular Filtrat Rate mL/min > 60 Glucose Level 126 Calcium Level 9.0 Phosphorus Level 5.2 H Magnesium Level 1.8 Iron Level 18 L Total Iron Binding Capacity 345 Percent Iron Saturation 5 L Ferritin Pending Exam/Review of Systems Vital Signs Vitals Vital Signs Date Temp Pulse Resp B/P (MAP) Pulse Ox O2 O2 Flow FiO2 Time Delivery Rate 04/30/18 86 20 92 21 13:40 04/30/18 98.8 110/62 08:00 (78) 04/29/18 Room Air 20:00 04/27/18 2.0 20:00 Intake and Output 04/29/18 04/29/18 04/30/18 1515:00 23:00 07:00 IntakeIntake Total 300 ml 290 ml 490 ml OutputOutput Total 70 ml 40 ml BalanceBalance 300 ml 220 ml 450 ml Medications Medications Current Medications IV Flush (NS 3 ml) 3 ml PER PROTOCOL IV ; Start 04/22/18 at 00:00 Ondansetron HCl (Zofran Inj) 4 mg Q6H PRN IV NAUSEA AND/OR VOMITING Last administered on 04/30/18at 01:29; Admin Dose 4 MG; Start 04/22/18 at 00:00 Acetaminophen (Tylenol Tab) 650 mg Q6H PRN PO PAIN LEVEL 1-3 OR FEVER; Start 04/22/18 at 00:00 Albuterol/ Ipratropium (Duoneb) 3 ml Q2H RESP THERAPY PRN HHN SHORTNESS OF BREATH Last administered on 04/30/18at 01:15; Admin Dose 3 ML; Start 04/22/18 at 00:00 Vancomycin HCl (Vanco Iv Per Pharmacy) VANCOMYCIN PER PHARMACY PER PROTOCOL XX ; Start 04/22/18 at 09:00 Lactobacillus Acidophilus/ Rhamnosus (Culturelle) 1 cap BID PO Last administered on 04/30/18at 08:32; Admin Dose 1 CAP; Start 04/22/18 at 14:00 Famotidine (Pepcid) 20 mg DAILY PO Last administered on 04/30/18at 08:32; Admin Dose 20 MG; Start 04/22/18 at 13:00 Docusate Sodium (Colace) 100 mg BID PRN PO CONSTIPATION; Start 04/23/18 at 16:00 Magnesium Hydroxide (Milk Of Mag) 30 ml DAILY PRN PO CONSTIPATION; Start 04/23/18 at 16:00 Bisacodyl (Dulcolax) 10 mg DAILY PRN PO CONSTIPATION; Start 04/23/18 at 16:00 Bisacodyl (Dulcolax Supp) 10 mg Q48H PRN [place] CONSTIPATION; Start 04/23/18 at 16:00 Acetaminophen/ Hydrocodone Bitart ([place] (10/325)) 1 tab Q3H PRN PO MODERATE PAIN LEVEL 4-6 Last administered on 04/30/18 08:31; Admin Dose 1 TAB; Start 04/23/18 at 16:00 Ibuprofen (Motrin) 800 mg Q6H PRN PO MILD PAIN LEVEL 1-3 Last administered on 04/25/18 09:15; Admin Dose 800 MG; Start 04/23/18 at 16:00 Tramadol HCl (Ultram) 50 mg Q6H PRN PO MODERATE PAIN LEVEL 4-6 Last administered on 04/29/18 03:36; Admin Dose 50 MG; Start 04/25/18 at 01:00 Albuterol/ Ipratropium (Duoneb) 3 ml Q6HWA RESP THERAPY HHN Last administered on 04/30/18 13:40; Admin Dose 3 ML; Start 04/25/18 at 14:00 Cefepime HCl 50 ml @ 100 mls/hr Q12 IVPB Last administered on 04/30/18 08:31; Admin Dose 100 MLS/HR; Start 04/28/18 at 21:00 Rivaroxaban (Xarelto) 20 mg WITH DINNER PO Last administered on 04/29/18 18:18; Admin Dose 20 MG; Start 04/28/18 at 18:00 Ketorolac Tromethamine (Toradol) 30 mg Q6H PRN IV PAIN LEVEL 1-3 Last administered on 04/30/18 12:18; Admin Dose 30 MG; Start 04/29/18 at 09:30; Stop 05/01/18 at 09:30 Vancomycin HCl 1.25 gm/Sodium Chloride 250 ml @ 83.333 mls/ hr Q12H IVPB Last administered on 04/30/18 10:57; Admin Dose 83.333 MLS/HR; Start 04/29/18 at 22:00 Guaifenesin (Robitussin Liquid Cup) 100 mg Q4H PRN PO COUGH Last administered on 04/30/18 12:17; Admin Dose 100 MG; Start 04/30/18 at 00:00 Phenol (Cepastat Lozenge) 1 lozenge Q1H PRN MT COUGH Last administered on 04/30/18at 12:18; Admin Dose 1 LOZENGE; Start 04/30/18 at 00:00 Miscellaneous Information Patients own medicat... BID@10,16 XX ; Start 04/30/18 at 10:00 KELIN SCHULTZ NP Apr 30, 2018 14:59
[2018-04-30] MEDS ORDERED: HYDROmorphONE 1 MG/ML SYG IV ONE (16:30)
[2018-04-30] MEDS: RIVAROXABAN 20 MG TABLET PO SCH (17:50)
--- NOTE | 2018-04-30 18:39 | NUR ---
No acute changes during shift. Pt safe and free from injury. Chest tube draining thick purulent output. 20mL output from chest tube. Pt pain monitored and controlled through shift. No signs of discomfort or distress. No SOB. Pt currently sleeping comfortably in bed. Bed alarm on, call light within reach. Will continue to monitor.
[2018-04-30 20:15] VITALS: BP 117/60; PULSE 90; RESP 18
[2018-04-30] MEDS: ACETAMINOPHEN 325 MG TAB PO PRN (20:40)
[2018-04-30] MEDS: OXYCODONE/ACETAMINOPHEN (5/325) TAB PO PRN (22:20)
[2018-05-01] MEDS: traMADol 50 MG TAB PO PRN (00:12)
[2018-05-01 02:22] VITALS: BP 129/78; PULSE 72; RESP 18
[2018-05-01] MEDS: KETOROLAC 30 MG INJ IV PRN ×2 (02:30→08:36)
[2018-05-01] MEDS: OXYCODONE/ACETAMINOPHEN (5/325) TAB PO PRN ×4 (05:47→22:25)
[2018-05-01] MEDS: ALBUTEROL/IPRATROPIUM (NEB) 3 ML AMP HHN SCH ×3 (07:44→20:51)
[2018-05-01 08:06] VITALS: BP 124/71; PULSE 68; RESP 17
[2018-05-01] MEDS: GUAIFENESIN 20 MG/ML 5ML CUP PO PRN ×2 (08:37→17:57)
[2018-05-01] MEDS: FAMOTIDINE 20 MG TAB PO SCH (08:37)
[2018-05-01] MEDS: LACTOBACILLUS RHAMNOSUS CAP PO SCH ×2 (08:37→20:47)
--- NOTE | 2018-05-01 11:31 | PN ---
Date/Time of Note Date/Time of Note DATE: 05/01/18 TIME: 11:31 Assessment/Plan VTE Prophylaxis Risk score (from Ns)>0 risk: 4 SCD applied (from [facility] [place] No SCD contraindicated: other Pharmacological prophylaxis: apixaban Lines/Catheters IV Catheter Type (from [facility]): Saline Lock Urinary Cath still in place: No Assessment/Plan Hospital Course SUBJECTIVE: Complains of right chest wall pain. OBJECTIVE: Physical Exam General: Adequately build 57 year-old male lying in bed in no apparent distress. HEENT: Normocephalic, atraumatic. Eyes: Anicteric sclerae, conjunctivae clear. ENT: Nasal septum midline, oral mucosa is moist. Neck supple, no JVD noticed. Respiratory: Bilaterally diminished breath sounds. No use of accessory muscles of respiration. Right-sided chest tube to suction. Cardiovascular: S1, S2 heard. Regular rate and rhythm. Abdomen: Soft, nontender, and nondistended. Bowel sounds positive in all 4 quadrants. Genitourinary: Deferred. Extremities: No cyanosis, no clubbing, no edema. Peripheral pulses palpable. Neurologic: Cranial nerves II through XII grossly intact. The patient is awake, alert, and oriented. Skin: Right chest wall incision from thoracotomy. Right sided chest tube to suction draining whitish yellow fluid. Labs & Vitals per chart ASSESSMENT & PLAN This is a 57-year-old male with COPD, chronic PE on anticoagulation, right pleural effusion status post right thoracotomy and total pulmonary decortication along with bronchoscopy on 02/07/2018, and right-sided pneumothorax The patient was S/P chest tube placement on 03/08/2018 by IR and was discharged with a Heimlich valve in place. The patient's chest tube was recently discontinued by thoracic surgery. The patient came back to the emergency room on 04/21/2017 complaining of dyspnea with the chest x-ray done on 04/21/2018 showing interval development of a probably loculated right pneumohydrothorax. Therefore, the patient was admitted to inpatient setting. 1. Right Hydropneumothorax. -S/P IR placement of chest tube on 04/26/2018. -Fluid studies negative so far. -On antimicrobials. 2. History of pulmonary embolism and DVT. -Status post IVC filter placement. -On factor Xa inhibitors. 3. History of aspergillosis. 4. COPD. -Continue inhaled bronchodilators. 5. Microcytic anemia. -Monitor H&H closely. 6. Fluids, electrolytes, and nutrition. -Regular diet. 7. DVT prophylaxis -Factor Xa inhibitors. 8. Plan. -Continue CT drainage. -Await clinical improvement and further pulmonology recommendations. -Antimicrobials discontinued on 04/30/2018 since the fluid cultures are negative to date. The patient was seen in collaboration with Dr. Roth. Result Diagram: 04/30/18 1329 04/30/18 1329 Results 24hrs Laboratory Tests Test 04/30/18 13:29 05/01/18 10:56 White Blood Count 6.2 # Red Blood Count 4.00 L Hemoglobin 9.9 L Hematocrit 32.4 L Mean Corpuscular Volume 81.0 L Mean Corpuscular Hemoglobin 24.8 L Mean Corpuscular Hemoglobin Concent 30.6 L Red Cell Distribution Width 16.4 H Platelet Count 458 H Mean Platelet Volume 9.0 Immature Granulocytes % 1.600 H Neutrophils % 65.0 Lymphocytes % 11.9 L Monocytes % 16.2 H Eosinophils % 4.2 Basophils % 1.1 Nucleated Red Blood Cells % 0.0 Immature Granulocytes # 0.100 H Neutrophils # 4.0 Lymphocytes # 0.7 L Monocytes # 1.0 H Eosinophils # 0.3 Basophils # 0.1 Nucleated Red Blood Cells # 0.0 Sodium Level 140 Potassium Level 4.2 Chloride Level 103 Carbon Dioxide Level 27 Anion Gap 10 Blood Urea Nitrogen 18 Creatinine 0.82 Est Glomerular Filtrat Rate mL/min > 60 Glucose Level 126 Calcium Level 9.0 Phosphorus Level 5.2 H Magnesium Level 1.8 Iron Level 18 L Total Iron Binding Capacity 345 Percent Iron Saturation 5 L Ferritin 49.8 Lab Scanned Report REFERENCE LAB Exam/Review of Systems Vital Signs Vitals Vital Signs Date Temp Pulse Resp B/P (MAP) Pulse Ox O2 O2 Flow FiO2 Time Delivery Rate 05/01/18 98.2 68 17 124/71 96 Room Air 08:06 (88) 05/01/18 21 07:46 04/27/18 2.0 20:00 Intake and Output 04/30/18 04/30/18 05/01/18 1515:00 23:00 07:00 IntakeIntake Total 660 ml 120 ml OutputOutput Total 2 ml 20 ml 650 ml BalanceBalance 658 ml -20 ml -530 ml Medications Medications Current Medications IV Flush (NS 3 ml) 3 ml PER PROTOCOL IV ; Start 04/22/18 at 00:00 Ondansetron HCl (Zofran Inj) 4 mg Q6H PRN IV NAUSEA AND/OR VOMITING Last administered on 04/30/18 01:29; Admin Dose 4 MG; Start 04/22/18 at 00:00 Acetaminophen (Tylenol Tab) 650 mg Q6H PRN PO PAIN LEVEL 1-3 OR FEVER Last administered on 04/30/18 20:40; Admin Dose 650 MG; Start 04/22/18 at 00:00 Albuterol/ Ipratropium (Duoneb) 3 ml Q2H RESP THERAPY PRN HHN SHORTNESS OF BREATH Last administered on 04/30/18 01:15; Admin Dose 3 ML; Start 04/22/18 at 00:00 Lactobacillus Acidophilus/ Rhamnosus (Culturelle) 1 cap BID PO Last administered on 05/01/18 08:37; Admin Dose 1 CAP; Start 04/22/18 at 14:00 Famotidine (Pepcid) 20 mg DAILY PO Last administered on 05/01/18 08:37; Admin Dose 20 MG; Start 04/22/18 at 13:00 Docusate Sodium (Colace) 100 mg BID PRN PO CONSTIPATION; Start 04/23/18 at 16:00 Magnesium Hydroxide (Milk Of Mag) 30 ml DAILY PRN PO CONSTIPATION; Start 04/23/18 at 16:00 Bisacodyl (Dulcolax) 10 mg DAILY PRN PO CONSTIPATION; Start 04/23/18 at 16:00 Bisacodyl (Dulcolax Supp) 10 mg Q48H PRN [place] CONSTIPATION; Start 04/23/18 at 16:00 Ibuprofen (Motrin) 800 mg Q6H PRN PO MILD PAIN LEVEL 1-3 Last administered on 04/25/18 09:15; Admin Dose 800 MG; Start 04/23/18 at 16:00 Tramadol HCl (Ultram) 50 mg Q6H PRN PO MODERATE PAIN LEVEL 4-6 Last administer ed on 05/01/18 00:12; Admin Dose 50 MG; Start 04/25/18 at 01:00 Albuterol/ Ipratropium (Duoneb) 3 ml Q6HWA RESP THERAPY HHN Last administered on 1/13/19at 07:44; Admin Dose 3 ML; Start 04/25/18 at 14:00 Rivaroxaban (Xarelto) 20 mg WITH DINNER PO Last administered on 04/30/18 17:50; Admin Dose 20 MG; Start 04/28/18 at 18:00 Guaifenesin (Robitussin Liquid Cup) 100 mg Q4H PRN PO COUGH Last administered on 05/01/18at 08:37; Admin Dose 100 MG; Start 04/30/18 at 00:00 Phenol (Cepastat Lozenge) 1 lozenge Q1H PRN [place] COUGH Last administered on 04/30/18at 20:40; Admin Dose 1 LOZENGE; Start 04/30/18 at 00:00 Miscellaneous Information Patients own medicat... BID@10,16 XX ; Start 04/30/18 at 10:00 Oxycodone/ Acetaminophen (Percocet (5/ 325)) 1 tab Q4H PRN PO MODERATE PAIN LEVEL 4-6 Last administered on 05/01/18at 05:47; Admin Dose 1 TAB; Start 04/30/18 at 16:30 KELIN SCHULTZ NP May 01, 2018 11:31
[2018-05-01 15:42] VITALS: BP 111/64; PULSE 64; RESP 17
[2018-05-01] MEDS: RIVAROXABAN 20 MG TABLET PO SCH (17:57)
--- NOTE | 2018-05-01 18:18 | NUR ---
No acute changes during shift. Pt safe and free from injury. Chest tube draining thick purulent output. 20mL output from chest tube. Pt pain monitored and controlled through shift. No signs of discomfort or distress. No SOB. Pt currently comfortable in bed watching TV. Bed alarm on, call light within reach. Will continue to monitor.
[2018-05-01 20:15] VITALS: BP 103/60; PULSE 68; RESP 18
[2018-05-02 02:00] VITALS: BP 119/66; PULSE 73; RESP 18
[2018-05-02] MEDS: OXYCODONE/ACETAMINOPHEN (5/325) TAB PO PRN ×2 (05:01→10:24)
--- NOTE | 2018-05-02 06:24 | NUR ---
END OF SHIFT SUMMARY: PATIENT RESTING COMFORTABLY. V/S STABLE, AFEBRILE. NO ACUTE CHANGES NOTED THIS SHIFT. PERCOCET GIVEN X 2 THIS SHIFT WITH ADEQUATE PAIN RELIEF NOTED . CHEST TUBE DRAINING THICK PURULENT OUTPUT WITH 10 ML OUTPUT THIS SHIFT. CALL LIGHT AND PHONE IN REACH. INSTRUCTED PATIENT TO CALL FOR ASSISTANCE. BED ALARM SET. NO SOB AT THIS TIME. WILL ENDORSE PLAN OF CARE TO AM RN.
[2018-05-02 08:28] VITALS: BP 129/82; PULSE 71; RESP 18
[2018-05-02] MEDS: LACTOBACILLUS RHAMNOSUS CAP PO SCH ×2 (08:36→19:45)
[2018-05-02] MEDS: FAMOTIDINE 20 MG TAB PO SCH (08:36)
--- NOTE | 2018-05-02 09:21 | PN ---
Date/Time of Note Date/Time of Note DATE: 05/02/18 TIME: 09: Assessment/Plan VTE Prophylaxis Risk score (from Ns)>0 risk: 4 SCD applied (from Ns): No SCD contraindicated: low risk/ambulating Pharmacological prophylaxis: NA/contraindicated Pharm contraindication: surgical contra Lines/Catheters [facility] Saline Lock Urinary Cath still in place: No Assessment/Plan Hospital Course Assessment and plan 1. Recurrent RT hemopneumothorax. h/o VATS. stable, sp IR guided pigtail. dc ct when stable; vs CTS consult? 2. Ftt consider snf 3. Nonadherence high risk of recurrent pneumothorax/progression of comorbidities. 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 Past tobacco 7. Likely chronic COPD 8 H/o MRSA chest wall cellulitis 9. Cervical spine disease 10. Anemia S: 04/22 no distress. Occasional cough with taking deep breaths. No hemoptysis. No diaphoresis fever. 04/23 no events. Some pleurisy chest pain. Some neck pain. Some cough no hemoptysis. No fever. /: No events 05/02: Ongoing pain. Appears comfortable however. No fever no diarrhea. Output remains thick O: vss Physical exam No pallor Regular no m/r/g Dimin rt no tachypnea; c t-tube c/d/i Bs dimin nt nd no RRG No edema Result Diagram: 04/30/18 1329 04/30/18 1329 Results 24hrs Laboratory Tests Test 05/01/18 10:56 Lab Scanned Report REFERENCE LAB Exam/Review of Systems Vital Signs Vitals Vital Signs Date Temp Pulse Resp B/P (MAP) Pulse Ox O2 O2 Flow FiO2 Time Delivery Rate 05/02/18 98.1 71 18 129/82 96 Room Air 08:28 (98) 05/01/18 21 07:46 Intake and Output 05/01/18 05/01/18 05/02/18 1515:00 23:00 07:00 IntakeIntake Total 520 ml 460 ml OutputOutput Total 10 ml 415 ml 1135 ml BalanceBalance -10 ml 105 ml -675 ml Medications Medications Current Medications IV Flush (NS 3 ml) 3 ml PER PROTOCOL IV ; Start 04/22/18 at 00:00 Ondansetron HCl (Zofran Inj) 4 mg Q6H PRN IV NAUSEA AND/OR VOMITING Last administered on 04/30/18 01:29; Admin Dose 4 MG; Start 04/22/18 at 00:00 Acetaminophen (Tylenol Tab) 650 mg Q6H PRN PO PAIN LEVEL 1-3 OR FEVER Last administered on 04/30/18 20:40; Admin Dose 650 MG; Start 04/22/18 at 00:00 Albuterol/ Ipratropium (Duoneb) 3 ml Q2H RESP THERAPY PRN HHN SHORTNESS OF BREATH Last administered on 04/30/18 01:15; Admin Dose 3 ML; Start 04/22/18 at 00:00 Lactobacillus Acidophilus/ Rhamnosus (Culturelle) 1 cap BID PO Last administered on 05/02/18 08:36; Admin Dose 1 CAP; Start 04/22/18 at 14:00 Famotidine (Pepcid) 20 mg DAILY PO Last administered on 05/02/18 08:36; Admin Dose 20 MG; Start 04/22/18 at 13:00 Docusate Sodium (Colace) 100 mg BID PRN PO CONSTIPATION; Start 04/23/18 at 16:00 Magnesium Hydroxide (Milk Of Mag) 30 ml DAILY PRN PO CONSTIPATION; Start 04/23/18 at 16:00 Bisacodyl (Dulcolax) 10 mg DAILY PRN PO CONSTIPATION; Start 04/23/18 at 16:00 Bisacodyl (Dulcolax Supp) 10 mg Q48H PRN [place] CONSTIPATION; Start 04/23/18 at 16:00 Ibuprofen (Motrin) 800 mg Q6H PRN PO MILD PAIN LEVEL 1-3 Last administered on 04/25/18 09:15; Admin Dose 800 MG; Start 04/23/18 at 16:00 Tramadol HCl (Ultram) 50 mg Q6H PRN PO MODERATE PAIN LEVEL 4-6 Last administered on 05/01/18 00:12; Admin Dose 50 MG; Start 04/25/18 at 01:00 Albuterol/ Ipratropium (Duoneb) 3 ml Q6HWA RESP THERAPY HHN Last administered on 1/13/19at 20:51; Admin Dose 3 ML; Start 04/25/18 at 14:00 Rivaroxaban (Xarelto) 20 mg WITH DINNER PO Last administered on 05/01/18at 17:57; Admin Dose 20 MG; Start 04/28/18 at 18:00 Guaifenesin (Robitussin Liquid Cup) 100 mg Q4H PRN PO COUGH Last administered on 05/01/18at 17:57; Admin Dose 100 MG; Start 04/30/18 at 00:00 Phenol (Cepastat Lozenge) 1 lozenge Q1H PRN [place] COUGH Last administered on 04/30/18at 20:40; Admin Dose 1 LOZENGE; Start 04/30/18 at 00:00 Miscellaneous Information Patients own medicat... BID@10,16 XX ; Start 04/30/18 at 10:00 Oxycodone/ Acetaminophen (Percocet (5/ 325)) 1 tab Q4H PRN PO MODERATE PAIN LEVEL 4-6 Last administered on 05/02/18at 05:01; Admin Dose 1 TAB; Start 04/30/18 at 16:30 KALEY RAYGOZA MD May 02, 2018 09:21
[2018-05-02] MEDS: traMADol 50 MG TAB PO PRN (13:22)
[2018-05-02 15:01] VITALS: BP 136/75; PULSE 68
[2018-05-02] MEDS: HYDROmorphONE 1 MG/ML SYG IV PRN ×2 (15:36→19:45)
--- NOTE | 2018-05-02 16:54 | NUR ---
NURSE NOTES; patient alert and oriented able to verbalized needs remained stable throughout the shift with no acute changes. No SOB or distress, Chest tube patent and intact draining well. assessed and reassessed for pain, medicated with pain medications as ordered. IV patent and intact. safety precautions observed, hourly rounding done, bed alarm and bed brakes on for safety, call light and telephone within reach art all times. Will continue to monitor. Will endorse accordingly to next shift for continuity of care.
[2018-05-02] MEDS: ALBUTEROL/IPRATROPIUM (NEB) 3 ML AMP HHN SCH (17:22)
[2018-05-02] MEDS: RIVAROXABAN 20 MG TABLET PO SCH (17:59)
[2018-05-02] MEDS: ONDANSETRON 4 MG INJ IV PRN (19:50)
[2018-05-02 20:10] VITALS: BP 106/64; PULSE 71; RESP 18
[2018-05-03] MEDS: HYDROmorphONE 1 MG/ML SYG IV PRN ×4 (00:29→13:15)
[2018-05-03] MEDS: ALBUTEROL/IPRATROPIUM (NEB) 3 ML AMP HHN SCH ×3 (01:06→15:03)
[2018-05-03 02:17] VITALS: BP 102/59; PULSE 64; RESP 18
[2018-05-03] MEDS: ONDANSETRON 4 MG INJ IV PRN ×2 (05:03→16:06)
[2018-05-03 08:00] VITALS: BP 97/59; PULSE 63; RESP 17
[2018-05-03] MEDS: LACTOBACILLUS RHAMNOSUS CAP PO SCH ×2 (09:09→21:56)
--- NOTE | 2018-05-03 09:20 | CONS ---
Date/Time of Note Date/Time of Note DATE: 05/03/18 TIME: 09:16 Assessment/Plan Assessment/Plan Assessment/Plan Dictation service down full note to follw today Adjusted pain meds to increase dilaudid to 1 mg q4 prn only... explained rationale to patient from a respiratory standpoint... he understands and agrees to pain reg orders Result Diagram: 04/30/18 1329 04/30/18 1329 Consultation Date/Type/Reason Admit Date/Time Apr 21, 2018 at 19:36 Subjective hx not possible: pt non-verbal Eyes: no complaints Respiratory: other Cardiovascular: no complaints; No chest pain, No edema, No lightheadedness, No orthopenea, No palpitations, No paroxysmal nocturnal dyspnea, No other Gastrointestinal: no complaints; No pain, No blood, No constipation, No decreased appetite, No diarrhea, No flatus, No nausea, No passing stool, No vomiting, No other Genitourinary: no complaints; No bleeding, No dysuria, No discharge, No flank pain, No hematuria, No other Musculoskeletal: no complaints; No back pain, No bone/joint pain, No neck pain, No restricted range of motion, No swelling, No other Neurologic: no complaints; No confusion, No dizziness, No focal-weakness, No headache, No syncope, No seizure, No other Psychological: no complaints, nl mood/affect, anxiety Past Medical History Medical History: other (See HPI) Medications Current Medications IV Flush (NS 3 ml) 3 ml PER PROTOCOL IV ; Start 04/22/18 at 00:00 Ondansetron HCl (Zofran Inj) 4 mg Q6H PRN IV NAUSEA AND/OR VOMITING Last administered on 05/03/18at 05:03; Admin Dose 4 MG; Start 04/22/18 at 00:00 Acetaminophen (Tylenol Tab) 650 mg Q6H PRN PO PAIN LEVEL 1-3 OR FEVER Last administered on 04/30/18at 20:40; Admin Dose 650 MG; Start 04/22/18 at 00:00 Albuterol/ Ipratropium (Duoneb) 3 ml Q2H RESP THERAPY PRN HHN SHORTNESS OF BREATH Last administered on 04/30/18at 01:15; Admin Dose 3 ML; Start 04/22/18 at 00:00 Lactobacillus Acidophilus/ Rhamnosus (Culturelle) 1 cap BID PO Last administered on 05/02/18 19:45; Admin Dose 1 CAP; Start 04/22/18 at 14:00 Docusate Sodium (Colace) 100 mg BID PRN PO CONSTIPATION; Start 04/23/18 at 16:00 Magnesium Hydroxide (Milk Of Mag) 30 ml DAILY PRN PO CONSTIPATION Last administered on 05/02/18 10:29; Admin Dose 30 ML; Start 04/23/18 at 16:00 Bisacodyl (Dulcolax) 10 mg DAILY PRN PO CONSTIPATION; Start 04/23/18 at 16:00 Bisacodyl (Dulcolax Supp) 10 mg Q48H PRN [place] CONSTIPATION; Start 04/23/18 at 16:00 Ibuprofen (Motrin) 800 mg Q6H PRN PO MILD PAIN LEVEL 1-3 Last administered on 04/25/18 09:15; Admin Dose 800 MG; Start 04/23/18 at 16:00 Rivaroxaban (Xarelto) 20 mg WITH DINNER PO Last administered on 05/02/18at 17:59; Admin Dose 20 MG; Start 04/28/18 at 18:00 Guaifenesin (Robitussin Liquid Cup) 100 mg Q4H PRN PO COUGH Last administered on 05/01/18 17:57; Admin Dose 100 MG; Start 04/30/18 at 00:00 Phenol (Cepastat Lozenge) 1 lozenge Q1H PRN MT COUGH Last administered on 04/30/18at 20:40; Admin Dose 1 LOZENGE; Start 04/30/18 at 00:00 Miscellaneous Information Patients own medicat... BID@10,16 XX ; Start 04/30/18 at 10:00 Oxycodone/ Acetaminophen (Percocet (5/ 325)) 1 tab Q4H PRN PO MODERATE PAIN LEVEL 4-6 Last administered on 05/02/18 10:24; Admin Dose 1 TAB; Start 04/30/18 at 16:30 Albuterol/ Ipratropium (Duoneb) 3 ml Q8H RESP THERAPY HHN Last administered on 05/03/18 08:22; Admin Dose 3 ML; Start 05/02/18 at 16:00 Hydromorphone HCl (Dilaudid) 1 mg Q4H PRN IV SEVERE PAIN LEVEL 7-10 Last administered on 05/03/18at 05:05; Admin Dose 1 MG; Start 05/02/18 at 14:00 Allergies: Coded Allergies: No Known Allergy (Unverified , 04/21/18) Past Surgical History Past Surgical Hx: other (See HPI) Social History Alcohol Use: other Smoking Status: Former smoker Drug Use: other Exam/Review of Systems Vital Signs Vitals Vital Signs Date Temp Pulse Resp B/P (MAP) Pulse Ox O2 O2 Flow FiO2 Time Delivery Rate 05/03/18 69 16 95 21 08:23 05/03/18 97.7 97/59 (72) Room Air 08:00 Intake and Output 05/02/18 05/02/18 05/03/18 1515:00 23:00 07:00 IntakeIntake Total 400 ml 420 ml 1750 ml OutputOutput Total 375 ml 230 ml 1125 ml BalanceBalance 25 ml 190 ml 625 ml Exam Constitutional: alert, oriented, well developed Psych: anxiety Head: normocephalic, atraumatic; No lacerations, No hematomas, No other Eyes: nl conjunctiva, EOMI, nl lids, nl sclera, PERRL; No icteric, No fundi, disc, No other ENMT: nl external ears & nose, nl lips & teeth, nl nasal mucosa & septum; No mucosa pink and moist, No intubated, No tympanic membranes, No other Neck: supple, non-tender; No jvd, No bruits, No masses, No thyromegaly, No nuchal rigidity, No other Respiratory: congested cough, crackles/rales, diminished breath sounds, wheezing Cardiovascular: regular rate and rhythm, nl pulses; No bruits, No diastolic murmur, No edema, No gallop, No irregular rhythm, No jugular venous distention (JVD), No murmurs/extra sounds, No rub, No systolic murmur, No S3, No S4, No other Gastrointestinal: No soft, No nl liver, spleen, No non-tender, No ascites, No bowel sounds, No distended, No firm, No hepatomegaly, No mass, No rebound or guarding, No splenomegaly, No surgical scars, No tender, No other 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, nl mental status, nl speech, nl strength; No confused, No DTR's symmetric, No focal weakness, No lethargic, No numbness, No reflexes, No unresponsive, No other Medications Medications Current Medications IV Flush (NS 3 ml) 3 ml PER PROTOCOL IV ; Start 04/22/18 at 00:00 Ondansetron HCl (Zofran Inj) 4 mg Q6H PRN IV NAUSEA AND/OR VOMITING Last administered on 05/03/18 05:03; Admin Dose 4 MG; Start 04/22/18 at 00:00 Acetaminophen (Tylenol Tab) 650 mg Q6H PRN PO PAIN LEVEL 1-3 OR FEVER Last administered on 04/30/18 20:40; Admin Dose 650 MG; Start 04/22/18 at 00:00 Albuterol/ Ipratropium (Duoneb) 3 ml Q2H RESP THERAPY PRN HHN SHORTNESS OF BREATH Last administered on 04/30/18 01:15; Admin Dose 3 ML; Start 04/22/18 at 00:00 Lactobacillus Acidophilus/ Rhamnosus (Culturelle) 1 cap BID PO Last administered on 05/02/18 19:45; Admin Dose 1 CAP; Start 04/22/18 at 14:00 Docusate Sodium (Colace) 100 mg BID PRN PO CONSTIPATION; Start 04/23/18 at 16:00 Magnesium Hydroxide (Milk Of Mag) 30 ml DAILY PRN PO CONSTIPATION Last administered on 05/02/18 10:29; Admin Dose 30 ML; Start 04/23/18 at 16:00 Bisacodyl (Dulcolax) 10 mg DAILY PRN PO CONSTIPATION; Start 04/23/18 at 16:00 Bisacodyl (Dulcolax Supp) 10 mg Q48H PRN [place] CONSTIPATION; Start 04/23/18 at 16:00 Ibuprofen (Motrin) 800 mg Q6H PRN PO MILD PAIN LEVEL 1-3 Last administered on 04/25/18 09:15; Admin Dose 800 MG; Start 04/23/18 at 16:00 Rivaroxaban (Xarelto) 20 mg WITH DINNER PO Last administered on 05/02/18 17:59; Admin Dose 20 MG; Start 04/28/18 at 18:00 Guaifenesin (Robitussin Liquid Cup) 100 mg Q4H PRN PO COUGH Last administered on 05/01/18 17:57; Admin Dose 100 MG; Start 04/30/18 at 00:00 Phenol (Cepastat Lozenge) 1 lozenge Q1H PRN MT COUGH Last administered on 04/30/18at 20:40; Admin Dose 1 LOZENGE; Start 04/30/18 at 00:00 Miscellaneous Information Patients own medicat... BID@10,16 XX ; Start 04/30/18 at 10:00 Oxycodone/ Acetaminophen (Percocet (5/ 325)) 1 tab Q4H PRN PO MODERATE PAIN LEVEL 4-6 Last administered on 05/02/18 10:24; Admin Dose 1 TAB; Start 04/30/18 at 16:30 Albuterol/ Ipratropium (Duoneb) 3 ml Q8H RESP THERAPY HHN Last administered on 05/03/18 08:22; Admin Dose 3 ML; Start 05/02/18 at 16:00 Hydromorphone HCl (Dilaudid) 1 mg Q4H PRN IV SEVERE PAIN LEVEL 7-10 Last administered on 05/03/18 05:05; Admin Dose 1 MG; Start 05/02/18 at 14:00 SHERIF MYERS May 03, 2018 09:20
[2018-05-03] MEDS: OXYCODONE/ACETAMINOPHEN (5/325) TAB PO PRN ×2 (09:48→23:02)
--- NOTE | 2018-05-03 14:22 | PN ---
Date/Time of Note Date/Time of Note DATE: 05/03/18 TIME: 14:09 Assessment/Plan VTE Prophylaxis Risk score (from Ns)>0 risk: 6 SCD applied (from Ns): No SCD contraindicated: other (no) Pharmacological prophylaxis: other (eliquis) Lines/Catheters IV [facility]from [facility] Saline Lock Urinary Cath still in place: No Assessment/Plan Assessment/Plan This is a 57-year-old male with COPD, chronic PE on anticoagulation, right pleural effusion status post right thoracotomy and total pulmonary decortication along with bronchoscopy on 02/07/2018, and right-sided pneumothorax The patient was S/P chest tube placement on 03/08/2018 by IR and was discharged with a Heimlich valve in place. The patient's chest tube was recently discontinued by thoracic surgery. The patient came back to the emergency room on 04/21/2017 complaining of dyspnea with the chest x-ray done on 04/21/2018 showing interval development of a probably loculated right pneumohydrothorax. Therefore, the patient was admitted to inpatient setting. 1. Right Hydropneumothorax. -S/P IR placement of chest tube on 04/26/2018. -Fluid studies negative so far. -On antimicrobials. 2. History of pulmonary embolism and DVT. -Prior note documents patient had an IVC filter; unclear if this device is still in place. -Will get KUB to further evaluate. -IVC filters are a source of thrombi and significantly increase the risk of PE. If one is present on KUB it should be removed by IR. -On Xarelto 3. History of aspergillosis. 4. COPD. -Continue inhaled bronchodilators. 5. Microcytic anemia. -Monitor H&H closely. 6. Fluids, electrolytes, and nutrition. -Regular diet. 7. DVT prophylaxis -Factor Xa inhibitors. 8. Plan. - Patient has chronic pain likely related to the R thorax pathology. Recently started on IV Dilaudid q4h (05/02) by pain management consult. This should be tapered down to a more appropriate oral or transcutaneous regimen for long-term control. - Prior documentation mentions an IVC filter. Will get KUB to eval if this device is still in place. If so it should be removed by IR. - Patient is homeless so placement will be tough. Result Diagram: 04/30/18 1329 04/30/18 1329 Subjective 24 Hr Interval Summary Free Text/Dictation Patient was started on IV dilaudid by pain management consult yesterday... previously had been on oral opiates. He continues to have lots of pain. Mostly mid chest stabbing pleuritic pain, positional, best when lying on left side, worse in any other position. Worsens w ith deep breaths. Exam/Review of Systems Vital Signs Vitals Vital Signs Date Temp Pulse Resp B/P (MAP) Pulse Ox O2 O2 Flow FiO2 Time Delivery Rate 05/03/18 69 16 95 21 08:23 05/03/18 97.7 97/59 (72) Room Air 08:00 Intake and Output 05/02/18 05/02/18 05/03/18 1515:00 23:00 07:00 IntakeIntake Total 400 ml 420 ml 1750 ml OutputOutput Total 375 ml 230 ml 1125 ml BalanceBalance 25 ml 190 ml 625 ml Exam General: Adequately build 57 year-old male lying in bed in no apparent distress. HEENT: Normocephalic, atraumatic. Eyes: Anicteric sclerae, conjunctivae clear. ENT: Nasal septum midline, oral mucosa is moist. Neck supple, no JVD noticed. Respiratory: Bilaterally diminished breath sounds. No use of accessory muscles of respiration. Right-sided chest tube to suction. Cardiovascular: S1, S2 heard. Regular rate and rhythm. Abdomen: Soft, nontender, and nondistended. Bowel sounds positive in all 4 quadrants. Genitourinary: Deferred. Extremities: No cyanosis, no clubbing, no edema. Peripheral pulses palpable. Skin: Right chest wall incision from thoracotomy. Right sided chest tube to suction draining serous fluid. Medications Medications Current Medications IV Flush (NS 3 ml) 3 ml PER PROTOCOL IV ; Start 04/22/18 at 00:00 Ondansetron HCl (Zofran Inj) 4 mg Q6H PRN IV NAUSEA AND/OR VOMITING Last administered on 05/03/18at 05:03; Admin Dose 4 MG; Start 04/22/18 at 00:00 Acetaminophen (Tylenol Tab) 650 mg Q6H PRN PO PAIN LEVEL 1-3 OR FEVER Last administered on 04/30/18at 20:40; Admin Dose 650 MG; Start 04/22/18 at 00:00 Albuterol/ Ipratropium (Duoneb) 3 ml Q2H RESP THERAPY PRN HHN SHORTNESS OF BREATH Last administered on 04/30/18at 01:15; Admin Dose 3 ML; Start 04/22/18 at 00:00 Lactobacillus Acidophilus/ Rhamnosus (Culturelle) 1 cap BID PO Last administered on 05/03/18 09:09; Admin Dose 1 CAP; Start 04/22/18 at 14:00 Docusate Sodium (Colace) 100 mg BID PRN PO CONSTIPATION; Start 04/23/18 at 16:00 Magnesium Hydroxide (Milk Of Mag) 30 ml DAILY PRN PO CONSTIPATION Last administered on 05/02/18 10:29; Admin Dose 30 ML; Start 04/23/18 at 16:00 Bisacodyl (Dulcolax) 10 mg DAILY PRN PO CONSTIPATION; Start 04/23/18 at 16:00 Bisacodyl (Dulcolax Supp) 10 mg Q48H PRN [place] CONSTIPATION; Start 04/23/18 at 16 :00 Ibuprofen (Motrin) 800 mg Q6H PRN PO MILD PAIN LEVEL 1-3 Last administered on 04/25/18at 09:15; Admin Dose 800 MG; Start 04/23/18 at 16:00 Rivaroxaban (Xarelto) 20 mg WITH DINNER PO Last administered on 05/02/18at 17:59; Admin Dose 20 MG; Start 04/28/18 at 18:00 Guaifenesin (Robitussin Liquid Cup) 100 mg Q4H PRN PO COUGH Last administered on 05/01/18 17:57; Admin Dose 100 MG; Start 04/30/18 at 00:00 Phenol (Cepastat Lozenge) 1 lozenge Q1H PRN MT COUGH Last administered on 04/30/18at 20:40; Admin Dose 1 LOZENGE; Start 04/30/18 at 00:00 Miscellaneous Information Patients own medicat... BID@10,16 XX ; Start 04/30/18 at 10:00 Oxycodone/ Acetaminophen (Percocet (5/ 325)) 1 tab Q4H PRN PO MODERATE PAIN LEVEL 4-6 Last administered on 05/03/18 09:48; Admin Dose 1 TAB; Start 04/30/18 at 16:30 Albuterol/ Ipratropium (Duoneb) 3 ml Q8H RESP THERAPY HHN Last administered on 05/03/18at 08:22; Admin Dose 3 ML; Start 05/02/18 at 16:00 Hydromorphone HCl (Dilaudid) 1 mg Q4H PRN IV SEVERE PAIN LEVEL 7-10 Last administered on 05/03/18at 13:15; Admin Dose 1 MG; Start 05/02/18 at 14:00 NESTOR WEST MD May 03, 2018 14:20
[2018-05-03 14:36] VITALS: BP 104/59; PULSE 61; RESP 17
[2018-05-03] MEDS ORDERED: KETOROLAC 15 MG INJ IV PRN (15:30)
[2018-05-03] MEDS: RIVAROXABAN 20 MG TABLET PO SCH (17:35)
--- NOTE | 2018-05-03 18:06 | NUR ---
POOR APPETITE NOTED, PT. HOARDING SOME MEALS TRAYS AND UNABLE TO STATE WHEN WAS THE LAST MEAL TRAYS SEND TO HIM. 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 EPISODES OF PAIN DISCOMFORT 7-9/10 CHEST WHEN BREATHING, GIVEN PAIN MEDICATION PER ORDERS AND AFTER 30- MINUTES PAIN SCALE 2/10. EMPHASIZED GOOD PROPER HYGIENE OFFERED SHOWER / BATHING REFUSED 3X, JUST CHANGED LINENS. PLEURX INTACT W/ CHEST TUBE, KEPT CLEAN DRY , VS WITHIN RANGE WILL CONTINUE POC .
[2018-05-03 20:25] VITALS: BP 99/60; PULSE 65; RESP 18
[2018-05-04] MEDS: ALBUTEROL/IPRATROPIUM (NEB) 3 ML AMP HHN SCH ×3 (00:30→16:00)
[2018-05-04 02:16] VITALS: BP 101/72; PULSE 69; RESP 18
[2018-05-04] MEDS: OXYCODONE/ACETAMINOPHEN (5/325) TAB PO PRN ×4 (05:54→20:37)
[2018-05-04 07:53] VITALS: BP 90/52; PULSE 63; RESP 14
[2018-05-04] MEDS: LACTOBACILLUS RHAMNOSUS CAP PO SCH ×2 (08:38→20:37)
[2018-05-04 14:27] VITALS: BP 119/64; PULSE 61; RESP 16
--- NOTE | 2018-05-04 15:32 | PN ---
Date/Time of Note Date/Time of Note DATE: 05/04/18 TIME: 15:27 Assessment/Plan VTE Prophylaxis Risk score (from Ns)>0 risk: 6 SCD applied (from Ns): Yes Pharmacological prophylaxis: rivaroxaban Lines/Catheters IV Catheter Type (from Nrsg): Saline Lock Urinary Cath still in place: No Assessment/Plan Hospital Course This is a 57-year-old male with COPD, chronic PE on anticoagulation, right pleural effusion status post right thoracotomy and total pulmonary decortication along with bronchoscopy on 02/07/2018, and right-sided pneumothorax The patient was S/P chest tube placement on 03/08/2018 by IR and was discharged with a Heimlich valve in place. The patient's chest tube was recently discontinued by thoracic surgery. The patient came back to the emergency room on 04/21/2017 c omplaining of dyspnea with the chest x-ray done on 04/21/2018 showing interval development of a probably loculated right pneumohydrothorax. 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 - IVC filter in placed on KUB - IVC filters are a source of thrombi and significantly increase the risk of PE. Can consider removal -On Xarelto Plan. - Patient has chronic pain likely related to the R thorax pathology. Recently started on IV Dilaudid q4h (05/02) by pain management consult. This should be tapered down to a more appropriate oral or transcutaneous regimen for long-term control. - Prior documentation mentions an IVC filter. Will get KUB to eval if this device is still in place. If so it should be removed by IR. - Patient is homeless so placement will be tough. Result Diagram: 05/04/18 0556 05/04/18 0556 Results 24hrs Laboratory Tests Test 05/04/18 05:56 White Blood Count 5.7 Red Blood Count 4.77 Hemoglobin 11.8 L Hematocrit 37.8 L Mean Corpuscular Volume 79.2 L Mean Corpuscular Hemoglobin 24.7 L Mean Corpuscular Hemoglobin Concent 31.2 L Red Cell Distribution Width 15.8 H Platelet Count 542 H Mean Platelet Volume 8.8 Immature Granulocytes % 1.000 H Neutrophils % 62.1 Lymphocytes % 23.6 Monocytes % 10.5 Eosinophils % 1.6 Basophils % 1.2 Nucleated Red Blood Cells % 0.0 Immature Granulocytes # 0.060 H Neutrophils # 3.6 Lymphocytes # 1.4 Monocytes # 0.6 Eosinophils # 0.1 Basophils # 0.1 Nucleated Red Blood Cells # 0.0 Sodium Level 135 Potassium Level 4.0 Chloride Level 95 L Carbon Dioxide Level 29 Anion Gap 11 Blood Urea Nitrogen 19 Creatinine 0.75 Est Glomerular Filtrat Rate mL/min > 60 Glucose Level 143 Calcium Level 9.5 Magnesium Level 2.0 Total Bilirubin 0.0 L Direct Bilirubin 0.00 Indirect Bilirubin 0.0 Aspartate Amino Transf (AST/SGOT) 35 Alanine Aminotransferase (ALT/SGPT) 9 L Alkaline Phosphatase 78 Total Protein 7.7 Albumin 3.8 Globulin 3.90 H Albumin/Globulin Ratio 0.97 Subjective 24 Hr Interval Summary Free Text/Dictation Still having a good deal of pain, requesting dilaudid. Depsite this appears fairly comfortable Chest tube still in place with white fluid drainage. I spoke to Dr Mann who recommended we place a pleurex Exam/Review of Systems Vital Signs Vitals Vital Signs Date Temp Pulse Resp B/P (MAP) Pulse Ox O2 O2 Flow FiO2 Time Delivery Rate 05/04/18 98.4 61 16 119/64 93 14:27 (82) 05/03/18 21 15:05 05/03/18 Room Air 14:36 Intake and Output 05/03/18 05/03/18 05/04/18 1515:00 23:00 07:00 IntakeIntake Total 1600 ml 1225 ml OutputOutput Total 850 ml 1215 ml BalanceBalance 750 ml 10 ml Exam Comfortable appearing Chest tube in R chest to water seal Medications Medications Current Medications IV Flush (NS 3 ml) 3 ml PER PROTOCOL IV ; Start 04/22/18 at 00:00 Ondansetron HCl (Zofran Inj) 4 mg Q6H PRN IV NAUSEA AND/OR VOMITING Last administered on 05/03/18at 16:06; Admin Dose 4 MG; Start 04/22/18 at 00:00 Acetaminophen (Tylenol Tab) 650 mg Q6H PRN PO PAIN LEVEL 1-3 OR FEVER Last adm inistered on 04/30/18 20:40; Admin Dose 650 MG; Start 04/22/18 at 00:00 Albuterol/ Ipratropium (Duoneb) 3 ml Q2H RESP THERAPY PRN HHN SHORTNESS OF BREATH Last administered on 04/30/18 01:15; Admin Dose 3 ML; Start 04/22/18 at 00:00 Lactobacillus Acidophilus/ Rhamnosus (Culturelle) 1 cap BID PO Last administered on 05/04/18 08:38; Admin Dose 1 CAP; Start 04/22/18 at 14:00 Docusate Sodium (Colace) 100 mg BID PRN PO CONSTIPATION; Start 04/23/18 at 16:00 Magnesium Hydroxide (Milk Of Mag) 30 ml DAILY PRN PO CONSTIPATION Last administered on 05/02/18 10:29; Admin Dose 30 ML; Start 04/23/18 at 16:00 Bisacodyl (Dulcolax) 10 mg DAILY PRN PO CONSTIPATION; Start 04/23/18 at 16:00 Bisacodyl (Dulcolax Supp) 10 mg Q48H PRN [place] CONSTIPATION; Start 04/23/18 at 16:00 Rivaroxaban (Xarelto) 20 mg WITH DINNER PO Last administered on 05/03/18 17:35; Admin Dose 20 MG; Start 04/28/18 at 18:00 Guaifenesin (Robitussin Liquid Cup) 100 mg Q4H PRN PO COUGH Last administered on 05/01/18 17:57; Admin Dose 100 MG; Start 04/30/18 at 00:00 Phenol (Cepastat Lozenge) 1 lozenge Q1H PRN MT COUGH Last administered on 04/30/18 20:40; Admin Dose 1 LOZENGE; Start 04/30/18 at 00:00 Miscellaneous Information Patients own medicat... BID@10,16 XX ; Start 04/30/18 at 10:00 Oxycodone/ Acetaminophen (Percocet (5/ 325)) 1 tab Q4H PRN PO MODERATE PAIN LEVEL 4-6 Last administered on 05/04/18 11:11; Admin Dose 1 TAB; Start 04/30/18 at 16:30 Albuterol/ Ipratropium (Duoneb) 3 ml Q8H RESP THERAPY HHN Last administered on 1/15/19at 15:03; Admin Dose 3 ML; Start 05/02/18 at 16:00 Ketorolac Tromethamine (Toradol) 15 mg Q6H PRN IV PAIN Last administered on 05/03/18at 17:35; Admin Dose 15 MG; Start 05/03/18 at 15:30; Stop 05/06/18 at 15:29 MAXIM WILLIAMSON MD May 04, 2018 15:32
[2018-05-04] MEDS: RIVAROXABAN 20 MG TABLET PO SCH (18:07)
--- NOTE | 2018-05-04 18:12 | NUR ---
No acute changes during shift. Pt safe and free from injury. Chest tube draining thick purulent output. 10mL output from chest tube. Pt pain monitored and controlled through shift. No signs of discomfort or distress. No SOB. Pt currently comfortable in bed watching TV. Bed alarm on, call light within reach. Will continue to monitor.
[2018-05-04 20:00] VITALS: BP 115/69; PULSE 62; RESP 18
[2018-05-05 02:00] VITALS: BP 117/63; PULSE 66; RESP 18
[2018-05-05] MEDS: ALBUTEROL/IPRATROPIUM (NEB) 3 ML AMP HHN SCH ×3 (08:00→16:18)
[2018-05-05 08:04] VITALS: BP 109/64; PULSE 70; RESP 20
[2018-05-05] MEDS: LACTOBACILLUS RHAMNOSUS CAP PO SCH ×2 (09:00→20:50)
--- NOTE | 2018-05-05 10:47 | CONS ---
Date/Time of Note Date/Time of Note DATE: 05/05/18 TIME: 10:45 Consult Date/Type/Reason Admit Date/Time Apr 21, 2018 at 19:36 Initial Consult Date 04/27/18 Type of Consultation: Pulm Subjective Pleurex catheter to be placed today. Objective Vital Signs Date Temp Pulse Resp B/P (MAP) Pulse Ox O2 O2 Flow FiO2 Time Delivery Rate 05/05/18 98.0 70 20 109/64 95 Room Air 08:04 (79) 05/05/18 21 00:13 Intake and Output 05/04/18 05/04/18 05/05/18 1515:00 23:00 07:00 IntakeIntake Total 2000 ml 500 ml OutputOutput Total 400 ml 1210 ml 1325 ml BalanceBalance -400 ml 790 ml -825 ml Results/Medications Result Diagram: 05/04/18 0556 05/04/18 0556 Medications Current Medications IV Flush (NS 3 ml) 3 ml PER PROTOCOL IV ; Start 04/22/18 at 00:00 Ondansetron HCl (Zofran Inj) 4 mg Q6H PRN IV NAUSEA AND/OR VOMITING Last administered on 05/03/18at 16:06; Admin Dose 4 MG; Start 04/22/18 at 00:00 Acetaminophen (Tylenol Tab) 650 mg Q6H PRN PO PAIN LEVEL 1-3 OR FEVER Last administered on 04/30/18at 20:40; Admin Dose 650 MG; Start 04/22/18 at 00:00 Albuterol/ Ipratropium (Duoneb) 3 ml Q2H RESP THERAPY PRN HHN SHORTNESS OF BREATH Last administered on 04/30/18at 01:15; Admin Dose 3 ML; Start 04/22/18 at 00:00 Lactobacillus Acidophilus/ Rhamnosus (Culturelle) 1 cap BID PO Last administered on 05/04/18at 20:37; Admin Dose 1 CAP; Start 04/22/18 at 14:00 Docusate Sodium (Colace) 100 mg BID PRN PO CONSTIPATION; Start 04/23/18 at 16:00 Magnesium Hydroxide (Milk Of Mag) 30 ml DAILY PRN PO CONSTIPATION Last administered on 05/02/18at 10:29; Admin Dose 30 ML; Start 04/23/18 at 16:00 Bisacodyl (Dulcolax) 10 mg DAILY PRN PO CONSTIPATION; Start 04/23/18 at 16:00 Bisacodyl (Dulcolax Supp) 10 mg Q48H PRN [place] CONSTIPATION; Start 04/23/18 at 16:00 Rivaroxaban (Xarelto) 20 mg WITH DINNER PO Last administered on 05/04/18at 18:07; Admin Dose 20 MG; Start 04/28/18 at 18:00 Guaifenesin (Robitussin Liquid Cup) 100 mg Q4H PRN PO COUGH Last administered on 05/01/18at 17:57; Admin Dose 100 MG; Start 04/30/18 at 00:00 Phenol (Cepastat Lozenge) 1 lozenge Q1H PRN MT COUGH Last administered on 04/30/18 20:40; Admin Dose 1 LOZENGE; Start 04/30/18 at 00:00 Miscellaneous Information Patients own medicat... BID@10,16 XX ; Start 04/30/18 at 10:00 Oxycodone/ Acetaminophen (Percocet (5/ 325)) 1 tab Q4H PRN PO MODERATE PAIN LEVEL 4-6 Last administered on 05/04/18at 20:37; Admin Dose 1 TAB; Start 04/30/18 at 16:30 Albuterol/ Ipratropium (Duoneb) 3 ml Q8H RESP THERAPY HHN Last administered on 05/03/18at 15:03; Admin Dose 3 ML; Start 05/02/18 at 16:00 Ketorolac Tromethamine (Toradol) 15 mg Q6H PRN IV PAIN Last administered on 05/03/18at 17:35; Admin Dose 15 MG; Start 05/03/18 at 15:30; Stop 05/06/18 at 15:29 Assessment/Plan Chief Complaint/Hosp Course Plan: Pleurex catheter together binder caser to arrange home health with drainage of pleurex every other day. dc planning. LIDIA MEADE MD, [facility] May 05, 2018 10:47
--- NOTE | 2018-05-05 11:12 | NUR ---
RN Notes: Pt was picked up by RN at Radiology for U/S and Fluoroscopic Guided Right PLEUREX Catheter Placement. Pt remains alert and oriented, breathing even and unlabored, no acute distress noted. Addendum: 05/05/18 at 1500 by BARBARA BURGER RN Around 1335 pt came back to the floor as per Daniel from Radiology the procedure was cancelled and per Daniel Florian coordinate with Dr. Mann and both MD said to keep current chest tube and no pending procedure as of this time. Verified with Dr. Mann regarding NPO status per MD resume previous diet and pt's medication orders including blood thinner medication. Pt aware. remains alert and oriented, no acute distress noted.
[2018-05-05] MEDS ORDERED: LIDOCAINE 1% (MDV) 20 ML INJ ONE (11:33)
[2018-05-05] MEDS ORDERED: HEPARIN 1000 UNITS/NS (A-LINE) 1,000 ML ONE (11:33)
[2018-05-05] MEDS ORDERED: MIDAZOLAM 1 MG/ML 2 ML INJ ONE (11:34)
[2018-05-05] MEDS ORDERED: FENTAnyl 50 MCG/ML VIAL ONE (11:34)
[2018-05-05 14:29] VITALS: BP 123/79; PULSE 60; RESP 18
[2018-05-05] MEDS: OXYCODONE/ACETAMINOPHEN (5/325) TAB PO PRN (14:44)
--- NOTE | 2018-05-05 15:40 | PN ---
Date/Time of Note Date/Time of Note DATE: 05/05/18 TIME: 15:38 Assessment/Plan VTE Prophylaxis Risk score (from Ns)>0 risk: 7 SCD applied (from Ns): Yes SCD contraindicated: low risk/ambulating Pharmacological prophylaxis: NA/contraindicated Pharm contraindication: surgical contra Lines/Catheters IV Catheter Type (from [facility]): Saline Lock Urinary Cath still in place: No Assessment/Plan Hospital Course Assessment and plan 1. Recurrent RT hemopneumothorax. h/o VATS. stable, sp IR guided pigtail. For Pleurx drainage catheter today. 2. Ftt consider snf 3. Nonadherence high risk of recurrent pneumothorax/progression of comorbiditie s. 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 Past tobacco 7. Likely chronic COPD 8 H/o MRSA chest wall cellulitis 9. Cervical spine disease 10. Anemia S: 04/22 no distress. Occasional cough with taking deep breaths. No hemoptysis. No diaphoresis fever. 04/23 no events. Some pleurisy chest pain. Some neck pain. Some cough no hemoptysis. No fever. /: No events 05/02: Ongoing pain. Appears comfortable however. No fever no diarrhea. Output remains thick 05/05: Ongoing "pain" no fever. for Pleurx catheter exchange/placement and IVC filter removal if feasible O: vss Physical exam -Deferred, patient in IR lab Result Diagram: 05/04/18 0556 05/04/18 0556 Results 24hrs Laboratory Tests Test 05/05/18 10:18 Prothrombin Time 15.2 H Prothrombin Time Ratio 1.2 INR International Normalized Ratio 1.19 Activated Partial Thromboplast Time 33.6 Exam/Review of Systems Vital Signs Vitals Vital Signs Date Temp Pulse Resp B/P (MAP) Pulse Ox O2 O2 Flow FiO2 Time Delivery Rate 05/05/18 98.3 60 18 123/79 95 Room Air 14:29 (94) 05/05/18 21 00:13 Intake and Output 05/04/18 05/04/18 05/05/18 1515:00 23:00 07:00 IntakeIntake Total 2000 ml 500 ml OutputOutput Total 400 ml 1210 ml 1325 ml BalanceBalance -400 ml 790 ml -825 ml Medications Medications Current Medications IV Flush (NS 3 ml) 3 ml PER PROTOCOL IV ; Start 04/22/18 at 00:00 Ondansetron HCl (Zofran Inj) 4 mg Q6H PRN IV NAUSEA AND/OR VOMITING Last administered on 05/03/18 16:06; Admin Dose 4 MG; Start 04/22/18 at 00:00 Acetaminophen (Tylenol Tab) 650 mg Q6H PRN PO PAIN LEVEL 1-3 OR FEVER Last administered on 04/30/18 20:40; Admin Dose 650 MG; Start 04/22/18 at 00:00 Albuterol/ Ipratropium (Duoneb) 3 ml Q2H RESP THERAPY PRN HHN SHORTNESS OF BREATH Last administered on 04/30/18 01:15; Admin Dose 3 ML; Start 04/22/18 at 00:00 Lactobacillus Acidophilus/ Rhamnosus (Culturelle) 1 cap BID PO Last administered on 05/04/18 20:37; Admin Dose 1 CAP; Start 04/22/18 at 14:00 Docusate Sodium (Colace) 100 mg BID PRN PO CONSTIPATION; Start 04/23/18 at 16:00 Magnesium Hydroxide (Milk Of Mag) 30 ml DAILY PRN PO CONSTIPATION Last administered on 05/02/18 10:29; Admin Dose 30 ML; Start 04/23/18 at 16:00 Bisacodyl (Dulcolax) 10 mg DAILY PRN PO CONSTIPATION; Start 04/23/18 at 16:00 Bisacodyl (Dulcolax Supp) 10 mg Q48H PRN [place] CONSTIPATION; Start 04/23/18 at 16:00 Rivaroxaban (Xarelto) 20 mg WITH DINNER PO Last administered on 05/04/18 18:07; Admin Dose 20 MG; Start 04/28/18 at 18:00 Guaifenesin (Robitussin Liquid Cup) 100 mg Q4H PRN PO COUGH Last administered on 05/01/18 17:57; Admin Dose 100 MG; Start 04/30/18 at 00:00 Phenol (Cepastat Lozenge) 1 lozenge Q1H PRN MT COUGH Last administered on 04/30/18 20:40; Admin Dose 1 LOZENGE; Start 04/30/18 at 00:00 Miscellaneous Information Patients own medicat... BID@10,16 XX ; Start 04/30/18 at 10:00 Oxycodone/ Acetaminophen (Percocet (5/ 325)) 1 tab Q4H PRN PO MODERATE PAIN LEVEL 4-6 Last administered on 05/05/18at 14:44; Admin Dose 1 TAB; Start 04/30/18 at 16:30 Albuterol/ Ipratropium (Duoneb) 3 ml Q8H RESP THERAPY HHN Last administered on 05/03/18at 15:03; Admin Dose 3 ML; Start 05/02/18 at 16:00 Ketorolac Tromethamine (Toradol) 15 mg Q6H PRN IV PAIN Last administered on 05/03/18at 17:35; Admin Dose 15 MG; Start 05/03/18 at 15:30; Stop 05/06/18 at 15:29 KALEY RAYGOZA MD May 05, 2018 15:40
[2018-05-05] MEDS: RIVAROXABAN 20 MG TABLET PO SCH (17:26)
--- NOTE | 2018-05-05 17:51 | NUR ---
RN Notes: Pt remains alert and oriented. No acute changes during this shift. Chest tube draining thick purulent output. 10mL output from chest tube. Pt c/o pain and medicated as ordered with some relief. No signs of discomfort or distress. No SOB. Pt currently comfortable in bed watching TV. Bed alarm on, call light within reach. Will continue to monitor and will endorse to next shift for continuity of care
[2018-05-05 20:00] VITALS: BP 123/75; PULSE 72; RESP 18
[2018-05-06] MEDS: ALBUTEROL/IPRATROPIUM (NEB) 3 ML AMP HHN SCH ×3 (00:46→15:49)
[2018-05-06 02:00] VITALS: BP 123/66; PULSE 75; RESP 18
[2018-05-06 08:13] VITALS: BP 115/75; PULSE 65; RESP 18
[2018-05-06] MEDS: LACTOBACILLUS RHAMNOSUS CAP PO SCH ×3 (09:00→20:30)
--- NOTE | 2018-05-06 12:17 | CONS ---
Date/Time of Note Date/Time of Note DATE: 05/06/18 TIME: 12:16 Consult Date/Type/Reason Admit Date/Time Apr 21, 2018 at 19:36 Initial Consult Date 04/27/18 Type of Consultation: Pulm Subjective Increase in ptx noted this morning. Objective Vital Signs Date Temp Pulse Resp B/P (MAP) Pulse Ox O2 O2 Flow FiO2 Time Delivery Rate 05/06/18 98.1 65 18 115/75 97 Room Air 08:13 (88) 05/06/18 21 00:46 Intake and Output 05/05/18 05/05/18 05/06/18 1515:00 23:00 07:00 IntakeIntake Total 480 ml 200 ml OutputOutput Total 420 ml 625 ml 300 ml BalanceBalance -420 ml -145 ml -100 ml Exam GENERAL: Chronically ill-appearing gentleman VITAL SIGNS: NECK: Supple. No JVD or lymphadenopathy. CARDIAC: S1, S2, no added sounds or murmurs. CHEST: Diminished air entry with diffuse bilateral expiratory wheezing. ABDOMEN: Soft, nontender. No guarding or rebound. EXTREMITIES: No cyanosis, clubbing or edema. NEUROLOGIC: Generalized weakness. Results/Medications Result Diagram: 05/04/18 0556 05/04/18 0556 Medications Current Medications IV Flush (NS 3 ml) 3 ml PER PROTOCOL IV ; Start 04/22/18 at 00:00 Ondansetron HCl (Zofran Inj) 4 mg Q6H PRN IV NAUSEA AND/OR VOMITING Last administered on 05/03/18at 16:06; Admin Dose 4 MG; Start 04/22/18 at 00:00 Acetaminophen (Tylenol Tab) 650 mg Q6H PRN PO PAIN LEVEL 1-3 OR FEVER Last administered on 04/30/18at 20:40; Admin Dose 650 MG; Start 04/22/18 at 00:00 Albuterol/ Ipratropium (Duoneb) 3 ml Q2H RESP THERAPY PRN HHN SHORTNESS OF BREATH Last administered on 04/30/18at 01:15; Admin Dose 3 ML; Start 04/22/18 at 00:00 Lactobacillus Acidophilus/ Rhamnosus (Culturelle) 1 cap BID PO Last administered on 05/05/18at 20:50; Admin Dose 1 CAP; Start 04/22/18 at 14:00 Docusate Sodium (Colace) 100 mg BID PRN PO CONSTIPATION; Start 04/23/18 at 16:00 Magnesium Hydroxide (Milk Of Mag) 30 ml DAILY PRN PO CONSTIPATION Last administered on 05/02/18at 10:29; Admin Dose 30 ML; Start 04/23/18 at 16:00 Bisacodyl (Dulcolax) 10 mg DAILY PRN PO CONSTIPATION; Start 04/23/18 at 16:00 Bisacodyl (Dulcolax Supp) 10 mg Q48H PRN [place] CONSTIPATION; Start 04/23/18 at 16:00 Rivaroxaban (Xarelto) 20 mg WITH DINNER PO Last administered on 05/05/18at 17:26; Admin Dose 20 MG; Start 04/28/18 at 18:00 Guaifenesin (Robitussin Liquid Cup) 100 mg Q4H PRN PO COUGH Last administered on 05/01/18at 17:57; Admin Dose 100 MG; Start 04/30/18 at 00:00 Phenol (Cepastat Lozenge) 1 lozenge Q1H PRN MT COUGH Last administered on 04/30/18at 20:40; Admin Dose 1 LOZENGE; Start 04/30/18 at 00:00 Miscellaneous Information Patients own medicat... BID@10,16 XX ; Start 04/30/18 at 10:00 Oxycodone/ Acetaminophen (Percocet (5/ 325)) 1 tab Q4H PRN PO MODERATE PAIN LEVEL 4-6 Last administered on 05/05/18at 14:44; Admin Dose 1 TAB; Start 04/30/18 at 16:30 Albuterol/ Ipratropium (Duoneb) 3 ml Q8H RESP THERAPY HHN Last administered on 05/06/18at 00:46; Admin Dose 3 ML; Start 05/02/18 at 16:00 Ketorolac Tromethamine (Toradol) 15 mg Q6H PRN IV PAIN Last administered on 05/03/18at 17:35; Admin Dose 15 MG; Start 05/03/18 at 15:30; Stop 05/06/18 at 15:29 Assessment/Plan Chief Complaint/Hosp Course Plan: Worsening ptx, not enough drainage for pleurex catheter Thoracic to re eval, chest tube to suction. LIDIA MEADE MD, [facility] May 06, 2018 12:17
--- NOTE | 2018-05-06 13:00 | NUR ---
labor relations representative came three times to draw the blood .patient refused blood draw.explained to him how important to check the blood test.he verbalized understanding.he said''leave me alone,i do not want any blood draw ,let me sleep''
[2018-05-06] MEDS: OXYCODONE/ACETAMINOPHEN (5/325) TAB PO PRN (13:42)
[2018-05-06 14:55] VITALS: BP 110/70; PULSE 70; RESP 18
--- NOTE | 2018-05-06 15:14 | NUR ---
MD ALPESH CAT PLANNING PLEUREX CATH INTERMITTENT DRAINAGE; PATIENT IS HOMELESS, REFERRED PATIENT TO [facility]. IF NOT ACCEPTED WILL NEED TO GO TO RECUPERATIVE CARE WITH HH AWAITS ACCEPTANCE. Addendum: 05/06/18 at 1517 by ROBERT PINEDA Amended: Links added.
--- NOTE | 2018-05-06 17:00 | NUR ---
Notified regarding the has not see the patient yet .i paged his office earlier .He said''I spoke with him also regarding this ,we will see the next chest xray results at 5 pm. Addendum: 05/06/18 at 1853 by KO OTERO RN Amended: Links added.
[2018-05-06] MEDS: RIVAROXABAN 20 MG TABLET PO SCH (18:11)
--- NOTE | 2018-05-06 18:30 | NUR ---
all needs met.no acute events.call light within reach.bed alarm on.chest tube in placed with suctioning.no sob ,no distress noted.
--- NOTE | 2018-05-06 18:53 | NUR ---
still no xray results.will endorse to night nurse to notify regarding the chest xray results.
--- NOTE | 2018-05-06 19:30 | NUR ---
Paged regarding the patient's refused blood draw since this morning.tried several times untill 3 pm,he still refusing.waitied for to see the patient.so paged 's office now and connected with now (personnel consultant doctor.).just notified him that patient refused blood draw since this morning.endorsed the patient to night nurse with stable condition.ask her to call regarding the chest xray results .
--- NOTE | 2018-05-06 20:16 | NUR ---
Paged Dr Joe office in regards to chest x ray results. Spoke W/ Dr Moreno who is biomedical electronics technician. Notified MD of results w/ ches x ray results, received orders for chest x ray in am. Will continue with plan of care
[2018-05-06 20:23] VITALS: BP 121/74; PULSE 66; RESP 18
--- NOTE | 2018-05-06 23:41 | PN ---
Date/Time of Note Date/Time of Note DATE: 05/06/18 TIME: 23:40 Assessment/Plan VTE Prophylaxis Risk score (from Ns)>0 risk: 7 SCD applied (from [facility] No SCD contraindicated: low risk/ambulating Pharmacological prophylaxis: NA/contraindicated Pharm contraindication: surgical contra Lines/Catheters IV [facility] (from [facility] Saline Lock Urinary Cath still in place: No Assessment/Plan Hospital Course Assessment and plan 1. Recurrent RT hemopneumothorax. h/o VATS. stable, sp IR guided pigtail. sp Pleurx drainage catheter. may need CTS eval 2. Ftt consider snf 3. Nonadherence high risk of recurrent pneumothorax/progression of comorbidities. 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 Past tobacco 7. Likely chronic COPD 8 H/o MRSA chest wall cellulitis 9. Cervical spine disease 10. Anemia S: 04/22 no distress. Occasional cough with taking deep breaths. No hemoptysis. No diaphoresis fever. 04/23 no events. Some pleurisy chest pain. Some neck pain. Some cough no hemoptysis. No fever. /: No events 05/02: Ongoing pain. Appears comfortable however. No fever no diarrhea. Output remains thick 05/05: Ongoing "pain" no fever. for Pleurx catheter exchange/placement and IVC filter removal if feasible 05/06: Ongoing pain same is has been earlier this week. No fever diarrhea. O: vss Physical exam No pallor JVD Regular no murmur rub gallop Diminished breath sounds bilaterally more on the right no tachypnea Benign No edema/Homans Result Diagram: 05/04/18 0556 05/04/18 0556 Exam/Review of Systems Vital Signs Vitals Vital Signs Date Temp Pulse Resp B/P (MAP) Pulse Ox O2 O2 Flow FiO2 Time Delivery Rate 05/06/18 97.9 66 18 121/74 99 20:23 (90) 05/06/18 21 15:49 05/06/18 Room Air 14:55 Intake and Output 05/05/18 05/05/18 05/06/18 1515:00 23:00 07:00 IntakeIntake Total 480 ml 200 ml OutputOutput Total 420 ml 625 ml 300 ml BalanceBalance -420 ml -145 ml -100 ml Medications Medications Current Medications IV Flush (NS 3 ml) 3 ml PER PROTOCOL IV ; Start 04/22/18 at 00:00 Ondansetron HCl (Zofran Inj) 4 mg Q6H PRN IV NAUSEA AND/OR VOMITING Last administered on 05/03/18 16:06; Admin Dose 4 MG; Start 04/22/18 at 00:00 Acetaminophen (Tylenol Tab) 650 mg Q6H PRN PO PAIN LEVEL 1-3 OR FEVER Last administered on 04/30/18 20:40; Admin Dose 650 MG; Start 04/22/18 at 00:00 Albuterol/ Ipratropium (Duoneb) 3 ml Q2H RESP THERAPY PRN HHN SHORTNESS OF BREATH Last administered on 04/30/18 01:15; Admin Dose 3 ML; Start 04/22/18 at 00:00 Lactobacillus Acidophilus/ Rhamnosus (Culturelle) 1 cap BID PO Last administered on 05/06/18 20:30; Admin Dose 1 CAP; Start 04/22/18 at 14:00 Docusate Sodium (Colace) 100 mg BID PRN PO CONSTIPATION; Start 04/23/18 at 16:00 Magnesium Hydroxide (Milk Of Mag) 30 ml DAILY PRN PO CONSTIPATION Last administered on 05/02/18 10:29; Admin Dose 30 ML; Start 04/23/18 at 16:00 Bisacodyl (Dulcolax) 10 mg DAILY PRN PO CONSTIPATION; Start 04/23/18 at 16:00 Bisacodyl (Dulcolax Supp) 10 mg Q48H PRN [place] CONSTIPATION; Start 04/23/18 at 16:00 Rivaroxaban (Xarelto) 20 mg WITH DINNER PO Last administered on 05/06/18 18:11; Admin Dose 20 MG; Start 04/28/18 at 18:00 Guaifenesin (Robitussin Liquid Cup) 100 mg Q4H PRN PO COUGH Last administered on 05/01/18 17:57; Admin Dose 100 MG; Start 04/30/18 at 00:00 Phenol (Cepastat Lozenge) 1 lozenge Q1H PRN MT COUGH Last administered on 04/30/18 20:40; Admin Dose 1 LOZENGE; Start 04/30/18 at 00:00 Miscellaneous Information Patients own medicat... BID@ XX ; Start 04/30/18 at 10:00 Oxycodone/ Acetaminophen (Percocet (5/ 325)) 1 tab Q4H PRN PO MODERATE PAIN LEVEL 4-6 Last administered on 05/06/18at 13:42; Admin Dose 1 TAB; Start 04/30/18 at 16:30 Albuterol/ Ipratropium (Duoneb) 3 ml Q8H RESP THERAPY HHN Last administered on 05/06/18at 00:46; Admin Dose 3 ML; Start 05/02/18 at 16:00 KALEY RAYGOZA MD May 06, 2018 23:41
[2018-05-07 02:12] VITALS: BP 165/82; PULSE 60; RESP 20
[2018-05-07 07:25] VITALS: BP 114/65; PULSE 66; RESP 17
[2018-05-07] MEDS: ALBUTEROL/IPRATROPIUM (NEB) 3 ML AMP HHN SCH ×3 (08:00→16:05)
[2018-05-07] MEDS: LACTOBACILLUS RHAMNOSUS CAP PO SCH ×2 (08:58→22:06)
--- NOTE | 2018-05-07 11:43 | PN ---
Date/Time of Note Date/Time of Note DATE: 05/07/18 TIME: 11:41 Assessment/Plan Lines/Catheters IV Catheter Type (from Nrsg): Saline Lock [place] in Place (from Nrsg): No Assessment/Plan Assessment/Plan Right PTX stable pigtail not funtioning will remove pigtail cath monitor CXR Subjective 24 Hr Interval Summary Constitutional: improved Pain Control: mild Exam/Review of Systems Vital Signs Vitals Vital Signs Date Temp Pulse Resp B/P (MAP) Pulse Ox O2 O2 Flow FiO2 Time Delivery Rate 05/07/18 73 18 97 21 08:23 05/07/18 98.4 114/65 Room Air 07:25 (81) Intake and Output 05/06/18 05/06/18 05/07/18 1515:00 23:00 07:00 IntakeIntake Total 300 ml 300 ml OutputOutput Total 1000 ml 710 ml 1000 ml BalanceBalance -700 ml -410 ml -1000 ml Exam ENMT: nl external ears & nose, nl lips & teeth, nl nasal mucosa & septum, mucosa pink and moist Neck: supple, non-tender Respiratory: clear to auscultation, normal air movement Cardiovascular: regular rate and rhythm, nl pulses Gastrointestinal: soft, nl liver, spleen, non-tender Musculoskeletal: nl extremities to inspection, nl gait and stance Results Result Diagram: 05/07/188 05/07/18437 KARLI DANIEL MD May 07, 2018 11:43
--- NOTE | 2018-05-07 12:02 | NUR ---
RN Notes: DR. Sol came and removed pt's chest tube covered with dry dressing, no active drainage at this time, pt tolerated well, ordered for CXR. Will continue to monitor. Pt remains alert and oriented, breathing even and unlabored, no sob noted. Addendum: 05/07/18 at 1207 by BARBARA BURGER RN Per Dr. Sol pigtail not functioning and removed pigtail catheter and covered site with dry dressing. Addendum: 05/07/18 at 1325 by BARBARA BURGER RN DR. Donovan dental front office assistant of DR. Mann and Viktoriya made aware regarding CXR result, no any order received, also paged Dr. Sol, waiting for call back. Pt remains alert and oriented, afebrile, breathing even and unlabored, VS WNL, no sob noted, SPO2 96% RA. Dr. Sol called back and ordered to call Radiology for Pigtail catheter placement, Niyah from Radiology aware.
[2018-05-07 13:19] VITALS: BP 104/63; PULSE 75; RESP 17
--- NOTE | 2018-05-07 13:30 | CONS ---
Date/Time of Note Date/Time of Note DATE: 05/07/18 TIME: 13:28 Consult Date/Type/Reason Admit Date/Time Apr 21, 2018 at 19:36 Initial Consult Date 04/27/18 Type of Consultation: Pulm Subjective No events. Pigtail removed. Post CXR slightly larger right PTX. No change in symptoms Objective Vital Signs Date Temp Pulse Resp B/P (MAP) Pulse Ox O2 O2 Flow FiO2 Time Delivery Rate 05/07/18 98.4 75 17 104/63 96 Room Air 13:19 (77) 05/07/18 21 08:23 Intake and Output 05/06/18 05/06/18 05/07/18 1414:59 22:59 06:59 IntakeIntake Total 300 ml 300 ml OutputOutput Total 1000 ml 710 ml 1000 ml BalanceBalance -700 ml -410 ml -1000 ml Exam NECK: Supple. No JVD or lymphadenopathy. CARDIAC: S1, S2, no added sounds or murmurs. CHEST: Diminished air entry with diffuse bilateral expiratory wheezing. ABDOMEN: Soft, nontender. No guarding or rebound. EXTREMITIES: No cyanosis, clubbing or edema. NEUROLOGIC: Generalized weakness. Results/Medications Result Diagram: 05/07/18 0438 05/07/18 0438 Results 24 hrs Laboratory Tests Test 05/07/18 04:38 White Blood Count 8.9 # Red Blood Count 4.78 Hemoglobin 11.9 L Hematocrit 38.2 L Mean Corpuscular Volume 79.9 L Mean Corpuscular Hemoglobin 24.9 L Mean Corpuscular Hemoglobin Concent 31.2 L Red Cell Distribution Width 15.7 H Platelet Count 653 #H Mean Platelet Volume 9.3 Immature Granulocytes % 3.800 H Neutrophils % 56.1 Lymphocytes % 25.5 Monocytes % 11.2 H Eosinophils % 2.5 Basophils % 0.9 Nucleated Red Blood Cells % 0.0 Immature Granulocytes # 0.340 H Neutrophils # 5.0 Lymphocytes # 2.3 Monocytes # 1.0 H Eosinophils # 0.2 Basophils # 0.1 Nucleated Red Blood Cells # 0.0 Prothrombin Time 14.2 Prothrombin Time Ratio 1.1 INR International Normalized Ratio 1.09 Activated Partial Thromboplast Time 20.0 L Sodium Level 137 Potassium Level 4.3 Chloride Level 99 Carbon Dioxide Level 28 Anion Gap 10 Blood Urea Nitrogen 10 Creatinine 0.71 Est Glomerular Filtrat Rate mL/min > 60 Glucose Level 97 Calcium Level 9.5 Phosphorus Level 3.7 Magnesium Level 1.9 Medications Current Medications IV Flush (NS 3 ml) 3 ml PER PROTOCOL IV ; Start 04/22/18 at 00:00 Ondansetron HCl (Zofran Inj) 4 mg Q6H PRN IV NAUSEA AND/OR VOMITING Last administered on 05/03/18 16:06; Admin Dose 4 MG; Start 04/22/18 at 00:00 Acetaminophen (Tylenol Tab) 650 mg Q6H PRN PO PAIN LEVEL 1-3 OR FEVER Last administered on 04/30/18 20:40; Admin Dose 650 MG; Start 04/22/18 at 00:00 Albuterol/ Ipratropium (Duoneb) 3 ml Q2H RESP THERAPY PRN HHN SHORTNESS OF BREATH Last administered on 04/30/18 01:15; Admin Dose 3 ML; Start 04/22/18 at 00:00 Lactobacillus Acidophilus/ Rhamnosus (Culturelle) 1 cap BID PO Last administered on 05/07/18 08:58; Admin Dose 1 CAP; Start 04/22/18 at 14:00 Docusate Sodium (Colace) 100 mg BID PRN PO CONSTIPATION; Start 04/23/18 at 16:00 Magnesium Hydroxide (Milk Of Mag) 30 ml DAILY PRN PO CONSTIPATION Last administered on 05/02/18 10:29; Admin Dose 30 ML; Start 04/23/18 at 16:00 Bisacodyl (Dulcolax) 10 mg DAILY PRN PO CONSTIPATION; Start 04/23/18 at 16:00 Bisacodyl (Dulcolax Supp) 10 mg Q48H PRN [place] CONSTIPATION; Start 04/23/18 at 16:00 Rivaroxaban (Xarelto) 20 mg WITH DINNER PO Last administered on 05/06/18 18:11; Admin Dose 20 MG; Start 04/28/18 at 18:00 Guaifenesin (Robitussin Liquid Cup) 100 mg Q4H PRN PO COUGH Last administered on 05/01/18 17:57; Admin Dose 100 MG; Start 04/30/18 at 00:00 Phenol (Cepastat Lozenge) 1 lozenge Q1H PRN MT COUGH Last administered on 04/30/18 20:40; Admin Dose 1 LOZENGE; Start 04/30/18 at 00:00 Miscellaneous Information Patients own medicat... BID@10,16 XX ; Start 04/30/18 at 10:00 Oxycodone/ Acetaminophen (Percocet (5/ 325)) 1 tab Q4H PRN PO MODERATE PAIN LEVEL 4-6 Last administered on 05/06/18at 13:42; Admin Dose 1 TAB; Start 04/30/18 at 16:30 Albuterol/ Ipratropium (Duoneb) 3 ml Q8H RESP THERAPY HHN Last administered on 05/06/18at 00:46; Admin Dose 3 ML; Start 05/02/18 at 16:00 Assessment/Plan Additional Assessment/Plan IMP: 1. Right PTX with trapped lung--appears slightly worse after removal of pigtail though may be due to cycle of respiration RECS: 1. Will discuss with Thoracic Surgery 2. Am end-exp CXR CHARLY CARRENO MD May 07, 2018 13:30
[2018-05-07 14:16] VITALS: BP 104/62; PULSE 75
--- NOTE | 2018-05-07 14:58 | NUR ---
RN Notes: Called Radiology dept spoke to Niyah to follow up the time of Pigtail Catheter placement, per Niyah IR doctor is not available today but if MD want STAT order they did to coordinate with IR doctor to come in the hospital. Paged Dr. Sol. Addendum: 05/07/18 at 1527 by BARBARA BURGER RN Charge NurseKimberly made aware that no available IR doctor to do the procedure as per Radiology, per Kimberly she inform Nursing Deicer Repairer and they will follow up with Dr. Sol. Addendum: 05/07/18 at 1658 by BARBARA BURGER RN Received a call back from DR. Sol, per just continue to monitor pt and it's ok if not able to do the Pigtail catheter placement today. Will continue to monitor and will endorse for continuity of care. Pt remains alert and oriented, denies sob, breathing even and unlabored.
--- NOTE | 2018-05-07 16:32 | PN ---
Date/Time of Note Date/Time of Note DATE: 05/07/18 TIME: 16:31 Assessment/Plan VTE Prophylaxis Risk score (from Nsg)>0 risk: 6 SCD applied (from Ns): No SCD contraindicated: low risk/ambulating Pharmacological prophylaxis: LMWH Lines/Catheters IV Catheter Type (from Nrs): Saline Lock Urinary Cath still in place: No Assessment/Plan Hospital Course Assessment and plan 1. Recurrent RT hemopneumothorax. h/o VATS. stable, sp IR guided pigtail. sp Pleurx drainage catheter. Pigtail unfortunately not working, removed 2. Ftt consider snf 3. Nonadherence high risk of recurrent pneumothorax/progression of comorbidities. 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 Past tobacco 7. Likely chronic COPD 8 H/o MRSA chest wall cellulitis 9. Cervical spine disease 10. Anemia S: 04/22 no distress. Occasional cough with taking deep breaths. No hemoptysis. No diaphoresis fever. 04/23 no events. Some pleurisy chest pain. Some neck pain. Some cough no hemoptysis. No fever. /: No events 05/02: Ongoing pain. Appears comfortable however. No fever no diarrhea. Output remains thick 05/05: Ongoing "pain" no fever. for Pleurx catheter exchange/placement and IVC filter removal if feasible 05/06: Ongoing pain same is has been earlier this week. No fever diarrhea. 05/07: Ongoing pain discomfort even after chest tube removed. Appears comfortable/ similar to yesterday O: vss Physical exam No pallor JVD Regular no murmur rub gallop Diminb bs bilat, more on the right no tachypnea Benign No edema/Homans Result Diagram: 05/07/18 0438 05/07/18 0438 Results 24hrs Laboratory Tests Test 05/07/18 04:38 White Blood Count 8.9 # Red Blood Count 4.78 Hemoglobin 11.9 L Hematocrit 38.2 L Mean Corpuscular Volume 79.9 L Mean Corpuscular Hemoglobin 24.9 L Mean Corpuscular Hemoglobin Concent 31.2 L Red Cell Distribution Width 15.7 H Platelet Count 653 #H Mean Platelet Volume 9.3 Immature Granulocytes % 3.800 H Neutrophils % 56.1 Lymphocytes % 25.5 Monocytes % 11.2 H Eosinophils % 2.5 Basophils % 0.9 Nucleated Red Blood Cells % 0.0 Immature Granulocytes # 0.340 H Neutrophils # 5.0 Lymphocytes # 2.3 Monocytes # 1.0 H Eosinophils # 0.2 Basophils # 0.1 Nucleated Red Blood Cells # 0.0 Prothrombin Time 14.2 Prothrombin Time Ratio 1.1 INR International Normalized Ratio 1.09 Activated Partial Thromboplast Time 20.0 L Sodium Level 137 Potassium Level 4.3 Chloride Level 99 Carbon Dioxide Level 28 Anion Gap 10 Blood Urea Nitrogen 10 Creatinine 0.71 Est Glomerular Filtrat Rate mL/min > 60 Glucose Level 97 Calcium Level 9.5 Phosphorus Level 3.7 Magnesium Level 1.9 Exam/Review of Systems Vital Signs Vitals Vital Signs Date Temp Pulse Resp B/P (MAP) Pulse Ox O2 O2 Flow FiO2 Time Delivery Rate 05/07/18 98.4 75 104/62 96 Room Air 14:16 (76) 05/07/18 17 13:19 05/07/18 21 08:23 Intake and Output 05/06/18 05/06/18 05/07/18 1515:00 23:00 07:00 IntakeIntake Total 300 ml 300 ml OutputOutput Total 1000 ml 710 ml 1000 ml BalanceBalance -700 ml -410 ml -1000 ml Medications Medications Current Medications IV Flush (NS 3 ml) 3 ml PER PROTOCOL IV ; Start 04/22/18 at 00:00 Ondansetron HCl (Zofran Inj) 4 mg Q6H PRN IV NAUSEA AND/OR VOMITING Last administered on 05/03/18at 16:06; Admin Dose 4 MG; Start 04/22/18 at 00:00 Acetaminophen (Tylenol Tab) 650 mg Q6H PRN PO PAIN LEVEL 1-3 OR FEVER Last administered on 04/30/18at 20:40; Admin Dose 650 MG; Start 04/22/18 at 00:00 Albuterol/ Ipratropium (Duoneb) 3 ml Q2H RESP THERAPY PRN HHN SHORTNESS OF BREATH Last administered on 04/30/18at 01:15; Admin Dose 3 ML; Start 04/22/18 at 00:00 Lactobacillus Acidophilus/ Rhamnosus (Culturelle) 1 cap BID PO Last administered on 05/07/18at 08:58; Admin Dose 1 CAP; Start 04/22/18 at 14:00 Docusate Sodium (Colace) 100 mg BID PRN PO CONSTIPATION; Start 04/23/18 at 16:00 Magnesium Hydroxide (Milk Of Mag) 30 ml DAILY PRN PO CONSTIPATION Last adminis tered on 05/02/18at 10:29; Admin Dose 30 ML; Start 04/23/18 at 16:00 Bisacodyl (Dulcolax) 10 mg DAILY PRN PO CONSTIPATION; Start 04/23/18 at 16:00 Bisacodyl (Dulcolax Supp) 10 mg Q48H PRN [place] CONSTIPATION; Start 04/23/18 at 16:00 Rivaroxaban (Xarelto) 20 mg WITH DINNER PO Last administered on 05/06/18 18:11; Admin Dose 20 MG; Start 04/28/18 at 18:00 Guaifenesin (Robitussin Liquid Cup) 100 mg Q4H PRN PO COUGH Last administered on 05/01/18at 17:57; Admin Dose 100 MG; Start 04/30/18 at 00:00 Phenol (Cepastat Lozenge) 1 lozenge Q1H PRN MT COUGH Last administered on 04/30/18at 20:40; Admin Dose 1 LOZENGE; Start 04/30/18 at 00:00 Miscellaneous Information Patients own medicat... BID@10,16 XX ; Start 04/30/18 at 10:00 Oxycodone/ Acetaminophen (Percocet (5/ 325)) 1 tab Q4H PRN PO MODERATE PAIN LE JIA 4-6 Last administered on 05/06/18at 13:42; Admin Dose 1 TAB; Start 04/30/18 at 16:30 Albuterol/ Ipratropium (Duoneb) 3 ml Q8H RESP THERAPY HHN Last administered on 05/06/18 00:46; Admin Dose 3 ML; Start 05/02/18 at 16:00 KALEY RAYGOZA MD May 07, 2018 16:32
[2018-05-07] MEDS: RIVAROXABAN 20 MG TABLET PO SCH (17:17)
[2018-05-07 20:00] VITALS: BP 108/63; PULSE 75
[2018-05-08] MEDS: ALBUTEROL/IPRATROPIUM (NEB) 3 ML AMP HHN SCH ×3 (00:30→15:49)
[2018-05-08 02:00] VITALS: BP 102/69; PULSE 70
--- NOTE | 2018-05-08 07:27 | NUR ---
RN Notes Patient had no change in condition overnight. Patient is s/p chest tube removal, no complaints of pain and no signs of pain observed. Hourly rounding provided, patient's oxygen saturation within normal limits on room air. Will endorse accordingly to oncoming RN for continuation of care.
[2018-05-08 08:08] VITALS: BP 104/64; PULSE 73; RESP 16
[2018-05-08] MEDS: LACTOBACILLUS RHAMNOSUS CAP PO SCH ×2 (10:26→21:15)
--- NOTE | 2018-05-08 10:38 | PN ---
Date/Time of Note Date/Time of Note DATE: 05/08/18 TIME: 10:37 Assessment/Plan VTE Prophylaxis Risk score (from Ns)>0 risk: 5 SCD applied (from Ns): No SCD contraindicated: low risk/ambulating Pharmacological prophylaxis: NA/contraindicated Pharm contraindication: surgical contra Lines/Catheters [facility]from [facility] Saline Lock Urinary Cath still in place: No Assessment/Plan Hospital Course Assessment and plan 1. Recurrent Rt hemopneumothorax. h/o VATS. stable, sp IR guided pigtail. sp Pleurx drainage catheter. Pigtail unfortunately not working, removed. Possible Rpt P catheter placement soon 2. Ftt consider snf 3. Nonadherence high risk of recurrent pneumothorax/progression of comorbidities. 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 Past tobacco 7. Likely chronic COPD 8 H/o MRSA chest wall cellulitis 9. Cervical spine disease 10. Anemia S: 04/22 no distress. Occasional cough with taking deep breaths. No hemoptysis. No diaphoresis fever. 04/23 no events. Some pleurisy chest pain. Some neck pain. Some cough no hemoptysis. No fever. /: No events 05/02: Ongoing pain. Appears comfortable however. No fever no diarrhea. Output remains thick 05/05: Ongoing "pain" no fever. for Pleurx catheter exchange/placement and IVC filter removal if feasible 05/06: Ongoing pain same is has been earlier this week. No fever diarrhea. 05/07: Ongoing pain discomfort even after chest tube removed. Appears comfortable/ similar to yesterday 05/08: No events overnight O: vss Physical exam No pallor JVD Regular no murmur rub gallop Diminb bs bilat, more on the right no tachypnea Benign No edema/Homans Result Diagram: 05/07/1843705/07/18437 Exam/Review of Systems Vital Signs Vitals Vital Signs Date Temp Pulse Resp B/P (MAP) Pulse Ox O2 O2 Flow FiO2 Time Delivery Rate 05/08/18 97 Room Air 10:05 05/08/18 97.9 73 16 104/64 08:08 (77) 05/07/18 21 08:23 Intake and Output 05/07/18 05/07/18 05/08/18 1515:00 23:00 07:00 IntakeIntake Total 360 ml 300 ml 240 ml OutputOutput Total 570 ml BalanceBalance -210 ml 300 ml 240 ml Medications Medications Current Medications IV Flush (NS 3 ml) 3 ml PER PROTOCOL IV ; Start 04/22/18 at 00:00 Ondansetron HCl (Zofran Inj) 4 mg Q6H PRN IV NAUSEA AND/OR VOMITING Last administered on 05/03/18 16:06; Admin Dose 4 MG; Start 04/22/18 at 00:00 Acetaminophen (Tylenol Tab) 650 mg Q6H PRN PO PAIN LEVEL 1-3 OR FEVER Last administered on 04/30/18at 20:40; Admin Dose 650 MG; Start 04/22/18 at 00:00 Albuterol/ Ipratropium (Duoneb) 3 ml Q2H RESP THERAPY PRN HHN SHORTNESS OF BREATH Last administered on 04/30/18at 01:15; Admin Dose 3 ML; Start 04/22/18 at 00:00 Lactobacillus Acidophilus/ Rhamnosus (Culturelle) 1 cap BID PO Last administe red on 05/08/18at 10:26; Admin Dose 1 CAP; Start 04/22/18 at 14:00 Docusate Sodium (Colace) 100 mg BID PRN PO CONSTIPATION; Start 04/23/18 at 16:00 Magnesium Hydroxide (Milk Of Mag) 30 ml DAILY PRN PO CONSTIPATION Last administered on 05/02/18 10:29; Admin Dose 30 ML; Start 04/23/18 at 16:00 Bisacodyl (Dulcolax) 10 mg DAILY PRN PO CONSTIPATION; Start 04/23/18 at 16:00 Bisacodyl (Dulcolax Supp) 10 mg Q48H PRN [place] CONSTIPATION; Start 04/23/18 at 16:00 Rivaroxaban (Xarelto) 20 mg WITH DINNER PO Last administered on 05/07/18at 17:17; Admin Dose 20 MG; Start 04/28/18 at 18:00 Guaifenesin (Robitussin Liquid Cup) 100 mg Q4H PRN PO COUGH Last administered on 05/01/18at 17:57; Admin Dose 100 MG; Start 04/30/18 at 00:00 Phenol (Cepastat Lozenge) 1 lozenge Q1H PRN MT COUGH Last administered on 04/30/18at 20:40; Admin Dose 1 LOZENGE; Start 04/30/18 at 00:00 Miscellaneous Information Patients own medicat... BID@10,16 XX ; Start 04/30/18 at 10:00 Oxycodone/ Acetaminophen (Percocet (5/ 325)) 1 tab Q4H PRN PO MODERATE PAIN LEVEL 4-6 Last administered on 05/06/18at 13:42; Admin Dose 1 TAB; Start 04/30/18 at 16:30 Albuterol/ Ipratropium (Duoneb) 3 ml Q8H RESP THERAPY HHN Last administered on 05/06/18at 00:46; Admin Dose 3 ML; Start 05/02/18 at 16:00 KALEY RAYGOZA MD May 08, 2018 10:38
[2018-05-08 12:22] VITALS: RESP 16
--- NOTE | 2018-05-08 12:36 | CONS ---
Date/Time of Note Date/Time of Note DATE: 05/08/18 TIME: 12:35 Consult Date/Type/Reason Admit Date/Time Apr 21, 2018 at 19:36 Initial Consult Date 04/27/18 Type of Consultation: Pulm Subjective No events. No worsening dyspnea noted. Objective Vital Signs Date Temp Pulse Resp B/P (MAP) Pulse Ox O2 O2 Flow FiO2 Time Delivery Rate 05/08/18 16 95 Room Air 12:22 05/08/18 97.9 73 104/64 08:08 (77) 05/07/18 21 08:23 Intake and Output 05/07/18 05/07/18 05/08/18 1515:00 23:00 07:00 IntakeIntake Total 360 ml 300 ml 240 ml OutputOutput Total 570 ml BalanceBalance -210 ml 300 ml 240 ml Exam NECK: Supple. No JVD or lymphadenopathy. CARDIAC: S1, S2, no added sounds or murmurs. CHEST: Diminished air entry with diffuse bilateral expiratory wheezing. ABDOMEN: Soft, nontender. No guarding or rebound. EXTREMITIES: No cyanosis, clubbing or edema. NEUROLOGIC: Generalized weakness. Results/Medications Result Diagram: 05/07/1843705/07/18 0438 Medications Current Medications IV Flush (NS 3 ml) 3 ml PER PROTOCOL IV ; Start 04/22/18 at 00:00 Ondansetron HCl (Zofran Inj) 4 mg Q6H PRN IV NAUSEA AND/OR VOMITING Last administered on 05/03/18at 16:06; Admin Dose 4 MG; Start 04/22/18 at 00:00 Acetaminophen (Tylenol Tab) 650 mg Q6H PRN PO PAIN LEVEL 1-3 OR FEVER Last administered on 04/30/18at 20:40; Admin Dose 650 MG; Start 04/22/18 at 00:00 Albuterol/ Ipratropium (Duoneb) 3 ml Q2H RESP THERAPY PRN HHN SHORTNESS OF BREATH Last administered on 04/30/18at 01:15; Admin Dose 3 ML; Start 04/22/18 at 00:00 Lactobacillus Acidophilus/ Rhamnosus (Culturelle) 1 cap BID PO Last administered on 05/08/18at 10:26; Admin Dose 1 CAP; Start 04/22/18 at 14:00 Docusate Sodium (Colace) 100 mg BID PRN PO CONSTIPATION; Start 04/23/18 at 16:00 Magnesium Hydroxide (Milk Of Mag) 30 ml DAILY PRN PO CONSTIPATION Last administered on 05/02/18at 10:29; Admin Dose 30 ML; Start 04/23/18 at 16:00 Bisacodyl (Dulcolax) 10 mg DAILY PRN PO CONSTIPATION; Start 04/23/18 at 16:00 Bisacodyl (Dulcolax Supp) 10 mg Q48H PRN [place] CONSTIPATION; Start 04/23/18 at 16:00 Guaifenesin (Robitussin Liquid Cup) 100 mg Q4H PRN PO COUGH Last administered on 05/01/18at 17:57; Admin Dose 100 MG; Start 04/30/18 at 00:00 Phenol (Cepastat Lozenge) 1 lozenge Q1H PRN MT COUGH Last administered on 04/30/18at 20:40; Admin Dose 1 LOZENGE; Start 04/30/18 at 00:00 Miscellaneous Information Patients own medicat... BID@10,16 XX ; Start 04/30/18 at 10:00 Oxycodone/ Acetaminophen (Percocet (5/ 325)) 1 tab Q4H PRN PO MODERATE PAIN LEVEL 4-6 Last administered on 05/06/18at 13:42; Admin Dose 1 TAB; Start 04/30/18 at 16:30 Albuterol/ Ipratropium (Duoneb) 3 ml Q8H RESP THERAPY HHN Last administered on 05/06/18at 00:46; Admin Dose 3 ML; Start 05/02/18 at 16:00 Rivaroxaban (Xarelto) 20 mg WITH DINNER PO ; Start 05/09/18 at 21:00; Status Future Hold Assessment/Plan Additional Assessment/Plan IMP: 1. Right PTX with trapped lung--appears slightly worse after removal of pigtail though may be due to cycle of respiration RECS: 1. Will discuss with Thoracic Surgery--> question is would he benefit from another tube 2. Am end-exp CXR CHARLY CARRENO MD May 08, 2018 12:36
--- NOTE | 2018-05-08 12:57 | NUR ---
Dr. Donovan here. Advised that pigtail catheter can't be placed until tomorrow. Dr. Dexter texted and advised earlier this am
[2018-05-08 14:31] VITALS: BP 111/57; PULSE 68; RESP 16
[2018-05-08 17:43] VITALS: RESP 16
--- NOTE | 2018-05-08 17:44 | NUR ---
End of shift- Pt. refused to ambulate or sit in chair this shift. Just wanted to sleep all shift. Turns off bed alarm and takes himself to the bathroom. Refused old chest tube dressing site to be changed. Declined Percocet all shift.
[2018-05-08 20:00] VITALS: BP 105/63; PULSE 73; RESP 18
[2018-05-09 02:00] VITALS: BP 109/68; PULSE 67; RESP 16
[2018-05-09] MEDS: morphine 4 MG/ML VIAL IV PRN ×4 (03:23→19:54)
--- NOTE | 2018-05-09 06:58 | NUR ---
RN Notes No changes in condition overnight. Patient has been NPO since 299, for pending pigtail catheter placement today. New orders received for patient's pain management. Administered IV Morphine x 1 for complaint of pain. Patient is refusing to have a bath, ini preparation for procedure. Will endorse to \ Addendum: 05/09/18 at 0701 by GILLES CHAND RN Will endorse to oncoming RN for continuity of care.
[2018-05-09] MEDS: ALBUTEROL/IPRATROPIUM (NEB) 3 ML AMP HHN SCH ×3 (08:00→16:00)
[2018-05-09 08:13] VITALS: BP 105/63; PULSE 59; RESP 18
[2018-05-09] MEDS: LACTOBACILLUS RHAMNOSUS CAP PO SCH ×2 (08:36→20:39)
--- NOTE | 2018-05-09 09:56 | CONS ---
Date/Time of Note Date/Time of Note DATE: 05/09/18 TIME: 09:53 Assessment/Plan Assessment/Plan Assessment/Plan Assessment and recommendations; 1. Patient admitted for right recurrent pneumothorax status post prior chest tube placement as well as VATS procedure. There is significant right pleural thickening preventing full lung reexpansion posing a therapeutic dilemma. 2. Underlying severe emphysema. 3. Interval resolution of right-sided pneumonia. Continue on supportive care. Patient to undergo repeat right-sided chest tube placement by interventional radiologist. Result Diagram: 05/07/18 0438 05/07/18 0438 Consultation Date/Type/Reason Admit Date/Time Apr 21, 2018 at 19:36 Initial Consult Date 04/27/18 Type of Consult Pulmonary History of presenting illness; Patient is a 57-year-old male with a history of recurrent right pneumothorax status post attempted VATS admitted again for shortness of breath. Chest x-ray showing recurrent 50% right pneumothorax with infiltrative changes on chest x- ray. Patient underwent a tube thoracostomy by interventional radiology yesterday. Patient is feeling better and denies any significant shortness of breath. Past medical history; 1. History of underlying severe emphysema. 2. Status post right-sided VATS for recurrent right pneumothorax with apparent failure. 3. History of recurrent right pneumothorax status post multiple chest tube placements. 4. Chronic pain. Medications; reviewed. Allergies; none. Social history; patient is a strong history of heavy smoking. Family history; noncontributory. Occupational history; patient is on disability. Review of systems; denies any headache, chest pain, shortness of breath has improved. Denies any coughing or wheezing. Any hemoptysis or sputum production. Any fever or chills. Denies any weight loss. Any orthopnea. Any melena or hematochezia. General exam; middle-aged male, appears quite emaciated awake and alert. Cur rently in no distress. 24 HR Interval Summary Free Text/Dictation Patient's condition is stable overall. Denies any shortness of breath at rest. General exam; middle-aged male, awake alert, currently no distress. Exam/Review of Systems Vital Signs Vitals Vital Signs Date Temp Pulse Resp B/P (MAP) Pulse Ox O2 O2 Flow FiO2 Time Delivery Rate 05/09/18 70 18 95 21 08:24 05/09/18 98.1 105/63 08:13 (77) 05/09/18 Room Air 02:00 Intake and Output 05/08/18 05/08/18 05/09/18 1515:00 23:00 07:00 IntakeIntake Total 240 ml 1780 ml OutputOutput Total 650 ml 350 ml BalanceBalance -410 ml 1780 ml -350 ml Exam H EENT exam; supple neck, no JVD. No lymphadenopathy. Midline trachea. No thyromegaly. Chest exam; diminished breath sounds bilaterally. S1-S2 audible, no murmurs. Dressing applied over prior right chest tube site. Abdomen exam; soft, scaphoid. Nontender. Bowel sounds audible. Extremity exam; no peripheral edema. [employer] exam; no focal deficit. Medications Medications Current Medications IV Flush (NS 3 ml) 3 ml PER PROTOCOL IV ; Start 04/22/18 at 00:00 Ondansetron HCl (Zofran Inj) 4 mg Q6H PRN IV NAUSEA AND/OR VOMITING Last administered on 05/03/18at 16:06; Admin Dose 4 MG; Start 04/22/18 at 00:00 Acetaminophen (Tylenol Tab) 650 mg Q6H PRN PO PAIN LEVEL 1-3 OR FEVER Last administered on 04/30/18at 20:40; Admin Dose 650 MG; Start 04/22/18 at 00:00 Albuterol/ Ipratropium (Duoneb) 3 ml Q2H RESP THERAPY PRN HHN SHORTNESS OF BREATH Last administered on 04/30/18at 01:15; Admin Dose 3 ML; Start 04/22/18 at 00:00 Lactobacillus Acidophilus/ Rhamnosus (Culturelle) 1 cap BID PO Last administered on 05/08/18at 21:15; Admin Dose 1 CAP; Start 04/22/18 at 14:00 Docusate Sodium (Colace) 100 mg BID PRN PO CONSTIPATION; Start 04/23/18 at 16:00 Magnesium Hydroxide (Milk Of Mag) 30 ml DAILY PRN PO CONSTIPATION Last administered on 05/02/18at 10:29; Admin Dose 30 ML; Start 04/23/18 at 16:00 Bisacodyl (Dulcolax) 10 mg DAILY PRN PO CONSTIPATION; Start 04/23/18 at 16:00 Bisacodyl (Dulcolax Supp) 10 mg Q48H PRN [place] CONSTIPATION; Start 04/23/18 at 16:00 Guaifenesin (Robitussin Liquid Cup) 100 mg Q4H PRN PO COUGH Last administered on 05/01/18at 17:57; Admin Dose 100 MG; Start 04/30/18 at 00:00 Phenol (Cepastat Lozenge) 1 lozenge Q1H PRN MT COUGH Last administered on 04/06at 20:40; Admin Dose 1 LOZENGE; Start 04/30/18 at 00:00 Miscellaneous Information Patients own medicat... BID@,16 XX ; Start 04/30/18 at 10:00 Albuterol/ Ipratropium (Duoneb) 3 ml Q8H RESP THERAPY HHN Last administered on 05/06/18at 00:46; Admin Dose 3 ML; Start 05/02/18 at 16:00 Rivaroxaban (Xarelto) 20 mg WITH DINNER PO ; Start 05/09/18 at 21:00; Status Future Hold Oxycodone/ Acetaminophen (Endocet (/ 325)) 1 tab Q4H PRN PO MODERATE PAIN LEVEL 4-6; Start 05/08/18 at 20:00 Morphine Sulfate (morphine) 4 mg Q6 PRN IV SEVERE PAIN LEVEL 7-10 Last administered on 05/09/18at 09:37; Admin Dose 4 MG; Start 05/08/18 at 20:00 NEEL BAZZI May 09, 2018 09:56
[2018-05-09] MEDS ORDERED: MIDAZOLAM 1 MG/ML 2 ML INJ ONE (12:24)
[2018-05-09] MEDS ORDERED: LIDOCAINE 1% (MPF) 5 ML VIAL ONE (12:24)
[2018-05-09] MEDS ORDERED: FENTAnyl 50 MCG/ML VIAL ONE (12:24)
--- NOTE | 2018-05-09 14:05 | RADRPT ---
PROCEDURE: ULTRASOUND AND FLUOROSCOPICALLY-GUIDED PERCUTANEOUS PLACEMENT OF TUNNELED RIGHT PLEURAL DRAINAGE CATHETER. CLINICAL INDICATION: Large right pleural effusion and shortness of breath. TECHNIQUE: Prior to the procedure, informed consent was obtained. Risks including bleeding, infection, and pneum othorax were explained to the patient. The patient understood and was willing to proceed. A procedura l pause was performed. The patient's name, date of , and procedure to be performed were verified . The central line was inserted with all elements of maximal sterile barrier technique. All of the fo llowing were used: head covering, facial mask, sterile gown, sterile gloves, a large sterile sheet, h and hygiene, and 2% chlorhexidine for cutaneous antisepsis. The right lateral chest wall was preppe d and draped in the usual sterile fashion. Limited sonography of the right side of chest was then performed. No pleural effusion is identified. Limited intraoperative fluoroscopy was formed which demonstrates existing pig tail pleural drainage c atheter. Following the local injection of Xylocaine, the right pleural space was punctured under sonographic g uidance posterior laterally with an 18-gauge needle into the pleural space. Aspiration was performed. Unable to drain any fluid. Findings discussed with ordering physician Dr. Mann. Due to lack of pl eural effusion at the time of procedure no catheter was placed. COMPARISON: Chest x-ray done earlier the same day. FINDINGS: No pleural effusion is identified. IMPRESSION: Due to lack of pleural effusion at the time of procedure no catheter was placed. RPTAT: QQ Physician Magdaleno Date Time Electronically viewed and signed by Physician Magdaleno on 05/09/2018 14:05 Misty/
--- NOTE | 2018-05-09 14:18 | NUR ---
CT GUIDED PIGTAIL CATH PROCEDURE AND SEDATION PER DR. GOODWIN. PT IN THE DPT INFORMED CONSENT OBTAINED BY THE MD. PT AGREED TO CONTINUE WITH PROCEDURE. NO COMPLICATIONS BEFORE AND AFTER PROCEDURE. PIGTAIL PLACED TO RT LUNG CONNECTED TO VACUUM TO GRAVITY PER MD. SEDATION USED DURING PROCEDURE WAS VERSED 1MG AND FENTANYL 25MCG IVP RX PER MD. REPORT OVER THE PHONE GIVEN TO NURSE ABEBE CHRISTIANSEN RN.
[2018-05-09 15:02] VITALS: BP 116/75; PULSE 74; RESP 17
[2018-05-09] MEDS: OXYCODONE/ACETAMINOPHEN (10/325) TAB PO PRN (17:57)
--- NOTE | 2018-05-09 18:36 | PN ---
Date/Time of Note Date/Time of Note DATE: 05/09/18 TIME: 18:33 Assessment/Plan VTE Prophylaxis Risk score (from Nsg)>0 risk: 5 SCD applied (from Ns): No SCD contraindicated: low risk/ambulating Pharmacological prophylaxis: LMWH, rivaroxaban, apixaban Lines/Catheters [facility] Saline Lock Urinary Cath still in place: No Assessment/Plan Hospital Course Assessment and plan 1. Recurrent Rt hemopneumothorax. h/o VATS. stable, sp IR guided pigtail, then Pleurx, removed. Rpt ct placed. not sure what the end -point will be. 2. Ftt consider snf 3. Nonadherence high risk of recurrent pneumothorax/progression of comor bidities. has been counseled regarding this issue over the last few months 4. History of aspergillosis 5. 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 ivc filter removed? 6. Past tobacco 7. Likely chronic COPD 8 H/o MRSA chest wall cellulitis 9. Cervical spine disease 10. Anemia S: 04/22 no distress. Occasional cough with taking deep breaths. No hemoptysis. No diaphoresis fever. 04/23 no events. Some pleurisy chest pain. Some neck pain. Some cough no hemoptysis. No fever. /: No events 05/02: Ongoing pain. Appears comfortable however. No fever no diarrhea. Output remains thick 05/05: Ongoing "pain" no fever. for Pleurx catheter exchange/placement and IVC filter removal if feasible 05/06: Ongoing pain same is has been earlier this week. No fever diarrhea. 05/07: Ongoing pain discomfort even after chest tube removed. Appears comfortable/ similar to yesterday 05/08: No events overnight 05/09: Events noted. Chest tube placed. Fever appears stable O: vss Physical exam No pallor JVD Regular no murmur rub gallop Diminb bs bilat, more on the right no tachypnea; rt c-tube c/d/i Benign No edema/Homans Result Diagram: 05/07/18 0438 05/07/18 0438 Exam/Review of Systems Vital Signs Vitals Vital Signs Date Temp Pulse Resp B/P (MAP) Pulse Ox O2 O2 Flow FiO2 Time Delivery Rate 05/09/18 98.2 74 17 116/75 100 15:02 (89) 05/09/18 21 08:24 05/09/18 Room Air 02:00 Intake and Output 05/08/18 05/08/18 05/09/18 1515:00 23:00 07:00 IntakeIntake Total 240 ml 1780 ml OutputOutput Total 650 ml 350 ml BalanceBalance -410 ml 1780 ml -350 ml Medications Medications Current Medications IV Flush (NS 3 ml) 3 ml PER PROTOCOL IV ; Start 04/22/18 at 00:00 Ondansetron HCl (Zofran Inj) 4 mg Q6H PRN IV NAUSEA AND/OR VOMITING Last administered on 05/03/18at 16:06; Admin Dose 4 MG; Start 04/22/18 at 00:00 Acetaminophen (Tylenol Tab) 650 mg Q6H PRN PO PAIN LEVEL 1-3 OR FEVER Last a dministered on 04/30/18at 20:40; Admin Dose 650 MG; Start 04/22/18 at 00:00 Albuterol/ Ipratropium (Duoneb) 3 ml Q2H RESP THERAPY PRN HHN SHORTNESS OF BREATH Last administered on 04/30/18at 01:15; Admin Dose 3 ML; Start 04/22/18 at 00:00 Lactobacillus Acidophilus/ Rhamnosus (Culturelle) 1 cap BID PO Last administered on 05/08/18at 21:15; Admin Dose 1 CAP; Start 04/22/18 at 14:00 Docusate Sodium (Colace) 100 mg BID PRN PO CONSTIPATION; Start 04/23/18 at 16:00 Magnesium Hydroxide (Milk Of Mag) 30 ml DAILY PRN PO CONSTIPATION Last administered on 05/02/18at 10:29; Admin Dose 30 ML; Start 04/23/18 at 16:00 Bisacodyl (Dulcolax) 10 mg DAILY PRN PO CONSTIPATION; Start 04/23/18 at 16:00 Bisacodyl (Dulcolax Supp) 10 mg Q48H PRN [place] CONSTIPATION; Start 04/23/18 at 16:00 Guaifenesin (Robitussin Liquid Cup) 100 mg Q4H PRN PO COUGH Last administered on 05/01/18at 17:57; Admin Dose 100 MG; Start 04/30/18 at 00:00 Phenol (Cepastat Lozenge) 1 lozenge Q1H PRN MT COUGH Last administered on 04/30/18at 20:40; Admin Dose 1 LOZENGE; Start 04/30/18 at 00:00 Miscellaneous Information Patients own medicat... BID@10,16 XX ; Start 04/30/18 at 10:00 Albuterol/ Ipratropium (Duoneb) 3 ml Q8H RESP THERAPY HHN Last administered on 05/06/18at 00:46; Admin Dose 3 ML; Start 05/02/18 at 16:00 Rivaroxaban (Xarelto) 20 mg WITH DINNER PO ; Start 05/09/18 at 21:00; Status Future Hold Oxycodone/ Acetaminophen (Endocet ()) 1 tab Q4H PRN PO MODERATE PAIN LEVEL 4-6 Last administered on 05/09/18at 17:57; Admin Dose 1 TAB; Start 05/08/18 at 20:00 Morphine Sulfate (morphine) 4 mg Q6 PRN IV SEVERE PAIN LEVEL 7-10 Last administered on 05/09/18at 15:36; Admin Dose 4 MG; Start 05/08/18 at 20:00 KALEY RAYGOZA MD May 09, 2018 18:36
[2018-05-09 20:00] VITALS: BP 95/56; PULSE 64; RESP 18
[2018-05-09] MEDS: RIVAROXABAN 20 MG TABLET PO SCH (21:21)
[2018-05-10] MEDS: ALBUTEROL/IPRATROPIUM (NEB) 3 ML AMP HHN SCH ×3 (00:25→15:56)
[2018-05-10] MEDS: ACETAMINOPHEN 325 MG TAB PO PRN ×3 (00:35→13:16)
[2018-05-10] MEDS: morphine 4 MG/ML VIAL IV PRN ×4 (01:48→20:34)
[2018-05-10 02:00] VITALS: BP 118/71; PULSE 71; RESP 18
[2018-05-10 07:58] VITALS: BP 100/89; PULSE 64; RESP 16
[2018-05-10] MEDS: LACTOBACILLUS RHAMNOSUS CAP PO SCH ×2 (08:33→20:19)
--- NOTE | 2018-05-10 09:45 | CONS ---
Date/Time of Note Date/Time of Note DATE: 05/10/18 TIME: 09:43 Assessment/Plan Assessment/Plan Assessment/Plan Assessment and recommendations; 1. Patient admitted for recurrent right pneumothorax status post multiple chest tubes as well as right-sided VATS procedure performed 2 months ago with no success. This is likely due to very thick pleura preventing full lung reexpansion. 2. Underlying COPD. 3. Status post treatment for pneumonia. Continue current supportive care. Obtain follow-up chest x-ray in 48 hours. There is no significant change in chest x-ray after chest tube placement. Result Diagram: 05/10/18 0602 05/10/18 0602 Results 24hrs Laboratory Tests Test 05/10/18 06:02 White Blood Count 8.1 Red Blood Count 4.27 L Hemoglobin 10.6 L Hematocrit 34.0 L Mean Corpuscular Volume 79.6 L Mean Corpuscular Hemoglobin 24.8 L Mean Corpuscular Hemoglobin Concent 31.2 L Red Cell Distribution Width 15.7 H Platelet Count 617 H Mean Platelet Volume 9.2 Immature Granulocytes % 4.500 H Neutrophils % 60.0 Lymphocytes % 19.9 Monocytes % 11.9 H Eosinophils % 2.7 Basophils % 1.0 Nucleated Red Blood Cells % 0.0 Immature Granulocytes # 0.360 H Neutrophils # 4.8 Lymphocytes # 1.6 Monocytes # 1.0 H Eosinophils # 0.2 Basophils # 0.1 Nucleated Red Blood Cells # 0.0 Sodium Level 138 Potassium Level 3.8 Chloride Level 103 Carbon Dioxide Level 25 Anion Gap 10 Blood Urea Nitrogen 16 Creatinine 0.65 Est Glomerular Filtrat Rate mL/min > 60 Glucose Level 120 Calcium Level 9.3 Troponin I < 0.012 Consultation Date/Type/Reason Admit Date/Time Apr 21, 2018 at 19:36 Initial Consult Date 04/27/18 Type of Consult Pulmonary History of presenting illness; Patient is a 57-year-old male with a history of recurrent right pneumothorax status post attempted VATS admitted again for shortness of breath. Chest x-ray showing recurrent 50% right pneumothorax with infiltrative changes on chest x- ray. Patient underwent a tube thoracostomy by interventional radiology yesterday. Patient is feeling better and denies any significant shortness of breath. Past medical history; 1. History of underlying severe emphysema. 2. Status post right-sided VATS for recurrent right pneumothorax with apparent failure. 3. History of recurrent right pneumothorax status post multiple chest tube placements. 4. Chronic pain. Medications; reviewed. Allergies; none. Social history; patient is a strong history of heavy smoking. Family history; noncontributory. Occupational history; patient is on disability. Review of systems; denies any headache, chest pain, shortness of breath has improved. Denies any coughing or wheezing. Any hemoptysis or sputum production. Any fever or chills. Denies any weight loss. Any orthopnea. Any melena or hematochezia. General exam; middle-aged male, appears quite emaciated awake and alert. Currently in no distress. 24 HR Interval Summary Free Text/Dictation Patient's condition is stable. Underwent right-sided chest tube placement by interventional radiologist. Patient denies any chest pain, shortness breath, coughing, wheezing. General exam; middle-aged male, awake alert, currently no distress. Exam/Review of Systems Vital Signs Vitals Vital Signs Date Temp Pulse Resp B/P (MAP) Pulse Ox O2 O2 Flow FiO2 Time Delivery Rate 05/10/18 97.6 64 16 100/89 97 07:58 (93) 05/10/18 21 00:25 05/09/18 Room Air 02:00 Intake and Output 05/09/18 05/09/18 05/10/18 1515:00 23:00 07:00 IntakeIntake Total 480 ml OutputOutput Total 600 ml 200 ml 900 ml BalanceBalance -600 ml 280 ml -900 ml Exam H EENT exam; supple neck, no JVD. No lymphadenopathy. Midline trachea. No thyromegaly. Patient is mostly edentulous. Chest exam; right side chest tube in place. Diminished breath sounds throughout. S1-S2 audible, no murmurs. Abdomen exam; soft, scaphoid. Nontender. No organomegaly. Bowel sounds audible. Extremity exam; no peripheral edema or clubbing. SPECIAL EVENT ASSISTANT exam; no focal deficit. Medications Medications Current Medications IV Flush (NS 3 ml) 3 ml PER PROTOCOL IV ; Start 04/22/18 at 00:00 Ondansetron HCl (Zofran Inj) 4 mg Q6H PRN IV NAUSEA AND/OR VOMITING Last administered on 05/03/18at 16:06; Admin Dose 4 MG; Start 04/22/18 at 00:00 Acetaminophen (Tylenol Tab) 650 mg Q6H PRN PO PAIN LEVEL 1-3 OR FEVER Last administered on 05/10/18 08:38; Admin Dose 650 MG; Start 04/22/18 at 00:00 Albuterol/ Ipratropium (Duoneb) 3 ml Q2H RESP THERAPY PRN HHN SHORTNESS OF BREATH Last administered on 04/30/18at 01:15; Admin Dose 3 ML; Start 04/22/18 at 00:00 Lactobacillus Acidophilus/ Rhamnosus (Culturelle) 1 cap BID PO Last administered on 05/10/18at 08:33; Admin Dose 1 CAP; Start 04/22/18 at 14:00 Docusate Sodium (Colace) 100 mg BID PRN PO CONSTIPATION; Start 04/23/18 at 16:00 Magnesium Hydroxide (Milk Of Mag) 30 ml DAILY PRN PO CONSTIPATION Last administered on 05/02/18at 10:29; Admin Dose 30 ML; Start 04/23/18 at 16:00 Bisacodyl (Dulcolax) 10 mg DAILY PRN PO CONSTIPATION; Start 04/23/18 at 16:00 Bisacodyl (Dulcolax Supp) 10 mg Q48H PRN [place] CONSTIPATION; Start 04/23/18 at 16:00 Guaifenesin (Robitussin Liquid Cup) 100 mg Q4H PRN PO COUGH Last administered on 05/01/18at 17:57; Admin Dose 100 MG; Start 04/30/18 at 00:00 Phenol (Cepastat Lozenge) 1 lozenge Q1H PRN MT COUGH Last administered on 04/30/18at 20:40; Admin Dose 1 LOZENGE; Start 04/30/18 at 00:00 Miscellaneous Information Patients own medicat... BID@10,16 XX ; Start 04/30/18 at 10:00 Albuterol/ Ipratropium (Duoneb) 3 ml Q8H RESP THERAPY HHN Last administered on 05/10/18at 00:25; Admin Dose 3 ML; Start 05/02/18 at 16:00 Rivaroxaban (Xarelto) 20 mg WITH DINNER PO Last administered on 05/09/18at 21:21; Admin Dose 20 MG; Start 05/09/18 at 21:00; Status Future Hold Oxycodone/ Acetaminophen (Endocet (10)) 1 tab Q4H PRN PO MODERATE PAIN LE JIA 4-6 Last administered on 05/09/18at 17:57; Admin Dose 1 TAB; Start 05/08/18 at 20:00 Morphine Sulfate (morphine) 4 mg Q6 PRN IV SEVERE PAIN LEVEL 7-10 Last administered on 05/10/18at 08:33; Admin Dose 4 MG; Start 05/08/18 at 20:00 NEEL BAZZI May 10, 2018 09:45
[2018-05-10 14:40] VITALS: BP 123/71; PULSE 69; RESP 16
--- NOTE | 2018-05-10 16:24 | PN ---
Date/Time of Note Date/Time of Note DATE: 05/10/18 TIME: 16:23 Assessment/Plan VTE Prophylaxis Risk score (from Nsg)>0 risk: 6 SCD applied (from Ns): No SCD contraindicated: low risk/ambulating Pharmacological prophylaxis: rivaroxaban Lines/Catheters IV Catheter Type (from Nrs): Saline Lock Urinary Cath still in place: No Assessment/Plan Hospital Course Assessment and plan 1. Recurrent Rt hemopneumothorax; thick pleura. h/o VATS. stable, sp IR guided pigtail, then Pleurx, removed. Rpt ct placed. not sure what the end -point will be. 2. Ftt consider snf 3. Nonadherence high risk of recurrent pneumothorax/progression of comorbi dities. has been counseled regarding this issue over the last few months 4. History of aspergillosis; f/u titers pending 5. 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 ivc filter removed? 6. Past tobacco 7. Likely chronic COPD 8 H/o MRSA chest wall cellulitis 9. Cervical spine disease 10. Anemia S: 04/22 no distress. Occasional cough with taking deep breaths. No hemoptysis. No diaphoresis fever. 04/23 no events. Some pleurisy chest pain. Some neck pain. Some cough no hemoptysis. No fever. /: No events 05/02: Ongoing pain. Appears comfortable however. No fever no diarrhea. Output remains thick 05/05: Ongoing "pain" no fever. for Pleurx catheter exchange/placement and IVC filter removal if feasible 05/06: Ongoing pain same is has been earlier this week. No fever diarrhea. 05/07: Ongoing pain discomfort even after chest tube removed. Appears comfortable/ similar to yesterday 05/08: No events overnight 05/09: Events noted. Chest tube placed. Fever appears stable /: No events O: vss Physical exam No pallor JVD Regular no murmur rub gallop Diminb bs bilat, more on the right no tachypnea; rt c-tube c/d/i Benign No edema/Homans Result Diagram: 05/10/18 0602 05/10/18 0602 Results 24hrs Laboratory Tests Test 05/10/18 06:02 05/10/18 10:00 White Blood Count 8.1 Red Blood Count 4.27 L Hemoglobin 10.6 L Hematocrit 34.0 L Mean Corpuscular Volume 79.6 L Mean Corpuscular Hemoglobin 24.8 L Mean Corpuscular Hemoglobin Concent 31.2 L Red Cell Distribution Width 15.7 H Platelet Count 617 H Mean Platelet Volume 9.2 Immature Granulocytes % 4.500 H Neutrophils % 60.0 Lymphocytes % 19.9 Monocytes % 11.9 H Eosinophils % 2.7 Basophils % 1.0 Nucleated Red Blood Cells % 0.0 Immature Granulocytes # 0.360 H Neutrophils # 4.8 Lymphocytes # 1.6 Monocytes # 1.0 H Eosinophils # 0.2 Basophils # 0.1 Nucleated Red Blood Cells # 0.0 Sodium Level 138 Potassium Level 3.8 Chloride Level 103 Carbon Dioxide Level 25 Anion Gap 10 Blood Urea Nitrogen 16 Creatinine 0.65 Est Glomerular Filtrat Rate mL/min > 60 Glucose Level 120 Calcium Level 9.3 Troponin I < 0.012 Lab Scanned Report REFERENCE LAB Exam/Review of Systems Vital Signs Vitals Vital Signs Date Temp Pulse Resp B/P (MAP) Pulse Ox O2 O2 Flow FiO2 Time Delivery Rate 05/10/18 97.8 69 16 123/71 97 14:40 (88) 05/10/18 21 00:25 05/09/18 Room Air 02:00 Intake and Output 05/09/18 05/09/18 05/10/18 1515:00 23:00 07:00 IntakeIntake Total 480 ml OutputOutput Total 600 ml 200 ml 900 ml BalanceBalance -600 ml 280 ml -900 ml Medications Medications Current Medications IV Flush (NS 3 ml) 3 ml PER PROTOCOL IV ; Start 04/22/18 at 00:00 Ondansetron HCl (Zofran Inj) 4 mg Q6H PRN IV NAUSEA AND/OR VOMITING Last administered on 05/03/18at 16:06; Admin Dose 4 MG; Start 04/22/18 at 00:00 Acetaminophen (Tylenol Tab) 650 mg Q6H PRN PO PAIN LEVEL 1-3 OR FEVER Last administered on 05/10/18at 13:16; Admin Dose 650 MG; Start 04/22/18 at 00:00 Albuterol/ Ipratropium (Duoneb) 3 ml Q2H RESP THERAPY PRN HHN SHORTNESS OF BREATH Last administered on 04/30/18at 01:15; Admin Dose 3 ML; Start 04/22/18 at 00:00 Lactobacillus Acidophilus/ Rhamnosus (Culturelle) 1 cap BID PO Last administered on 05/10/18at 08:33; Admin Dose 1 CAP; Start 04/22/18 at 14:00 Docusate Sodium (Colace) 100 mg BID PRN PO CONSTIPATION; Start 04/23/18 at 16:00 Magnesium Hydroxide (Milk Of Mag) 30 ml DAILY PRN PO CONSTIPATION Last administered on 05/02/18at 10:29; Admin Dose 30 ML; Start 04/23/18 at 16:00 Bisacodyl (Dulcolax) 10 mg DAILY PRN PO CONSTIPATION; Start 04/23/18 at 16:00 Bisacodyl (Dulcolax Supp) 10 mg Q48H PRN [place] CONSTIPATION; Start 04/23/18 at 16:00 Guaifenesin (Robitussin Liquid Cup) 100 mg Q4H PRN PO COUGH Last administered on 05/01/18at 17:57; Admin Dose 100 MG; Start 04/30/18 at 00:00 Phenol (Cepastat Lozenge) 1 lozenge Q1H PRN MT COUGH Last administered on 04/30/18at 20:40; Admin Dose 1 LOZENGE; Start 04/30/18 at 00:00 Miscellaneous Information Patients own medicat... BID@10,16 XX ; Start 04/30/18 at 10:00 Albuterol/ Ipratropium (Duoneb) 3 ml Q8H RESP THERAPY HHN Last administered on 05/10/18at 00:25; Admin Dose 3 ML; Start 05/02/18 at 16:00 Rivaroxaban (Xarelto) 20 mg WITH DINNER PO Last administered on 05/09/18 21:21; Admin Dose 20 MG; Start 05/09/18 at 21:00; Status Future Hold Oxycodone/ Acetaminophen (Endocet (10 325)) 1 tab Q4H PRN PO MODERATE PAIN LEVEL 4-6 Last administered on 05/09/18at 17:57; Admin Dose 1 TAB; Start 05/08/18 at 20:00 Morphine Sulfate (morphine) 4 mg Q6 PRN IV SEVERE PAIN LEVEL 7-10 Last administered on 05/10/18 14:30; Admin Dose 4 MG; Start 05/08/18 at 20:00 KALEY RAYGOZA MD May 10, 2018 16:24
--- NOTE | 2018-05-10 17:00 | NUR ---
Patient on bed rest, alert and oriented X 4. Right chest pigtail attached to Chest tube. Minimal purulent yellow output observed in the tubing but nothing in the pleura vac. Patient continue with Morphine every 6 hours for pain control. Stable condition, will continue with care plan.
[2018-05-10] MEDS: RIVAROXABAN 20 MG TABLET PO SCH (18:25)
[2018-05-10 20:00] VITALS: BP 106/56; PULSE 74; RESP 18
[2018-05-11 02:00] VITALS: BP 107/57; PULSE 66; RESP 18
[2018-05-11] MEDS: DOCUSATE SODIUM 100 MG CAP PO PRN (02:42)
[2018-05-11] MEDS: morphine 4 MG/ML VIAL IV PRN ×5 (02:42→22:35)
--- NOTE | 2018-05-11 06:12 | NUR ---
End of Shift RN Note: No acute changes noted during my shift. Pt stable and displayed no s/s of acute distress during my shift. Chest tube in place set to suction, patent and draining. Dressing is dry and intact. Will continue to monitor and endorse to next shift accordingly.
[2018-05-11 08:01] VITALS: BP 101/55; PULSE 60; RESP 16
[2018-05-11] MEDS: ALBUTEROL/IPRATROPIUM (NEB) 3 ML AMP HHN SCH ×3 (08:17→16:08)
[2018-05-11] MEDS: LACTOBACILLUS RHAMNOSUS CAP PO SCH ×2 (08:33→20:49)
--- NOTE | 2018-05-11 10:36 | CONS ---
Assessment/Plan Assessment/Plan Assessment/Plan Assessment recommendations; next 1. Patient admitted with recurrent right pneumothorax status post multiple chest tube placement as well as VATS procedure in the past without any significant improvement in pneumothorax with recurrence. 2. History of aspergillosis with significant right pleural thickening preventing full right lung reexpansion. Posing a significant treatment dilemma. 3. Underlying severe emphysema. Continue current supportive care. Will obtain follow-up chest x-ray in 24 hours. Result Diagram: 05/10/18 0602 05/10/18 0602 Consultation Date/Type/Reason Admit Date/Time Apr 21, 2018 at 19:36 Initial Consult Date 04/27/18 Type of Consult Pulmonary History of presenting illness; Patient is a 57-year-old male with a history of recurrent right pneumothorax status post attempted VATS admitted again for shortness of breath. Chest x-ray showing recurrent 50% right pneumothorax with infiltrative changes on chest x- ray. Patient underwent a tube thoracostomy by interventional radiology yesterday. Patient is feeling better and denies any significant shortness of breath. Past medical history; 1. History of underlying severe emphysema. 2. Status post right-sided VATS for recurrent right pneumothorax with apparent failure. 3. History of recurrent right pneumothorax status post multiple chest tube plac ements. 4. Chronic pain. Medications; reviewed. Allergies; none. Social history; patient is a strong history of heavy smoking. Family history; noncontributory. Occupational history; patient is on disability. Review of systems; denies any headache, chest pain, shortness of breath has improved. Denies any coughing or wheezing. Any hemoptysis or sputum production. Any fever or chills. Denies any weight loss. Any orthopnea. Any melena or hematochezia. General exam; middle-aged male, appears quite emaciated awake and alert. Currently in no distress. 24 HR Interval Summary Free Text/Dictation Patient's condition is stable. Denies any shortness of breath at rest. Any coughing wheezing or chest pain. General exam; elderly male, awake and alert. Currently no distress. Laying comfortably in bed. Exam/Review of Systems Vital Signs Vitals Vital Signs Date Temp Pulse Resp B/P (MAP) Pulse Ox O2 O2 Flow FiO2 Time Delivery Rate 05/11/18 72 20 97 21 08:19 05/11/18 97.7 101/55 08:01 (70) 05/09/18 Room Air 02:00 Intake and Output 05/10/18 05/10/18 05/11/18 1515:00 23:00 07:00 IntakeIntake Total 500 ml 1300 ml OutputOutput Total 750 ml 1200 ml BalanceBalance 500 ml 550 ml -1200 ml Exam H EENT exam; supple neck, no JVD. No lymphadenopathy. Midline trachea. No thyromegaly. Patient is mostly edentulous. Chest exam; diminished breath sounds throughout. S1-S2 audible, no murmurs. Regular rhythm. Right-sided chest tube in place. Abdomen exam; soft, no organomegaly. Bowel sounds audible. Extremity exam; no peripheral edema or clubbing. CASHIER MANAGER exam; no focal deficit. Medications Medications Current Medications IV Flush (NS 3 ml) 3 ml PER PROTOCOL IV ; Start 04/22/18 at 00:00 Ondansetron HCl (Zofran Inj) 4 mg Q6H PRN IV NAUSEA AND/OR VOMITING Last ad ministered on 05/03/18at 16:06; Admin Dose 4 MG; Start 04/22/18 at 00:00 Acetaminophen (Tylenol Tab) 650 mg Q6H PRN PO PAIN LEVEL 1-3 OR FEVER Last administered on 05/10/18at 13:16; Admin Dose 650 MG; Start 04/22/18 at 00:00 Albuterol/ Ipratropium (Duoneb) 3 ml Q2H RESP THERAPY PRN HHN SHORTNESS OF BR EATH Last administered on 04/30/18at 01:15; Admin Dose 3 ML; Start 04/22/18 at 00:00 Lactobacillus Acidophilus/ Rhamnosus (Culturelle) 1 cap BID PO Last administered on 05/11/18at 08:33; Admin Dose 1 CAP; Start 04/22/18 at 14:00 Docusate Sodium (Colace) 100 mg BID PRN PO CONSTIPATION Last administered on 05/11/18at 02:42; Admin Dose 100 MG; Start 04/23/18 at 16:00 Magnesium Hydroxide (Milk Of Mag) 30 ml DAILY PRN PO CONSTIPATION Last administered on 05/02/18at 10:29; Admin Dose 30 ML; Start 04/23/18 at 16:00 Bisacodyl (Dulcolax) 10 mg DAILY PRN PO CONSTIPATION; Start 04/23/18 at 16:00 Bisacodyl (Dulcolax Supp) 10 mg Q48H PRN [place] CONSTIPATION; Start 04/23/18 at 16:00 Guaifenesin (Robitussin Liquid Cup) 100 mg Q4H PRN PO COUGH Last administered on 05/01/18at 17:57; Admin Dose 100 MG; Start 04/30/18 at 00:00 Phenol (Cepastat Lozenge) 1 lozenge Q1H PRN [place] COUGH Last administered on 04/30/18at 20:40; Admin Dose 1 LOZENGE; Start 04/30/18 at 00:00 Miscellaneous Information Patients own medicat... BID@,16 XX ; Start 04/30/18 at 10:00 Albuterol/ Ipratropium (Duoneb) 3 ml Q8H RESP THERAPY HHN Last administered on 05/11/18at 08:17; Admin Dose 3 ML; Start 05/02/18 at 16:00 Rivaroxaban (Xarelto) 20 mg WITH DINNER PO Last administered on 05/10/18at 18:25; Admin Dose 20 MG; Start 05/09/18 at 21:00; Status Future Hold Oxycodone/ Acetaminophen (Endocet (10/ 325)) 1 tab Q4H PRN PO MODERATE PAIN LEVEL 4-6 Last administered on 05/09/18at 17:57; Admin Dose 1 TAB; Start 05/08/18 at 20:00 Morphine Sulfate (morphine) 4 mg Q6 PRN IV SEVERE PAIN LEVEL 7-10 Last administered on 05/11/18at 08:33; Admin Dose 4 MG; Start 05/08/18 at 20:00 Date/Time of Note Date/Time of Note DATE: 05/11/18 TIME: 10:34 NEEL BAZZI May 11, 2018 10:36
--- NOTE | 2018-05-11 12:41 | PN ---
Date/Time of Note Date/Time of Note DATE: 05/11/18 TIME: 12:25 Assessment/Plan VTE Prophylaxis Risk score (from Ns)>0 risk: 5 SCD applied (from Ns): Yes Pharmacological prophylaxis: rivaroxaban Lines/Catheters IV Catheter Type (from Nrsg): Saline Lock Urinary Cath still in place: No Assessment/Plan Assessment/Plan 1. Recurrent Rt hemopneumothorax, with h/o VATS.on 02/07/2018, and right-sided pneumothorax status post chest tube 03/07/18 and placement of a Heimlich valve 03/18/18 with subsequent removal, chest tube in place, follow up with pulmonology 2. History of aspergillosis 3. H/o PE and RLE DVT in 2015; s/p IVC filter, on xarelto 4. COPD, stable on neb 5. Cervical spine disease 6. Microcytic anemia, chronic, stable H/H 7. DVT prophylaxis: on xarelto Result Diagram: 05/10/18 0602 05/10/18 0602 Subjective 24 Hr Interval Summary Free Text/Dictation neck pain and pain at the drainage site Exam/Review of Systems Vital Signs Vitals Vital Signs Date Temp Pulse Resp B/P (MAP) Pulse Ox O2 O2 Flow FiO2 Time Delivery Rate 05/11/18 72 20 97 21 08:19 05/11/18 97.7 101/55 08:01 (70) 05/09/18 Room Air 02:00 Intake and Output 05/10/18 05/10/18 05/11/18 1414:59 22:59 06:59 IntakeIntake Total 500 ml 1300 ml OutputOutput Total 750 ml 1200 ml BalanceBalance 500 ml 550 ml -1200 ml Exam Constitutional: alert, oriented, well developed Head: normocephalic, atraumatic Eyes: nl conjunctiva, EOMI, nl lids, PERRL ENMT: nl external ears & nose, nl lips & teeth, nl nasal mucosa & septum Neck: supple, non-tender Respiratory: clear to auscultation, normal air movement; No congested cough, No crackles/rales, No diminished breath sounds, No intercostal retraction, No labored breathing, No respirations, No tactile fremitus, No wheezing, No other Cardiovascular: regular rate and rhythm, nl pulses; No bruits, No diastolic murmur, No edema, No gallop, No irregular rhythm, No jugular venous distention (JVD), No murmurs/extra sounds, No rub, No systolic murmur, No S3, No S4, No other Gastrointestinal: soft, nl liver, spleen, non-tender Musculoskeletal: nl extremities to inspection Extremities: normal pulses; No calf tenderness, No cyanosis, No clubbing, No edema, No pitting pedal edema, No palpable cord, No tenderness, No other Neurological: 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 II-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 intact, nl mental status, nl speech, nl strength Medications Medications Current Medications IV Flush (NS 3 ml) 3 ml PER PROTOCOL IV ; Start 04/22/18 at 00:00 Ondansetron HCl (Zofran Inj) 4 mg Q6H PRN IV NAUSEA AND/OR VOMITING Last administered on 05/03/18at 16:06; Admin Dose 4 MG; Start 04/22/18 at 00:00 Acetaminophen (Tylenol Tab) 650 mg Q6H PRN PO PAIN LEVEL 1-3 OR FEVER Last administered on 05/10/18at 13:16; Admin Dose 650 MG; Start 04/22/18 at 00:00 Albuterol/ Ipratropium (Duoneb) 3 ml Q2H RESP THERAPY PRN HHN SHORTNESS OF BREATH Last administered on 04/30/18at 01:15; Admin Dose 3 ML; Start 04/22/18 at 00:00 Lactobacillus Acidophilus/ Rhamnosus (Culturelle) 1 cap BID PO Last administered on 05/11/18at 08:33; Admin Dose 1 CAP; Start 04/22/18 at 14:00 Docusate Sodium (Colace) 100 mg BID PRN PO CONSTIPATION Last administered on 05/11/18at 02:42; Admin Dose 100 MG; Start 04/23/18 at 16:00 Magnesium Hydroxide (Milk Of Mag) 30 ml DAILY PRN PO CONSTIPATION Last administered on 05/02/18at 10:29; Admin Dose 30 ML; Start 04/23/18 at 16:00 Bisacodyl (Dulcolax) 10 mg DAILY PRN PO CONSTIPATION; Start 04/23/18 at 16:00 Bisacodyl (Dulcolax Supp) 10 mg Q48H PRN RI CONSTIPATION; Start 04/23/18 at 16:00 Guaifenesin (Robitussin Liquid Cup) 100 mg Q4H PRN PO COUGH Last administered on 05/01/18 17:57; Admin Dose 100 MG; Start 04/30/18 at 00:00 Phenol (Cepastat Lozenge) 1 lozenge Q1H PRN MT COUGH Last administered on 04/30/18 20:40; Admin Dose 1 LOZENGE; Start 04/30/18 at 00:00 Miscellaneous Information Patients own medicat... BID@10,16 XX ; Start 04/30/18 at 10:00 Albuterol/ Ipratropium (Duoneb) 3 ml Q8H RESP THERAPY HHN Last administered on 05/11/18 08:17; Admin Dose 3 ML; Start 05/02/18 at 16:00 Rivaroxaban (Xarelto) 20 mg WITH DINNER PO Last administered on 05/10/18 18:25; Admin Dose 20 MG; Start 05/09/18 at 21:00; Status Future Hold Oxycodone/ Acetaminophen (Endocet (10/ 325)) 1 tab Q4H PRN PO MODERATE PAIN LEVEL 4-6 Last administered on 05/09/18 17:57; Admin Dose 1 TAB; Start 05/08/18 at 20:00 Morphine Sulfate (morphine) 4 mg Q6 PRN IV SEVERE PAIN LEVEL 7-10 Last administered on 05/11/18 08:33; Admin Dose 4 MG; Start 05/08/18 at 20:00 ZENIA DELAROSA MD May 11, 2018 12:38
[2018-05-11 14:45] VITALS: BP 131/77; PULSE 79; RESP 18
--- NOTE | 2018-05-11 16:09 | NUR ---
PT complaining of right shoulder pain due to an injury a few years ago and arthritis. States he can barely move his arm without it hurting. Requesting a cortisone shot to relieve the pain. States he got one a few years ago and int worked well. Informed and Dr. Moraes stated that cortisone shots are not given in the hospital and pt to follow up as outpatient when discharged. Patient informed.
[2018-05-11] MEDS: RIVAROXABAN 20 MG TABLET PO SCH (17:43)
[2018-05-11 20:00] VITALS: BP 127/67; PULSE 79; RESP 18
[2018-05-11] MEDS: OXYCODONE/ACETAMINOPHEN (10/325) TAB PO PRN (20:49)
--- NOTE | 2018-05-12 01:51 | NUR ---
1914 Pt received aaox4, respirations regular and even, sitting in bed. Pt oriented to oncoming third shift lieutenant nurse and [facility] safety protocols including hourly rounding and an active bed alarm. Pt teach back completed on how to use call boateng. Pt verbalized understanding and was interactive during bedside shift report. Pt asked staff to heat up kiara, request completed. 2048 Pt complains of 8/10 pain of the chest @ chest tube insertion site. Endocet administered as ordered. Pt request morphine, and informed that the next dose of morphine 4mg may not be administered until 2229. Pt informed of medication purpose, doses, frequencies, and side effects. Pt verbalized understanding and denies further needs at this time. 2229 Pt request morphine for 8/10 pain of the chest @ chest tube insertion site and pain of the Right shoulder. Left forearm IV occluded and d/c'd. New 22G inserted in the right forearm, Morphine administered as ordered. Pt denies further needs, bed alarm active, call boateng within reach. 2299 Pt resting comfortably, eyes closed, nursing will continue to monitor. Addendum: 05/12/18 at 0708 by KATHY ALDRIDGE RN [id number] No significant changes noted throughout the night. Pt medicated for Right chest tube pain as order, nursing will endorse to morning shift to ensure pt safety and continuity of care.
[2018-05-12 02:00] VITALS: BP 112/71; PULSE 71; RESP 18
[2018-05-12] MEDS: morphine 4 MG/ML VIAL IV PRN ×3 (02:44→10:52)
[2018-05-12] MEDS: ACETAMINOPHEN 325 MG TAB PO PRN (03:22)
[2018-05-12] MEDS: ALBUTEROL/IPRATROPIUM (NEB) 3 ML AMP HHN SCH ×3 (08:00→16:00)
[2018-05-12] MEDS: LACTOBACILLUS RHAMNOSUS CAP PO SCH ×2 (08:48→20:25)
--- NOTE | 2018-05-12 10:00 | CONS ---
Assessment/Plan Assessment/Plan Assessment/Plan Chest x-ray from today showing significant reduction in right pneumothorax. Assessment recommendations; next 1. Patient admitted with recurrent right pneumothorax having failed multiple chest tubes as well as VATS procedure in the past. Chest x-ray from today showing significant reduction in pneumothorax after undergoing repeat chest tube placement. 2. Underlying severe bullous emphysema. 3. History of aspergillosis. 4. History of DVT and PE. Continue on supportive care. Result Diagram: 05/10/18 0602 05/10/18 0602 Consultation Date/Type/Reason Admit Date/Time Apr 21, 2018 at 19:36 Initial Consult Date 04/27/18 Type of Consult Pulmonary History of presenting illness; Patient is a 57-year-old male with a history of recurrent right pneumothorax status post attempted VATS admitted again for shortness of breath. Chest x-ray showing recurrent 50% right pneumothorax with infiltrative changes on chest x- ray. Patient underwent a tube thoracostomy by interventional radiology yesterday. Patient is feeling better and denies any significant shortness of breath. Past medical history; 1. History of underlying severe emphysema. 2. Status post right-sided VATS for recurrent right pneumothorax with apparent failure. 3. History of recurrent right pneumothorax status post multiple chest tube placements. 4. Chronic pain. Medications; reviewed. Allergies; none. Social history; patient is a strong history of heavy smoking. Family history; noncontributory. Occupational history; patient is on disability. Review of systems; denies any headache, chest pain, shortness of breath has improved. Denies any coughing or wheezing. Any hemoptysis or sputum production. Any fever or chills. Denies any weight loss. Any orthopnea. Any melena or hematochezia. General exam; middle-aged male, appears quite emaciated awake and alert. Currently in no distress. 24 HR Interval Summary Free Text/Dictation Patient's condition is stable. Remains awake and alert. Denies any shortness of breath, chest pain. General exam; middle-aged male, awake alert, currently no distress. Exam/Review of Systems Vital Signs Vitals Vital Signs Date Temp Pulse Resp B/P (MAP) Pulse Ox O2 O2 Flow FiO2 Time Delivery Rate 05/12/18 97.6 71 18 112/71 96 02:00 (85) 05/11/18 21 16:08 05/09/18 Room Air 02:00 Intake and Output 05/11/18 05/11/18 05/12/18 1515:00 23:00 07:00 IntakeIntake Total 1500 ml OutputOutput Total 800 ml 1500 ml BalanceBalance 700 ml -1500 ml Exam H EENT exam; supple neck, no JVD. No lymphadenopathy. Midline trachea. No thyromegaly. Patient has a multiple carious teeth. Chest exam; diminished but clear breath sounds. S1-S2 audible, no murmurs. Regular rhythm. Right-sided chest tube in place. Abdomen exam; soft, nontender. No organomegaly. Bowel sounds audible. Extremity exam; no peripheral edema or clubbing. 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 Medications Medications Current Medications IV Flush (NS 3 ml) 3 ml PER PROTOCOL IV ; Start 04/22/18 at 00:00 Ondansetron HCl (Zofran Inj) 4 mg Q6H PRN IV NAUSEA AND/OR VOMITING Last administered on 05/03/18at 16:06; Admin Dose 4 MG; Start 04/22/18 at 00:00 Acetaminophen (Tylenol Tab) 650 mg Q6H PRN PO PAIN LEVEL 1-3 OR FEVER Last administered on 05/12/18 03:22; Admin Dose 650 MG; Start 04/22/18 at 00:00 Albuterol/ Ipratropium (Duoneb) 3 ml Q2H RESP THERAPY PRN HHN SHORTNESS OF BREATH Last administered on 04/30/18at 01:15; Admin Dose 3 ML; Start 04/22/18 at 00:00 Lactobacillus Acidophilus/ Rhamnosus (Culturelle) 1 cap BID PO Last a dministered on 05/12/18at 08:48; Admin Dose 1 CAP; Start 04/22/18 at 14:00 Docusate Sodium (Colace) 100 mg BID PRN PO CONSTIPATION Last administered on 05/11/18at 02:42; Admin Dose 100 MG; Start 04/23/18 at 16:00 Magnesium Hydroxide (Milk Of Mag) 30 ml DAILY PRN PO CONSTIPATION Last administered on 05/02/18at 10:29; Admin Dose 30 ML; Start 04/23/18 at 16:00 Bisacodyl (Dulcolax) 10 mg DAILY PRN PO CONSTIPATION; Start 04/23/18 at 16:00 Bisacodyl (Dulcolax Supp) 10 mg Q48H PRN [place] CONSTIPATION; Start 04/23/18 at 16:00 Guaifenesin (Robitussin Liquid Cup) 100 mg Q4H PRN PO COUGH Last administered on 05/01/18at 17:57; Admin Dose 100 MG; Start 04/30/18 at 00:00 Phenol (Cepastat Lozenge) 1 lozenge Q1H PRN MT COUGH Last administered on 04/30/18at 20:40; Admin Dose 1 LOZENGE; Start 04/30/18 at 00:00 Miscellaneous Information Patients own medicat... BID@10,16 XX ; Start 04/30/18 at 10:00 Albuterol/ Ipratropium (Duoneb) 3 ml Q8H RESP THERAPY HHN Last administered on 05/11/18at 16:08; Admin Dose 3 ML; Start 05/02/18 at 16:00 Rivaroxaban (Xarelto) 20 mg WITH DINNER PO Last administered on 05/11/18at 17:43; Admin Dose 20 MG; Start 05/09/18 at 21:00; Status Future Hold Oxycodone/ Acetaminophen (Endocet (10/ 325)) 1 tab Q4H PRN PO MODERATE PAIN LEVEL 4-6 Last administered on 05/11/18at 20:49; Admin Dose 1 TAB; Start 05/08/18 at 20:00 Morphine Sulfate (morphine) 4 mg Q4 PRN IV SEVERE PAIN LEVEL 7-10 Last administered on 05/12/18at 06:49; Admin Dose 4 MG; Start 05/11/18 at 16:30 Date/Time of Note Date/Time of Note DATE: 05/12/18 TIME: 09:58 NEEL BAZZI May 12, 2018 10:00
--- NOTE | 2018-05-12 13:02 | PN ---
Date/Time of Note Date/Time of Note DATE: 05/12/18 TIME: 12:57 Assessment/Plan VTE Prophylaxis Risk score (from Ns)>0 risk: 5 SCD applied (from Ns): Yes Pharmacological prophylaxis: rivaroxaban Lines/Catheters IV Catheter Type (from Nrsg): Saline Lock Urinary Cath still in place: No Assessment/Plan Assessment/Plan 1. Recurrent Rt hemopneumothorax, with h/o VATS.on 02/07/2018, and right-sided pneumothorax status post chest tube 03/07/18 and placement of a Heimlich valve 03/18/18 with subsequent removal, chest tube in place, follow up with pulmonology 2. History of aspergillosis 3. H/o PE and RLE DVT in 2015; s/p IVC filter, on xarelto 4. COPD, stable on neb 5. Cervical spine disease 6. Microcytic anemia, chronic, stable H/H 7. Right shoulder pain, X-ray 8. DVT prophylaxis: on xarelto Result Diagram: 05/10/18 0602 05/10/18 0602 Subjective 24 Hr Interval Summary Free Text/Dictation right shoulder pain, chronic, worse Exam/Review of Systems Exam Vitals Vital Signs Date Temp Pulse Resp B/P (MAP) Pulse Ox O2 O2 Flow FiO2 Time Delivery Rate 05/12/18 97.6 71 18 112/71 96 02:00 (85) 05/11/18 21 16:08 05/09/18 Room Air 02:00 Intake and Output 05/11/18 05/11/18 05/12/18 1515:00 23:00 07:00 IntakeIntake Total 1500 ml OutputOutput Total 800 ml 1500 ml BalanceBalance 700 ml -1500 ml Constitutional: alert, oriented, well developed Psych: no complaints, nl mood/affect Head: normocephalic, atraumatic Eyes: nl conjunctiva, EOMI, nl lids, PERRL ENMT: nl external ears & nose, nl lips & teeth, nl nasal mucosa & septum Neck: supple, non-tender Respiratory: clear to auscultation, normal air movement; No congested cough, No crackles/rales, No diminished breath sounds, No intercostal retraction, No labored breathing, No respirations, No tactile fremi tus, No wheezing, No other Cardiovascular: regular rate and rhythm, nl pulses; No bruits, No diastolic murmur, No edema, No gallop, No irregular rhythm, No jugular venous distention (JVD), No murmurs/extra sounds, No rub, No systolic murmur, No S3, No S4, No other Gastrointestinal: soft, nl liver, spleen, non-tender Musculoskeletal: other (right shoulder pain) Extremities: normal pulses; No calf tenderness, No cyanosis, No clubbing, No edema, No pitting pedal edema, No palpable cord, No tenderness, No other 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
[2018-05-12] MEDS: HYDROmorphONE 0.5 MG/0.5 ML SYG IV PRN ×4 (13:28→22:53)
--- NOTE | 2018-05-12 17:00 | NUR ---
[facility] [employer]INGER PIGTAIL CATH PLACEMENT POSTERIOR CHEST. Addendum: 05/12/18 at 1701 by ROBERT PINEDA CM Amended: Links added.
[2018-05-12] MEDS: RIVAROXABAN 20 MG TABLET PO SCH (17:22)
[2018-05-12 20:06] VITALS: BP 131/71; PULSE 76; RESP 18
[2018-05-12] MEDS: HYDROCORTISONE 1% 28.35 GM OINT TOP SCH (21:00)
--- NOTE | 2018-05-13 00:13 | NUR ---
1914 Pt received aaox4, respirations regular and even, sitting in bed. 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 Pt teach back completed on how to use call boateng. Pt verbalized understanding and was interactive during bedside shift report. Approx. 1944 Pt medicated for 8/10 pain at chest tube site with IV dilaudid as ordered. Pt denies further needs at this time. Approx. 2029 Scheduled medication administered whole with water w/o difficulty. Pt resting comfortably in bed watching TV. Bed alarm active, call boateng within reach. Addendum: 05/13/18 at 0309 by KATHY ALDRIDGE RN [id number] Pt continues to request Dilaudid as appropriate q3 hours for pain which he consistently rates as an 8/10. Additionally pt voices complaints 8/10 of the Right Shoulder and request cortisone shot. Pt educated that his doctor previous stated he would have to receive treatment for the shoulder with cortisone shots as an outpatient. Nursing will follow up with physician tomorrow pt states, "It hurts and I can barely move it." Addendum: 05/13/18 at 0749 by KATHY ALDRIDGE RN [id number] No significant changes noted throughout the shift. Chest tube patent and draining appropriately. No s/s of distress, respirations regular and even. Nursing will continue to monitor and endorse to morning shift to ensure pt safety and continuity of care.
[2018-05-13] MEDS: HYDROmorphONE 0.5 MG/0.5 ML SYG IV PRN ×7 (01:54→23:35)
[2018-05-13 02:10] VITALS: BP 129/74; PULSE 72; RESP 18
[2018-05-13] MEDS: ACETAMINOPHEN 325 MG TAB PO PRN (02:34)
[2018-05-13] MEDS: HYDROCORTISONE 1% 28.35 GM OINT TOP SCH ×3 (02:40→20:30)
[2018-05-13] MEDS: ALBUTEROL/IPRATROPIUM (NEB) 3 ML AMP HHN SCH ×3 (07:46→16:13)
[2018-05-13] MEDS: LACTOBACILLUS RHAMNOSUS CAP PO SCH ×2 (08:10→20:26)
[2018-05-13 08:33] VITALS: BP 124/81; PULSE 84; RESP 18
--- NOTE | 2018-05-13 10:34 | PN ---
Date/Time of Note Date/Time of Note DATE: 05/13/18 TIME: 10:26 Assessment/Plan VTE Prophylaxis Risk score (from Ns)>0 risk: 6 SCD applied (from Ns): Yes Pharmacological prophylaxis: rivaroxaban Lines/Catheters IV Catheter Type (from Nrs): Saline Lock Urinary Cath still in place: No Assessment/Plan Assessment/Plan 1. Recurrent right-sided hemopneumothorax, with h/o thoracotomy and total pulmonary decortication on 02/07/2018, and right-sided pneumothorax status post chest tube 03/07/18 and placement of a Heimlich valve 03/18/18 with subsequent removal -Currently chest tube in place. Chest x-ray shows some improvement -Pulmonary on board 2. History of PE and RLE DVT in 2016; s/p IVC filter, on xarelto 3. COPD: Supplemental oxygen, bronchodilators 4. History of aspergillosis 5. Right shoulder pain: X-ray yesterday showing tendinitis, but no fracture or dislocation. Pain management for now 6. Microcytic anemia, secondary to iron deficiency -Iron panel consistent with iron deficiency -Will start ferrous sulfate DVT prophylaxis: on Xarelto PLAN: Patient with a chest tube in place with for a recurrent hemopneumothorax. Discharge once cleared by pulmonary and cardiothoracic Result Diagram: 05/10/18 0602 05/10/18 0602 Subjective 24 Hr Interval Summary Free Text/Dictation No acute distress. Exam/Review of Systems Exam Vitals Vital Signs Date Temp Pulse Resp B/P (MAP) Pulse Ox O2 O2 Flow FiO2 Time Delivery Rate 05/13/18 97.8 84 18 124/81 93 08:33 (95) 05/13/18 21 07:47 Intake and Output 05/12/18 05/12/18 05/13/18 1414:59 22:59 06:59 IntakeIntake Total 960 ml 1200 ml 1000 ml OutputOutput Total 200 ml 850 ml 1400 ml BalanceBalance 760 ml 350 ml -400 ml Constitutional: other (No acute distress) Head: normocephalic, atraumatic Eyes: EOMI, PERRL Respiratory: diminished breath sounds, other (Chest tube in place) Cardiovascular: regular rate and rhythm, nl pulses Gastrointestinal: soft Extremities: normal pulses AMBER MORALES MD May 13, 2018 10:34
[2018-05-13] MEDS ORDERED: HYDROmorphONE 1 MG/ML SYG IV ONE (11:00)
[2018-05-13] MEDS: IBUPROFEN 600 MG TAB PO SCH ×3 (11:07→23:43)
[2018-05-13] MEDS: FERROUS SULFATE (EC) 325 MG TAB PO SCH ×2 (11:07→20:26)
--- NOTE | 2018-05-13 12:27 | NUR ---
NURSE NOTE: Left a message to Dr. Stanley, to clarify order for suction of the drainage. Awaiting call back. Pt's pigtail catheter is attach to a drainage and drained via gravity. Suction at low continuous as it was when patient was first received this AM. Will continue to monitor.
--- NOTE | 2018-05-13 13:16 | CONS ---
Consult Date/Type/Reason Admit Date/Time Apr 21, 2018 at 19:36 Initial Consult Date 04/27/18 Type of Consult Pulmonary Date/Time of Note DATE: 05/13/18 TIME: 13:14 Subjective Patient requesting more pain meds complaining of pain in chest tube insertion site Objective Vital Signs Date Temp Pulse Resp B/P (MAP) Pulse Ox O2 O2 Flow FiO2 Time Delivery Rate 05/13/18 97.8 84 18 124/81 93 08:33 (95) 05/13/18 21 07:47 Intake and Output 05/12/18 05/12/18 05/13/18 1515:00 23:00 07:00 IntakeIntake Total 960 ml 1200 ml 1000 ml OutputOutput Total 200 ml 850 ml 1400 ml BalanceBalance 760 ml 350 ml -400 ml Exam GENERAL: VITAL SIGNS: per chart NECK: Supple. No JVD or lymphadenopathy. CARDIAC EXAM: S1, S2. No added sounds or murmurs. CHEST: clear bilaterally, No added sounds, rales or wheezes ABDOMEN: Soft, nontender. No guarding or rebound. EXTREMITIES: No cyanosis, clubbing or edema. NEUROLOGIC: Generalized weakness. No focal deficits. Vent Setting Fraction of Inspired Oxygen pe: 21 Results/Medications Result Diagram: 05/10/18 0602 05/10/18 0602 Medications Current Medications IV Flush (NS 3 ml) 3 ml PER PROTOCOL IV ; Start 04/22/18 at 00:00 Ondansetron HCl (Zofran Inj) 4 mg Q6H PRN IV NAUSEA AND/OR VOMITING Last administered on 05/03/18at 16:06; Admin Dose 4 MG; Start 04/22/18 at 00:00 Acetaminophen (Tylenol Tab) 650 mg Q6H PRN PO PAIN LEVEL 1-3 OR FEVER Last administered on 05/13/18at 02:34; Admin Dose 650 MG; Start 04/22/18 at 00:00 Albuterol/ Ipratropium (Duoneb) 3 ml Q2H RESP THERAPY PRN HHN SHORTNESS OF BREATH Last administered on 04/30/18at 01:15; Admin Dose 3 ML; Start 04/22/18 at 00:00 Lactobacillus Acidophilus/ Rhamnosus (Culturelle) 1 cap BID PO Last adm inistered on 05/13/18at 08:10; Admin Dose 1 CAP; Start 04/22/18 at 14:00 Docusate Sodium (Colace) 100 mg BID PRN PO CONSTIPATION Last administered on 05/11/18 02:42; Admin Dose 100 MG; Start 04/23/18 at 16:00 Magnesium Hydroxide (Milk Of Mag) 30 ml DAILY PRN PO CONSTIPATION Last administered on 05/02/18 10:29; Admin Dose 30 ML; Start 04/23/18 at 16:00 Bisacodyl (Dulcolax) 10 mg DAILY PRN PO CONSTIPATION; Start 04/23/18 at 16:00 Bisacodyl (Dulcolax Supp) 10 mg Q48H PRN [place] CONSTIPATION; Start 04/23/18 at 16:00 Guaifenesin (Robitussin Liquid Cup) 100 mg Q4H PRN PO COUGH Last administered on 05/01/18at 17:57; Admin Dose 100 MG; Start 04/30/18 at 00:00 Phenol (Cepastat Lozenge) 1 lozenge Q1H PRN MT COUGH Last administered on 04/30/18 20:40; Admin Dose 1 LOZENGE; Start 04/30/18 at 00:00 Miscellaneous Information Patients own medicat... BID@10,16 XX ; Start 04/30/18 at 10:00 Albuterol/ Ipratropium (Duoneb) 3 ml Q8H RESP THERAPY HHN Last administered on 05/11/18 16:08; Admin Dose 3 ML; Start 05/02/18 at 16:00 Rivaroxaban (Xarelto) 20 mg WITH DINNER PO Last administered on 05/12/18 17 :22; Admin Dose 20 MG; Start 05/09/18 at 21:00; Status Future Hold Oxycodone/ Acetaminophen (Endocet (10/ 325)) 1 tab Q4H PRN PO MODERATE PAIN LEVEL 4-6 Last administered on 05/11/18 20:49; Admin Dose 1 TAB; Start 05/08/18 at 20:00 Hydrocortisone (Hydrocortisone 1% Oint) 1 applic BID TOP Last administered on 05/13/18 08:10; Admin Dose 1 APPLIC; Start 05/12/18 at 21:00 Hydromorphone HCl (Dilaudid) 0.5 mg Q3H PRN IV SEVERE PAIN LEVEL 7-10 Last administered on 1/25/19at 08:10; Admin Dose 0.5 MG; Start 05/12/18 at 13:30 Ferrous Sulfate (Ferrous Sulfate (Ec)) 325 mg BID PO Last administered on 05/13/18at 11:07; Admin Dose 325 MG; Start 05/13/18 at 11:00 Ibuprofen (Motrin) 600 mg Q6 PO Last administered on 05/13/18at 11:07; Admin Dose 600 MG; Start 05/13/18 at 12:00; Stop 05/14/18 at 11:59 Assessment/Plan Hospital Course (Demo Recall) Assessment 1. Empyema status post pneumothorax with recurrent collapse. 2 history of COPD Plan 1. Continue chest tube to suction 2. Anticipate transition to Heimlich valve 3. Repeat cxr in am. LIDIA MEADE MD, [facility] May 13, 2018 13:16
[2018-05-13 14:17] VITALS: BP 120/68; PULSE 69; RESP 18
[2018-05-13] MEDS: OXYCODONE/ACETAMINOPHEN (10/325) TAB PO PRN (14:19)
--- NOTE | 2018-05-13 15:27 | NUR ---
NURSE NOTE: Spoke to Dr. De La Torre, informed that patient is complaining current regimen for pain is not managing his pain and wants his dilaudid 0.5 mg to be increased to [address] De La Torre and he states he will not make any changes. Will inform patient.
[2018-05-13] MEDS: RIVAROXABAN 20 MG TABLET PO SCH (17:13)
--- NOTE | 2018-05-13 17:41 | NUR ---
NURSE NOTE: No acute changes. Pt is AXOX4. No signs of distress. Pigtail catheter is patent and draining. Pain medication given as recommended. Pt informed regarding decision of Dr. De La Torre and verbalized understanding. Pt noted at times would turn off alarm, educated purpose of alarm. will continue to monitor.
[2018-05-13 20:50] VITALS: BP 107/70; PULSE 77
[2018-05-14] MEDS: ALBUTEROL/IPRATROPIUM (NEB) 3 ML AMP HHN SCH ×3 (00:29→16:50)
[2018-05-14 02:03] VITALS: BP 119/75; PULSE 75; RESP 20
[2018-05-14] MEDS: HYDROmorphONE 0.5 MG/0.5 ML SYG IV PRN ×8 (02:42→23:51)
[2018-05-14] MEDS: IBUPROFEN 600 MG TAB PO SCH (05:35)
--- NOTE | 2018-05-14 05:53 | NUR ---
no acute changes. patient remained afebrile with vss. wi8th frequent c/o pain, medicated with Dilaudid and Motrin for pain, with help. no a/r noted. effects and side effects of meds explained. pigtail catheter remained secured, patent and draining. fall precautions observed with hourly rounding done. refused to have the SCD's on, risks and consequences explained.will cont to monitor and will endorse accordingly.
[2018-05-14 08:00] VITALS: BP 114/57; PULSE 67; RESP 20
[2018-05-14] MEDS: FERROUS SULFATE (EC) 325 MG TAB PO SCH ×2 (08:40→20:51)
[2018-05-14] MEDS: HYDROCORTISONE 1% 28.35 GM OINT TOP SCH ×2 (08:40→20:52)
[2018-05-14] MEDS: LACTOBACILLUS RHAMNOSUS CAP PO SCH ×2 (08:40→20:51)
--- NOTE | 2018-05-14 10:16 | CONS ---
Assessment/Plan Assessment/Plan Assessment/Plan (Daily) Assessment and recommendations; 1. Patient admitted for recurrent right pneumothorax having failed prior VATS as well as multiple chest tube placements. Status post repeat chest tube placement with significant improvement in right lung reexpansion. 2. Underlying severe bullous emphysema. 3. 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 Continue current supportive care. Obtain follow-up chest x-ray 24 hours. Consultation Date/Type/Reason Admit Date/Time Apr 21, 2018 at 19:36 Initial Consult Date 04/27/18 Type of Consult Pulmonary History of presenting illness; Patient is a 57-year-old male with a history of recurrent right pneumothorax status post attempted VATS admitted again for shortness of breath. Chest x-ray showing recurrent 50% right pneumothorax with infiltrative changes on chest x- ray. Patient underwent a tube thoracostomy by interventional radiology yesterday. Patient is feeling better and denies any significant shortness of breath. Past medical history; 1. History of underlying severe emphysema. 2. Status post right-sided VATS for recurrent right pneumothorax with apparent failure. 3. History of recurrent right pneumothorax status post multiple chest tube placements. 4. Chronic pain. Medications; reviewed. Allergies; none. Social history; patient is a strong history of heavy smoking. Family history; noncontributory. Occupational history; patient is on disability. Review of systems; denies any headache, chest pain, shortness of breath has improved. Denies any coughing or wheezing. Any hemoptysis or sputum production. Any fever or chills. Denies any weight loss. Any orthopnea. Any melena or hematochezia. General exam; middle-aged male, appears quite emaciated awake and alert. Currently in no distress. Date/Time of Note DATE: 05/14/18 TIME: 10:14 24 HR Interval Summary Free Text/Dictation Patient's condition is stable. Denies any shortness of breath or chest pain. General exam; middle-aged male, awake and alert. Currently no distress. HEENT exam; supple neck, no JVD. No lymphadenopathy. Midline trachea. No thyromegaly. Pharynx is clear. Chest exam; diminished breath sounds throughout. S1-S2 audible, no murmurs. Regular rhythm. Right-sided chest tube in place. Abdomen exam; soft, nontender. No organomegaly. Bowel sounds audible. Extremity exam; no peripheral edema clubbing. [employer]ICE [employer]GER exam; no focal deficit. Exam/Review of Systems Exam Vitals Vital Signs Date Temp Pulse Resp B/P (MAP) Pulse Ox O2 O2 Flow FiO2 Time Delivery Rate 05/14/18 98.6 67 20 114/57 96 08:00 (76) 05/14/18 21 07:48 Intake and Output 05/13/18 05/13/18 05/14/18 1515:00 23:00 07:00 IntakeIntake Total 600 ml 240 ml 350 ml OutputOutput Total 200 ml 250 ml 640 ml BalanceBalance 400 ml -10 ml -290 ml Results Result Diagram: 05/10/1860105/10/18 06 Medications Medication Current Medications IV Flush (NS 3 ml) 3 ml PER PROTOCOL IV ; Start 04/22/18 at 00:00 Ondansetron HCl (Zofran Inj) 4 mg Q6H PRN IV NAUSEA AND/OR VOMITING Last administered on 05/03/18at 16:06; Admin Dose 4 MG; Start 04/22/18 at 00:00 Acetaminophen (Tylenol Tab) 650 mg Q6H PRN PO PAIN LEVEL 1-3 OR FEVER Last administered on 05/13/18at 02:34; Admin Dose 650 MG; Start 04/22/18 at 00:00 Albuterol/ Ipratropium (Duoneb) 3 ml Q2H RESP THERAPY PRN HHN SHORTNESS OF BREATH Last administered on 04/30/18at 01:15; Admin Dose 3 ML; Start 04/22/18 at 00:00 Lactobacillus Acidophilus/ Rhamnosus (Culturelle) 1 cap BID PO Last administered on 05/14/18at 08:40; Admin Dose 1 CAP; Start 04/22/18 at 14:00 Docusate Sodium (Colace) 100 mg BID PRN PO CONSTIPATION Last administered on 05/11/18at 02:42; Admin Dose 100 MG; Start 04/23/18 at 16:00 Magnesium Hydroxide (Milk Of Mag) 30 ml DAILY PRN PO CONSTIPATION Last administered on 05/02/18at 10:29; Admin Dose 30 ML; Start 04/23/18 at 16:00 Bisacodyl (Dulcolax) 10 mg DAILY PRN PO CONSTIPATION; Start 04/23/18 at 16:00 Bisacodyl (Dulcolax Supp) 10 mg Q48H PRN [place] CONSTIPATION; Start 04/23/18 at 16:00 Guaifenesin (Robitussin Liquid Cup) 100 mg Q4H PRN PO COUGH Last administered on 05/01/18at 17:57; Admin Dose 100 MG; Start 04/30/18 at 00:00 Phenol (Cepastat Lozenge) 1 lozenge Q1H PRN MT COUGH Last administered on 04/30/18at 20:40; Admin Dose 1 LOZENGE; Start 04/30/18 at 00:00 Miscellaneous Information Patients own medicat... BID@10,16 XX ; Start 04/30/18 at 10:00 Albuterol/ Ipratropium (Duoneb) 3 ml Q8H RESP THERAPY HHN Last administered on 05/14/18at 07:48; Admin Dose 3 ML; Start 05/02/18 at 16:00 Rivaroxaban (Xarelto) 20 mg WITH DINNER PO Last administered on 05/13/18at 17:13; Admin Dose 20 MG; Start 05/09/18 at 21:00; Status Future Hold Oxycodone/ Acetaminophen (Endocet (10/ 325)) 1 tab Q4H PRN PO MODERATE PAIN LEVEL 4-6 Last administered on 05/13/18at 14:19; Admin Dose 1 TAB; Start 05/08/18 at 20:00 Hydrocortisone (Hydrocortisone 1% Oint) 1 applic BID TOP Last administered on 05/13/18 08:10; Admin Dose 1 APPLIC; Start 05/12/18 at 21:00 Hydromorphone HCl (Dilaudid) 0.5 mg Q3H PRN IV SEVERE PAIN LEVEL 7-10 Last administered on 05/14/18 08:40; Admin Dose 0.5 MG; Start 05/12/18 at 13:30 Ferrous Sulfate (Ferrous Sulfate (Ec)) 325 mg BID PO Last administered on 05/14/18 08:40; Admin Dose 325 MG; Start 05/13/18 at 11:00 Ibuprofen (Motrin) 600 mg Q6 PO Last administered on 05/14/18at 05:35; Admin Dose 600 MG; Start 05/13/18 at 12:00; Stop 05/14/18 at 11:59 NEEL BAZZI May 14, 2018 10:15
--- NOTE | 2018-05-14 13:26 | PN ---
Date/Time of Note Date/Time of Note DATE: 05/14/18 TIME: 13:26 Assessment/Plan VTE Prophylaxis Risk score (from Ns)>0 risk: 7 SCD applied (from Ns): Yes Pharmacological prophylaxis: heparin Lines/Catheters IV Catheter Type (from Nrsg): [place] Urinary Cath still in place: No Assessment/Plan Assessment/Plan 1. Recurrent right-sided hemopneumothorax, with h/o thoracotomy and total pulmonary decortication on 02/07/2018, and right-sided pneumothorax status post chest tube 03/07/18 and placement of a Heimlich valve 03/18/18 with subsequent removal -Currently chest tube in place. Chest x-ray shows some improvement -Pulmonary on board 2. History of PE and RLE DVT in 2016; s/p IVC filter, on xarelto 3. COPD: Supplemental oxygen, bronchodilators 4. History of aspergillosis 5. Right shoulder pain: X-ray yesterday showing tendinitis, but no fracture or dislocation. Pain management for now 6. Microcytic anemia, secondary to iron deficiency -Iron panel consistent with iron deficiency -Will start ferrous sulfate DVT prophylaxis: on Xarelto PLAN: Patient with a chest tube in place with for a recurrent hemopneumothorax. Discharge once cleared by pulmonary and cardiothoracic Result Diagram: 05/10/18 0602 05/10/18 0602 Results 24hrs Laboratory Tests Test 05/14/18 10:25 Lab Scanned Report REFERENCE LAB Exam/Review of Systems Exam Vitals Vital Signs Date Temp Pulse Resp B/P (MAP) Pulse Ox O2 O2 Flow FiO2 Time Delivery Rate 05/14/18 98.6 67 20 114/57 96 08:00 (76) 05/14/18 21 07:48 Intake and Output 05/13/18 05/13/18 05/14/18 1515:00 23:00 07:00 IntakeIntake Total 600 ml 240 ml 350 ml OutputOutput Total 200 ml 250 ml 640 ml BalanceBalance 400 ml -10 ml -290 ml Results Results 24hrs Laboratory Tests Test 05/14/18 10:25 Lab Scanned Report REFERENCE LAB Medications Medication Current Medications IV Flush (NS 3 ml) 3 ml PER PROTOCOL IV ; Start 04/22/18 at 00:00 Ondansetron HCl (Zofran Inj) 4 mg Q6H PRN IV NAUSEA AND/OR VOMITING Last administered on 05/03/18 16:06; Admin Dose 4 MG; Start 04/22/18 at 00:00 Acetaminophen (Tylenol Tab) 650 mg Q6H PRN PO PAIN LEVEL 1-3 OR FEVER Last administered on 05/13/18 02:34; Admin Dose 650 MG; Start 04/22/18 at 00:00 Albuterol/ Ipratropium (Duoneb) 3 ml Q2H RESP THERAPY PRN HHN SHORTNESS OF BREATH Last administered on 04/30/18 01:15; Admin Dose 3 ML; Start 04/22/18 at 00:00 Lactobacillus Acidophilus/ Rhamnosus (Culturelle) 1 cap BID PO Last administered on 05/14/18 08:40; Admin Dose 1 CAP; Start 04/22/18 at 14:00 Docusate Sodium (Colace) 100 mg BID PRN PO CONSTIPATION Last administered on 05/11/18 02:42; Admin Dose 100 MG; Start 04/23/18 at 16:00 Magnesium Hydroxide (Milk Of Mag) 30 ml DAILY PRN PO CONSTIPATION Last administered on 05/02/18 10:29; Admin Dose 30 ML; Start 04/23/18 at 16:00 Bisacodyl (Dulcolax) 10 mg DAILY PRN PO CONSTIPATION; Start 04/23/18 at 16:00 Bisacodyl (Dulcolax Supp) [address] CONSTIPATION; Start 04/23/18 at 16:00 Guaifenesin (Robitussin Liquid Cup) 100 mg Q4H PRN PO COUGH Last administered on 05/01/18 17:57; Admin Dose 100 MG; Start 04/30/18 at 00:00 Phenol (Cepastat Lozenge) 1 lozenge Q1H PRN MT COUGH Last administered on 04/30/18 20:40; Admin Dose 1 LOZENGE; Start 04/30/18 at 00:00 Miscellaneous Information Patients own medicat... BID@10,16 XX ; Start 04/30/18 at 10:00 Albuterol/ Ipratropium (Duoneb) 3 ml Q8H RESP THERAPY HHN Last administered on 05/14/18 07:48; Admin Dose 3 ML; Start 05/02/18 at 16:00 Rivaroxaban (Xarelto) 20 mg WITH DINNER PO Last administered on 05/13/18 17:13; Admin Dose 20 MG; Start 05/09/18 at 21:00; Status Future Hold Oxycodone/ Acetaminophen (Endocet ()) 1 tab Q4H PRN PO MODERATE PAIN LEVEL 4-6 Last administered on 05/13/18at 14:19; Admin Dose 1 TAB; Start 05/08/18 at 20:00 Hydrocortisone (Hydrocortisone 1% Oint) 1 applic BID TOP Last administered on 05/13/18at 08:10; Admin Dose 1 APPLIC; Start 05/12/18 at 21:00 Hydromorphone HCl (Dilaudid) 0.5 mg Q3H PRN IV SEVERE PAIN LEVEL 7-10 Last administered on 05/14/18at 11:50; Admin Dose 0.5 MG; Start 05/12/18 at 13:30 Ferrous Sulfate (Ferrous Sulfate (Ec)) 325 mg BID PO Last administered on 05/14/18at 08:40; Admin Dose 325 MG; Start 05/13/18 at 11:00 AMBER MORALES MD May 14, 2018 13:26
[2018-05-14 15:00] VITALS: BP 116/60; PULSE 79; RESP 17
[2018-05-14] MEDS: RIVAROXABAN 20 MG TABLET PO SCH (17:45)
--- NOTE | 2018-05-14 18:46 | NUR ---
NURSE NOTE: No acute changes. Pt is AXOX4. No signs of distress. Pigtail catheter is patent and draining. Pain medication given as recommended. bed alarm on. call light within reach. will continue to monitor. Pt refused blood draw- Dr. Geiger is aware.
[2018-05-14 20:39] VITALS: BP 118/63; PULSE 90; RESP 19
[2018-05-15] MEDS: ALBUTEROL/IPRATROPIUM (NEB) 3 ML AMP HHN SCH ×3 (00:11→16:00)
[2018-05-15] MEDS: ACETAMINOPHEN 325 MG TAB PO PRN (00:32)
[2018-05-15 02:00] VITALS: BP 127/75; PULSE 87; RESP 17
[2018-05-15] MEDS: HYDROmorphONE 0.5 MG/0.5 ML SYG IV PRN ×7 (02:53→22:44)
--- NOTE | 2018-05-15 06:54 | NUR ---
Patient in room asleep with no signs of distress. Vital signs stable. Patient complained of pain; administered Dilaudid every 3 hours per MD order with Tylenol administered x1. Patient refusing bed alarm and SCDs after providing education on the purpose, benefits, and risks behind the intervention. Bindu BADILLO, charge nurse aware. Pig tail catheter in place with dressing clean, dry, and intact. Cloudy drainage noted with a total of 30 mLs noted this shift. No other changes otherwise noted. All needs met and medications administered per MD order. Patient turned every 2 hours and OOB this shift. Safety precautions and hourly rounding currently in place until change of shift.
[2018-05-15 08:11] VITALS: BP 117/66; PULSE 76; RESP 14
[2018-05-15] MEDS: FERROUS SULFATE (EC) 325 MG TAB PO SCH ×2 (08:37→19:44)
[2018-05-15] MEDS: HYDROCORTISONE 1% 28.35 GM OINT TOP SCH ×2 (08:37→19:45)
[2018-05-15] MEDS: LACTOBACILLUS RHAMNOSUS CAP PO SCH ×2 (08:37→19:44)
--- NOTE | 2018-05-15 10:49 | CONS ---
Assessment/Plan Assessment/Plan Assessment/Plan (Daily) Chest x-ray was reviewed from yesterday which is showing continued improvement of right pneumothorax. There is again seen significant right pleural thickening. Assessment recommendations; 1. Patient admitted for recurrent right pneumothorax having failed multiple chest tube placement in the past as well as VATS procedure. However after placement of the chest tube there is significant radiological improvement. 2. History of Aspergillus pneumonia with significant right pleural thickening preventing full right lung reexpansion. 3. Severe bullous emphysema. 4. History of DVT and PE. Continue current supportive care. Consider attaching Heimlich valve to chest tube and discharging the patient to a custodial. Maintain chest tube for at least a few weeks. Consultation Date/Type/Reason Admit Date/Time Apr 21, 2018 at 19:36 Initial Consult Date 04/27/18 Type of Consult Pulmonary History of presenting illness; Patient is a 57-year-old male with a history of recurrent right pneumothorax status post attempted VATS admitted again for shortness of breath. Chest x-ray showing recurrent 50% right pneumothorax with infiltrative changes on chest x- ray. Patient underwent a tube thoracostomy by interventional radiology yesterday. Patient is feeling better and denies any significant shortness of breath. Past medical history; 1. History of underlying severe emphysema. 2. Status post right-sided VATS for recurrent right pneumothorax with apparent failure. 3. History of recurrent right pneumothorax status post multiple chest tube placements. 4. Chronic pain. Medications; reviewed. Allergies; none. Social history; patient is a strong history of heavy smoking. Family history; noncontributory. Occupational history; patient is on disability. Review of systems; denies any headache, chest pain, shortness of breath has improved. Denies any coughing or wheezing. Any hemoptysis or sputum production. Any fever or chills. Denies any weight loss. Any orthopnea. Any melena or hematochezia. General exam; middle-aged male, appears quite emaciated awake and alert. Currently in no distress. Reason for Consultation HEENT exam; supple neck, no JVD. No lymphadenopathy. Midline trachea. No thyromegaly. Patient has few remaining carious teeth. Chest exam; diminished breath sounds bilaterally. S1-S2 audible, no murmurs. Regular rhythm. Right-sided chest tube in place. Abdomen exam; soft, nontender. No organomegaly. Bowel sounds audible. Extremity exam; no peripheral edema or clubbing. MATERIAL SCHEDULER exam; no focal deficit. Date/Time of Note DATE: 05/15/18 TIME: 10:47 24 HR Interval Summary Free Text/Dictation Patient's condition is stable. Denies any shortness of breath, coughing, chest pain. Exam; middle-aged male, awake alert, laying comfortably in bed. Currently no distress. Exam/Review of Systems Exam Vitals Vital Signs Date Temp Pulse Resp B/P (MAP) Pulse Ox O2 O2 Flow FiO2 Time Delivery Rate 05/15/18 97.7 76 14 117/66 96 08:11 (83) 05/15/18 21 08:02 05/14/18 Room Air 15:00 Intake and Output 05/14/18 05/14/18 05/15/18 1515:00 23:00 07:00 IntakeIntake Total 950 ml 250 ml 900 ml OutputOutput Total 800 ml 640 ml 770 ml BalanceBalance 150 ml -390 ml 130 ml Results Result Diagram: 05/15/18 0521 05/15/18 0521 Results 24hrs Laboratory Tests Test 05/15/18 05:21 White Blood Count 10.0 # Red Blood Count 4.03 L Hemoglobin 9.7 L Hematocrit 32.2 L Mean Corpuscular Volume 79.9 L Mean Corpuscular Hemoglobin 24.1 L Mean Corpuscular Hemoglobin Concent 30.1 L Red Cell Distribution Width 15.8 H Platelet Count 612 H Mean Platelet Volume 9.6 Immature Granulocytes % 1.300 H Neutrophils % 64.2 Lymphocytes % 16.3 Monocytes % 13.2 H Eosinophils % 4.2 Basophils % 0.8 Nucleated Red Blood Cells % 0.0 Immature Granulocytes # 0.130 H Neutrophils # 6.4 Lymphocytes # 1.6 Monocytes # 1.3 H Eosinophils # 0.4 Basophils # 0.1 Nucleated Red Blood Cells # 0.0 Sodium Level 141 Potassium Level 4.3 Chloride Level 97 Carbon Dioxide Level 31 Anion Gap 13 Blood Urea Nitrogen 14 Creatinine 0.73 Est Glomerular Filtrat Rate mL/min > 60 Glucose Level 101 Calcium Level 9.6 Total Bilirubin 0.0 L Direct Bilirubin 0.00 Indirect Bilirubin 0.0 Aspartate Amino Transf (AST/SGOT) 19 Alanine Aminotransferase (ALT/SGPT) 10 L Alkaline Phosphatase 61 Total Protein 7.5 Albumin 3.8 Globulin 3.70 H Albumin/Globulin Ratio 1.02 Medications Medication Current Medications IV Flush (NS 3 ml) 3 ml PER PROTOCOL IV ; Start 04/22/18 at 00:00 Ondansetron HCl (Zofran Inj) 4 mg Q6H PRN IV NAUSEA AND/OR VOMITING Last administered on 05/03/18 16:06; Admin Dose 4 MG; Start 04/22/18 at 00:00 Acetaminophen (Tylenol Tab) 650 mg Q6H PRN PO PAIN LEVEL 1-3 OR FEVER Last administered on 05/15/18 00:32; Admin Dose 650 MG; Start 04/22/18 at 00:00 Albuterol/ Ipratropium (Duoneb) 3 ml Q2H RESP THERAPY PRN HHN SHORTNESS OF BREATH Last administered on 04/30/18 01:15; Admin Dose 3 ML; Start 04/22/18 at 00:00 Lactobacillus Acidophilus/ Rhamnosus (Culturelle) 1 cap BID PO Last administered on 05/15/18at 08:37; Admin Dose 1 CAP; Start 04/22/18 at 14:00 Docusate Sodium (Colace) 100 mg BID PRN PO CONSTIPATION Last administered on 05/11/18 02:42; Admin Dose 100 MG; Start 04/23/18 at 16:00 Magnesium Hydroxide (Milk Of Mag) 30 ml DAILY PRN PO CONSTIPATION Last ad ministered on 05/02/18at 10:29; Admin Dose 30 ML; Start 04/23/18 at 16:00 Bisacodyl (Dulcolax) 10 mg DAILY PRN PO CONSTIPATION; Start 04/23/18 at 16:00 Bisacodyl (Dulcolax Supp) 10 mg Q48H PRN [place] CONSTIPATION; Start 04/23/18 at 16:00 Guaifenesin (Robitussin Liquid Cup) 100 mg Q4H PRN PO COUGH Last administered on 05/01/18at 17:57; Admin Dose 100 MG; Start 04/30/18 at 00:00 Phenol (Cepastat Lozenge) 1 lozenge Q1H PRN MT COUGH Last administered on 04/30/18at 20:40; Admin Dose 1 LOZENGE; Start 04/30/18 at 00:00 Miscellaneous Information Patients own medicat... BID@ XX ; Start 04/30/18 at 10:00 Albuterol/ Ipratropium (Duoneb) 3 ml Q8H RESP THERAPY HHN Last administered on 05/15/18at 00:11; Admin Dose 3 ML; Start 05/02/18 at 16:00 Rivaroxaban (Xarelto) 20 mg WITH DINNER PO Last administered on 05/14/18at 17:45; Admin Dose 20 MG; Start 05/09/18 at 21:00; Status Future Hold Oxycodone/ Acetaminophen (Endocet (10/ 325)) 1 tab Q4H PRN PO MODERATE PAIN LEVEL 4-6 Last administered on 05/13/18at 14:19; Admin Dose 1 TAB; Start 05/08/18 at 20:00 Hydrocortisone (Hydrocortisone 1% Oint) 1 applic BID TOP Last administered on 05/15/18at 08:37; Admin Dose 1 APPLIC; Start 05/12/18 at 21:00 Hydromorphone HCl (Dilaudid) 0.5 mg Q3H PRN IV SEVERE PAIN LEVEL 7-10 Last administered on 05/15/18at 09:01; Admin Dose 0.5 MG; Start 05/12/18 at 13:30 Ferrous Sulfate (Ferrous Sulfate (Ec)) 325 mg BID PO Last administered on 05/15/18at 08:37; Admin Dose 325 MG; Start 05/13/18 at 11:00 NEEL BAZZI May 15, 2018 10:49
--- NOTE | 2018-05-15 13:50 | PN ---
Date/Time of Note Date/Time of Note DATE: 05/15/18 TIME: 13:48 Assessment/Plan VTE [place] [facility] [place]: 6 [place] [facility] [place] Yes Pharmacological prophylaxis: rivaroxaban Lines/Catheters IV Catheter Type (from [facility]): Saline Lock Urinary Cath still in place: No Assessment/Plan Hospital Course SUBJECTIVE: Complains of right chest wall pain. OBJECTIVE: Physical Exam General: Adequately build 57 year-old male lying in bed in no apparent distress. HEENT: Normocephalic, atraumatic. Eyes: Anicteric sclerae, conjunctivae clear. ENT: Nasal septum midline, oral mucosa is moist. Neck supple, no JVD noticed. Respiratory: Bilaterally diminished breath sounds. No use of accessory muscles of respiration. Right-sided chest tube to suction. Cardiovascular: S1, S2 heard. Regular rate and rhythm. Abdomen: Soft, nontender, and nondistended. Bowel sounds positive in all 4 quadrants. Genitourinary: Deferred. Extremities: No cyanosis, no clubbing, no edema. Peripheral pulses palpable. Neurologic: Cranial nerves II through XII grossly intact. The patient is awake, alert, and oriented. Skin: Right chest wall incision from thoracotomy. Right sided chest tube to suction draining whitish yellow fluid. Labs & Vitals per chart ASSESSMENT & PLAN This is a 57-year-old male with COPD, chronic PE on anticoagulation, right pleural effusion status post right thoracotomy and total pulmonary decortication along with bronchoscopy on 02/07/2018, and right-sided pneumothorax The patient was S/P chest tube placement on 03/08/2018 by IR and was discharged with a Heimlich valve in place. The patient's chest tube was recently discontinued by thoracic surgery. The patient came back to the emergency room on 04/21/2017 complaining of dyspnea with the chest x-ray done on 04/21/2018 showing interval development of a probably loculated right pneumohydrothorax. Therefore, the patient was admitted to inpatient setting. 1. Right Hydropneumothorax. -S/P IR placement of chest tube on 04/26/2018. -S/P removal of chest tube with recurrence of pneumothorax. -CT guided CT placed by IR on 05/09/2018 2. History of pulmonary embolism and DVT. -Status post IVC filter placement. -On factor Xa inhibitors. 3. History of aspergillosis. 4. COPD. -Continue inhaled bronchodilators. 5. Microcytic anemia. -Monitor H&H closely. 6. Fluids, electrolytes, and nutrition. -Regular diet. 7. DVT prophylaxis -Factor Xa inhibitors. 8. Plan. -Continue CT drainage. -Await clinical improvement and further pulmonology recommendations. The patient was seen in collaboration with Dr. Roth. Result Diagram: 05/15/1852005/15/18520 Results 24hrs Laboratory Tests Test 05/15/18 05:21 White Blood Count 10.0 # Red Blood Count 4.03 L Hemoglobin 9.7 L Hematocrit 32.2 L Mean Corpuscular Volume 79.9 L Mean Corpuscular Hemoglobin 24.1 L Mean Corpuscular Hemoglobin Concent 30.1 L Red Cell Distribution Width 15.8 H Platelet Count 612 H Mean Platelet Volume 9.6 Immature Granulocytes % 1.300 H Neutrophils % 64.2 Lymphocytes % 16.3 Monocytes % 13.2 H Eosinophils % 4.2 Basophils % 0.8 Nucleated Red Blood Cells % 0.0 Immature Granulocytes # 0.130 H Neutrophils # 6.4 Lymphocytes # 1.6 Monocytes # 1.3 H Eosinophils # 0.4 Basophils # 0.1 Nucleated Red Blood Cells # 0.0 Sodium Level 141 Potassium Level 4.3 Chloride Level 97 Carbon Dioxide Level 31 Anion Gap 13 Blood Urea Nitrogen 14 Creatinine 0.73 Est Glomerular Filtrat Rate mL/min > 60 Glucose Level 101 Calcium Level 9.6 Total Bilirubin 0.0 L Direct Bilirubin 0.00 Indirect Bilirubin 0.0 Aspartate Amino Transf (AST/SGOT) 19 Alanine Aminotransferase (ALT/SGPT) 10 L Alkaline Phosphatase 61 Total Protein 7.5 Albumin 3.8 Globulin 3.70 H Albumin/Globulin Ratio 1.02 Exam/Review of Systems Exam Vitals Vital Signs Date Temp Pulse Resp B/P (MAP) Pulse Ox O2 O2 Flow FiO2 Time Delivery Rate 05/15/18 97.7 76 14 117/66 96 08:11 (83) 05/15/18 21 08:02 05/14/18 Room Air 15:00 Intake and Output 05/14/18 05/14/18 05/15/18 1515:00 23:00 07:00 IntakeIntake Total 950 ml 250 ml 900 ml OutputOutput Total 800 ml 640 ml 770 ml BalanceBalance 150 ml -390 ml 130 ml Results Results 24hrs Laboratory Tests Test 05/15/18 05:21 White Blood Count 10.0 # Red Blood Count 4.03 L Hemoglobin 9.7 L Hematocrit 32.2 L Mean Corpuscular Volume 79.9 L Mean Corpuscular Hemoglobin 24.1 L Mean Corpuscular Hemoglobin Concent 30.1 L Red Cell Distribution Width 15.8 H Platelet Count 612 H Mean Platelet Volume 9.6 Immature Granulocytes % 1.300 H Neutrophils % 64.2 Lymphocytes % 16.3 Monocytes % 13.2 H Eosinophils % 4.2 Basophils % 0.8 Nucleated Red Blood Cells % 0.0 Immature Granulocytes # 0.130 H Neutrophils # 6.4 Lymphocytes # 1.6 Monocytes # 1.3 H Eosinophils # 0.4 Basophils # 0.1 Nucleated Red Blood Cells # 0.0 Sodium Level 141 Potassium Level 4.3 Chloride Level 97 Carbon Dioxide Level 31 Anion Gap 13 Blood Urea Nitrogen 14 Creatinine 0.73 Est Glomerular Filtrat Rate mL/min > 60 Glucose Level 101 Calcium Level 9.6 Total Bilirubin 0.0 L Direct Bilirubin 0.00 Indirect Bilirubin 0.0 Aspartate Amino Transf (AST/SGOT) 19 Alanine Aminotransferase (ALT/SGPT) 10 L Alkaline Phosphatase 61 Total Protein 7.5 Albumin 3.8 Globulin 3.70 H Albumin/Globulin Ratio 1.02 Medications Medication Current Medications IV Flush (NS 3 ml) 3 ml PER PROTOCOL IV ; Start 04/22/18 at 00:00 Ondansetron HCl (Zofran Inj) 4 mg Q6H PRN IV NAUSEA AND/OR VOMITING Last administered on 05/03/18at 16:06; Admin Dose 4 MG; Start 04/22/18 at 00:00 Acetaminophen (Tylenol Tab) 650 mg Q6H PRN PO PAIN LEVEL 1-3 OR FEVER Last administered on 05/15/18at 00:32; Admin Dose 650 MG; Start 04/22/18 at 00:00 Albuterol/ Ipratropium (Duoneb) 3 ml Q2H RESP THERAPY PRN HHN SHORTNESS OF BREATH Last administered on 04/30/18at 01:15; Admin Dose 3 ML; Start 04/22/18 at 00:00 Lactobacillus Acidophilus/ Rhamnosus (Culturelle) 1 cap BID PO Last administered on 05/15/18at 08:37; Admin Dose 1 CAP; Start 04/22/18 at 14:00 Docusate Sodium (Colace) 100 mg BID PRN PO CONSTIPATION Last administered on 05/11/18 02:42; Admin Dose 100 MG; Start 04/23/18 at 16:00 Magnesium Hydroxide (Milk Of Mag) 30 ml DAILY PRN PO CONSTIPATION Last administered on 05/02/18at 10:29; Admin Dose 30 ML; Start 04/23/18 at 16:00 Bisacodyl (Dulcolax) 10 mg DAILY PRN PO CONSTIPATION; Start 04/23/18 at 16:00 Bisacodyl (Dulcolax Supp) 10 mg Q48H PRN [place] CONSTIPATION; Start 04/23/18 at 16:00 Guaifenesin (Robitussin Liquid Cup) 100 mg Q4H PRN PO COUGH Last administered on 05/01/18at 17:57; Admin Dose 100 MG; Start 04/30/18 at 00:00 Phenol (Cepastat Lozenge) 1 lozenge Q1H PRN MT COUGH Last administered on 04/30/18at 20:40; Admin Dose 1 LOZENGE; Start 04/30/18 at 00:00 Miscellaneous Information Patients own medicat... BID@10,16 XX ; Start 04/30/18 at 10:00 Albuterol/ Ipratropium (Duoneb) 3 ml Q8H RESP THERAPY HHN Last administered on 05/15/18at 00:11; Admin Dose 3 ML; Start 05/02/18 at 16:00 Rivaroxaban (Xarelto) 20 mg WITH DINNER PO Last administered on 05/14/18at 17:45; Admin Dose 20 MG; Start 05/09/18 at 21:00; Status Future Hold Oxycodone/ Acetaminophen (Endocet (10/ 325)) 1 tab Q4H PRN PO MODERATE PAIN LEVEL 4-6 Last administered on 05/13/18 14:19; Admin Dose 1 TAB; Start 05/08/18 at 20:00 Hydrocortisone (Hydrocortisone 1% Oint) 1 applic BID TOP Last administered on 05/15/18 08:37; Admin Dose 1 APPLIC; Start 05/12/18 at 21:00 Hydromorphone HCl (Dilaudid) 0.5 mg Q3H PRN IV SEVERE PAIN LEVEL 7-10 Last administered on 1/27/19at 12:14; Admin Dose 0.5 MG; Start 05/12/18 at 13:30 Ferrous Sulfate (Ferrous Sulfate (Ec)) 325 mg BID PO Last administered on 05/15/18at 08:37; Admin Dose 325 MG; Start 05/13/18 at 11:00 KELIN SCHULTZ NP May 15, 2018 13:50
[2018-05-15 14:51] VITALS: BP 103/61; PULSE 68; RESP 16
[2018-05-15] MEDS: RIVAROXABAN 20 MG TABLET PO SCH (18:00)
--- NOTE | 2018-05-15 18:11 | NUR ---
NURSE NOTES: patient alert and orieneted x 4, able to make needs knwonr jenniferianed stable [facility] en[facility] with no acute changes noted. No SOB or ditress. No s/sx of hypoxia., Pig tail catheter patent and intact with 20 mL output (cloudy) Addendum: 05/15/18 at 1816 by CARMITA AVENDAÑO RN CLARIFICATION OF NOTES: NURSE NOTES: patient alert and oriented x 4, able to make needs known remained stable throughout the shift with no acute changes noted. No SOB or distress. No s/sx of hypoxia. Assessed and reassessed for pain, medicated with Dilaudid for pain as ordered. Pig tail catheter patent and intact with 20 mL output (cloudy). All due medications were given, tolerated well. IV patent and intact. All needs were attended and anticipated. safety precautions observed, hourly rounding done, bed alarm and bed brakes on for safety. Will continue to monitor. Will endorse accordingly to next shift for continuity of care.
[2018-05-15 20:00] VITALS: BP 120/75; PULSE 73; RESP 18
[2018-05-16] MEDS: ALBUTEROL/IPRATROPIUM (NEB) 3 ML AMP HHN SCH ×3 (00:05→15:38)
[2018-05-16] MEDS: HYDROmorphONE 0.5 MG/0.5 ML SYG IV PRN ×7 (01:54→21:46)
[2018-05-16 02:00] VITALS: BP 119/72; PULSE 74; RESP 18
--- NOTE | 2018-05-16 07:00 | NUR ---
no acute changes overnight pt remained afebrile with vss. with frequent c/o pain, medicated with Dilaudid with help. no adverse reaction noted. with pigtail catheter connected to [facility] chest tube drainage and to low continuous wall suction.fall precautions observed with hourly rounding done. needs attended to and anticipated. will continue to monitor and will endorser accordingly.
[2018-05-16] MEDS: FERROUS SULFATE (EC) 325 MG TAB PO SCH ×2 (08:15→21:46)
[2018-05-16] MEDS: DOCUSATE SODIUM 100 MG CAP PO PRN (08:15)
[2018-05-16] MEDS: LACTOBACILLUS RHAMNOSUS CAP PO SCH ×2 (08:15→21:46)
[2018-05-16] MEDS: HYDROCORTISONE 1% 28.35 GM OINT TOP SCH ×2 (08:16→21:00)
[2018-05-16 08:34] VITALS: BP 105/57; PULSE 72; RESP 20
[2018-05-16 14:26] VITALS: BP 110/60; PULSE 70; RESP 18
--- NOTE | 2018-05-16 17:18 | PN ---
Date/Time of Note Date/Time of Note DATE: 05/16/18 TIME: 17:17 Assessment/Plan VTE Prophylaxis Risk score (from Ns)>0 risk: 6 SCD applied (from Ns): No SCD contraindicated: low risk/ambulating Pharmacological prophylaxis: NA/contraindicated, apixaban Pharm contraindication: low risk/ambulating Lines/Catheters [facility] Saline Lock Urinary Cath still in place: No Assessment/Plan Hospital Course Assessment and plan 1. Recurrent Rt hemopneumothorax; thick pleura. h/o VATS. stable, sp IR guided pigtail, then Pleurx, removed. Rpt ct placed. not sure what the end -point will be. 2. Ftt consider snf, if able to do chest tube therapy. 3. Nonadherence high risk of recurrent pneumothorax/progression of comorbidities. has been counseled regarding this issue over the last few months 4. History of aspergillosis; f/u titers pending 5. 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 ivc filter removed? 6. Past tobacco 7. Likely chronic COPD 8 H/o MRSA chest wall cellulitis 9. Cervical spine disease 10. Anemia S: 04/22 no distress. Occasional cough with taking deep breaths. No hemoptysis. No diaphoresis fever. 04/23 no events. Some pleurisy chest pain. Some neck pain. Some cough no hemoptysis. No fever. /6: No events 05/02: Ongoing pain. Appears comfortable however. No fever no diarrhea. Output remains thick 05/05: Ongoing "pain" no fever. for Pleurx catheter exchange/placement and IVC filter removal if feasible 05/06: Ongoing pain same is has been earlier this week. No fever diarrhea. 05/07: Ongoing pain discomfort even after chest tube removed. Appears comfortable/ similar to yesterday 05/08: No events overnight 05/09: Events noted. Chest tube placed. Fever appears stable /: No events 05/16: No events. O: vss Physical exam No pallor JVD Regular no m/r/g Diminb bs bilat, rt/lt; no tachypnea; rt c-tube c/d/i Benign No edema/Homans Result Diagram: 05/15/1852005/15/18520 Exam/Review of Systems Exam Vitals Vital Signs Date Temp Pulse Resp B/P (MAP) Pulse Ox O2 O2 Flow FiO2 Time Delivery Rate 05/16/18 98.0 70 18 110/60 96 Room Air 14:26 (77) 05/16/18 21 07:27 Intake and Output 05/15/18 05/15/18 05/16/18 1515:00 23:00 07:00 IntakeIntake Total 720 ml 2500 ml OutputOutput Total 850 ml 1520 ml 620 ml BalanceBalance -130 ml 980 ml -620 ml Medications Medication Current Medications IV Flush (NS 3 ml) 3 ml PER PROTOCOL IV ; Start 04/22/18 at 00:00 Ondansetron HCl (Zofran Inj) 4 mg Q6H PRN IV NAUSEA AND/OR VOMITING Last administered on 05/03/18at 16:06; Admin Dose 4 MG; Start 04/22/18 at 00:00 Acetaminophen (Tylenol Tab) 650 mg Q6H PRN PO PAIN LEVEL 1-3 OR FEVER Last administered on 05/15/18at 00:32; Admin Dose 650 MG; Start 04/22/18 at 00:00 Albuterol/ Ipratropium (Duoneb) 3 ml Q2H RESP THERAPY PRN HHN SHORTNESS OF BREATH Last administered on 04/30/18at 01:15; Admin Dose 3 ML; Start 04/22/18 at 00:00 Lactobacillus Acidophilus/ Rhamnosus (Culturelle) 1 cap BID PO Last administered on 05/16/18at 08:15; Admin Dose 1 CAP; Start 04/22/18 at 14:00 Docusate Sodium (Colace) 100 mg BID PRN PO CONSTIPATION Last administered on 05/16/18at 08:15; Admin Dose 100 MG; Start 04/23/18 at 16:00 Magnesium Hydroxide (Milk Of Mag) 30 ml DAILY PRN PO CONSTIPATION Last administered on 05/02/18at 10:29; Admin Dose 30 ML; Start 04/23/18 at 16:00 Bisacodyl (Dulcolax) 10 mg DAILY PRN PO CONSTIPATION; Start 04/23/18 at 16:00 Bisacodyl (Dulcolax Supp) 10 mg Q48H PRN [place] CONSTIPATION; Start 04/23/18 at 16:00 Guaifenesin (Robitussin Liquid Cup) 100 mg Q4H PRN PO COUGH Last administered on 05/01/18 17:57; Admin Dose 100 MG; Start 04/30/18 at 00:00 Phenol (Cepastat Lozenge) 1 lozenge Q1H PRN MT COUGH Last administered on 04/30/18 20:40; Admin Dose 1 LOZENGE; Start 04/30/18 at 00:00 Miscellaneous Information Patients own medicat... BID@10,16 XX ; Start 04/30/18 at 10:00 Albuterol/ Ipratropium (Duoneb) 3 ml Q8H RESP THERAPY HHN Last administered on 05/16/18 07:27; Admin Dose 3 ML; Start 05/02/18 at 16:00 Rivaroxaban (Xarelto) 20 mg WITH DINNER PO Last administered on 05/15/18 18:00; Admin Dose 20 MG; Start 05/09/18 at 21:00; Status Future Hold Oxycodone/ Acetaminophen (Endocet (10/ 325)) 1 tab Q4H PRN PO MODERATE PAIN LEVEL 4-6 Last administered on 05/13/18 14:19; Admin Dose 1 TAB; Start 05/08/18 at 20:00 Hydrocortisone (Hydrocortisone 1% Oint) 1 applic BID TOP Last administered on 05/16/18 08:16; Admin Dose 1 APPLIC; Start 05/12/18 at 21:00 Hydromorphone HCl (Dilaudid) 0.5 mg Q3H PRN IV SEVERE PAIN LEVEL 7-10 Last administered on 05/16/18 15:16; Admin Dose 0.5 MG; Start 05/12/18 at 13:30 Ferrous Sulfate (Ferrous Sulfate (Ec)) 325 mg BID PO Last administered on 05/16/18 08:15; Admin Dose 325 MG; Start 05/13/18 at 11:00 KALEY RAYGOZA MD May 16, 2018 17:18
--- NOTE | 2018-05-16 18:01 | NUR ---
NURSE NOTES: patient alert and oriented x 4, able to make needs known remained stable throughout the shift with no acute changes noted. No SOB or distress. No s/sx of hypoxia. Assessed and reassessed for pain, medicated with Dilaudid for pain as ordered. Pig tail catheter patent and intact. All due medications were given, tolerated well. IV patent and intact. All needs were attended and anticipated. safety precautions observed, hourly rounding done, bed alarm and bed brakes on for safety. Will continue to monitor. Will endorse accordingly to next shift for continuity of care.
[2018-05-16] MEDS: RIVAROXABAN 20 MG TABLET PO SCH (18:18)
[2018-05-16 20:00] VITALS: BP 128/70; PULSE 72; RESP 20
--- NOTE | 2018-05-16 21:10 | NUR ---
patient c/o difficulty sleeping. notified dr cornejo with new order for Ambien 5mg po x 1 may repeat same dose x1 PRN. pt updated. requested top have the Ambien at a later time.
[2018-05-16] MEDS ORDERED: ZOLPIDEM 5 MG TAB PO ONE (21:30)
[2018-05-17] MEDS: ALBUTEROL/IPRATROPIUM (NEB) 3 ML AMP HHN SCH ×4 (00:24→23:08)
[2018-05-17] MEDS: HYDROmorphONE 0.5 MG/0.5 ML SYG IV PRN ×8 (00:49→23:42)
[2018-05-17 02:00] VITALS: BP 120/69; PULSE 84; RESP 18
--- NOTE | 2018-05-17 06:28 | NUR ---
no acute changes, pt remained afebrile with vss. with frequent c/o pain , medicated with Dilaudid for pain, with relief and no a/r noted. fall precautions observed, hourly rounding done with needs attended to and anticipated. pigtail catheter remained intact and patent, with 10 ml of output. will continue to monitor and will endorse.
[2018-05-17 08:03] VITALS: BP 113/70; PULSE 68; RESP 14
[2018-05-17] MEDS: LACTOBACILLUS RHAMNOSUS CAP PO SCH ×2 (08:37→20:38)
[2018-05-17] MEDS: FERROUS SULFATE (EC) 325 MG TAB PO SCH ×2 (08:37→20:38)
[2018-05-17] MEDS: HYDROCORTISONE 1% 28.35 GM OINT TOP SCH ×2 (08:39→20:52)
--- NOTE | 2018-05-17 10:39 | PN ---
Date/Time of Note Date/Time of Note DATE: 05/17/18 TIME: 10:39 Assessment/Plan VTE Prophylaxis Risk score (from [facility])>0 risk: 4 SCD applied (from Ns): No SCD contraindicated: low risk/ambulating Pharmacological prophylaxis: LMWH Lines/Catheters IV Catheter Type (from [facility]): Saline Lock Urinary Cath still in place: No Assessment/Plan Hospital Course Assessment and plan 1. Recurrent Rt hemopneumothorax; thick pleura. h/o VATS. stable, sp IR guided pigtail, then Pleurx, removed. Rpt ct placed. not sure what the end -point will be. 2. Ftt consider snf, if able to do chest tube therapy. 3. Nonadherence high risk of recurrent pneumothorax/progression of comorbidities. has been counseled regarding this issue over the last few months 4. History of aspergillosis; f/u titers pending 5. 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 ivc filter removed? 6. Past tobacco 7. Likely chronic COPD 8 H/o MRSA chest wall cellulitis 9. Cervical spine disease 10. Anemia S: 04/22 no distress. Occasional cough with taking deep breaths. No hemoptysis. No diaphoresis fever. 04/23 no events. Some pleurisy chest pain. Some neck pain. Some cough no hemoptysis. No fever. /6: No events 05/02: Ongoing pain. Appears comfortable however. No fever no diarrhea. Output remains thick 05/05: Ongoing "pain" no fever. for Pleurx catheter exchange/placement and IVC filter removal if feasible 05/06: Ongoing pain same is has been earlier this week. No fever diarrhea. 05/07: Ongoing pain discomfort even after chest tube removed. Appears comfortable/ similar to yesterday 05/08: No events overnight 05/09: Events noted. Chest tube placed. Fever appears stable /: No events 05/16: No events. 05/17: Usual pleuritic chest pain. No distress. No fever diarrhea. O: vss Physical exam No pallor JVD Regular no m/r/g Diminb bs bilat, rt/lt; no tachypnea; rt c-tube c/d/i Benign No edema/Homans Result Diagram: 05/15/1852005/15/18 05 Exam/Review of Systems Exam Vitals Vital Signs Date Temp Pulse Resp B/P (MAP) Pulse Ox O2 O2 Flow FiO2 Time Delivery Rate 05/17/18 98.0 68 14 113/70 95 08:03 (84) 05/17/18 Room Air 02:00 05/17/18 21 00:25 Intake and Output 05/16/18 05/16/18 05/17/18 1515:00 23:00 07:00 IntakeIntake Total 960 ml 250 ml OutputOutput Total 1600 ml 510 ml 810 ml BalanceBalance -640 ml -510 ml -560 ml Medications Medication Current Medications IV Flush (NS 3 ml) 3 ml PER PROTOCOL IV ; Start 04/22/18 at 00:00 Ondansetron HCl (Zofran Inj) 4 mg Q6H PRN IV NAUSEA AND/OR VOMITING Last administered on 05/03/18 16:06; Admin Dose 4 MG; Start 04/22/18 at 00:00 Acetaminophen (Tylenol Tab) 650 mg Q6H PRN PO PAIN LEVEL 1-3 OR FEVER Last administered on 05/15/18at 00:32; Admin Dose 650 MG; Start 04/22/18 at 00:00 Albuterol/ Ipratropium (Duoneb) 3 ml Q2H RESP THERAPY PRN HHN SHORTNESS OF BREATH Last administered on 04/30/18 01:15; Admin Dose 3 ML; Start 04/22/18 at 00:00 Lactobacillus Acidophilus/ Rhamnosus (Culturelle) 1 cap BID PO Last administered on 05/17/18 08:37; Admin Dose 1 CAP; Start 04/22/18 at 14:00 Docusate Sodium (Colace) 100 mg BID PRN PO CONSTIPATION Last administered on 05/16/18 08:15; Admin Dose 100 MG; Start 04/23/18 at 16:00 Magnesium Hydroxide (Milk Of Mag) 30 ml DAILY PRN PO CONSTIPATION Last administered on 05/02/18 10:29; Admin Dose 30 ML; Start 04/23/18 at 16:00 Bisacodyl (Dulcolax) 10 mg DAILY PRN PO CONSTIPATION; Start 04/23/18 at 16:00 Bisacodyl (Dulcolax Supp) 10 mg Q48H PRN [place] CONSTIPATION; Start 04/23/18 at 16:00 Guaifenesin (Robitussin Liquid Cup) 100 mg Q4H PRN PO COUGH Last administered on 05/01/18 17:57; Admin Dose 100 MG; Start 04/30/18 at 00:00 Phenol (Cepastat Lozenge) 1 lozenge Q1H PRN MT COUGH Last administered on 04/30/18 20:40; Admin Dose 1 LOZENGE; Start 04/30/18 at 00:00 Miscellaneous Information Patients own medicat... BID@,16 XX ; Start 04/30/18 at 10:00 Albuterol/ Ipratropium (Duoneb) 3 ml Q8H RESP THERAPY HHN Last administered on 05/17/18 00:24; Admin Dose 3 ML; Start 05/02/18 at 16:00 Rivaroxaban (Xarelto) 20 mg WITH DINNER PO Last administered on 05/16/18 18:18; Admin Dose 20 MG; Start 05/09/18 at 21:00; Status Future Hold Oxycodone/ Acetaminophen (Endocet (10/ 325)) 1 tab Q4H PRN PO MODERATE PAIN LEVEL 4-6 Last administered on 05/13/18 14:19; Admin Dose 1 TAB; Start 05/08/18 at 20:00 Hydrocortisone (Hydrocortisone 1% Oint) 1 applic BID TOP Last administered on 05/17/18 08:39; Admin Dose 1 APPLIC; Start 05/12/18 at 21:00 Hydromorphone HCl (Dilaudid) 0.5 mg Q3H PRN IV SEVERE PAIN LEVEL 7-10 Last administered on 05/17/18 10:37; Admin Dose 0.5 MG; Start 05/12/18 at 13:30 Ferrous Sulfate (Ferrous Sulfate (Ec)) 325 mg BID PO Last administered on 05/17/18 08:37; Admin Dose 325 MG; Start 05/13/18 at 11:00 KALEY RAYGOZA MD May 17, 2018 10:39
[2018-05-17 14:17] VITALS: BP 125/73; PULSE 76; RESP 16
--- NOTE | 2018-05-17 16:45 | NUR ---
Endorsing care to Elsy BADILLO. Report given
[2018-05-17] MEDS: RIVAROXABAN 20 MG TABLET PO SCH (17:39)
[2018-05-17 20:00] VITALS: BP 117/73; PULSE 72; RESP 18
--- NOTE | 2018-05-17 20:16 | NUR ---
No acute changes, pt remained afebrile with vss. c/o pain medicated with Dilaudid for pain, with sl.relief noted ( sleeping on reassessment. Fall precautions observed, hourly rounding done with needs attended to and anticipated. pigtail catheter remained intact and patent, with 0 ml of output. Cont care endorsed to oncoming RN.
[2018-05-18 02:00] VITALS: BP 132/75; PULSE 80; RESP 18
[2018-05-18] MEDS: HYDROmorphONE 0.5 MG/0.5 ML SYG IV PRN ×7 (02:45→21:49)
--- NOTE | 2018-05-18 05:00 | NUR ---
End of Shift: No sob, no fever, no chills, no nausea, no vomiting, no abdominal pain noted at this time, pigtail cath intact, dressing clean and dry. No questions at this time. Will continue to monitor
[2018-05-18 07:56] VITALS: BP 100/58; PULSE 78; RESP 16
[2018-05-18] MEDS: ALBUTEROL/IPRATROPIUM (NEB) 3 ML AMP HHN SCH ×3 (08:07→23:49)
[2018-05-18] MEDS: LACTOBACILLUS RHAMNOSUS CAP PO SCH ×2 (08:41→21:49)
[2018-05-18] MEDS: FERROUS SULFATE (EC) 325 MG TAB PO SCH ×2 (08:41→21:49)
--- NOTE | 2018-05-18 11:10 | CONS ---
Assessment/Plan Assessment/Plan Assessment/Plan (Daily) Assessment recommendations; 1. Patient admitted for recurrent right pneumothorax having failed multiple chest tube placement in the past as well as VATS procedure, now again required a chest tube with significant right lung reexpansion. 2. Bullous emphysema. 3. History of aspergillosis. 4. History of PE and DVT. Obtain follow-up chest x-ray. If the chest x-ray shows no further pneumothorax, the chest tube can be removed. Consultation Date/Type/Reason Admit Date/Time Apr 21, 2018 at 19:36 Initial Consult Date 04/27/18 Type of Consult Pulmonary History of presenting illness; Patient is a 57-year-old male with a history of recurrent right pneumothorax status post attempted VATS admitted again for shortness of breath. Chest x-ray showing recurrent 50% right pneumothorax with infiltrative changes on chest x- ray. Patient underwent a tube thoracostomy by interventional radiology yesterday. Patient is feeling better and denies any significant shortness of breath. Past medical history; 1. History of underlying severe emphysema. 2. Status post right-sided VATS for recurrent right pneumothorax with apparent failure. 3. History of recurrent right pneumothorax status post multiple chest tube placements. 4. Chronic pain. Medications; reviewed. Allergies; none. Social history; patient is a strong history of heavy smoking. Family history; noncontributory. Occupational history; patient is on disability. Review of systems; denies any headache, chest pain, shortness of breath has improved. Denies any coughing or wheezing. Any hemoptysis or sputum production. Any fever or chills. Denies any weight loss. Any orthopnea. Any melena or hematochezia. General exam; middle-aged male, appears quite emaciated awake and alert. Currently in no distress. Date/Time of Note DATE: 05/18/18 TIME: 11:08 24 HR Interval Summary Free Text/Dictation Patient's condition is stable. Denies any shortness of breath, chest pain. General exam; middle-aged male, awake alert, currently no distress. Exam/Review of Systems Exam Vitals Vital Signs Date Temp Pulse Resp B/P (MAP) Pulse Ox O2 O2 Flow FiO2 Time Delivery Rate 05/18/18 73 18 96 21 08:07 05/18/18 98.2 100/58 07:56 (72) 05/18/18 Room Air 02:00 Intake and Output 05/17/18 05/17/18 05/18/18 1515:00 23:00 07:00 IntakeIntake Total 880 ml 1840 ml 300 ml OutputOutput Total 700 ml 1950 ml 760 ml BalanceBalance 180 ml -110 ml -460 ml Exam H EENT exam; supple neck, no JVD. No lymphadenopathy. Midline trachea. Patient is mostly edentulous. Chest exam; diminished breath sounds bilaterally. No added sounds. S1-S2 audible, no murmurs. Regular rhythm. Right-sided chest tube in place. Abdomen exam; soft, nondistended. No organomegaly. Bowel sounds audible. Extremity exam; no peripheral edema or clubbing. ROUGE MIXER exam; no focal deficit. Results Result Diagram: 05/15/1852005/15/18520 Medications Medication Current Medications IV Flush (NS 3 ml) 3 ml PER PROTOCOL IV ; Start 04/22/18 at 00:00 Ondansetron HCl (Zofran Inj) 4 mg Q6H PRN IV NAUSEA AND/OR VOMITING Last administered on 05/03/18 16:06; Admin Dose 4 MG; Start 04/22/18 at 00:00 Acetaminophen (Tylenol Tab) 650 mg Q6H PRN PO PAIN LEVEL 1-3 OR FEVER Last administered on 05/15/18 00:32; Admin Dose 650 MG; Start 04/22/18 at 00:00 Albuterol/ Ipratropium (Duoneb) 3 ml Q2H RESP THERAPY PRN HHN SHORTNESS OF BREATH Last administered on 04/30/18 01:15; Admin Dose 3 ML; Start 04/22/18 at 00:00 Lactobacillus Acidophilus/ Rhamnosus (Culturelle) 1 cap BID PO Last administered on 05/18/18 08:41; Admin Dose 1 CAP; Start 04/22/18 at 14:00 Docusate Sodium (Colace) 100 mg BID PRN PO CONSTIPATION Last administered on 05/16/18 08:15; Admin Dose 100 MG; Start 04/23/18 at 16:00 Magnesium Hydroxide (Milk Of Mag) 30 ml DAILY PRN PO CONSTIPATION Last administered on 05/02/18 10:29; Admin Dose 30 ML; Start 04/23/18 at 16:00 Bisacodyl (Dulcolax) 10 mg DAILY PRN PO CONSTIPATION; Start 04/23/18 at 16:00 Bisacodyl (Dulcolax Supp) 10 mg Q48H PRN [place] CONSTIPATION; Start 04/23/18 at 16:00 Guaifenesin (Robitussin Liquid Cup) 100 mg Q4H PRN PO COUGH Last administered on 05/01/18 17:57; Admin Dose 100 MG; Start 04/30/18 at 00:00 Phenol (Cepastat Lozenge) 1 lozenge Q1H PRN MT COUGH Last administered on 04/30/18 20:40; Admin Dose 1 LOZENGE; Start 04/30/18 at 00:00 Miscellaneous Information Patients own medicat... BID@10,16 XX ; Start 04/30/18 at 10:00 Albuterol/ Ipratropium (Duoneb) 3 ml Q8H RESP THERAPY HHN Last administered on 05/18/18 08:07; Admin Dose 3 ML; Start 05/02/18 at 16:00 Rivaroxaban (Xarelto) 20 mg WITH DINNER PO Last administered on 05/17/18 17:39; Admin Dose 20 MG; Start 05/09/18 at 21:00; Status Future Hold Oxycodone/ Acetaminophen (Endocet (10/ 325)) 1 tab Q4H PRN PO MODERATE PAIN LEVEL 4-6 Last administered on 05/13/18 14:19; Admin Dose 1 TAB; Start 05/08/18 at 20:00 Hydrocortisone (Hydrocortisone 1% Oint) 1 applic BID TOP Last administered on 05/17/18 08:39; Admin Dose 1 APPLIC; Start 05/12/18 at 21:00 Hydromorphone HCl (Dilaudid) 0.5 mg Q3H PRN IV SEVERE PAIN LEVEL 7-10 Last administered on 05/18/18 08:41; Admin Dose 0.5 MG; Start 05/12/18 at 13:30 Ferrous Sulfate (Ferrous Sulfate (Ec)) 325 mg BID PO Last administered on 05/18/18 08:41; Admin Dose 325 MG; Start 05/13/18 at 11:00 NEEL BAZZI May 18, 2018 11:10
--- NOTE | 2018-05-18 12:26 | PN ---
Date/Time of Note Date/Time of Note DATE: 05/18/18 TIME: 12:24 Assessment/Plan VTE Prophylaxis Risk score (from Ns)>0 risk: 7 [place]CD applied (from [facility] [place] Yes SCD contraindicated: low risk/ambulating Pharmacological prophylaxis: NA/contraindicated, rivaroxaban, apixaban Pharm contraindication: other Lines/Catheters IV [facility]ter Type (from [facility] Saline Lock Urinary Cath still in place: No Assessment/Plan Hospital Course Assessment and plan 1. Recurrent Rt hemopneumothorax; thick pleura. h/o VATS. stable, sp IR guided pigtail, then Pleurx, removed. Rpt ct placed. not sure what the end -point will be. Repeat x-ray today 2. Ftt consider snf, if able to do chest tube therapy. 3. Nonadherence high risk of recurrent pneumothorax/progression of comorbidities. has been counseled regarding this issue over the last few months 4. History of aspergillosis; f/u titers pending 5. 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 ivc filter removed? 6. Past tobacco 7. Likely chronic COPD; bullous emphysema 8 H/o MRSA chest wall cellulitis 9. Cervical spine disease 10. Anemia S: 04/22 no distress. Occasional cough with taking deep breaths. No hemoptysis. No diaphoresis fever. 04/23 no events. Some pleurisy chest pain. Some neck pain. Some cough no hemoptysis. No fever. /6: No events 05/02: Ongoing pain. Appears comfortable however. No fever no diarrhea. Output remains thick 05/05: Ongoing "pain" no fever. for Pleurx catheter exchange/placement and IVC filter removal if feasible 05/06: Ongoing pain same is has been earlier this week. No fever diarrhea. 05/07: Ongoing pain discomfort even after chest tube removed. Appears comfortable/ similar to yesterday 05/08: No events overnight 05/09: Events noted. Chest tube placed. Fever appears stable /22: No events 05/16: No events. 05/17: Usual pleuritic chest pain. No distress. No fever diarrhea. 05/18: No events O: vss Physical exam No pallor JVD Regular no m/r/g Diminb bs bilat, rt/lt; no tachypnea; rt c-tube c/d/i Benign No edema/Homans Result Diagram: 05/15/1852005/15/18520 Exam/Review of Systems Exam Vitals Vital Signs Date Temp Pulse Resp B/P (MAP) Pulse Ox O2 O2 Flow FiO2 Time Delivery Rate 05/18/18 73 18 96 21 08:07 05/18/18 98.2 100/58 07:56 (72) 05/18/18 Room Air 02:00 Intake and Output 05/17/18 05/17/18 05/18/18 1515:00 23:00 07:00 IntakeIntake Total 880 ml 1840 ml 300 ml OutputOutput Total 700 ml 1950 ml 760 ml BalanceBalance 180 ml -110 ml -460 ml Medications Medication Current Medications IV Flush (NS 3 ml) 3 ml PER PROTOCOL IV ; Start 04/22/18 at 00:00 Ondansetron HCl (Zofran Inj) 4 mg Q6H PRN IV NAUSEA AND/OR VOMITING Last administered on 05/03/18at 16:06; Admin Dose 4 MG; Start 04/22/18 at 00:00 Acetaminophen (Tylenol Tab) 650 mg Q6H PRN PO PAIN LEVEL 1-3 OR FEVER Last administered on 05/15/18at 00:32; Admin Dose 650 MG; Start 04/22/18 at 00:00 Albuterol/ Ipratropium (Duoneb) 3 ml Q2H RESP THERAPY PRN HHN SHORTNESS OF BREATH Last administered on 04/30/18at 01:15; Admin Dose 3 ML; Start 04/22/18 at 00:00 Lactobacillus Acidophilus/ Rhamnosus (Culturelle) 1 cap BID PO Last administered on 05/18/18at 08:41; Admin Dose 1 CAP; Start 04/22/18 at 14:00 Docusate Sodium (Colace) 100 mg BID PRN PO CONSTIPATION Last administered on 05/16/18 08:15; Admin Dose 100 MG; Start 04/23/18 at 16:00 Magnesium Hydroxide (Milk Of Mag) 30 ml DAILY PRN PO CONSTIPATION Last administered on 05/02/18at 10:29; Admin Dose 30 ML; Start 04/23/18 at 16:00 Bisacodyl (Dulcolax) 10 mg DAILY PRN PO CONSTIPATION; Start 04/23/18 at 16:00 Bisacodyl (Dulcolax Supp) 10 mg Q48H PRN [place] CONSTIPATION; Start 04/23/18 at 16:00 Guaifenesin (Robitussin Liquid Cup) 100 mg Q4H PRN PO COUGH Last administered on 05/01/18at 17:57; Admin Dose 100 MG; Start 04/30/18 at 00:00 Phenol (Cepastat Lozenge) 1 lozenge Q1H PRN MT COUGH Last administered on 04/30/18at 20:40; Admin Dose 1 LOZENGE; Start 04/30/18 at 00:00 Miscellaneous Information Patients own medicat... BID@10,16 XX ; Start 04/30/18 at 10:00 Albuterol/ Ipratropium (Duoneb) 3 ml Q8H RESP THERAPY HHN Last administered on 05/18/18 08:07; Admin Dose 3 ML; Start 05/02/18 at 16:00 Rivaroxaban (Xarelto) 20 mg WITH DINNER PO Last administered on 05/17/18at 17:39; Admin Dose 20 MG; Start 05/09/18 at 21:00; Status Future Hold Oxycodone/ Acetaminophen (Endocet (10/ 325)) 1 tab Q4H PRN PO MODERATE PAIN LEVEL 4-6 Last administered on 05/13/18 14:19; Admin Dose 1 TAB; Start 05/08/18 at 20:00 Hydrocortisone (Hydrocortisone 1% Oint) 1 applic BID TOP Last administered on 05/17/18 08:39; Admin Dose 1 APPLIC; Start 05/12/18 at 21:00 Hydromorphone HCl (Dilaudid) 0.5 mg Q3H PRN IV SEVERE PAIN LEVEL 7-10 Last administered on 05/18/18 11:49; Admin Dose 0.5 MG; Start 05/12/18 at 13:30 Ferrous Sulfate (Ferrous Sulfate (Ec)) 325 mg BID PO Last administered on 05/18/18 08:41; Admin Dose 325 MG; Start 05/13/18 at 11:00 KALEY RAYGOZA MD May 18, 2018 12:26
[2018-05-18] MEDS: HYDROCORTISONE 1% 28.35 GM OINT TOP SCH ×2 (15:08→21:00)
[2018-05-18] MEDS: RIVAROXABAN 20 MG TABLET PO SCH (18:49)
--- NOTE | 2018-05-18 19:34 | NUR ---
Still with pigtail attached posterior chest and connected to chest tube w/ no output. Offer to have him shower or bedside sponge bath and pt. refused 3 x. No sob , no acute distress and VS within range
[2018-05-18 20:16] VITALS: BP 111/69; RESP 18
[2018-05-19] MEDS: HYDROmorphONE 0.5 MG/0.5 ML SYG IV PRN ×8 (00:49→23:03)
[2018-05-19 02:22] VITALS: BP 103/64; PULSE 80; RESP 18
--- NOTE | 2018-05-19 05:38 | NUR ---
Pt alert and oriented. All needs attended to. Pain medication given as needed per order, effective. No sign of distress noted. Will continue to monitor
[2018-05-19] MEDS: ALBUTEROL/IPRATROPIUM (NEB) 3 ML AMP HHN SCH ×2 (08:00→16:00)
[2018-05-19 08:32] VITALS: BP 106/64; PULSE 73; RESP 20
[2018-05-19] MEDS: FERROUS SULFATE (EC) 325 MG TAB PO SCH ×2 (08:54→20:37)
[2018-05-19] MEDS: LACTOBACILLUS RHAMNOSUS CAP PO SCH ×2 (08:54→20:37)
[2018-05-19] MEDS: HYDROCORTISONE 1% 28.35 GM OINT TOP SCH ×2 (08:56→20:50)
--- NOTE | 2018-05-19 09:07 | CONS ---
Assessment/Plan Assessment/Plan Assessment/Plan (Daily) Chest x-ray was reviewed from yesterday which is again showing significant right pleural thickening without any obvious pneumothorax. Assessment recommendations; 1. Patient admitted for recurrent right pneumothorax having failed multiple chest tubes as well as VATS procedure in the past. Full lung reexpansion is prevented because of significant right pleural thickening. Patient with history of Aspergillus pneumonia. 2. Severe bullous emphysema. 3. History of DVT and PE. Remove chest tube. Obtain follow-up chest x-ray in 24 hours. If there is no further pneumothorax, patient can be discharged home. Consultation Date/Type/Reason Admit Date/Time Apr 21, 2018 at 19:36 Initial Consult Date 04/27/18 Type of Consult Pulmonary History of presenting illness; Patient is a 57-year-old male with a history of recurrent right pneumothorax status post attempted VATS admitted again for shortness of breath. Chest x-ray showing recurrent 50% right pneumothorax with infiltrative changes on chest x- ray. Patient underwent a tube thoracostomy by interventional radiology yesterday. Patient is feeling better and denies any significant shortness of breath. Past medical history; 1. History of underlying severe emphysema. 2. Status post right-sided VATS for recurrent right pneumothorax with apparent failure. 3. History of recurrent right pneumothorax status post multiple chest tube placements. 4. Chronic pain. Medications; reviewed. Allergies; none. Social history; patient is a strong history of heavy smoking. Family history; noncontributory. Occupational history; patient is on disability. Review of systems; denies any headache, chest pain, shortness of breath has improved. Denies any coughing or wheezing. Any hemoptysis or sputum production. Any fever or chills. Denies any weight loss. Any orthopnea. Any melena or hematochezia. General exam; middle-aged male, appears quite emaciated awake and alert. Currently in no distress. Date/Time of Note DATE: 05/19/18 TIME: 09:05 24 HR Interval Summary Free Text/Dictation Patient's condition is stable. Denies any shortness of breath, coughing, wheezing. Complains of minimal chest pain at right side chest tube insertion site. General exam; elderly male, awake alert, currently no distress. Exam/Review of Systems Exam Vitals Vital Signs Date Temp Pulse Resp B/P (MAP) Pulse Ox O2 O2 Flow FiO2 Time Delivery Rate 05/19/18 98.6 73 20 106/64 94 Room Air 08:32 (78) 05/18/18 21 08:07 Intake and Output 05/18/18 05/18/18 05/19/18 1515:00 23:00 07:00 IntakeIntake Total 1480 ml 900 ml OutputOutput Total 1150 ml 1300 ml BalanceBalance 330 ml -400 ml Exam HEENT exam; supple neck, no JVD. No lymphadenopathy. Midline trachea. No thyromegaly. Patient is mostly edentulous. Chest exam; diminished but clear breath sounds. S1-S2 audible, no murmurs. Regular rhythm. Right-sided pigtail catheter in place. Abdomen exam; soft, nondistended. Scaphoid. Bowel sounds audible. Nontender. Extremity exam; no peripheral edema clubbing. 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 Results Result Diagram: 05/15/1852005/15/18520 Medications Medication Current Medications IV Flush (NS 3 ml) 3 ml PER PROTOCOL IV ; Start 04/22/18 at 00:00 Ondansetron HCl (Zofran Inj) 4 mg Q6H PRN IV NAUSEA AND/OR VOMITING Last administered on 05/03/18 16:06; Admin Dose 4 MG; Start 04/22/18 at 00:00 Acetaminophen (Tylenol Tab) 650 mg Q6H PRN PO PAIN LEVEL 1-3 OR FEVER Last administered on 05/15/18 00:32; Admin Dose 650 MG; Start 04/22/18 at 00:00 Albuterol/ Ipratropium (Duoneb) 3 ml Q2H RESP THERAPY PRN HHN SHORTNESS OF BREATH Last administered on 04/30/18at 01:15; Admin Dose 3 ML; Start 04/22/18 at 00:00 Lactobacillus Acidophilus/ Rhamnosus (Culturelle) 1 cap BID PO Last administered on 05/19/18at 08:54; Admin Dose 1 CAP; Start 04/22/18 at 14:00 Docusate Sodium (Colace) 100 mg BID PRN PO CONSTIPATION Last administered on 05/16/18 08:15; Admin Dose 100 MG; Start 04/23/18 at 16:00 Magnesium Hydroxide (Milk Of Mag) 30 ml DAILY PRN PO CONSTIPATION Last administered on 1/14/19at 10:29; Admin Dose 30 ML; Start 04/23/18 at 16:00 Bisacodyl (Dulcolax) 10 mg DAILY PRN PO CONSTIPATION; Start 04/23/18 at 16:00 Bisacodyl (Dulcolax Supp) 10 mg Q48H PRN OR CONSTIPATION; Start 04/23/18 at 16:00 Guaifenesin (Robitussin Liquid Cup) 100 mg Q4H PRN PO COUGH Last administered on 05/01/18at 17:57; Admin Dose 100 MG; Start 04/30/18 at 00:00 Phenol (Cepastat Lozenge) 1 lozenge Q1H PRN MT COUGH Last administered on 04/30/18 20:40; Admin Dose 1 LOZENGE; Start 04/30/18 at 00:00 Miscellaneous Information Patients own medicat... BID@10,16 XX ; Start 04/30/18 at 10:00 Albuterol/ Ipratropium (Duoneb) 3 ml Q8H RESP THERAPY HHN Last administered on 05/18/18 08:07; Admin Dose 3 ML; Start 05/02/18 at 16:00 Rivaroxaban (Xarelto) 20 mg WITH DINNER PO Last administered on 05/18/18 18:49; Admin Dose 20 MG; Start 05/09/18 at 21:00; Status Future Hold Oxycodone/ Acetaminophen (Endocet (10/ 325)) 1 tab Q4H PRN PO MODERATE PAIN LEVEL 4-6 Last administered on 05/13/18 14:19; Admin Dose 1 TAB; Start 05/08/18 at 20:00 Hydrocortisone (Hydrocortisone 1% Oint) 1 applic BID TOP Last administered on 05/19/18 08:56; Admin Dose 1 APPLIC; Start 05/12/18 at 21:00 Hydromorphone HCl (Dilaudid) 0.5 mg Q3H PRN IV SEVERE PAIN LEVEL 7-10 Last administered on 05/19/18 06:50; Admin Dose 0.5 MG; Start 05/12/18 at 13:30 Ferrous Sulfate (Ferrous Sulfate (Ec)) 325 mg BID PO Last administered on 05/19/18 08:54; Admin Dose 325 MG; Start 05/13/18 at 11:00 NEEL BAZZI May 19, 2018 09:07
--- NOTE | 2018-05-19 10:38 | PN ---
Date/Time of Note Date/Time of Note DATE: 05/19/18 TIME: 10:37 Assessment/Plan VTE Prophylaxis Risk score (from Nsg)>0 risk: 8 SCD applied (from Ns): Yes SCD contraindicated: low risk/ambulating Pharmacological prophylaxis: NA/contraindicated, LMWH, rivaroxaban, apixaban Pharm contraindication: low risk/ambulating Lines/Catheters [facility]from [facility] Saline Lock Urinary Cath still in place: No Assessment/Plan Hospital Course Assessment and plan 1. Recurrent Rt hemopneumothorax; thick pleura. h/o VATS. stable, sp IR guided pigtail, then Pleurx, removed. Rpt ct placed. not sure what the end -point will be. Repeat x-ray tomorrow post CT removal 2. Ftt consider snf, if able to do chest tube therapy. 3. Nonadherence high risk of recurrent pneumothorax/progression of comorbidities. has been counseled regarding this issue over the last few months 4. History of aspergillosis; f/u titers pending 5. 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 ivc filter removed? 6. Past tobacco 7. Likely chronic COPD; bullous emphysema 8 H/o MRSA chest wall cellulitis 9. Cervical spine disease 10. Anemia S: 04/22 no distress. Occasional cough with taking deep breaths. No hemoptysis. No diaphoresis fever. 04/23 no events. Some pleurisy chest pain. Some neck pain. Some cough no hemoptysis. No fever. /6: No events 05/02: Ongoing pain. Appears comfortable however. No fever no diarrhea. Output remains thick 05/05: Ongoing "pain" no fever. for Pleurx catheter exchange/placement and IVC filter removal if feasible 05/06: Ongoing pain same is has been earlier this week. No fever diarrhea. 05/07: Ongoing pain discomfort even after chest tube removed. Appears com fortable/ similar to yesterday 05/08: No events overnight 05/09: Events noted. Chest tube placed. Fever appears stable /22: No events 05/16: No events. 05/17: Usual pleuritic chest pain. No distress. No fever diarrhea. 05/18: No events 05/19: Events noted, appears stable O: vss Physical exam No pallor JVD Regular no m/r/g Diminb bs bilat, rt/lt; no tachypnea; rt c-tube c/d/i Benign No edema/Homans Result Diagram: 05/15/1852005/15/18520 Exam/Review of Systems Exam Vitals Vital Signs Date Temp Pulse Resp B/P (MAP) Pulse Ox O2 O2 Flow FiO2 Time Delivery Rate 05/19/18 98.6 73 20 106/64 94 Room Air 08:32 (78) 05/18/18 21 08:07 Intake and Output 05/18/18 05/18/18 05/19/18 1414:59 22:59 06:59 IntakeIntake Total 1480 ml 900 ml OutputOutput Total 1150 ml 1300 ml BalanceBalance 330 ml -400 ml Medications Medication Current Medications IV Flush (NS 3 ml) 3 ml PER PROTOCOL IV ; Start 04/22/18 at 00:00 Ondansetron HCl (Zofran Inj) 4 mg Q6H PRN IV NAUSEA AND/OR VOMITING Last administered on 05/03/18 16:06; Admin Dose 4 MG; Start 04/22/18 at 00:00 Acetaminophen (Tylenol Tab) 650 mg Q6H PRN PO PAIN LEVEL 1-3 OR FEVER Last adm inistered on 05/15/18at 00:32; Admin Dose 650 MG; Start 04/22/18 at 00:00 Albuterol/ Ipratropium (Duoneb) 3 ml Q2H RESP THERAPY PRN HHN SHORTNESS OF BREATH Last administered on 04/30/18 01:15; Admin Dose 3 ML; Start 04/22/18 at 00:00 Lactobacillus Acidophilus/ Rhamnosus (Culturelle) 1 cap BID PO Last administered on 05/19/18 08:54; Admin Dose 1 CAP; Start 04/22/18 at 14:00 Docusate Sodium (Colace) 100 mg BID PRN PO CONSTIPATION Last administered on 05/16/18 08:15; Admin Dose 100 MG; Start 04/23/18 at 16:00 Magnesium Hydroxide (Milk Of Mag) 30 ml DAILY PRN PO CONSTIPATION Last administered on 05/02/18 10:29; Admin Dose 30 ML; Start 04/23/18 at 16:00 Bisacodyl (Dulcolax) 10 mg DAILY PRN PO CONSTIPATION; Start 04/23/18 at 16:00 Bisacodyl (Dulcolax Supp) 10 mg Q48H PRN [place] CONSTIPATION; Start 04/23/18 at 16:00 Guaifenesin (Robitussin Liquid Cup) 100 mg Q4H PRN PO COUGH Last administered on 05/01/18at 17:57; Admin Dose 100 MG; Start 04/30/18 at 00:00 Phenol (Cepastat Lozenge) 1 lozenge Q1H PRN MT COUGH Last administered on 04/30/18at 20:40; Admin Dose 1 LOZENGE; Start 04/30/18 at 00:00 Miscellaneous Information Patients own medicat... BID@ XX ; Start 04/30/18 at 10:00 Albuterol/ Ipratropium (Duoneb) 3 ml Q8H RESP THERAPY HHN Last administered on 05/18/18 08:07; Admin Dose 3 ML; Start 05/02/18 at 16:00 Rivaroxaban (Xarelto) 20 mg WITH DINNER PO Last administered on 05/18/18at 18:49; Admin Dose 20 MG; Start 05/09/18 at 21:00; Status Future Hold Oxycodone/ Acetaminophen (Endocet (10/ 325)) 1 tab Q4H PRN PO MODERATE PAIN LEVEL 4-6 Last administered on 05/13/18at 14:19; Admin Dose 1 TAB; Start 05/08/18 at 20:00 Hydrocortisone (Hydrocortisone 1% Oint) 1 applic BID TOP Last administered on 05/19/18 08:56; Admin Dose 1 APPLIC; Start 05/12/18 at 21:00 Hydromorphone HCl (Dilaudid) 0.5 mg Q3H PRN IV SEVERE PAIN LEVEL 7-10 Last administered on 05/19/18 10:06; Admin Dose 0.5 MG; Start 05/12/18 at 13:30 Ferrous Sulfate (Ferrous Sulfate (Ec)) 325 mg BID PO Last administered on 05/19/18 08:54; Admin Dose 325 MG; Start 05/13/18 at 11:00 KALEY RAYGOZA MD May 19, 2018 10:38
[2018-05-19 14:00] VITALS: BP 118/72; PULSE 86; RESP 18
[2018-05-19] MEDS: RIVAROXABAN 20 MG TABLET PO SCH (18:03)
--- NOTE | 2018-05-19 18:36 | NUR ---
POD # 0 Removal of right posterior chest catheter pigtail, no s/s of bleeding dressing intact w/ gauze and transparent dressing in placed. No sob , no acute distress kept HOB elevated for proper breathing and lung expansion. Offered shower / or bedside sponge bath pt. refused 3x, all needs attended VS within range will continue POC
[2018-05-19 20:47] VITALS: BP 124/71; PULSE 65; RESP 18
[2018-05-20] MEDS: ALBUTEROL/IPRATROPIUM (NEB) 3 ML AMP HHN SCH ×3 (00:22→16:00)
[2018-05-20] MEDS: HYDROmorphONE 0.5 MG/0.5 ML SYG IV PRN ×5 (02:04→15:11)
[2018-05-20 02:31] VITALS: BP 125/75; PULSE 69; RESP 20
--- NOTE | 2018-05-20 04:55 | NUR ---
Pt is alert and oriented. All needs attended to. Pain medication given as needed, effective. No sign of distress noted. Call light within reach
[2018-05-20] MEDS: FERROUS SULFATE (EC) 325 MG TAB PO SCH (08:30)
[2018-05-20] MEDS: LACTOBACILLUS RHAMNOSUS CAP PO SCH (08:30)
[2018-05-20] MEDS: HYDROCORTISONE 1% 28.35 GM OINT TOP SCH (08:32)
[2018-05-20 08:47] VITALS: BP 131/76; PULSE 73; RESP 18
--- NOTE | 2018-05-20 11:26 | CONS ---
Assessment/Plan Assessment/Plan Assessment/Plan (Daily) Chest x-ray was reviewed from today which is showing right pleural thickening without any obvious pneumothorax. Assessment recommendations; 1. Patient admitted with recurrent right pneumothorax with pneumonia with significant interval improvement. 2. Status post chest tube removal. 3. Underlying severe bullous emphysema. 4. History of Aspergillus pneumonia. 5. History of DVT and pulmonary embolism. 6. Significant right pleural thickening Discharge the patient. We will obtain follow-up chest x-ray in about a week's time. Consultation Date/Type/Reason Admit Date/Time Apr 21, 2018 at 19:36 Initial Consult Date 04/27/18 Type of Consult Pulmonary History of presenting illness; Patient is a 57-year-old male with a history of recurrent right pneumothorax status post attempted VATS admitted again for shortness of breath. Chest x-ray showing recurrent 50% right pneumothorax with infiltrative changes on chest x- ray. Patient underwent a tube thoracostomy by interventional radiology yesterday. Patient is feeling better and denies any significant shortness of breath. Past medical history; 1. History of underlying severe emphysema. 2. Status post right-sided VATS for recurrent right pneumothorax with apparent failure. 3. History of recurrent right pneumothorax status post multiple chest tube placements. 4. Chronic pain. Medications; reviewed. Allergies; none. Social history; patient is a strong history of heavy smoking. Family history; noncontributory. Occupational history; patient is on disability. Review of systems; denies any headache, chest pain, shortness of breath has improved. Denies any coughing or wheezing. Any hemoptysis or sputum production. Any fever or chills. Denies any weight loss. Any orthopnea. Any melena or hematochezia. General exam; middle-aged male, appears quite emaciated awake and alert. Currently in no distress. Date/Time of Note DATE: 05/20/18 TIME: 11:24 24 HR Interval Summary Free Text/Dictation Patient's condition is stable. Right side chest tube was removed yesterday. Patient denies any shortness of breath. General exam; middle-aged male, awake alert, currently no distress. Exam/Review of Systems Exam Vitals Vital Signs Date Temp Pulse Resp B/P (MAP) Pulse Ox O2 O2 Flow FiO2 Time Delivery Rate 05/20/18 97.8 73 18 131/76 98 08:47 (94) 05/20/18 21 00:23 05/19/18 Room Air 08:32 Intake and Output 05/19/18 05/19/18 05/20/18 1515:00 23:00 07:00 IntakeIntake Total 600 ml 350 ml 500 ml OutputOutput Total 1500 ml 400 ml 1200 ml BalanceBalance -900 ml -50 ml -700 ml Exam HEENT exam; supple neck, no JVD. No lymphadenopathy. Midline trachea. No thyromegaly. Patient is mostly edentulous. Chest exam; diminished but clear breath sounds. No added sounds. S1-S2 audible, no murmurs. Regular rhythm. Abdomen exam; soft, nontender. Bowel sounds audible. Extremity exam; no peripheral edema or clubbing. 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 Medications Medication Current Medications IV Flush (NS 3 ml) 3 ml PER PROTOCOL IV ; Start 04/22/18 at 00:00 Ondansetron HCl (Zofran Inj) 4 mg Q6H PRN IV NAUSEA AND/OR VOMITING Last administered on 05/03/18at 16:06; Admin Dose 4 MG; Start 04/22/18 at 00:00 Acetaminophen (Tylenol Tab) 650 mg Q6H PRN PO PAIN LEVEL 1-3 OR FEVER Last administered on 05/15/18 00:32; Admin Dose 650 MG; Start 04/22/18 at 00:00 Albuterol/ Ipratropium (Duoneb) 3 ml Q2H RESP THERAPY PRN HHN SHORTNESS OF BREATH Last administered on 04/30/18at 01:15; Admin Dose 3 ML; Start 04/22/18 at 00:00 Lactobacillus Acidophilus/ Rhamnosus (Culturelle) 1 cap BID PO Last administered on 05/20/18 08:30; Admin Dose 1 CAP; Start 04/22/18 at 14:00 Docusate Sodium (Colace) 100 mg BID PRN PO CONSTIPATION Last administered on 05/16/18 08:15; Admin Dose 100 MG; Start 04/23/18 at 16:00 Magnesium Hydroxide (Milk Of Mag) 30 ml DAILY PRN PO CONSTIPATION Last administered on 05/02/18at 10:29; Admin Dose 30 ML; Start 04/23/18 at 16:00 Bisacodyl (Dulcolax) 10 mg DAILY PRN PO CONSTIPATION; Start 04/23/18 at 16:00 Bisacodyl (Dulcolax Supp) 10 mg Q48H PRN [place] CONSTIPATION; Start 04/23/18 at 16 :00 Guaifenesin (Robitussin Liquid Cup) 100 mg Q4H PRN PO COUGH Last administered on 05/01/18at 17:57; Admin Dose 100 MG; Start 04/30/18 at 00:00 Phenol (Cepastat Lozenge) 1 lozenge Q1H PRN [place] COUGH Last administered on 04/30/18at 20:40; Admin Dose 1 LOZENGE; Start 04/30/18 at 00:00 Miscellaneous Information Patients own medicat... BID@10,16 XX ; Start 04/30/18 at 10:00 Albuterol/ Ipratropium (Duoneb) 3 ml Q8H RESP THERAPY HHN Last administered on 05/20/18 00:22; Admin Dose 3 ML; Start 05/02/18 at 16:00 Rivaroxaban (Xarelto) 20 mg WITH DINNER PO Last administered on 05/19/18 18:03; Admin Dose 20 MG; Start 05/09/18 at 21:00; Status Future Hold Oxycodone/ Acetaminophen (Endocet (10/ 325)) 1 tab Q4H PRN PO MODERATE PAIN LEVEL 4-6 Last administered on 05/13/18 14:19; Admin Dose 1 TAB; Start 05/08/18 at 20:00 Hydrocortisone (Hydrocortisone 1% Oint) 1 applic BID TOP Last administered on 05/19/18 08:56; Admin Dose 1 APPLIC; Start 05/12/18 at 21:00 Hydromorphone HCl (Dilaudid) 0.5 mg Q3H PRN IV SEVERE PAIN LEVEL 7-10 Last administered on 05/20/18 08:47; Admin Dose 0.5 MG; Start 05/12/18 at 13:30 Ferrous Sulfate (Ferrous Sulfate (Ec)) 325 mg BID PO Last administered on 05/20/18 08:30; Admin Dose 325 MG; Start 05/13/18 at 11:00 NEEL BAZZI May 20, 2018 11:26
[2018-05-20 15:30] VITALS: BP 121/70; PULSE 73; RESP 18
--- NOTE | 2018-05-20 15:51 | DS ---
Date/Time of Note Date/Time of Note DATE: 05/20/18 TIME: 15:45 Discharge Summary Admission/Discharge Info Admit Date/Time Apr 21, 2018 at 19:36 Discharge Date/Time Patient Condition: Stable Consults Dr Stanley/ Johnathan Sol Procedures CT chest with contrast IMPRESSION: 1. Large loculated relatively thick-walled hydropneumothorax on the right, with relatively high attenuation fluid which could represent pus or blood. 2. Underlying abnormalities throughout the right chest suggesting old tuberculosis or other infectious disease. Shelia Thomas Physician Thoracentesis pathology Date of Service: 04/26/18; CLINICAL: Pleural effusion GROSS EXAMINATION MICROSCOPIC DIAGNOSIS: Right thoracocentesis fluid for cytology: -- Negative for malignant cells. X-ray right shoulder IMPRESSION: 1. Calcific tendonitis. 2. No fracture or dislocation. 3. Right pleural thickening, small right chest tube, and small right pneumothorax. 4. Otherwise unremarkable images of the right shoulder. Hx of Present Illness 57-year-old gentleman admitted with shortness of breath Hospital Course Hospital course: Admitted with recurrent right hemothorax. Seen by pulmonary. Then seen by vascular surgery/cardiothoracic surgery. Initially had thoracentesis. Then Pleurx catheter. Unfortunately it did not resolve and therefore a repeat chest tube was placed. Over the last 10 days this tube has facilitated drainage of the pneumothorax and him pleural effusion. Presently stable over the last 48 hours after chest tube was removed. No pneumothorax. Stable and fit for discharge. 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 Adherence is an issue and the pulmonary issues will remain as an outpatient. Prognosis fair. Assessment and plan 1. Recurrent Rt hemopneumothorax; thick pleura. h/o VATS. stable, sp IR guided pigtail, then Pleurx, removed. Rpt ct placed. not sure what the end -point will be. R stable discharge 2. Ftt; placement options given. Patient refused. Will go back to his car. 3. Nonadherence high risk of recurrent pneumothorax/progression of comorbidities. has been counseled regarding this issue over the last few months 4. History of aspergillosis; f/u titers pending 5. 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 ivc filter removed? Remained stable on Eliquis. 6. Past tobacco 7. Likely chronic COPD; bullous emphysema 8 H/o MRSA chest wall cellulitis 9. Cervical spine disease 10. Anemia 11. Pain seeking behavior? S: 04/22 no distress. Occasional cough with taking deep breaths. No hemoptysis. No diaphoresis fever. 04/23 no events. Some pleurisy chest pain. Some neck pain. Some cough no hemoptysis. No fever. /6: No events 05/02: Ongoing pain. Appears comfortable however. No fever no diarrhea. Output remains thick 05/05: Ongoing "pain" no fever. for Pleurx catheter exchange/placement and IVC filter removal if feasible 05/06: Ongoing pain same is has been earlier this week. No fever diarrhea. 05/07: Ongoing pain discomfort even after chest tube removed. Appears comfortable/ similar to yesterday 05/08: No events overnight 05/09: Events noted. Chest tube placed. Fever appears stable /22: No events 05/16: No events. 05/17: Usual pleuritic chest pain. No distress. No fever diarrhea. 05/18: No events 05/19: Events noted, appears stable 05/20: No events. O: vss Physical exam No pallor JVD Regular no m/r/g Diminb bs bilat, rt/lt; no tachypnea; rt c-tube c/d/i Benign No edema/Homans Disposition: Discharge Appointment primary and pulmonary 2-3 weeks. Aspergillus titers are pending but not clinically active at this time. [facility] [phone] Home Meds Reported Medications Rivaroxaban* (Xarelto*) 20 Mg Tablet, 20 MG PO WITH DINNER, TAB 04/25/18 Primary Care Provider Not On Staff Doctor Time spent on discharge: > 30 minutes KALEY RAYGOZA MD May 20, 2018 15:51
--- NOTE | 2018-05-20 15:52 | PDOCDIS ---
Discharge Instructions CONDITION [id number] Patient Condition: [id number] Stable HOME CARE INSTRUCTIONS: [id number] Special Diet: [id number] Regular ACTIVITY: [id number] Activity Restrictions: Lgnbd3h Slowly Increase Activity Do not Drive (if dizzy) FOLLOW UP/APPOINTMENTS Follow-up Plan Appointment primary 1 week Pulmonary 2 weeks KALEY RAYGOZA MD May 20, 2018 15:52
[2018-05-20] MEDS ORDERED: OXYC-431 PO (15:55)
[2018-05-20] MEDS ORDERED: ACET325T33 PO (15:55)
[2018-05-20] MEDS ORDERED: HYDR28OI6 TOP (15:55)
[2018-05-20] MEDS ORDERED: RIVA20TA5 PO (15:55)
[2018-05-20] MEDS ORDERED: DOCU-216 PO (15:55)
[2018-05-20] MEDS ORDERED: FER325 PO (15:55)
--- NOTE | 2018-05-20 16:45 | NUR ---
Security returned belongings that were locked up including $93.
[2018-05-20] MEDS: RIVAROXABAN 20 MG TABLET PO SCH (17:01)
--- NOTE | 2018-05-20 17:15 | NUR ---
DC instructions given to pt. including 4 prescriptions and healthcare summary. Provided with bus tokens. Pt. is refusing recuperative care or any type of help or placement. Wants to return to current living situation on the [address]. Already has his own walker in the room. All medications that were locked in the pharmacy returned to the pt. and also his belongings locked in the safe were returned by security. IV dc. Pt. allowed me to change the dressing on his right lateral chest/ back. Puncture hole from previous pigtail catheter is healing, dry and clean. Cleaned with NS and new bandaid applied. 5 large bandaids provided to pt. and dressing care taught.
--- NOTE | 2018-05-20 18:34 | NUR ---
Pt. said to do his discharge quickly because he wanted to catch the bus to eat at [employer] and go to [place]. Discharge complete at 1715, but pt. keeps saying a few more minutes.
--- NOTE | 2018-05-20 19:02 | NUR ---
Pt. left a black cord here. Sent to security.
== END 2018-05-20 18:43 | disposition home or self-care (01) | DRG 186 ==
LOC: E/R 15:22 → 6WM 19:36 → CANRESERV 21:39 → ENRESERV 21:41 → PP2 04-29 14:09
PROVIDERS: ADMIT Internal Medicine; ATTEND Internal Medicine
PROC: 0W9930Z Drainage of Right Pleural Cavity with Drainage Device, Percutaneous Approach (ICD-10-PCS; principal; 2018-04-26 10:00)
DX: J94.2 Hemothorax (principal); J18.9 Pneumonia, unspecified organism; I82.501 Chronic embolism and thrombosis of unspecified deep veins of right lower extremity; I27.82 Chronic pulmonary embolism; J90 Pleural effusion, not elsewhere classified; J43.9 Emphysema, unspecified; R62.51 Failure to thrive (child); Z86.19 Personal history of other infectious and parasitic diseases; Z59.0 Homelessness; Z91.19 Patient's noncompliance with other medical treatment and regimen
CPT/HCPCS: 36415; 36589; 71045; 71046; 71260; 74018; 75989; 76000; 76998; 80048; 80053; 80202; 82042; 82565; 82728; 83036; 83540; 83615; 83735; 84100; 84443; 84484; 84520; 85025; 85610; 85730; 86606; 87040; 87070; 87075; 87102; 87116; 88104; 88305; 89051; 90686; 93005; 94640; 94664; C1729; J0692; J1170; J1644; J1650; J1885; J2250; J2270; J2405; J2543; J3010; J3370; J7050; Q9967

== ENCOUNTER 2018-06-21 16:08 | Inpatient (IN) | payer OTHER ==
[~2018-06-21] VITALS: Ht 167.6 cm; Wt 74.8 kg
[~2018-06-21 16:08] MED LIST changes: +ACET325T33 PO; +DOCU-216 PO; +FER325 PO; +HYDR28OI6 TOP; -MUPI22OI2 TOP; +OXYC-431 PO; -SULF-182 PO
--- NOTE | 2018-06-21 19:49 | ERD ---
ER Documentation Chief Complaint Chief Complaint SOB WITH COUGH HPI The patient is a 57-year-old male, presenting with acute on chronic dyspnea with worsening cough for the last couple days. He is homeless, living distress. He denies fever, chills, neck pain, chest pain, abdominal pain, vomiting, dizzy, diarrhea. He used to smoke heavily until recently, smoked marijuana Past medical history: History of right lung hemopneumothorax, history of aspergillosis, COPD, anemia ROS All systems reviewed and are negative except as per history of present illness. Medications Home Meds Active Scripts Hydrocortisone Acetate (ANTI-ITCH) 28 Gm Oint...g., 1 APPLIC TOP BID for 7 Days, #1 5 Refills Prov:KALEY RAYGOZA MD 05/20/18 Docusate Sodium (Dok) 100 Mg Capsule, 100 MG PO BID PRN for CONSTIPATION for 7 Days, CAP otc Prov:KALEY RAYGOZA MD 05/20/18 Oxycodone HCl/Acetaminophen (Oxycodone-Acetaminophen 10-325) 1 Each Tablet, 1 TAB PO Q4H PRN for MODERATE PAIN LEVEL 4-6 for 5 Days, TAB Prov:KALEY RAYGOZA MD 05/20/18 Acetaminophen* (Tylenol*) 325 Mg Tablet, 650 MG PO Q6H PRN for PAIN LEVEL 1-3 OR FEVER for 1 Day, TAB Prov:KALEY RAYGOZA MD 05/20/18 Rivaroxaban* (Xarelto*) 20 Mg Tablet, 20 MG PO WITH DINNER for 30 Days, #30 TAB 1 Refill Prov:KALEY RAYGOZA MD 05/20/18 Ferrous Sulfate* (Ferrous Sulfate*) 325 Mg Tabec, 325 MG PO BID for 30 Days, #30 TAB 2 Refills Prov:KALEY RAYGOZA MD 05/20/18 Reported Medications Rivaroxaban* (Xarelto*) 20 Mg Tablet, 20 MG PO WITH DINNER, TAB 04/25/18 Allergies Allergies: Coded Allergies: No Known Allergy (Unverified , 04/21/18) PMhx/Soc History of Surgery: Yes Anesthesia Reaction: No Hx Neurological Disorder: No Hx Respiratory Disorders: Yes (RT LUNG SURGERY) Hx Cardiac Disorders: No Hx Psychiatric Problems: No Hx Miscellaneous Medical Probl: No Hx Alcohol Use: Yes (DAILY) Hx Substance Use: Yes (MARIJUANA 3O Y AGO) Hx Tobacco Use: Yes (QUIT 4YRS AGO) Physical Exam Vitals Vital Signs Date Temp Pulse Resp B/P (MAP) Pulse Ox O2 O2 Flow FiO2 Time Delivery Rate 06/21/18 98.7 99 24 135/83 95 Room Air 21:17 (100) 06/21/18 97.2 120 16 130/59 95 Room Air 17:23 (82) 06/21/18 98.9 108 18 142/78 97 16:54 (99) Physical Exam Const: No acute distress. Head: Atraumatic. Eyes: Normal Conjunctiva. ENT: Normal External Ears, Nose and Mouth. Neck: Full range of motion. No meningismus. Resp: Right basilar crackle Cardio: Regular rate and rhythm. Abd: Soft, non distended, normal bowel sounds, non tender. Skin: No petechiae or rashes. Back: No midline or flank tenderness. Ext: No cyanosis, or edema. Neur: Awake and alert. No focal deficit Psych: Normal Mood and Affect. Result Diagram: 06/21/18203506/21/182035 Results 24 hrs Laboratory Tests Test 06/21/18 20:36 06/21/18 20:39 06/21/18 21:19 White Blood Count 11.0 10^3/ul Red Blood Count 4.12 10^6/ul Hemoglobin 10.2 g/dl Hematocrit 32.5 % Mean Corpuscular Volume 78.9 fl Mean Corpuscular Hemoglobin 24.8 pg Mean Corpuscular 31.4 g/dl Hemoglobin Concent Red Cell Distribution Width 18.1 % Platelet Count 602 10^3/UL Mean Platelet Volume 8.4 fl Immature Granulocytes % 0.900 % Neutrophils % 76.9 % Lymphocytes % 13.5 % Monocytes % 7.5 % Eosinophils % 0.7 % Basophils % 0.5 % Nucleated Red Blood Cells % 0.0 /100WBC Immature Granulocytes # 0.100 10^3/ul Neutrophils # 8.4 10^3/ul Lymphocytes # 1.5 10^3/ul Monocytes # 0.8 10^3/ul Eosinophils # 0.1 10^3/ul Basophils # 0.1 10^3/ul Nucleated Red Blood Cells # 0.0 10^3/ul Prothrombin Time 12.1 Sec Prothrombin Time Ratio 0.9 INR International 0.89 Normalized Ratio Activated Partial Thromboplast 31.5 Sec Time Sodium Level 137 mmol/L Potassium Level 3.5 mmol/L Chloride Level 100 mmol/L Carbon Dioxide Level 23 mmol/L Anion Gap 14 Blood Urea Nitrogen 12 mg/dl Creatinine 0.90 mg/dl Est Glomerular Filtrat > 60 mL/min Rate mL/min Glucose Level 92 mg/dl Calcium Level 8.9 mg/dl Total Bilirubin 0.1 mg/dl Direct Bilirubin 0.00 mg/dl Indirect Bilirubin 0.1 mg/dl Aspartate Amino Transf (AST/SGOT) 40 IU/L Alanine < 6 IU/L Aminotransferase (ALT/SGPT) Alkaline Phosphatase 99 IU/L Troponin I < 0.012 ng/ml Total Protein 7.5 g/dl Albumin 4.0 g/dl Globulin 3.50 g/dl Albumin/Globulin Ratio 1.14 POC Venous Lactate 2.2 mmol/L Urine Color STRAW Urine Clarity CLEAR Urine pH 6.0 Urine Specific Arbuckle 1.003 Urine Ketones NEGATIVE mg/dL Urine Nitrite NEGATIVE mg/dL Urine Bilirubin NEGATIVE mg/dL Urine Urobilinogen NEGATIVE mg/dL Urine Leukocyte Esterase NEGATIVE Bogdan/ul Urine Hemoglobin NEGATIVE mg/dL Urine Glucose NEGATIVE mg/dL Urine Total Protein NEGATIVE mg/dl Current Medications Medications Dose Sig/Imelda Start Time Status Last (Trade) Ordered Route PRN Stop Time Admin Dose Reason Admin Sodium 1,950 ml BOLUS OVER 2 06/21/18 DC 06/21/18 Chloride HOURS STAT 19:53 06/21/18 20:24 (NS) IV* 19:54 Sodium 1,950 ml @ BOLUS X1 06/21/18 DC Chloride 975 mls/hr ONCE IV 21:00 06/21/18 22:59 Vancomycin 250 ml @ ONCE ONCE 06/21/18 DC 06/21/18 HCl 125 mls/hr IVPB 21:00 06/21/18 21:48 22:59 Piperacillin 100 ml @ ONCE ONCE 06/21/18 DC 06/21/18 Sod/ 200 mls/hr IVPB 21:00 06/21/18 21:14 Tazobactam 21:29 Sod IV Flush 3 ml PER 06/21/18 (NS 3 ml) PROTOCOL IV 23:00 Ondansetron 4 mg Q6H PRN 06/21/18 HCl (Zofran IV 23:00 Inj) NAUSEA/VOMITI NG 650 mg Q6H PRN 06/21/18 Acetaminophen PO .PAIN 1-3 23:00 (Tylenol OR TEMP Tab) 1 tab Q6H PRN 06/21/18 Acetaminophen PO .PAIN 4-6 23:00 / Hydrocodone Bitart ([place] (5/325)) 1.25 mg Q4H RESP 06/21/18 Levalbuterol THERAPY PRN 23:00 (Xopenex HHN Neb) SHORTNESS OF BREATH Ipratropium 0.5 mg Q4H RESP 06/21/18 [place] THERAPY PRN 23:00 (Atrovent HHN 0.02% SHORTNESS OF (Neb)) BREATH Procedures/[place] [id number] Radiology Main Line: [phone] DIAGNOSTIC IMAGING REPORT Patient: BEATRICE VALLES : 1960 Age: 57 Sex: M MR #: [id number] DOS: 06/21/181952 Ordering MD: ADRIÁN OLIVARES MD Location: E/R Room/Bed: PROCEDURE: XR Chest, 1 View CLINICAL INDICATION: Sepsis. TECHNIQUE: Frontal view of the chest. COMPARISON: 05/20/2018 (05/20/2018) FINDINGS: LUNGS: Compressive atelectasis right lung. The left lung is free of infiltrates. PLEURAL SPACE: Increased size/reaccumulation of right pleural effusion. No pneumothorax. HEART: Unremarkable. No cardiomegaly. MEDIASTINUM: Unremarkable. BONES/JOINTS: Unremarkable. IMPRESSION: 1. Increased size/reaccumulation of right pleural effusion. This is associated with compressive atelectasis of the right lung. 2. The left lung is free of infiltrates. RPTAT: [facility] Gerard Preston Physician [employer] Date Time Electronically viewed and signed by Gerard Preston Physician [employer] on 06/21/2018 20:45 RmC/ CC: ADRIÁN OLIVARES MD [phone] EKG: Read by emergency physician Rate/Rhythm: Sinus Tachycardia 103 beats/min QRS, ST, T-waves: No ST elevation, no T inversion, shorten NM Impression: Abnormal EKG MEDICAL MAKING DECISION: The patient is a 57-year-old male, presenting with acute severe sepsis, acute severe exacerbation, acute/chronic right pleural effusion. He was treated with normosaline 30 mm/kg IV, vancomycin IV, Zosyn IV for acute severe sepsis The differential diagnoses considered include but are not limited to empyema, lung abscess, aspergillosis, asthma, COPD, pneumonia, pulmonary embolus, pleural effusion, congestive heart failure. MDM: Patient's infectious symptoms have not stabilized and the patient is at risk of rapid decompensation. The patient will be admitted for careful hydration, an tibiotic therapy, and infectious source control. SEVERE SEPSIS CRITERIA: Infectious source: unknown End organ damage indicated by: [Lactate > 2.0 mmol/L SEPSIS MANAGEMENT Time of recognition of severe sepsis: 9pm 3 HOUR BUNDLE Blood cultures x 2 before broad-spectrum antibiotics: [Yes] 30 ml/kg NS bolus [Completed] Initial lactate []2.2 Repeat lactate Pending SEPTIC SHOCK ASSESSMENT: [No] lactic acid > 4.0 [No] Persistent hypotension (SBP < 90 or 40 mmHg drop, MAP < 65) despite 30 mL/kg IV fluid bolus CRITICAL CARE Critical care time [35] minutes Emergent fluid management while maintaining close respiratory support. Provision of immediate and broad-spectrum antibiotic therapy. Simultaneous assessment for possible sources in order to direct targeted therapy. Consi deration for invasive and chemical support to prevent cardiopulmonary collapse. Critical care time is independent of procedures performed. Departure Diagnosis: Primary Impression: Severe sepsis Additional Impressions: COPD exacerbation Pleural effusion, right Anemia Condition: Stable Comments I discussed the findings with the patient. I discussed the patient with the hospitalist Dr Sinha at 10:20 pm. who was made aware of the lab, the treatment, the patient condition. The patient is admitted to Tel Disclaimer: Inadvertent spelling and grammatical errors are likely due to EHR/dictation software use and do not reflect on the overall quality of patient care. Also, please note that the electronic time recorded on this note does not necessarily reflect the actual time of the patient encounter. ADRIÁN OLIVARES MD Jun 21, 2018 19:49
[2018-06-21] MEDS ORDERED: SODIUM CHLORIDE 0.9% 1L BAG IV* STA (19:53)
[2018-06-21] MEDS ORDERED: PIPER-TAZO 3.375 GM IV (PMX) 100 ML IVPB ONE (21:00)
[2018-06-21] MEDS ORDERED: VANCOMYCIN 1 GM (PMX) 250 ML IVPB ONE (21:00)
[2018-06-21] MEDS ORDERED: SOD CHLORIDE 0.9% 1,950 ML IV ONE (21:00)
[2018-06-21] MEDS ORDERED: ONDANSETRON 4 MG INJ IV PRN (23:00)
[2018-06-21] MEDS ORDERED: NACL 0.9% 3 ML SYG IV SCH (23:00)
[2018-06-21] MEDS ORDERED: ACETAMINOPHEN 325 MG TAB PO PRN (23:00)
[2018-06-22] VITALS (13 sets, daily range): BP systolic 137–163; BP diastolic 75–91; PULSE 75–189; RESP 18–20; Ht 167.6 cm; Wt 74.8 kg
[2018-06-22] MEDS ORDERED: VANCOMYCIN IV PER PHARMACY XX SCH
--- NOTE | 2018-06-22 00:05 | HP ---
Date/Time of Note Date/Time of Note DATE: 06/22/18 TIME: 00:05 Assessment/Plan VTE Prophylaxis SCD applied (from Nsg): Yes Pharmacological prophylaxis: NA/contraindicated Pharm contraindication: low risk/ambulating Lines/Catheters IV Catheter Type (from Nrsg): Saline Lock Assessment/Plan Hospital Course This is a 57-year-old male being admitted to the telemetry floor for: #1 Dyspnea: Secondary to underlying right-sided pleural effusion/possible infectious process. Patient does not have any wheezing on examination. Chest x-ray does show possible pleural effusion. Patient does have a history of VATS procedure as well as empyema. Given his service criteria he was started on empiric antibiotics I will continue this at the current time. Will consult pulmonology regarding further management of the possible right-sided effusionempyema. PRN nebulization as indicated. #2 Sirs syndrome: Patient did present tachycardic as well as had a elevated white blood cell count. He is afebrile. Given his history of pneumothorax and empyema we will treat empirically with antibiotics at the current time. Monitor for any signs of fever. #3History of right lung hemopneumothorax: Status post VATS, IR guided pigtail and Pleurx. No signs of hemothorax at the current time. There is possible right-sided pleural effusion/infectious process. Treat as per #1. #4 lactic acidosis: Possibly multifactorial secondary to dyspnea and/or possible underlying infection. Patient currently on antibiotics. Trend lactate levels. #5 history of aspergillosis: non suspected at the current time, #6, COPD: Patient does not appear to be in any acute exacerbation. Patient is not wheezing on examination. PRN nebs as indicated., anemia1. Recurrent Rt hemopneumothorax; thick pleura. h/o VATS. stable, sp IR guided pigtail, then Pleurx, removed. 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 #8 chronic microcytic anemia: Continue ferrous sulfate, no signs of bleeding at this time #9 history of possible drug-seeking behavior: Monitor closely and avoid any heavy dose narcotics. #10 DVT GI prophylaxis: SCDs, no GI prophylaxis indicated Further treatment strategy will be implemented as per the clinical course Result Diagram: 06/21/18203506/21/182035 Results 24hrs Laboratory Tests Test 06/21/18 20:36 06/21/18 20:39 06/21/18 21:19 06/21/18 23:14 White Blood Count 11.0 H Red Blood Count 4.12 L Hemoglobin 10.2 L Hematocrit 32.5 L Mean Corpuscular Volume 78.9 L Mean Corpuscular 24.8 L Hemoglobin Mean Corpuscular 31.4 L Hemoglobin Concent Red Cell Distribution 18.1 H Width Platelet Count 602 H Mean Platelet Volume 8.4 Immature Granulocytes % 0.900 H Neutrophils % 76.9 Lymphocytes % 13.5 L Monocytes % 7.5 Eosinophils % 0.7 Basophils % 0.5 Nucleated Red Blood 0.0 Cells % Immature Granulocytes # 0.100 H Neutrophils # 8.4 H Lymphocytes # 1.5 Monocytes # 0.8 Eosinophils # 0.1 Basophils # 0.1 Nucleated Red Blood 0.0 Cells # Prothrombin Time 12.1 Prothrombin Time Ratio 0.9 INR International 0.89 Normalized Ratio Activated 31.5 Partial Thromboplast Time Sodium Level 137 Potassium Level 3.5 Chloride Level 100 Carbon Dioxide Level 23 Anion Gap 14 H Blood Urea Nitrogen 12 Creatinine 0.90 Est Glomerular Filtrat > 60 Rate mL/min Glucose Level 92 Calcium Level 8.9 Total Bilirubin 0.1 L Direct Bilirubin 0.00 Indirect Bilirubin 0.1 Aspartate Amino 40 Transf (AST/SGOT) Alanine < 6 L Aminotransferase (ALT/SG PT) Alkaline Phosphatase 99 Troponin I < 0.012 Total Protein 7.5 Albumin 4.0 Globulin 3.50 H Albumin/Globulin Ratio 1.14 POC Venous Lactate 2.2 *H Urine Color STRAW Urine Clarity CLEAR Urine pH 6.0 Urine Specific [place] 1.003 Urine Ketones NEGATIVE Urine Nitrite NEGATIVE Urine Bilirubin NEGATIVE Urine Urobilinogen NEGATIVE Urine Leukocyte Esterase NEGATIVE Urine Hemoglobin NEGATIVE Urine Glucose NEGATIVE Urine Total Protein NEGATIVE Lactic Acid Level 1.8 HPI/ROS Admit Date/Time Admit Date/Time Jun 21, 2018 at 22:21 Hx of Present Illness Chief complaint: Shortness of breath, The patient is a 57-year-old homeless male, presenting with acute on chronic dyspnea with worsening cough for the last couple days. He is homeless. He states that he feels like he cannot take a full breath especially on the right side. He has a history of VATS procedure as well as right-sided chest tube. He does report subjective fevers. He denies chills, neck pain, chest pain, abdominal pain, vomiting, dizzy, diarrhea. Patient also reports that he is a daily alcohol drinker. Allergies: NKDA Medications: See SINDY FREDERICK Const: As per HPI Eyes : No pain discharge or redness or change in visual acuity ENT: No pain, sore throat, congestion, congestion, dysphagia or discharge Respiratory: As per HPI Cardiovascular: No chest pain, palpitation, PND, or edema GI : no change in appetite, abdominal pain, nausea, vomiting, diarrhea, constipation, or change in the color his stool Genitourinary: No dysuria, hematuria, flank pain , discharge or CVA tenderness Musculoskeletal: No joint pain, back pain, neck pain, restricted range of motion in neck or joints Skin: No rash, bruising or hives Neuro: No headache, dizziness, syncope, seizure, focal weakness Endocrine: No polyuria, polydipsia, temperature intolerance Psych: No hallucination, depression, anxiety or suicidal ideation PMH/Family/Social Past Medical History History of right lung hemopneumothorax, history of aspergillosis, COPD, anemia1. Recurrent Rt hemopneumothorax; thick pleura. h/o VATS. stable, sp IR guided pigtail, then Pleurx, removed. History of chronic PE w rt lwr ext DVT; sp IVCf status, Likely chronic COPD; bullous emphysema H/o MRSA chest wall cellulitis Cervical spine disease Anemia Pain seeking behavior? Medications Current Medications IV Flush (NS 3 ml) 3 ml PER PROTOCOL IV ; Start 06/21/18 at 23:00 Ondansetron HCl (Zofran Inj) 4 mg Q6H PRN IV NAUSEA/VOMITING; Start 06/21/18 at 23:00 Acetaminophen (Tylenol Tab) 650 mg Q6H PRN PO .PAIN 1-3 OR TEMP; Start 06/21/18 at 23:00 Acetaminophen/ Hydrocodone Bitart ([place] (5/325)) 1 tab Q6H PRN PO .PAIN 4-6; Start 06/21/18 at 23:00 Levalbuterol (Xopenex Neb) 1.25 mg Q4H RESP THERAPY PRN HHN SHORTNESS OF BREATH; Start 06/21/18 at 23:00 Ipratropium [place] (Atrovent 0.02% (Neb)) 0.5 mg Q4H RESP THERAPY PRN HHN SHORTNESS OF BREATH; Start 06/21/18 at 23:00 Vancomycin HCl (Vanco Iv Per Pharmacy) VANCOMYCIN PER PHARMACY PER PROTOCOL XX ; Start 06/22/18 at 00:00; Status UNV Piperacillin Sod/ Tazobactam Sod 100 ml @ 200 mls/hr Q6 IVPB ; Start 06/22/18 at 00:00; Status UNV Multi-Ingredient Ointment (Eucerin Cream) 1 applic BID TOP ; Start 06/22/18 at 00:00 Coded Allergies: No Known Allergy (Unverified , 06/22/18) Past Surgical History h/o VATS. stable, sp IR guided pigtail, then Pleurx, removed. sp IVC filter? Past Surgical Hx: other Family History Significant Family History: no pertinent family hx Social History Alcohol Use: heavy Smoking Status: Former smoker Drug Use: marijuana Exam/Review of Systems Vital Signs Vitals Vital Signs Date Temp Pulse Resp B/P (MAP) Pulse Ox O2 O2 Flow FiO2 Time Delivery Rate 06/21/18 107 18 107/77 94 Room Air 23:43 (87) 06/21/18 98.7 21:17 Intake and Output 06/21/18 06/21/18 06/22/18 1515:00 23:00 07:00 OutputOutput Total 350 ml BalanceBalance -350 ml Exam Exam General: Patient is currently lying in bed he does not appear to be in any acute distress, he does appear disheveled, he does smell of urine HEENT: Atraumatic, normocephalic. The pupils are equal, round and reactive. Extraocular motor are intact Neck: Supple with full range of motion. No rigidity or meningismus Chest: Nontender Lungs: Coarse breath sounds bilaterally, diminished on the right lung field Heart: Sinus tachycardia Abdomen: Soft , nontender, nondistended , bowel sounds are present. No guarding no rebound tenderness , No masses or organomegaly. No costovertebral temporal angle mass Extremities: Normal to inspection, no edema no cyanosis Neurologic: Normal mental status, speech normal, cranial nerves II through XII are intact, motor and sensory are intact, Psych: Non-tremulous, non-agitated Additional Comments EKG: Read by emergency physician Rate/Rhythm: Sinus Tachycardia 103 beats/min QRS, ST, T-waves: No ST elevation, no T inversion, shorten TX Impression: Abnormal EKG PROCEDURE: XR Chest, 1 View CLINICAL INDICATION: Sepsis. TECHNIQUE: Frontal view of the chest. COMPARISON: 05/20/2018 (05/20/2018) FINDINGS: LUNGS: Compressive atelectasis right lung. The left lung is free of infiltrates. PLEURAL SPACE: Increased size/reaccumulation of right pleural effusion. No pneumothorax. HEART: Unremarkable. No cardiomegaly. MEDIASTINUM: Unremarkable. BONES/JOINTS: Unremarkable. IMPRESSION: 1. Increased size/reaccumulation of right pleural effusion. This is associated with compressive atelectasis of the right lung. 2. The left lung is free of infiltrates. RPTAT: [facility] Date Time Electronically viewed and signed by Gerard [facility] on 06/21/2018 20:45 RmC/ CC: ADRIÁN OLIVARES MD [id number] TERESA WINSLOW Jun 22, 2018 00:05
[2018-06-22] MEDS ORDERED: LORAZEPAM 2 MG INJ IV PRN (01:30)
[2018-06-22] MEDS: PIPER-TAZO 3.375 GM IV (PMX) 100 ML IVPB SCH ×4 (01:33→18:44)
[2018-06-22] MEDS: VANCOMYCIN HCL 1.25 GM in SOD CHLORIDE 0.9% 250 ML IVPB SCH ×2 (05:35→16:48)
[2018-06-22] MEDS: FOLIC ACID 1 MG TAB PO SCH (08:36)
[2018-06-22] MEDS: FERROUS SULFATE (EC) 325 MG TAB PO SCH ×2 (08:36→20:35)
[2018-06-22] MEDS: THIAMINE 100 MG TAB PO SCH (08:36)
[2018-06-22] MEDS: MULTIVITAMINS THERAPEUTIC TAB PO SCH (08:36)
[2018-06-22] MEDS: EUCERIN 113 GM CR TOP SCH ×3 (08:41→20:36)
--- NOTE | 2018-06-22 10:00 | CONS ---
Assessment/Plan Assessment/Plan Assessment/Plan (Daily) Chest x-ray showing chronic appearing right lung changes with what appears to be a pleural effusion. No pneumothorax however identified. Assessment recommendations; 1. 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 Status post episodes of multiple pneumothoraces status post multiple chest tube placements as well as failed VATS procedure. However chest x-ray from yesterday is not showing recurrent pneumothorax. Difficult to rule out superimposed pneumonia versus loculated pleural effusion. 2. Underlying COPD. 3. History of embolism and DVT. Continue current supportive care. Obtain CT chest without contrast. Further r ecommendations once CT imaging of the chest is obtained. Consultation Date/Type/Reason Admit Date/Time Jun 21, 2018 at 22:21 Date of Consultation: Jun 22, 2018 Type of Consult Pulmonary Pulmonary consult requested for evaluation of recurrent right pleural effusion/pneumonia. Patient is a 57-year-old male who came into the hospital yesterday with shortness of breath for the last 2 days. Denies any coughing, wheezing, fever or chills. Upon evaluation a chest x-ray was done which is showing what appears to be right pleural effusion. Chronic appearing volume loss on the right side. Past medical history; 1. History of recurrent right pneumothorax status post multiple chest tube placements as well as failed VATS procedure. 2. History of aspergillosis with significant right pleural thickening preventing full right lung reexpansion. 3. COPD. 4. Anemia. 5. History of DVT and pulmonary embolism. Medications; reviewed. Allergies; none. Social history; patient has a long-standing history of smoking. Family history; noncontributory. 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 Review of systems; denies any headache, seizures, sinus symptoms. Any chest pain. Complains of scant cough without any sputum production. Denies any hemoptysis. Shortness of breath is slightly improved. Denies any abdominal pain, nausea vomiting. Any edema. Any melena or hematochezia. Patient has steady weight. General exam; middle-aged male, appears quite emaciated. Awake and alert. Currently no distress. Date/Time of Note DATE: 06/22/18 TIME: 09:57 Past Medical History Home Meds Active Scripts Hydrocortisone Acetate (ANTI-ITCH) 28 Gm Oint...g., 1 APPLIC TOP BID for 7 Days, #1 5 Refills Prov:KALEY RAYGOZA MD 05/20/18 Docusate Sodium (Dok) 100 Mg Capsule, 100 MG PO BID PRN for CONSTIPATION for 7 Days, CAP otc Prov:KALEY RAYGOZA MD 05/20/18 Oxycodone HCl/Acetaminophen (Oxycodone-Acetaminophen 10-325) 1 Each Tablet, 1 TAB PO Q4H PRN for MODERATE PAIN LEVEL 4-6 for 5 Days, TAB Prov:KALEY RAYGOZA MD 05/20/18 Acetaminophen* (Tylenol*) 325 Mg Tablet, 650 MG PO Q6H PRN for PAIN LEVEL 1-3 OR FEVER for 1 Day, TAB Prov:KALEY RAYGOZA MD 05/20/18 Reported Medications Rivaroxaban* (Xarelto*) 20 Mg Tablet, 20 MG PO WITH DINNER, TAB 04/25/18 Discontinued Scripts Rivaroxaban* (Xarelto*) 20 Mg Tablet, 20 MG PO WITH DINNER for 30 Days, #30 TAB 1 Refill Prov:KALEY RAYGOZA MD 05/20/18 Ferrous Sulfate* (Ferrous Sulfate*) 325 Mg Tabec, 325 MG PO BID for 30 Days, #30 TAB 2 Refills Prov:KALEY RAYGOZA MD 05/20/18 Medications Current Medications IV Flush (NS 3 ml) 3 ml PER PROTOCOL IV ; Start 06/21/18 at 23:00 Ondansetron HCl (Zofran Inj) 4 mg Q6H PRN IV NAUSEA/VOMITING; Start 06/21/18 at 23:00 Acetaminophen (Tylenol Tab) 650 mg Q6H PRN PO .PAIN 1-3 OR TEMP; Start 06/21/18 at 23:00 Acetaminophen/ Hydrocodone Bitart ([place] (5/325)) 1 tab Q6H PRN PO .PAIN 4-6; Start 06/21/18 at 23:00 Levalbuterol (Xopenex Neb) 1.25 mg Q4H RESP THERAPY PRN HHN SHORTNESS OF BREATH; Start 06/21/18 at 23:00 Ipratropium [place] (Atrovent 0.02% (Neb)) 0.5 mg Q4H RESP THERAPY PRN HHN SHORTNESS OF BREATH; Start 06/21/18 at 23:00 Vancomycin HCl (Vanco Iv Per Pharmacy) VANCOMYCIN PER PHARMACY PER PROTOCOL XX ; Start 06/22/18 at 00:00 Piperacillin Sod/ Tazobactam Sod 100 ml @ 200 mls/hr Q6 IVPB Last administered on 06/22/18at 05:35; Admin Dose 200 MLS/HR; Start 06/22/18 at 00:00 Multi-Ingredient Ointment (Eucerin Cream) 1 applic BID TOP Last administered on 06/22/18at 08:41; Admin Dose 1 APPLIC; Start 06/22/18 at 00:00 Lorazepam (Ativan) 1 mg Q4H PRN IV AGITATION/ANXIETY; Start 06/22/18 at 01:30 Multivitamins Therapeutic (Theragran) 1 tab DAILY PO Last administered on 06/22/18at 08:36; Admin Dose 1 TAB; Start 06/22/18 at 09:00 Folic Acid (Folic Acid) 1 mg DAILY PO Last administered on 06/22/18at 08:36; Admin Dose 1 MG; Start 06/22/18 at 09:00 Thiamine HCl (Vitamin B1) 100 mg DAILY PO Last administered on 06/22/18 08:36; Admin Dose 100 MG; Start 06/22/18 at 09:00 Ferrous Sulfate (Ferrous Sulfate (Ec)) 325 mg BID PO Last administered on 06/22/18 08:36; Admin Dose 325 MG; Start 06/22/18 at 09:00 Vancomycin HCl 1.25 gm/Sodium Chloride 250 ml @ 83.333 mls/ hr Q12H IVPB Last administered on 06/22/18 05:35; Admin Dose 83.333 MLS/HR; Start 06/22/18 at 05:00 Allergies: Coded Allergies: No Known Allergy (Unverified , 06/22/18) Past Surgical History Past Surgical Hx: other Social History Alcohol Use: heavy Smoking Status: Former smoker Drug Use: marijuana Exam/Review of Systems Exam Vitals Vital Signs Date Temp Pulse Resp B/P (MAP) Pulse Ox O2 O2 Flow FiO2 Time Delivery Rate 06/22/18 97.7 90 18 160/85 96 Room Air 08:05 (110) Intake and Output 06/21/18 06/21/18 06/22/18 1515:00 23:00 07:00 OutputOutput Total 350 ml BalanceBalance -350 ml Exam HEENT exam; supple neck, no JVD. No lymphadenopathy. Midline trachea. No thyromegaly. Patient has remaining carious teeth. No neck masses. Chest exam; diminished breath sounds right lung. Left lung is fairly clear. S1-S2 audible, no murmurs. Regular rhythm. Abdomen exam; soft, scaphoid. Nontender. No organomegaly. Bowel sounds audible. Extremity exam; no peripheral edema clubbing. 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 Results Result Diagram: 06/22/18 0540 06/22/18 0540 Results 24hrs Laboratory Tests Test 06/21/18 20:36 06/21/18 20:39 06/21/18 21:19 06/21/18 23:14 White Blood Count 11.0 H Red Blood Count 4.12 L Hemoglobin 10.2 L Hematocrit 32.5 L Mean Corpuscular Volume 78.9 L Mean Corpuscular 24.8 L Hemoglobin Mean Corpuscular 31.4 L Hemoglobin Concent Red Cell Distribution 18.1 H Width Platelet Count 602 H Mean Platelet Volume 8.4 Immature Granulocytes % 0.900 H Neutrophils % 76.9 Lymphocytes % 13.5 L Monocytes % 7.5 Eosinophils % 0.7 Basophils % 0.5 Nucleated Red Blood 0.0 Cells % Immature Granulocytes # 0.100 H Neutrophils # 8.4 H Lymphocytes # 1.5 Monocytes # 0.8 Eosinophils # 0.1 Basophils # 0.1 Nucleated Red Blood 0.0 Cells # Prothrombin Time 12.1 Prothrombin Time Ratio 0.9 INR International 0.89 Normalized Ratio Activated 31.5 Partial Thromboplast Time Sodium Level 137 Potassium Level 3.5 Chloride Level 100 Carbon Dioxide Level 23 Anion Gap 14 H Blood Urea Nitrogen 12 Creatinine 0.90 Est Glomerular Filtrat > 60 Rate mL/min Glucose Level 92 Calcium Level 8.9 Total Bilirubin 0.1 L Direct Bilirubin 0.00 Indirect Bilirubin 0.1 Aspartate Amino 40 Transf (AST/SGOT) Alanine < 6 L Aminotransferase (ALT/SG PT) Alkaline Phosphatase 99 Troponin I < 0.012 Total Protein 7.5 Albumin 4.0 Globulin 3.50 H Albumin/Globulin Ratio 1.14 POC Venous Lactate 2.2 *H Urine Color STRAW Urine Clarity CLEAR Urine pH 6.0 Urine Specific [place] 1.003 Urine Ketones NEGATIVE Urine Nitrite NEGATIVE Urine Bilirubin NEGATIVE Urine Urobilinogen NEGATIVE Urine Leukocyte Esterase NEGATIVE Urine Hemoglobin NEGATIVE Urine Glucose NEGATIVE Urine Total Protein NEGATIVE Lactic Acid Level 1.8 Test 06/22/18 01:51 06/22/18 05:40 Lactic Acid Level 1.8 Ethyl Alcohol Level 101.0 H White Blood Count 8.0 # Red Blood Count 4.09 L Hemoglobin 10.2 L Hematocrit 32.5 L Mean Corpuscular Volume 79.5 L Mean Corpuscular 24.9 L Hemoglobin Mean Corpuscular 31.4 L Hemoglobin Concent Red Cell Distribution 18.4 H Width Platelet Count 573 H Mean Platelet Volume 8.6 Immature Granulocytes % 1.000 H Neutrophils % 75.7 Lymphocytes % 12.0 L Monocytes % 9.1 Eosinophils % 1.7 Basophils % 0.5 Nucleated Red Blood 0.0 Cells % Immature Granulocytes # 0.080 H Neutrophils # 6.1 Lymphocytes # 1.0 Monocytes # 0.7 Eosinophils # 0.1 Basophils # 0.0 Nucleated Red Blood 0.0 Cells # Sodium Level 143 Potassium Level 3.8 Chloride Level 109 Carbon Dioxide Level 24 Anion Gap 10 Blood Urea Nitrogen 10 Creatinine 0.78 Est Glomerular Filtrat > 60 Rate mL/min Glucose Level 85 Hemoglobin A1c 5.5 Calcium Level 8.7 Magnesium Level 1.9 Total Bilirubin 0.2 Direct Bilirubin 0.00 Indirect Bilirubin 0.2 Aspartate Amino 35 Transf (AST/SGOT) Alanine 11 L Aminotransferase (ALT/SG PT) Alkaline Phosphatase 88 Total Protein 7.0 Albumin 3.6 Globulin 3.40 H Albumin/Globulin Ratio 1.05 Thyroid Stimulating Pending Hormone (TSH) Medications Medication Current Medications IV Flush (NS 3 ml) 3 ml PER PROTOCOL IV ; Start 06/21/18 at 23:00 Ondansetron HCl (Zofran Inj) 4 mg Q6H PRN IV NAUSEA/VOMITING; Start 06/21/18 at 23:00 Acetaminophen (Tylenol Tab) 650 mg Q6H PRN PO .PAIN 1-3 OR TEMP; Start 06/21/18 at 23:00 Acetaminophen/ Hydrocodone Bitart ([place] (5/325)) 1 tab Q6H PRN PO .PAIN 4-6; Start 06/21/18 at 23:00 Levalbuterol (Xopenex Neb) 1.25 mg Q4H RESP THERAPY PRN HHN SHORTNESS OF BREATH; Start 06/21/18 at 23:00 Ipratropium [place] (Atrovent 0.02% (Neb)) 0.5 mg Q4H RESP THERAPY PRN HHN SHORTNESS OF BREATH; Start 06/21/18 at 23:00 Vancomycin HCl (Vanco Iv Per Pharmacy) VANCOMYCIN PER PHARMACY PER PROTOCOL XX ; Start 06/22/18 at 00:00 Piperacillin Sod/ Tazobactam Sod 100 ml @ 200 mls/hr Q6 IVPB Last administered on 06/22/18 05:35; Admin Dose 200 MLS/HR; Start 06/22/18 at 00:00 Multi-Ingredient Ointment (Eucerin Cream) 1 applic BID TOP Last administered on 06/22/18 08:41; Admin Dose 1 APPLIC; Start 06/22/18 at 00:00 Lorazepam (Ativan) 1 mg Q4H PRN IV AGITATION/ANXIETY; Start 06/22/18 at 01:30 Multivitamins Therapeutic (Theragran) 1 tab DAILY PO Last administered on 06/22/18 08:36; Admin Dose 1 TAB; Start 06/22/18 at 09:00 Folic Acid (Folic Acid) 1 mg DAILY PO Last administered on 06/22/18 08:36; Admin Dose 1 MG; Start 06/22/18 at 09:00 Thiamine HCl (Vitamin B1) 100 mg DAILY PO Last administered on 06/22/18 08:36; Admin Dose 100 MG; Start 06/22/18 at 09:00 Ferrous Sulfate (Ferrous Sulfate (Ec)) 325 mg BID PO Last administered on 06/22/18 08:36; Admin Dose 325 MG; Start 06/22/18 at 09:00 Vancomycin HCl 1.25 gm/Sodium Chloride 250 ml @ 83.333 mls/ hr Q12H IVPB Last administered on 06/22/18 05:35; Admin Dose 83.333 MLS/HR; Start 06/22/18 at 05:00 NEEL BAZZI Jun 22, 2018 10:00
--- NOTE | 2018-06-22 13:01 | PN ---
Date/Time of Note Date/Time of Note DATE: 06/22/18 TIME: 12:59 Assessment/Plan VTE Prophylaxis Risk score (from Ns)>0 risk: 4 SCD applied (from Ns): Yes Pharmacological prophylaxis: heparin Lines/Catheters IV Catheter Type (from Nrsg): [place] Urinary Cath still in place: No Assessment/Plan Hospital Course This is a 57-year-old male being admitted to the telemetry floor for: Recurrent R sided pleural effusion status post VATS, IR guided pigtail and Pl eurx - CT pending for evaluation. Likely needs chest tube. Dr Sol and Jaden aware COPD: Patient does not appear to be in any acute exacerbation. Patient is not wheezing on examination. PRN nebs as indicated., anemia1. Recurrent Rt hemopneumothorax; thick pleura. h/o VATS. stable, sp IR guided pigtail, then Pleurx, removed. 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 #8 chronic microcytic anemia: Continue ferrous sulfate, no signs of bleeding at this time #9 history of possible drug-seeking behavior: Monitor closely and avoid any heavy dose narcotics. #10 DVT GI prophylaxis: SCDs, no GI prophylaxis indicated Further treatment strategy will be implemented as per the clinical course Result Diagram: 06/22/18 0540 06/22/18 0540 Results 24hrs Laboratory Tests Test 06/21/18 20:36 06/21/18 20:39 06/21/18 21:19 06/21/18 23:14 White Blood Count 11.0 H Red Blood Count 4.12 L Hemoglobin 10.2 L Hematocrit 32.5 L Mean Corpuscular Volume 78.9 L Mean Corpuscular 24.8 L Hemoglobin Mean Corpuscular 31.4 L Hemoglobin Concent Red Cell Distribution 18.1 H Width Platelet Count 602 H Mean Platelet Volume 8.4 Immature Granulocytes % 0.900 H Neutrophils % 76.9 Lymphocytes % 13.5 L Monocytes % 7.5 Eosinophils % 0.7 Basophils % 0.5 Nucleated Red Blood 0.0 Cells % Immature Granulocytes # 0.100 H Neutrophils # 8.4 H Lymphocytes # 1.5 Monocytes # 0.8 Eosinophils # 0.1 Basophils # 0.1 Nucleated Red Blood 0.0 Cells # Prothrombin Time 12.1 Prothrombin Time Ratio 0.9 INR International 0.89 Normalized Ratio Activated 31.5 Partial Thromboplast Time Sodium Level 137 Potassium Level 3.5 Chloride Level 100 Carbon Dioxide Level 23 Anion Gap 14 H Blood Urea Nitrogen 12 Creatinine 0.90 Est Glomerular Filtrat > 60 Rate mL/min Glucose Level 92 Calcium Level 8.9 Total Bilirubin 0.1 L Direct Bilirubin 0.00 Indirect Bilirubin 0.1 Aspartate Amino 40 Transf (AST/SGOT) Alanine < 6 L Aminotransferase (ALT/SG PT) Alkaline Phosphatase 99 Troponin I < 0.012 Total Protein 7.5 Albumin 4.0 Globulin 3.50 H Albumin/Globulin Ratio 1.14 POC Venous Lactate 2.2 *H Urine Color STRAW Urine Clarity CLEAR Urine pH 6.0 Urine Specific [place] 1.003 Urine Ketones NEGATIVE Urine Nitrite NEGATIVE Urine Bilirubin NEGATIVE Urine Urobilinogen NEGATIVE Urine Leukocyte Esterase NEGATIVE Urine Hemoglobin NEGATIVE Urine Glucose NEGATIVE Urine Total Protein NEGATIVE Lactic Acid Level 1.8 Test 06/22/18 01:51 06/22/18 05:40 Lactic Acid Level 1.8 Ethyl Alcohol Level 101.0 H White Blood Count 8.0 # Red Blood Count 4.09 L Hemoglobin 10.2 L Hematocrit 32.5 L Mean Corpuscular Volume 79.5 L Mean Corpuscular 24.9 L Hemoglobin Mean Corpuscular 31.4 L Hemoglobin Concent Red Cell Distribution 18.4 H Width Platelet Count 573 H Mean Platelet Volume 8.6 Immature Granulocytes % 1.000 H Neutrophils % 75.7 Lymphocytes % 12.0 L Monocytes % 9.1 Eosinophils % 1.7 Basophils % 0.5 Nucleated Red Blood 0.0 Cells % Immature Granulocytes # 0.080 H Neutrophils # 6.1 Lymphocytes # 1.0 Monocytes # 0.7 Eosinophils # 0.1 Basophils # 0.0 Nucleated Red Blood 0.0 Cells # Sodium Level 143 Potassium Level 3.8 Chloride Level 109 Carbon Dioxide Level 24 Anion Gap 10 Blood Urea Nitrogen 10 Creatinine 0.78 Est Glomerular Filtrat > 60 Rate mL/min Glucose Level 85 Hemoglobin A1c 5.5 Calcium Level 8.7 Magnesium Level 1.9 Total Bilirubin 0.2 Direct Bilirubin 0.00 Indirect Bilirubin 0.2 Aspartate Amino 35 Transf (AST/SGOT) Alanine 11 L Aminotransferase (ALT/SG PT) Alkaline Phosphatase 88 Total Protein 7.0 Albumin 3.6 Globulin 3.40 H Albumin/Globulin Ratio 1.05 Thyroid Stimulating 0.609 Hormone (TSH) Subjective 24 Hr Interval Summary Free Text/Dictation Continues to feel SOB Exam/Review of Systems Exam Vitals Vital Signs Date Temp Pulse Resp B/P (MAP) Pulse Ox O2 O2 Flow FiO2 Time Delivery Rate 06/22/18 97.7 94 18 163/88 97 Room Air 11:16 (113) Intake and Output 06/21/18 06/21/18 06/22/18 1515:00 23:00 07:00 OutputOutput Total 350 ml BalanceBalance -350 ml Constitutional: alert, oriented, well developed Psych: no complaints, nl mood/affect Head: normocephalic, atraumatic Eyes: nl conjunctiva, EOMI, nl lids, nl sclera, PERRL ENMT: nl external ears & nose, nl lips & teeth, nl nasal mucosa & septum Neck: supple, non-tender Respiratory: clear to auscultation, normal air movement Cardiovascular: regular rate and rhythm, nl pulses Gastrointestinal: soft, nl liver, spleen, non-tender Musculoskeletal: nl extremities to inspection, nl gait and stance Extremities: normal pulses Neurological: OFFICE 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 II-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 intact, nl mental status, nl speech, nl strength Skin: nl turgor; No rash or lesions Lymph: nl lymph nodes Results Results 24hrs Laboratory Tests Test 06/21/18 20:36 06/21/18 20:39 06/21/18 21:19 06/21/18 23:14 White Blood Count 11.0 H Red Blood Count 4.12 L Hemoglobin 10.2 L Hematocrit 32.5 L Mean Corpuscular Volume 78.9 L Mean Corpuscular 24.8 L Hemoglobin Mean Corpuscular 31.4 L Hemoglobin Concent Red Cell Distribution 18.1 H Width Platelet Count 602 H Mean Platelet Volume 8.4 Immature Granulocytes % 0.900 H Neutrophils % 76.9 Lymphocytes % 13.5 L Monocytes % 7.5 Eosinophils % 0.7 Basophils % 0.5 Nucleated Red Blood 0.0 Cells % Immature Granulocytes # 0.100 H Neutrophils # 8.4 H Lymphocytes # 1.5 Monocytes # 0.8 Eosinophils # 0.1 Basophils # 0.1 Nucleated Red Blood 0.0 Cells # Prothrombin Time 12.1 Prothrombin Time Ratio 0.9 INR International 0.89 Normalized Ratio Activated 31.5 Partial Thromboplast Time Sodium Level 137 Potassium Level 3.5 Chloride Level 100 Carbon Dioxide Level 23 Anion Gap 14 H Blood Urea Nitrogen 12 Creatinine 0.90 Est Glomerular Filtrat > 60 Rate mL/min Glucose Level 92 Calcium Level 8.9 Total Bilirubin 0.1 L Direct Bilirubin 0.00 Indirect Bilirubin 0.1 Aspartate Amino 40 Transf (AST/SGOT) Alanine < 6 L Aminotransferase (ALT/SG PT) Alkaline Phosphatase 99 Troponin I < 0.012 Total Protein 7.5 Albumin 4.0 Globulin 3.50 H Albumin/Globulin Ratio 1.14 POC Venous Lactate 2.2 *H Urine Color STRAW Urine Clarity CLEAR Urine pH 6.0 Urine Specific [place] 1.003 Urine Ketones NEGATIVE Urine Nitrite NEGATIVE Urine Bilirubin NEGATIVE Urine Urobilinogen NEGATIVE Urine Leukocyte Esterase NEGATIVE Urine Hemoglobin NEGATIVE Urine Glucose NEGATIVE Urine Total Protein NEGATIVE Lactic Acid Level 1.8 Test 06/22/18 01:51 06/22/18 05:40 Lactic Acid Level 1.8 Ethyl Alcohol Level 101.0 H White Blood Count 8.0 # Red Blood Count 4.09 L Hemoglobin 10.2 L Hematocrit 32.5 L Mean Corpuscular Volume 79.5 L Mean Corpuscular 24.9 L Hemoglobin Mean Corpuscular 31.4 L Hemoglobin Concent Red Cell Distribution 18.4 H Width Platelet Count 573 H Mean Platelet Volume 8.6 Immature Granulocytes % 1.000 H Neutrophils % 75.7 Lymphocytes % 12.0 L Monocytes % 9.1 Eosinophils % 1.7 Basophils % 0.5 Nucleated Red Blood 0.0 Cells % Immature Granulocytes # 0.080 H Neutrophils # 6.1 Lymphocytes # 1.0 Monocytes # 0.7 Eosinophils # 0.1 Basophils # 0.0 Nucleated Red Blood 0.0 Cells # Sodium Level 143 Potassium Level 3.8 Chloride Level 109 Carbon Dioxide Level 24 Anion Gap 10 Blood Urea Nitrogen 10 Creatinine 0.78 Est Glomerular Filtrat > 60 Rate mL/min Glucose Level 85 Hemoglobin A1c 5.5 Calcium Level 8.7 Magnesium Level 1.9 Total Bilirubin 0.2 Direct Bilirubin 0.00 Indirect Bilirubin 0.2 Aspartate Amino 35 Transf (AST/SGOT) Alanine 11 L Aminotransferase (ALT/SG PT) Alkaline Phosphatase 88 Total Protein 7.0 Albumin 3.6 Globulin 3.40 H Albumin/Globulin Ratio 1.05 Thyroid Stimulating 0.609 Hormone (TSH) Medications Medication Current Medications IV Flush (NS 3 ml) 3 ml PER PROTOCOL IV ; Start 06/21/18 at 23:00 Ondansetron HCl (Zofran Inj) 4 mg Q6H PRN IV NAUSEA/VOMITING; Start 06/21/18 at 23:00 Acetaminophen (Tylenol Tab) 650 mg Q6H PRN PO .PAIN 1-3 OR TEMP; Start 06/21/18 at 23:00 Acetaminophen/ Hydrocodone Bitart ([place] (5/325)) 1 tab Q6H PRN PO .PAIN 4-6; Start 06/21/18 at 23:00 Levalbuterol (Xopenex Neb) 1.25 mg Q4H RESP THERAPY PRN HHN SHORTNESS OF BREATH; Start 06/21/18 at 23:00 Ipratropium [place] (Atrovent 0.02% (Neb)) 0.5 mg Q4H RESP THERAPY PRN HHN S HORTNESS OF BREATH; Start 06/21/18 at 23:00 Vancomycin HCl (Vanco Iv Per Pharmacy) VANCOMYCIN PER PHARMACY PER PROTOCOL XX ; Start 06/22/18 at 00:00 Piperacillin Sod/ Tazobactam Sod 100 ml @ 200 mls/hr Q6 IVPB Last administered on 06/22/18at 12:13; Admin Dose 200 MLS/HR; Start 06/22/18 at 00:00 Multi-Ingredient Ointment (Eucerin Cream) 1 applic BID TOP Last administered on 06/22/18at 08:41; Admin Dose 1 APPLIC; Start 06/22/18 at 00:00 Lorazepam (Ativan) 1 mg Q4H PRN IV AGITATION/ANXIETY; Start 06/22/18 at 01:30 Multivitamins Therapeutic (Theragran) 1 tab DAILY PO Last administered on 06/22/18 08:36; Admin Dose 1 TAB; Start 06/22/18 at 09:00 Folic Acid (Folic Acid) 1 mg DAILY PO Last administered on 06/22/18 08:36; Admin Dose 1 MG; Start 06/22/18 at 09:00 Thiamine HCl (Vitamin B1) 100 mg DAILY PO Last administered on 06/22/18 08:36; Admin Dose 100 MG; Start 06/22/18 at 09:00 Ferrous Sulfate (Ferrous Sulfate (Ec)) 325 mg BID PO Last administered on 06/22/18 08:36; Admin Dose 325 MG; Start 06/22/18 at 09:00 Vancomycin HCl 1.25 gm/Sodium Chloride 250 ml @ 83.333 mls/ hr Q12H IVPB Last administered on 06/22/18at 05:35; Admin Dose 83.333 MLS/HR; Start 06/22/18 at 05:00 Miscellaneous Information (*Rx Drug Level Order Reminder*) VANCO TROUGH @ 1,600 ON... ONCE ONCE XX ; Start 06/23/18 at 16:00; Stop 06/23/18 at 16:01 MAXIM WILLIAMSON MD Jun 22, 2018 13:01
[2018-06-23] VITALS (14 sets, daily range): BP systolic 129–188; BP diastolic 77–88; PULSE 70–200; RESP 16–20
[2018-06-23] MEDS: PIPER-TAZO 3.375 GM IV (PMX) 100 ML IVPB SCH ×2 (00:16→05:08)
[2018-06-23] MEDS: VANCOMYCIN HCL 1.25 GM in SOD CHLORIDE 0.9% 250 ML IVPB SCH (05:08)
[2018-06-23] MEDS: FERROUS SULFATE (EC) 325 MG TAB PO SCH ×2 (07:45→20:25)
[2018-06-23] MEDS: THIAMINE 100 MG TAB PO SCH (07:45)
[2018-06-23] MEDS: FOLIC ACID 1 MG TAB PO SCH (07:45)
[2018-06-23] MEDS: MULTIVITAMINS THERAPEUTIC TAB PO SCH (07:45)
[2018-06-23] MEDS: EUCERIN 113 GM CR TOP SCH ×2 (07:46→20:29)
--- NOTE | 2018-06-23 09:44 | CONS ---
Assessment/Plan Assessment/Plan Assessment/Plan (Daily) CT chest was reviewed from yesterday which is showing right hydropneumothorax. Assessment recommendations; 1. Patient admitted with shortness of breath due to likely acute relation of pleural effusion with persistent right pneumothorax. 2. Underlying severe COPD. 3. Bullous emphysema. 4. History of aspergillosis. 5. History of DVT and PE. 6. Status post multiple chest tube placement as well as failed VATS procedure. 7. Based upon CT imaging of the chest, currently there is no indication of any ongoing pneumonia. Discontinue antibiotics. Further recommendations per cardiothoracic surgeon. Patient possibly may require a repeat VATS procedure. Consultation Date/Type/Reason Admit Date/Time Jun 21, 2018 at 22:21 Initial Consult Date 06/22/18 Type of Consult Pulmonary Pulmonary consult requested for evaluation of recurrent right pleural effusion/pneumonia. Patient is a 57-year-old male who came into the hospital yesterday with shortness of breath for the last 2 days. Denies any coughing, wheezing, fever or chills. Upon evaluation a chest x-ray was done which is showing what appears to be right pleural effusion. Chronic appearing volume loss on the right side. Past medical history; 1. History of recurrent right pneumothorax status post multiple chest tube placements as well as failed VATS procedure. 2. History of aspergillosis with significant right pleural thickening preventing full right lung reexpansion. 3. COPD. 4. Anemia. 5. History of DVT and pulmonary embolism. Medications; reviewed. Allergies; none. Social history; patient has a long-standing history of smoking. Family history; noncontributory. 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 Review of systems; denies any headache, seizures, sinus symptoms. Any chest pain. Complains of scant cough without any sputum production. Denies any hemoptysis. Shortness of breath is slightly improved. Denies any abdominal pain, nausea vomiting. Any edema. Any melena or hematochezia. Patient has steady weight. General exam; middle-aged male, appears quite emaciated. Awake and alert. Currently no distress. Date/Time of Note DATE: 06/23/18 TIME: 09:42 24 HR Interval Summary Free Text/Dictation Patient's condition is stable. Remains awake and alert. Shortness of breath has improved. General exam; middle-aged male, awake alert, currently no distress. Exam/Review of Systems Exam Vitals Vital Signs Date Temp Pulse Resp B/P (MAP) Pulse Ox O2 O2 Flow FiO2 Time Delivery Rate 06/23/18 72 08:00 06/23/18 97.6 16 157/88 97 Room Air 07:39 (111) Intake and Output 06/22/18 06/22/18 06/23/18 1515:00 23:00 07:00 IntakeIntake Total 240 ml 1510 ml 500 ml BalanceBalance 240 ml 1510 ml 500 ml Exam HEENT exam; supple neck, no JVD. No lymphadenopathy. Midline trachea. No thyromegaly. Pharynx is clear. Patient has few remaining carious teeth. Chest exam; diminished breath sounds right lung. Left lung is clear. S1-S2 a udible, no murmurs. Regular rhythm. Abdomen exam; soft, nontender. No organomegaly. Nondistended. Bowel sounds audible. Extremity exam; no peripheral edema clubbing. BACK MAKER exam; no focal deficit. Results Result Diagram: 06/22/18 0540 06/22/18 0540 Medications Medication Current Medications IV Flush (NS 3 ml) 3 ml PER PROTOCOL IV ; Start 06/21/18 at 23:00 Ondansetron HCl (Zofran Inj) 4 mg Q6H PRN IV NAUSEA/VOMITING; Start 06/21/18 at 23:00 Acetaminophen (Tylenol Tab) 650 mg Q6H PRN PO .PAIN 1-3 OR TEMP; Start 06/21/18 at 23:00 Acetaminophen/ Hydrocodone Bitart ([place] (5/325)) 1 tab Q6H PRN PO .PAIN 4-6; Start 06/21/18 at 23:00 Levalbuterol (Xopenex Neb) 1.25 mg Q4H RESP THERAPY PRN HHN SHORTNESS OF BREATH; Start 06/21/18 at 23:00 Ipratropium [place] (Atrovent 0.02% (Neb)) 0.5 mg Q4H RESP THERAPY PRN HHN SHORTNESS OF BREATH; Start 06/21/18 at 23:00 Vancomycin HCl (Vanco Iv Per Pharmacy) VANCOMYCIN PER PHARMACY PER PROTOCOL XX ; Start 06/22/18 at 00:00 Piperacillin Sod/ Tazobactam Sod 100 ml @ 200 mls/hr Q6 IVPB Last administered on 06/23/18 05:08; Admin Dose 200 MLS/HR; Start 06/22/18 at 00:00 Multi-Ingredient Ointment (Eucerin Cream) 1 applic BID TOP Last administered on 06/23/18 07:46; Admin Dose 1 APPLIC; Start 06/22/18 at 00:00 Lorazepam (Ativan) 1 mg Q4H PRN IV AGITATION/ANXIETY; Start 06/22/18 at 01:30 Multivitamins Therapeutic (Theragran) 1 tab DAILY PO Last administered on 06/23/18 07:45; Admin Dose 1 TAB; Start 06/22/18 at 09:00 Folic Acid (Folic Acid) 1 mg DAILY PO Last administered on 06/23/18 07:45; Admin Dose 1 MG; Start 06/22/18 at 09:00 Thiamine HCl (Vitamin B1) 100 mg DAILY PO Last administered on 06/23/18 07:45; Admin Dose 100 MG; Start 06/22/18 at 09:00 Ferrous Sulfate (Ferrous Sulfate (Ec)) 325 mg BID PO Last administered on 06/23/18 07:45; Admin Dose 325 MG; Start 06/22/18 at 09:00 Vancomycin HCl 1.25 gm/Sodium Chloride 250 ml @ 83.333 mls/ hr Q12H IVPB Last administered on 06/23/18 05:08; Admin Dose 83.333 MLS/HR; Start 06/22/18 at 05:00 Miscellaneous Information (*Rx Drug Level Order Reminder*) VANCO TROUGH @ 1,600 ON... ONCE ONCE XX ; Start 06/23/18 at 16:00; Stop 06/23/18 at 16:01 NEEL BAZZI Jun 23, 2018 09:44
--- NOTE | 2018-06-23 15:15 | PN ---
Date/Time of Note Date/Time of Note DATE: 06/23/18 TIME: 15:10 Assessment/Plan VTE Prophylaxis Risk score (from Ns)>0 risk: 2 SCD applied (from [facility] [place]): No SCD contraindicated: DVT Pharmacological prophylaxis: LMWH Lines/Catheters IV Catheter Type (from [facility]): PICC Line Central line still needed: Yes Urinary Cath still in place: No Assessment/Plan Assessment/Plan 1. Right pleural effusion with persistent right pneumothorax, thoracic surgery consult with Dr. Sol 2. Status post multiple chest tube placement as well as failed VATS procedure. 3. COPD, neb prn 4. h/p aspergillosis 5. h/o DVT(, 2016) and PE(2015), hold xarelto, give lovenox for possible surgery 6. Microcytic anemia, chronic, iron panel 7. DVT prophylaxis: lovenox Result Diagram: 06/22/18 0540 06/22/18 0540 Subjective 24 Hr Interval Summary Free Text/Dictation less shortness of breath, no fever or chills Exam/Review of Systems Exam Vitals Vital Signs Date Temp Pulse Resp B/P (MAP) Pulse Ox O2 O2 Flow FiO2 Time Delivery Rate 06/23/18 87 12:00 06/23/18 98.0 16 129/77 98 Room Air 11:27 (94) Intake and Output 06/22/18 06/22/18 06/23/18 1515:00 23:00 07:00 IntakeIntake Total 240 ml 1510 ml 500 ml BalanceBalance 240 ml 1510 ml 500 ml Constitutional: alert, oriented, well developed Head: normocephalic, atraumatic Eyes: nl conjunctiva, EOMI, nl lids ENMT: nl external ears & nose, nl lips & teeth, nl nasal mucosa & septum Neck: supple, non-tender Respiratory: clear to auscultation, normal air movement; No congested cough, No crackles/rales, No diminished breath sounds, No intercostal retraction, No labored breathing, No respirations, No tactile fremitus, No wheezing, No other Cardiovascular: regular rate and rhythm, nl pulses; No bruits, No diastolic murmur, No edema, No gallop, No irregular rhythm, No jugular venous distention (JVD), No murmurs/extra sounds, No rub, No systolic murmur, No S3, No S4, No other Gastrointestinal: soft, nl liver, spleen, non-tender Musculoskeletal: nl extremities to inspection Extremities: normal pulses; No calf tenderness, No cyanosis, No clubbing, No edema, No pitting pedal edema, No palpable cord, No tenderness, No other Neurological: SUPERVISOR SANDBLASTER II-XII intact, nl mental status, nl speech, nl strength Medications Medication Current Medications IV Flush (NS 3 ml) 3 ml PER PROTOCOL IV ; Start 06/21/18 at 23:00 Ondansetron HCl (Zofran Inj) 4 mg Q6H PRN IV NAUSEA/VOMITING; Start 06/21/18 at 23:00 Acetaminophen (Tylenol Tab) 650 mg Q6H PRN PO .PAIN 1-3 OR TEMP; Start 06/21/18 at 23:00 Acetaminophen/ Hydrocodone Bitart ([place] (5/325)) 1 tab Q6H PRN PO .PAIN 4-6; Start 06/21/18 at 23:00 Levalbuterol (Xopenex Neb) 1.25 mg Q4H RESP THERAPY PRN HHN SHORTNESS OF [place]EL[place]Y TH; Start 06/21/18 at 23:00 Ipratropium [place] (Atrovent 0.02% (Neb)) 0.5 mg Q4H RESP THERAPY PRN HHN SHORTNESS OF BREATH; Start 06/21/18 at 23:00 Multi-Ingredient Ointment (Eucerin Cream) 1 applic BID TOP Last administered on 06/23/18at 07:46; Admin Dose 1 APPLIC; Start 06/22/18 at 00:00 Lorazepam (Ativan) 1 mg Q4H PRN IV AGITATION/ANXIETY; Start 06/22/18 at 01:30 Multivitamins Therapeutic (Theragran) 1 tab DAILY PO Last administered on 06/23/18at 07:45; Admin Dose 1 TAB; Start 06/22/18 at 09:00 Folic Acid (Folic Acid) 1 mg DAILY PO Last administered on 06/23/18at 07:45; Admin Dose 1 MG; Start 06/22/18 at 09:00 Thiamine HCl (Vitamin B1) 100 mg DAILY PO Last administered on 06/23/18at 07:45; Admin Dose 100 MG; Start 06/22/18 at 09:00 Ferrous Sulfate (Ferrous Sulfate (Ec)) 325 mg BID PO Last administered on 06/23/18at 07:45; Admin Dose 325 MG; Start 06/22/18 at 09:00 ZENIA DELAROSA MD Jun 23, 2018 15:15
[2018-06-23] MEDS: ENOXAPARIN 80 MG/0.8 ML SYG SC SCH (20:29)
[2018-06-24] VITALS (11 sets, daily range): BP systolic 164–190; BP diastolic 79–113; PULSE 80–103; RESP 18–19
[2018-06-24] MEDS: ENOXAPARIN 80 MG/0.8 ML SYG SC SCH ×2 (07:32→21:00)
[2018-06-24] MEDS: MULTIVITAMINS THERAPEUTIC TAB PO SCH (07:33)
[2018-06-24] MEDS: EUCERIN 113 GM CR TOP SCH ×2 (07:33→21:00)
[2018-06-24] MEDS: FERROUS SULFATE (EC) 325 MG TAB PO SCH ×2 (07:33→21:00)
[2018-06-24] MEDS: FOLIC ACID 1 MG TAB PO SCH (07:33)
[2018-06-24] MEDS: THIAMINE 100 MG TAB PO SCH (07:33)
--- NOTE | 2018-06-24 07:35 | CONS ---
Assessment/Plan Assessment/Plan Assessment/Plan (Daily) Assessment recommendations; 1. Patient admitted with shortness of breath due to development of hyd ropneumothorax on the right side. Patient with history of multiple chest tube placement on the right side as well as failed VATS procedure. 2. Significant right pleural thickening from prior pneumonia due to history of aspergillosis with lung entrapment, preventing full right lung reexpansion. 3. Pleural effusion appears simple on CT imaging of the chest, not indicative of empyema or an infective process. 4. Severe bullous emphysema. 5. History of DVT and pulmonary embolism. Patient maintained on chronic anti- Coagulation. Continue current supportive care. Further recommendations per cardiothoracic surgeon. Patient possibly may require a repeat VATS procedure on the right side. Placement of pigtail catheter is not recommended as the patient has had that multiple times before without any long-lasting benefit. Consultation Date/Type/Reason Admit Date/Time Jun 21, 2018 at 22:21 Initial Consult Date 06/22/18 Type of Consult Pulmonary Pulmonary consult requested for evaluation of recurrent right pleural effu syeda/pneumonia. Patient is a 57-year-old male who came into the hospital yesterday with shortness of breath for the last 2 days. Denies any coughing, wheezing, fever or chills. Upon evaluation a chest x-ray was done which is showing what appears to be right pleural effusion. Chronic appearing volume loss on the right side. Past medical history; 1. History of recurrent right pneumothorax status post multiple chest tube placements as well as failed VATS procedure. 2. History of aspergillosis with significant right pleural thickening preventing full right lung reexpansion. 3. COPD. 4. Anemia. 5. History of DVT and pulmonary embolism. Medications; reviewed. Allergies; none. Social history; patient has a long-standing history of smoking. Family history; noncontributory. 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 Review of systems; denies any headache, seizures, sinus symptoms. Any chest pain. Complains of scant cough without any sputum production. Denies any hemoptysis. Shortness of breath is slightly improved. Denies any abdominal pain, nausea vomiting. Any edema. Any melena or hematochezia. Patient has steady weight. General exam; middle-aged male, appears quite emaciated. Awake and alert. Currently no distress. Date/Time of Note DATE: 06/24/18 TIME: 07:32 24 HR Interval Summary Free Text/Dictation Patient's condition is stable. Remains awake and alert. Denies any shortness of breath at rest. Any coughing, wheezing, sputum production. General exam; middle-aged male, awake alert, currently in no distress. Exam/Review of Systems Exam Vitals Vital Signs Date Temp Pulse Resp B/P (MAP) Pulse Ox O2 O2 Flow FiO2 Time Delivery Rate 06/24/18 98.1 89 18 186/96 96 07:14 (126) 06/24/18 Room Air 05:00 Intake and Output 06/23/18 06/23/18 06/24/18 1515:00 23:00 07:00 IntakeIntake Total 250 ml 1500 ml BalanceBalance 250 ml 1500 ml Exam H EENT exam; supple neck, no JVD. No lymphadenopathy. Midline trachea. No thyromegaly. Pharynx is clear. Patient has few remaining carious teeth. Chest exam; diminished breath sounds right lung. Left lung is fairly clear. S1-S2 audible, no murmurs. Regular rhythm. Abdomen exam; soft, non-distended. No organomegaly. Bowel sounds audible. Extremity exam; no peripheral edema clubbing. MINE ENGINEERING SUPERINTENDENT exam; no focal deficit. Results Result Diagram: 06/22/1840 06/22/18 0540 Medications Medication Current Medications IV Flush (NS 3 ml) 3 ml PER PROTOCOL IV ; Start 06/21/18 at 23:00 Ondansetron HCl (Zofran Inj) 4 mg Q6H PRN IV NAUSEA/VOMITING; Start 06/21/18 at 23:00 Acetaminophen (Tylenol Tab) 650 mg Q6H PRN PO .PAIN 1-3 OR TEMP; Start 06/21/18 at 23:00 Acetaminophen/ Hydrocodone Bitart ([place] (5/325)) 1 tab Q6H PRN PO .PAIN 4-6; Start 06/21/18 at 23:00 Levalbuterol (Xopenex Neb) 1.25 mg Q4H RESP THERAPY PRN HHN SHORTNESS OF BREATH; Start 06/21/18 at 23:00 Ipratropium [place] (Atrovent 0.02% (Neb)) 0.5 mg Q4H RESP THERAPY PRN HHN SHORTNESS OF BREATH; Start 06/21/18 at 23:00 Multi-Ingredient Ointment (Eucerin Cream) 1 applic BID TOP Last administered on 06/23/18at 20:29; Admin Dose 1 APPLIC; Start 06/22/18 at 00:00 Lorazepam (Ativan) 1 mg Q4H PRN IV AGITATION/ANXIETY; Start 06/22/18 at 01:30 Multivitamins Therapeutic (Theragran) 1 tab DAILY PO Last administered on 06/23/18 07:45; Admin Dose 1 TAB; Start 06/22/18 at 09:00 Folic Acid (Folic Acid) 1 mg DAILY PO Last administered on 06/23/18 07:45; Admin Dose 1 MG; Start 06/22/18 at 09:00 Thiamine HCl (Vitamin B1) 100 mg DAILY PO Last administered on 06/23/18 07:45; Admin Dose 100 MG; Start 06/22/18 at 09:00 Ferrous Sulfate (Ferrous Sulfate (Ec)) 325 mg BID PO Last administered on 20:25; Admin Dose 325 MG; Start 06/22/18 at 09:00 Enoxaparin Sodium (Lovenox) 70 mg BID SC ; Start 06/23/18 at 21:00 NEEL BAZZI Jun 24, 2018 07:35
[2018-06-24] MEDS ORDERED: VANCOMYCIN IV PER PHARMACY XX SCH (09:30)
[2018-06-24] MEDS: AMLODIPINE 5 MG TAB PO SCH (10:08)
[2018-06-24] MEDS: VANCOMYCIN HCL 1.25 GM in SOD CHLORIDE 0.9% 250 ML IVPB SCH ×2 (12:09→23:00)
--- NOTE | 2018-06-24 14:38 | PN ---
Date/Time of Note Date/Time of Note DATE: 06/24/18 TIME: 14:36 Assessment/Plan VTE Prophylaxis Risk score (from Ns)>0 risk: 2 SCD applied (from Ns): Yes Pharmacological prophylaxis: LMWH Lines/Catheters IV [facility] ([facility] Peripheral IV Urinary Cath still in place: No Assessment/Plan Assessment/Plan 1. Right pleural effusion with persistent right pneumothorax, thoracic surgery consult with Dr. Sol(informed) 2. Status post multiple chest tube placement as well as failed VATS procedure. 3. COPD, neb prn 4. h/p aspergillosis 5. h/o DVT(2016) and PE(2015), hold xarelto, give lovenox for possible surgery 6. Microcytic anemia, chronic, iron panel 7. DVT prophylaxis: lovenox Result Diagram: 06/24/1872606/24/18726 Results 24hrs Laboratory Tests Test 06/24/18 07:27 White Blood Count 7.7 Red Blood Count 4.19 L Hemoglobin 10.5 L Hematocrit 34.0 L Mean Corpuscular Volume 81.1 L Mean Corpuscular Hemoglobin 25.1 L Mean Corpuscular Hemoglobin Concent 30.9 L Red Cell Distribution Width 18.6 H Platelet Count 513 H Mean Platelet Volume 8.7 Immature Granulocytes % 1.600 H Neutrophils % 70.1 Lymphocytes % 15.5 Monocytes % 7.4 Eosinophils % 4.8 Basophils % 0.6 Nucleated Red Blood Cells % 0.0 Immature Granulocytes # 0.120 H Neutrophils # 5.4 Lymphocytes # 1.2 Monocytes # 0.6 Eosinophils # 0.4 Basophils # 0.1 Nucleated Red Blood Cells # 0.0 Sodium Level 141 Potassium Level 3.7 Chloride Level 101 Carbon Dioxide Level 27 Anion Gap 13 Blood Urea Nitrogen 9 Creatinine 0.75 Est Glomerular Filtrat Rate mL/min > 60 Glucose Level 110 Calcium Level 9.6 Subjective 24 Hr Interval Summary Free Text/Dictation no shortness of breath, generalized itching Exam/Review of Systems Exam Vitals Vital Signs Date Temp Pulse Resp B/P (MAP) Pulse Ox O2 O2 Flow FiO2 Time Delivery Rate 06/24/18 103 12:40 06/24/18 98.5 19 164/94 96 11:47 (117) 06/24/18 Room Air 05:00 Intake and Output 06/23/18 06/23/18 06/24/18 1414:59 22:59 06:59 IntakeIntake Total 250 ml 1500 ml BalanceBalance 250 ml 1500 ml Constitutional: alert, oriented, well developed Head: normocephalic, atraumatic Eyes: nl conjunctiva, EOMI, nl lids ENMT: nl external ears & nose, nl lips & teeth, nl nasal mucosa & septum Neck: supple, non-tender Respiratory: diminished breath sounds (on right); No congested cough, No crackles/rales, No intercostal retraction, No labored breathing, No respirations, No tactile fremitus, No wheezing, No other Cardiovascular: regular rate and rhythm, nl pulses; No bruits, No diastolic murmur, No edema, No gallop, No irregular rhythm, No jugular venous distention (JVD), No murmurs/extra sounds, No rub, No systolic murmur, No S3, No S4, No other Gastrointestinal: soft, nl liver, spleen, non-tender Musculoskeletal: nl extremities to inspection Extremities: normal pulses; No calf tenderness, No cyanosis, No clubbing, No edema, No pitting pedal edema, No palpable cord, No tenderness, No other Neurological: MEDICAL TECHNOLOGIST MICROBIOLOGY II-XII intact, nl mental status, nl speech, nl strength Results Results 24hrs Laboratory Tests Test 06/24/18 07:27 White Blood Count 7.7 Red Blood Count 4.19 L Hemoglobin 10.5 L Hematocrit 34.0 L Mean Corpuscular Volume 81.1 L Mean Corpuscular Hemoglobin 25.1 L Mean Corpuscular Hemoglobin Concent 30.9 L Red Cell Distribution Width 18.6 H Platelet Count 513 H Mean Platelet Volume 8.7 Immature Granulocytes % 1.600 H Neutrophils % 70.1 Lymphocytes % 15.5 Monocytes % 7.4 Eosinophils % 4.8 Basophils % 0.6 Nucleated Red Blood Cells % 0.0 Immature Granulocytes # 0.120 H Neutrophils # 5.4 Lymphocytes # 1.2 Monocytes # 0.6 Eosinophils # 0.4 Basophils # 0.1 Nucleated Red Blood Cells # 0.0 Sodium Level 141 Potassium Level 3.7 Chloride Level 101 Carbon Dioxide Level 27 Anion Gap 13 Blood Urea Nitrogen 9 Creatinine 0.75 Est Glomerular Filtrat Rate mL/min > 60 Glucose Level 110 Calcium Level 9.6 Medications Medication Current Medications IV Flush (NS 3 ml) 3 ml PER PROTOCOL IV ; Start 06/21/18 at 23:00 Ondansetron HCl (Zofran Inj) 4 mg Q6H PRN IV NAUSEA/VOMITING; Start 06/21/18 at 23:00 Acetaminophen (Tylenol Tab) 650 mg Q6H PRN PO .PAIN 1-3 OR TEMP; Start 06/21/18 at 23:00 Acetaminophen/ Hydrocodone Bitart ([place] (5/325)) 1 tab Q6H PRN PO .PAIN 4-6; Start 06/21/18 at 23:00 Levalbuterol (Xopenex Neb) 1.25 mg Q4H RESP THERAPY PRN HHN SHORTNESS OF BREATH; Start 06/21/18 at 23:00 Ipratropium [place] (Atrovent 0.02% (Neb)) 0.5 mg Q4H RESP THERAPY PRN HHN SHORTNESS OF BREATH; Start 06/21/18 at 23:00 Multi-Ingredient Ointment (Eucerin Cream) 1 applic BID TOP Last administered on 06/24/18 07:33; Admin Dose 1 APPLIC; Start 06/22/18 at 00:00 Lorazepam (Ativan) 1 mg Q4H PRN IV AGITATION/ANXIETY; Start 06/22/18 at 01:30 Multivitamins Therapeutic (Theragran) 1 tab DAILY PO Last administered on 06/24/18 07:33; Admin Dose 1 TAB; Start 06/22/18 at 09:00 Folic Acid (Folic Acid) 1 mg DAILY PO Last administered on 06/24/18 07:33; Admin Dose 1 MG; Start 06/22/18 at 09:00 Thiamine HCl (Vitamin B1) 100 mg DAILY PO Last administered on 06/24/18 07:33; Admin Dose 100 MG; Start 06/22/18 at 09:00 Ferrous Sulfate (Ferrous Sulfate (Ec)) 325 mg BID PO Last administered on 06/24/18 07:33; Admin Dose 325 MG; Start 06/22/18 at 09:00 Enoxaparin Sodium (Lovenox) 70 mg BID SC ; Start 06/23/18 at 21:00 Amlodipine Besylate (Norvasc) 5 mg DAILY PO Last administered on 06/24/18 10:08; Admin Dose 5 MG; Start 06/24/18 at 09:30 Vancomycin HCl (Vanco Iv Per Pharmacy) VANCOMYCIN PER PHARMACY PER PROTOCOL XX ; Start 06/24/18 at 09:30 Vancomycin HCl 1.25 gm/Sodium Chloride 250 ml @ 83.333 mls/ hr Q12H IVPB Last administered on 06/24/18at 12:09; Admin Dose 83.333 MLS/HR; Start 06/24/18 at 11:00 ZENIA DELAROSA MD Jun 24, 2018 14:38
[2018-06-24] MEDS ORDERED: PERMETHRIN 1% 59 ML TOP STA (15:16)
[2018-06-25] MEDS: FERROUS SULFATE (EC) 325 MG TAB PO SCH ×2 (08:22→20:57)
[2018-06-25] MEDS: AMLODIPINE 5 MG TAB PO SCH (08:23)
[2018-06-25] MEDS: MULTIVITAMINS THERAPEUTIC TAB PO SCH (08:23)
[2018-06-25] MEDS: THIAMINE 100 MG TAB PO SCH (08:23)
[2018-06-25] MEDS: FOLIC ACID 1 MG TAB PO SCH (08:23)
[2018-06-25] MEDS: EUCERIN 113 GM CR TOP SCH ×2 (08:24→21:24)
[2018-06-25] MEDS: ENOXAPARIN 80 MG/0.8 ML SYG SC SCH ×2 (08:27→21:00)
[2018-06-25] MEDS: HYDROCODONE/APAP (5/325) TAB PO PRN (08:35)
[2018-06-25 11:10] VITALS: BP 167/88; PULSE 88; RESP 19
[2018-06-25] MEDS: VANCOMYCIN HCL 1.25 GM in SOD CHLORIDE 0.9% 250 ML IVPB SCH ×2 (11:42→23:21)
--- NOTE | 2018-06-25 11:48 | CONS ---
Consult Date/Type/Reason Admit Date/Time Jun 21, 2018 at 22:21 Initial Consult Date 06/22/18 Type of Consult Pulmonary Date/Time of Note DATE: 06/25/18 TIME: 11:45 Subjective Patient is comfortable this morning no respiratory distress. Objective Vital Signs Date Temp Pulse Resp B/P (MAP) Pulse Ox O2 O2 Flow FiO2 Time Delivery Rate 06/25/18 98.4 88 19 167/88 96 11:10 (114) 06/24/18 Room Air 05:00 Intake and Output 06/24/18 06/24/18 06/25/18 1515:00 23:00 07:00 IntakeIntake Total 250 ml 700 ml 800 ml BalanceBalance 250 ml 700 ml 800 ml Exam GENERAL: VITAL SIGNS: per chart NECK: Supple. No JVD or lymphadenopathy. CARDIAC EXAM: S1, S2. No added sounds or murmurs. CHEST: Diminished air entry right lung. ABDOMEN: Soft, nontender. No guarding or rebound. EXTREMITIES: No cyanosis, clubbing or edema. NEUROLOGIC: Generalized weakness. No focal deficits. Results/Medications Result Diagram: 06/24/18 0727 06/24/18 0727 Medications Current Medications IV Flush (NS 3 ml) 3 ml PER PROTOCOL IV ; Start 06/21/18 at 23:00 Ondansetron HCl (Zofran Inj) 4 mg Q6H PRN IV NAUSEA/VOMITING; Start 06/21/18 at 23:00 Acetaminophen (Tylenol Tab) 650 mg Q6H PRN PO .PAIN 1-3 OR TEMP; Start 06/21/18 at 23:00 Acetaminophen/ Hydrocodone Bitart ([place] (5/325)) 1 tab Q6H PRN PO .PAIN 4-6 Last administered on 06/25/18at 08:35; Admin Dose 1 TAB; Start 06/21/18 at 23:00 Levalbuterol (Xopenex Neb) 1.25 mg Q4H RESP THERAPY PRN HHN SHORTNESS OF BREATH; Start 06/21/18 at 23:00 Ipratropium [place] (Atrovent 0.02% (Neb)) 0.5 mg Q4H RESP THERAPY PRN HHN SHORTNESS OF BREATH; Start 06/21/18 at 23:00 Multi-Ingredient Ointment (Eucerin Cream) 1 applic BID TOP Last administered on 06/25/18 08:24; Admin Dose 1 APPLIC; Start 06/22/18 at 00:00 Lorazepam (Ativan) 1 mg Q4H PRN IV AGITATION/ANXIETY; Start 06/22/18 at 01:30 Multivitamins Therapeutic (Theragran) 1 tab DAILY PO Last administered on 06/25/18 08:23; Admin Dose 1 TAB; Start 06/22/18 at 09:00 Folic Acid (Folic Acid) 1 mg DAILY PO Last administered on 06/25/18 08:23; Admin Dose 1 MG; Start 06/22/18 at 09:00 Thiamine HCl (Vitamin B1) 100 mg DAILY PO Last administered on 06/25/18 08:23; Admin Dose 100 MG; Start 06/22/18 at 09:00 Ferrous Sulfate (Ferrous Sulfate (Ec)) 325 mg BID PO Last administered on 06/25/18 08:22; Admin Dose 325 MG; Start 06/22/18 at 09:00 Enoxaparin Sodium (Lovenox) 70 mg BID SC ; Start 06/23/18 at 21:00 Amlodipine Besylate (Norvasc) 5 mg DAILY PO Last administered on 06/25/18 08:23; Admin Dose 5 MG; Start 06/24/18 at 09:30 Vancomycin HCl (Vanco Iv Per Pharmacy) VANCOMYCIN PER PHARMACY PER PROTOCOL XX ; Start 06/24/18 at 09:30 Vancomycin HCl 1.25 gm/Sodium Chloride 250 ml @ 83.333 mls/ hr Q12H IVPB Last administered on 06/25/18at 11:42; Admin Dose 83.333 MLS/HR; Start 06/24/18 at 11:00 Assessment/Plan Hospital Course (Demo Recall) Assessment Recurrent right pleural effusion with hydropneumothorax History of VATS decortication History of aspergillosis Plan 1. CT surgery reevaluation 2. May require Pleurx catheter drainage. 3. ID recommendations Anticipate discharge soon if cleared by thoracic surgery. LIDIA MEADE MD, [facility] Jun 25, 2018 11:48
--- NOTE | 2018-06-25 13:40 | PN ---
Date/Time of Note Date/Time of Note DATE: 06/25/18 TIME: 13:39 Assessment/Plan VTE Prophylaxis Risk score (from Nsg)>0 risk: 2 SCD applied (from Ns): Yes Pharmacological prophylaxis: heparin Lines/Catheters IV Catheter Type (from Nrsg): Peripheral IV Urinary Cath still in place: No Assessment/Plan Hospital Course This is a 57-year-old male being admitted to the telemetry floor for: Recurrent R sided pleural effusion status post VATS, IR guided pigtail and Pleurx - CT surgery evaluation is pending. Likely needs chest tube vs VATS COPD: Patient does not appear to be in any acute exacerbation. Patient is not wheezing on examination. PRN nebs as indicated., anemia1. Recurrent Rt hemopneumothorax; thick pleura. h/o VATS. stable, sp IR guided pigtail, then Pleurx, removed. 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 #8 chronic microcytic anemia: Continue ferrous sulfate, no signs of bleeding at this time #9 history of possible drug-seeking behavior: Monitor closely and avoid any heavy dose narcotics. #10 DVT GI prophylaxis: SCDs, no GI prophylaxis indicated Further treatment strategy will be implemented as per CT surgery Result Diagram: 06/24/1872606/24/18726 Subjective 24 Hr Interval Summary Free Text/Dictation Awaiting CT surgery eval No change to clinical status. Breathing comfortably Exam/Review of Systems Exam Vitals Vital Signs Date Temp Pulse Resp B/P (MAP) Pulse Ox O2 O2 Flow FiO2 Time Delivery Rate 06/25/18 98.4 88 19 167/88 96 11:10 (114) 06/24/18 Room Air 05:00 Intake and Output 06/24/18 06/24/18 06/25/18 1515:00 23:00 07:00 IntakeIntake Total 250 ml 700 ml 800 ml BalanceBalance 250 ml 700 ml 800 ml Constitutional: alert, oriented, well developed Psych: no complaints, nl mood/affect Head: normocephalic, atraumatic Eyes: nl conjunctiva, EOMI, nl lids, nl sclera, PERRL ENMT: nl external ears & nose, nl lips & teeth, nl nasal mucosa & septum Neck: supple, non-tender Respiratory: clear to auscultation, normal air movement Cardiovascular: regular rate and rhythm, nl pulses Gastrointestinal: soft, nl liver, spleen, non-tender Musculoskeletal: nl extremities to inspection, nl gait and stance Extremities: normal pulses 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 intact, nl mental status, nl speech, nl strength Skin: nl turgor; No rash or lesions Lymph: nl lymph nodes Medications Medication Current Medications IV Flush (NS 3 ml) 3 ml PER PROTOCOL IV ; Start 06/21/18 at 23:00 Ondansetron HCl (Zofran Inj) 4 mg Q6H PRN IV NAUSEA/VOMITING; Start 06/21/18 at 23:00 Acetaminophen (Tylenol Tab) 650 mg Q6H PRN PO .PAIN 1-3 OR TEMP; Start 06/21/18 at 23:00 Acetaminophen/ Hydrocodone Bitart ([place] (5/325)) 1 tab Q6H PRN PO .PAIN 4-6 Last administered on 06/25/18at 08:35; Admin Dose 1 TAB; Start 06/21/18 at 23:00 Levalbuterol (Xopenex Neb) 1.25 mg Q4H RESP THERAPY PRN HHN SHORTNESS OF BREATH; Start 06/21/18 at 23:00 Ipratropium [place] (Atrovent 0.02% (Neb)) 0.5 mg Q4H RESP THERAPY PRN HHN SHORTNESS OF BREATH; Start 06/21/18 at 23:00 Multi-Ingredient Ointment (Eucerin Cream) 1 applic BID TOP Last administered on 06/25/18 08:24; Admin Dose 1 APPLIC; Start 06/22/18 at 00:00 Lorazepam (Ativan) 1 mg Q4H PRN IV AGITATION/ANXIETY; Start 06/22/18 at 01:30 Multivitamins Therapeutic (Theragran) 1 tab DAILY PO Last administered on 06/25/18 08:23; Admin Dose 1 TAB; Start 06/22/18 at 09:00 Folic Acid (Folic Acid) 1 mg DAILY PO Last administered on 06/25/18 08:23; Admin Dose 1 MG; Start 06/22/18 at 09:00 Thiamine HCl (Vitamin B1) 100 mg DAILY PO Last administered on 06/25/18 08:23; Admin Dose 100 MG; Start 06/22/18 at 09:00 Ferrous Sulfate (Ferrous Sulfate (Ec)) 325 mg BID PO Last administered on 06/25/18at 08:22; Admin Dose 325 MG; Start 06/22/18 at 09:00 Enoxaparin Sodium (Lovenox) 70 mg BID SC ; Start 06/23/18 at 21:00 Amlodipine Besylate (Norvasc) 5 mg DAILY PO Last administered on 06/25/18at 08:23; Admin Dose 5 MG; Start 06/24/18 at 09:30 Vancomycin HCl (Vanco Iv Per Pharmacy) VANCOMYCIN PER PHARMACY PER PROTOCOL XX ; Start 06/24/18 at 09:30 Vancomycin HCl 1.25 gm/Sodium Chloride 250 ml @ 83.333 mls/ hr Q12H IVPB Last administered on 06/25/18at 11:42; Admin Dose 83.333 MLS/HR; Start 06/24/18 at 11:00 MAXIM WILLIAMSON MD Jun 25, 2018 13:40
[2018-06-25 14:00] VITALS: BP 156/95; PULSE 93; RESP 18
[2018-06-25 19:42] VITALS: BP 158/88; PULSE 98; RESP 20
[2018-06-26 01:18] VITALS: BP 137/77; PULSE 91; RESP 20
[2018-06-26 07:56] VITALS: BP 128/80; PULSE 87; RESP 16
[2018-06-26] MEDS: FOLIC ACID 1 MG TAB PO SCH (08:36)
[2018-06-26] MEDS: FERROUS SULFATE (EC) 325 MG TAB PO SCH ×2 (08:36→20:55)
[2018-06-26] MEDS: MULTIVITAMINS THERAPEUTIC TAB PO SCH (08:36)
[2018-06-26] MEDS: THIAMINE 100 MG TAB PO SCH (08:36)
[2018-06-26] MEDS: ENOXAPARIN 80 MG/0.8 ML SYG SC SCH ×2 (08:42→20:57)
[2018-06-26] MEDS: EUCERIN 113 GM CR TOP SCH ×2 (08:45→21:00)
[2018-06-26] MEDS: AMLODIPINE 5 MG TAB PO SCH (08:48)
[2018-06-26] MEDS: HYDROCODONE/APAP (5/325) TAB PO PRN ×2 (08:48→18:04)
--- NOTE | 2018-06-26 10:40 | CONS ---
Consult Date/Type/Reason Admit Date/Time Jun 21, 2018 at 22:21 Initial Consult Date 06/22/18 Type of Consult Pulmonary Date/Time of Note DATE: 06/26/18 TIME: 10:39 Subjective No significant changes remains relatively comfortable this morning. Exertional dyspnea. Objective Vital Signs Date Temp Pulse Resp B/P (MAP) Pulse Ox O2 O2 Flow FiO2 Time Delivery Rate 06/26/18 97.8 87 16 128/80 98 07:56 (96) 06/24/18 Room Air 05:00 Intake and Output 06/25/18 06/25/18 06/26/18 1515:00 23:00 07:00 IntakeIntake Total 250 ml OutputOutput Total 600 ml BalanceBalance 250 ml -600 ml Exam GENERAL: VITAL SIGNS: per chart NECK: Supple. No JVD or lymphadenopathy. CARDIAC EXAM: S1, S2. No added sounds or murmurs. CHEST: Diminished air entry right lung. ABDOMEN: Soft, nontender. No guarding or rebound. EXTREMITIES: No cyanosis, clubbing or edema. NEUROLOGIC: Generalized weakness. No focal deficits. Results/Medications Result Diagram: 06/24/18 0727 06/24/18 0727 Medications Current Medications IV Flush (NS 3 ml) 3 ml PER PROTOCOL IV ; Start 06/21/18 at 23:00 Ondansetron HCl (Zofran Inj) 4 mg Q6H PRN IV NAUSEA/VOMITING; Start 06/21/18 at 23:00 Acetaminophen (Tylenol Tab) 650 mg Q6H PRN PO .PAIN 1-3 OR TEMP; Start 06/21/18 at 23:00 Acetaminophen/ Hydrocodone Bitart ([place] (5/325)) 1 tab Q6H PRN PO .PAIN 4-6 Last administered on 06/26/18at 08:48; Admin Dose 1 TAB; Start 06/21/18 at 23:00 Levalbuterol (Xopenex Neb) 1.25 mg Q4H RESP THERAPY PRN HHN SHORTNESS OF BREATH; Start 06/21/18 at 23:00 Ipratropium [place] (Atrovent 0.02% (Neb)) 0.5 mg Q4H RESP THERAPY PRN HHN SHORTNESS OF BREATH; Start 06/21/18 at 23:00 Multi-Ingredient Ointment (Eucerin Cream) 1 applic BID TOP Last administered on 06/25/18 21:24; Admin Dose 1 APPLIC; Start 06/22/18 at 00:00 Lorazepam (Ativan) 1 mg Q4H PRN IV AGITATION/ANXIETY; Start 06/22/18 at 01:30 Multivitamins Therapeutic (Theragran) 1 tab DAILY PO Last administered on 06/26/18 08:36; Admin Dose 1 TAB; Start 06/22/18 at 09:00 Folic Acid (Folic Acid) 1 mg DAILY PO Last administered on 06/26/18 08:36; Admin Dose 1 MG; Start 06/22/18 at 09:00 Thiamine HCl (Vitamin B1) 100 mg DAILY PO Last administered on 06/26/18 08:36; Admin Dose 100 MG; Start 06/22/18 at 09:00 Ferrous Sulfate (Ferrous Sulfate (Ec)) 325 mg BID PO Last administered on 06/26/18 08:36; Admin Dose 325 MG; Start 06/22/18 at 09:00 Enoxaparin Sodium (Lovenox) 70 mg BID SC Last administered on 06/26/18 08:42; Admin Dose 70 MG; Start 06/23/18 at 21:00 Amlodipine Besylate (Norvasc) 5 mg DAILY PO Last administered on 06/26/18 08:48; Admin Dose 5 MG; Start 06/24/18 at 09:30 Vancomycin HCl (Vanco Iv Per Pharmacy) VANCOMYCIN PER PHARMACY PER PROTOCOL XX ; Start 06/24/18 at 09:30 Vancomycin HCl 1.25 gm/Sodium Chloride 250 ml @ 83.333 mls/ hr Q12H IVPB Last administered on 06/25/18 23:21; Admin Dose 83.333 MLS/HR; Start 06/24/18 at 11:00 Assessment/Plan Hospital Course (Demo Recall) Assessment Recurrent right pleural effusion with hydropneumothorax History of VATS decortication History of aspergillosis Plan 1. CT surgery reevaluation 2. May require Pleurx catheter drainage. 3. ID recommendations Discussed with CT surgery patient to be scheduled for Pleurx catheter tomorrow morning. LIDIA MEADE MD, [facility] Jun 26, 2018 10:40
[2018-06-26] MEDS: VANCOMYCIN HCL 1.25 GM in SOD CHLORIDE 0.9% 250 ML IVPB SCH (10:56)
[2018-06-26 14:49] VITALS: BP 134/68; PULSE 96; RESP 16
--- NOTE | 2018-06-26 16:59 | PN ---
Date/Time of Note Date/Time of Note DATE: 06/26/18 TIME: 16:57 Assessment/Plan VTE Prophylaxis Risk score (from Ns)>0 risk: 6 SCD applied (from Ns): Yes Pharmacological prophylaxis: heparin Lines/Catheters IV Catheter Type (from Nrs): [place] Urinary Cath still in place: No Assessment/Plan Hospital Course This is a 57-year-old male with COPD, heavy smoking history, and recurrent R sided pleural effusion status post VATS, IR guided pigtail and Pleurx. Presents with shortness of breath and found to have recurrent effusion - CT surgery evaluation is pending. Likely needs chest tube vs VATS - Dr Sol aware CoNS bactremia: - Dc vancomycin, likely a contaminant COPD: Patient does not appear to be in any acute exacerbation. Patient is not wheezing on examination. PRN nebs as indicated., anemia1. Recurrent Rt hemopneumothorax; thick pleura. h/o VATS. stable, sp IR guided pigtail, then Pleurx, removed. 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 #8 chronic microcytic anemia: Continue ferrous sulfate, no signs of bleeding at this time #9 history of possible drug-seeking behavior: Monitor closely and avoid any heavy dose narcotics. #10 DVT GI prophylaxis: SCDs, no GI prophylaxis indicated Further treatment strategy will be implemented as per CT surgery Result Diagram: 06/24/1872606/24/18726 Subjective 24 Hr Interval Summary Free Text/Dictation Awaiting management plan from CV surgery Resting comfortably Exam/Review of Systems Exam Vitals Vital Signs Date Temp Pulse Resp B/P (MAP) Pulse Ox O2 O2 Flow FiO2 Time Delivery Rate 06/26/18 98.7 96 16 134/68 99 14:49 (90) 06/24/18 Room Air 05:00 Intake and Output 06/25/18 06/25/18 06/26/18 1515:00 23:00 07:00 IntakeIntake Total 250 ml OutputOutput Total 600 ml BalanceBalance 250 ml -600 ml Constitutional: alert, oriented, well developed Psych: no complaints, nl mood/affect Head: normocephalic, atraumatic Eyes: nl conjunctiva, EOMI, nl lids, nl sclera, PERRL ENMT: nl external ears & nose, nl lips & teeth, nl nasal mucosa & septum Neck: supple, non-tender Respiratory: clear to auscultation, normal air movement Cardiovascular: regular rate and rhythm, nl pulses Gastrointestinal: soft, nl liver, spleen, non-tender Musculoskeletal: nl extremities to inspection, nl gait and stance Extremities: normal pulses 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, nl mental status, nl speech, nl strength Skin: nl turgor; No rash or lesions Lymph: nl lymph nodes Medications Medication Current Medications IV Flush (NS 3 ml) 3 ml PER PROTOCOL IV ; Start 06/21/18 at 23:00 Ondansetron HCl (Zofran Inj) 4 mg Q6H PRN IV NAUSEA/VOMITING; Start 06/21/18 at 23:00 Acetaminophen (Tylenol Tab) 650 mg Q6H PRN PO .PAIN 1-3 OR TEMP; Start 06/21/18 at 23:00 Acetaminophen/ Hydrocodone Bitart ([place] (5/325)) 1 tab Q6H PRN PO .PAIN 4-[address] administered on 06/26/18at 08:48; Admin Dose 1 TAB; Start 06/21/18 at 23:00 Levalbuterol (Xopenex Neb) 1.25 mg Q4H RESP THERAPY PRN HHN SHORTNESS OF BREATH; Start 06/21/18 at 23:00 Ipratropium [place] (Atrovent 0.02% (Neb)) 0.5 mg Q4H RESP THERAPY PRN HHN SHORTNESS OF BREATH; Start 06/21/18 at 23:00 Multi-Ingredient Ointment (Eucerin Cream) 1 applic BID TOP Last administered on 06/25/18at 21:24; Admin Dose 1 APPLIC; Start 06/22/18 at 00:00 Lorazepam (Ativan) 1 mg Q4H PRN IV AGITATION/ANXIETY; Start 06/22/18 at 01:30 Multivitamins Therapeutic (Theragran) 1 tab DAILY PO Last administered on 06/26at 08:36; Admin Dose 1 TAB; Start 06/22/18 at 09:00 Folic Acid (Folic Acid) 1 mg DAILY PO Last administered on 06/26/18at 08:36; Admin Dose 1 MG; Start 06/22/18 at 09:00 Thiamine HCl (Vitamin B1) 100 mg DAILY PO Last administered on 06/26/18 08:36; Admin Dose 100 MG; Start 06/22/18 at 09:00 Ferrous Sulfate (Ferrous Sulfate (Ec)) 325 mg BID PO Last administered on 06/26/18at 08:36; Admin Dose 325 MG; Start 06/22/18 at 09:00 Enoxaparin Sodium (Lovenox) 70 mg BID SC Last administered on 06/26/18at 08:42; Admin Dose 70 MG; Start 06/23/18 at 21:00 Amlodipine Besylate (Norvasc) 5 mg DAILY PO Last administered on 06/26/18 08:48; Admin Dose 5 MG; Start 06/24/18 at 09:30 Vancomycin HCl (Vanco Iv Per Pharmacy) VANCOMYCIN PER PHARMACY PER PROTOCOL XX ; Start 06/24/18 at 09:30 Vancomycin HCl 1.25 gm/Sodium Chloride 250 ml @ 83.333 mls/ hr Q12H IVPB Last administered on 06/26/18at 10:56; Admin Dose 83.333 MLS/HR; Start 06/24/18 at 11:00 Miscellaneous Information (*Rx Drug Level Order Reminder*) VANCO TROUGH @ 2,200 ONCE ONCE XX ; Start 06/26/18 at 22:00; Stop 06/26/18 at 22:01 MAXIM WILLIAMSON MD Jun 26, 2018 16:59
[2018-06-26 20:07] VITALS: BP 146/85; PULSE 96; RESP 19
[2018-06-27] MEDS: HYDROCODONE/APAP (5/325) TAB PO PRN ×3 (00:31→17:49)
[2018-06-27 00:38] VITALS: BP 137/82; PULSE 111; RESP 16
[2018-06-27 02:25] VITALS: PULSE 85
[2018-06-27 07:28] VITALS: BP 129/71; PULSE 81; RESP 18
[2018-06-27] MEDS: EUCERIN 113 GM CR TOP SCH ×2 (08:45→20:06)
[2018-06-27] MEDS: FOLIC ACID 1 MG TAB PO SCH (08:46)
[2018-06-27] MEDS: AMLODIPINE 5 MG TAB PO SCH (08:46)
[2018-06-27] MEDS: THIAMINE 100 MG TAB PO SCH (08:46)
[2018-06-27] MEDS: MULTIVITAMINS THERAPEUTIC TAB PO SCH (08:46)
[2018-06-27] MEDS: FERROUS SULFATE (EC) 325 MG TAB PO SCH ×2 (08:46→20:02)
[2018-06-27] MEDS: ENOXAPARIN 80 MG/0.8 ML SYG SC SCH ×2 (08:48→20:04)
--- NOTE | 2018-06-27 10:52 | CONS ---
Assessment/Plan Assessment/Plan Assessment/Plan (Daily) Assessment and recommendations; 1. Patient admitted with recurrent shortness of breath due to development of right hydropneumothorax. Based upon CT imaging of the chest, fluid appears serous and uncomplicated and not reflective of any infective process. 2. History of recurrent right pneumothorax, status post multiple small bore chest tube placement in the past with recurrence. Status post failed VATS procedure. 3. Severe bullous emphysema. 4. History of aspergillosis. 5. History of DVT and pulmonary embolism. 6. Hypertension. Continue current supportive care. Patient scheduled for right thoracic pigtail catheter placement. Consultation Date/Type/Reason Admit Date/Time Jun 21, 2018 at 22:21 Initial Consult Date 06/22/18 Type of Consult Pulmonary Pulmonary consult requested for evaluation of recurrent right pleural effusion/pneumonia. Patient is a 57-year-old male who came into the hospital yesterday with shortness of breath for the last 2 days. Denies any coughing, wheezing, fever or chills. Upon evaluation a chest x-ray was done which is showing what appears to be right pleural effusion. Chronic appearing volume loss on the right side. Past medical history; 1. History of recurrent right pneumothorax status post multiple chest tube placements as well as failed VATS procedure. 2. History of aspergillosis with significant right pleural thickening preventing full right lung reexpansion. 3. COPD. 4. Anemia. 5. History of DVT and pulmonary embolism. Medications; reviewed. Allergies; none. Social history; patient has a long-standing history of smoking. Family history; noncontributory. 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 Review of systems; denies any headache, seizures, sinus symptoms. Any chest pain. Complains of scant cough without any sputum production. Denies any hemoptysis. Shortness of breath is slightly improved. Denies any abdominal pain, nausea vomiting. Any edema. Any melena or hematochezia. Patient has steady weight. General exam; middle-aged male, appears quite emaciated. Awake and alert. Currently no distress. Date/Time of Note DATE: 06/27/18 TIME: 10:50 24 HR Interval Summary Free Text/Dictation Patient's condition is stable. Denies any shortness of breath at rest. Any coughing, wheezing any sputum production. General exam; middle-aged male, awake alert, currently in no distress. Exam/Review of Systems Exam Vitals Vital Signs Date Temp Pulse Resp B/P (MAP) Pulse Ox O2 O2 Flow FiO2 Time Delivery Rate 06/27/18 99.0 81 18 129/71 97 Room Air 07:28 (90) Intake and Output 06/26/18 06/26/18 06/27/18 1414:59 22:59 06:59 IntakeIntake Total 250 ml 500 ml BalanceBalance 250 ml 500 ml Exam H EENT exam; supple neck, no JVD. No lymphadenopathy. Midline trachea. No thyromegaly. Patient is mostly edentulous. Chest exam; diminished breath sounds right lung. Left lung is clear. S1-S2 audible, no murmurs. Regular rhythm. Abdomen exam; soft, nontender. No organomegaly. Bowel sounds audible. Extremity exam; no peripheral edema clubbing. 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 Results Result Diagram: 06/24/1872606/24/18726 Medications Medication Current Medications IV Flush (NS 3 ml) 3 ml PER PROTOCOL IV ; Start 06/21/18 at 23:00 Ondansetron HCl (Zofran Inj) 4 mg Q6H PRN IV NAUSEA/VOMITING; Start 06/21/18 at 23:00 Acetaminophen (Tylenol Tab) 650 mg Q6H PRN PO .PAIN 1-3 OR TEMP; Start 06/21/18 at 23:00 Acetaminophen/ Hydrocodone Bitart ([place] (5/325)) 1 tab Q6H PRN PO .PAIN 4-6 Last administered on 06/27/18at 09:23; Admin Dose 1 TAB; Start 06/21/18 at 23:00 Levalbuterol (Xopenex Neb) 1.25 mg Q4H RESP THERAPY PRN HHN SHORTNESS OF BREATH; Start 06/21/18 at 23:00 Ipratropium [place] (Atrovent 0.02% (Neb)) 0.5 mg Q4H RESP THERAPY PRN HHN SHORTNESS OF BREATH; Start 06/21/18 at 23:00 Multi-Ingredient Ointment (Eucerin Cream) 1 applic BID TOP Last administered on 06/25/18at 21:24; Admin Dose 1 APPLIC; Start 06/22/18 at 00:00 Lorazepam (Ativan) 1 mg Q4H PRN IV AGITATION/ANXIETY; Start 06/22/18 at 01:30 Multivitamins Therapeutic (Theragran) 1 tab DAILY PO Last administered on 06/27/18 08:46; Admin Dose 1 TAB; Start 06/22/18 at 09:00 Folic Acid (Folic Acid) 1 mg DAILY PO Last administered on 06/27/18 08:46; Admin Dose 1 MG; Start 06/22/18 at 09:00 Thiamine HCl (Vitamin B1) 100 mg DAILY PO Last administered on 06/27/18 08:46; Admin Dose 100 MG; Start 06/22/18 at 09:00 Ferrous Sulfate (Ferrous Sulfate (Ec)) 325 mg BID PO Last administered on 06/27/18 08:46; Admin Dose 325 MG; Start 06/22/18 at 09:00 Enoxaparin Sodium (Lovenox) 70 mg BID SC Last administered on 06/27/18 08:48; Admin Dose 70 MG; Start 06/23/18 at 21:00 Amlodipine Besylate (Norvasc) 5 mg DAILY PO Last administered on 06/27/18 08:46; Admin Dose 5 MG; Start 06/24/18 at 09:30 NEEL BAZZI Jun 27, 2018 10:52
[2018-06-27 14:48] VITALS: BP 163/95; PULSE 107; RESP 18
[2018-06-27 16:03] VITALS: BP 139/84; PULSE 84
--- NOTE | 2018-06-27 16:20 | PN ---
Date/Time of Note Date/Time of Note DATE: 06/27/18 TIME: 16:19 Assessment/Plan VTE Prophylaxis Risk score (from Nsg)>0 risk: 5 Pharmacological prophylaxis: NA/contraindicated Pharm contraindication: low risk/ambulating Lines/Catheters IV Catheter Type (from Nrsg): [place] Urinary Cath still in place: No Assessment/Plan Hospital Course Pt is a 57-year-old male with COPD, heavy smoking history, and recurrent R sided pleural effusion status post VATS, IR guided pigtail and Pleurx. Presents with shortness of breath and found to have recurrent effusion - CT surgery evaluation is pending. Likely needs chest tube vs VATS - Dr Sol aware CoNS bactremia: - Dc'd vancomycin, likely a contaminant COPD: Patient does not appear to be in any acute exacerbation. Patient is not wheezing on examination. PRN nebs as indicated., anemia1. Recurrent Rt hemopneumothorax; thick pleura. h/o VATS. stable, sp IR guided pigtail, then Pleurx, removed. 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 Chronic microcytic anemia: Continue ferrous sulfate, no signs of bleeding at this time History of possible drug-seeking behavior: Monitor closely and avoid any heavy dose narcotics. Prophylaxis: SCDs Further treatment strategy will be implemented as per CT surgery Result Diagram: 06/24/1872606/24/18726 Subjective 24 Hr Interval Summary Constitutional: no complaints Exam/Review of Systems Exam Vitals Vital Signs Date Temp Pulse Resp B/P (MAP) Pulse Ox O2 O2 Flow FiO2 Time Delivery Rate 06/27/18 84 139/84 16:03 (102) 06/27/18 98.6 18 97 Room Air 14:48 Intake and Output 06/26/18 06/26/18 06/27/18 1515:00 23:00 07:00 IntakeIntake Total 250 ml 500 ml BalanceBalance 250 ml 500 ml Constitutional: alert Respiratory: clear to auscultation Cardiovascular: regular rate and rhythm Gastrointestinal: soft; No distended Musculoskeletal: nl extremities to inspection Medications Medication Current Medications IV Flush (NS 3 ml) 3 ml PER PROTOCOL IV ; Start 06/21/18 at 23:00 Ondansetron HCl (Zofran Inj) 4 mg Q6H PRN IV NAUSEA/VOMITING; Start 06/21/18 at 23:00 Acetaminophen (Tylenol Tab) 650 mg Q6H PRN PO .PAIN 1-3 OR TEMP; Start 06/21/18 at 23:00 Acetaminophen/ Hydrocodone Bitart ([place] (5/325)) 1 tab Q6H PRN PO .PAIN 4-6 Last administered on 06/27/18 09:23; Admin Dose 1 TAB; Start 06/21/18 at 23:00 Levalbuterol (Xopenex Neb) 1.25 mg Q4H RESP THERAPY PRN HHN SHORTNESS OF BREATH; Start 06/21/18 at 23:00 Ipratropium [place] (Atrovent 0.02% (Neb)) 0.5 mg Q4H RESP THERAPY PRN HHN S HORTNESS OF BREATH; Start 06/21/18 at 23:00 Multi-Ingredient Ointment (Eucerin Cream) 1 applic BID TOP Last administered on 06/25/18 21:24; Admin Dose 1 APPLIC; Start 06/22/18 at 00:00 Lorazepam (Ativan) 1 mg Q4H PRN IV AGITATION/ANXIETY; Start 06/22/18 at 01:30 Multivitamins Therapeutic (Theragran) 1 tab DAILY PO Last administered on 06/27/18 08:46; Admin Dose 1 TAB; Start 06/22/18 at 09:00 Folic Acid (Folic Acid) 1 mg DAILY PO Last administered on 06/27/18 08:46; Admin Dose 1 MG; Start 06/22/18 at 09:00 Thiamine HCl (Vitamin B1) 100 mg DAILY PO Last administered on 06/27/18 08:46; Admin Dose 100 MG; Start 06/22/18 at 09:00 Ferrous Sulfate (Ferrous Sulfate (Ec)) 325 mg BID PO Last administered on 06/27/18 08:46; Admin Dose 325 MG; Start 06/22/18 at 09:00 Enoxaparin Sodium (Lovenox) 70 mg BID SC Last administered on 06/27/18 08:48; Admin Dose 70 MG; Start 06/23/18 at 21:00 Amlodipine Besylate (Norvasc) 5 mg DAILY PO Last administered on 06/27/18 08:46; Admin Dose 5 MG; Start 06/24/18 at 09:30 JULIENNE ALMANZA Jun 27, 2018 16:20
--- NOTE | 2018-06-27 19:11 | CONS ---
Assessment/Plan Assessment/Plan Assessment/Plan (Daily) Right hydro-pneumothorax patient has had several catheters in the past Plan to proceed with either Pleurx catheter or thoracoscopy but the patient wants to leave and come back at a later time We will proceed with a Pleurx catheter when the patient is agreeable Consultation Date/Type/Reason Admit Date/Time Jun 21, 2018 at 22:21 Date of Consultation: Jun 27, 2018 Type of Consult Thoracic surgery Reason for Consultation Right pleural effusion Date/Time of Note DATE: 06/27/18 TIME: 19:10 Hx of Present Illness This is a 57-year-old male with a history of right pleural effusion had undergone catheter placement is being admitted with a right hydropneumothorax patient is clinically stable minimal shortness breath Cardiovascular: no complaints Gastrointestinal: no complaints Genitourinary: no complaints Musculoskeletal: no complaints Skin: no complaints Neurologic: no complaints Endocrine: no complaints Past Medical History Home Meds Active Scripts Hydrocortisone Acetate (ANTI-ITCH) 28 Gm Oint...g., 1 APPLIC TOP BID for 7 Days, #1 5 Refills Prov:KALEY RAYGOZA MD 05/20/18 Docusate Sodium (Dok) 100 Mg Capsule, 100 MG PO BID PRN for CONSTIPATION for 7 Days, CAP otc Prov:KALEY RAYGOZA MD 05/20/18 Oxycodone HCl/Acetaminophen (Oxycodone-Acetaminophen 10-325) 1 Each Tablet, 1 TAB PO Q4H PRN for MODERATE PAIN LEVEL 4-6 for 5 Days, TAB Prov:KALEY RAYGOZA MD 05/20/18 Acetaminophen* (Tylenol*) 325 Mg Tablet, 650 MG PO Q6H PRN for PAIN LEVEL 1-3 OR FEVER for 1 Day, TAB Prov:KALEY RAYGOZA MD 05/20/18 Reported Medications Rivaroxaban* (Xarelto*) 20 Mg Tablet, 20 MG PO WITH DINNER, TAB 04/25/18 Discontinued Scripts Rivaroxaban* (Xarelto*) 20 Mg Tablet, 20 MG PO WITH DINNER for 30 Days, #30 TAB 1 Refill Prov:KALEY RAYGOZA MD 05/20/18 Ferrous Sulfate* (Ferrous Sulfate*) 325 Mg Tabec, 325 MG PO BID for 30 Days, #30 TAB 2 Refills Prov:KALEY RAYGOZA MD 05/20/18 Medications Current Medications IV Flush (NS 3 ml) 3 ml PER PROTOCOL IV ; Start 06/21/18 at 23:00 Ondansetron HCl (Zofran Inj) 4 mg Q6H PRN IV NAUSEA/VOMITING; Start 06/21/18 at 23:00 Acetaminophen (Tylenol Tab) 650 mg Q6H PRN PO .PAIN 1-3 OR TEMP; Start 06/21/18 at 23:00 Acetaminophen/ Hydrocodone Bitart ([place] (5/325)) 1 tab Q6H PRN PO .PAIN 4-6 Last administered on 06/27/18at 17:49; Admin Dose 1 TAB; Start 06/21/18 at 23:00 Levalbuterol (Xopenex Neb) 1.25 mg Q4H RESP THERAPY PRN HHN SHORTNESS OF BREATH; Start 06/21/18 at 23:00 Ipratropium [place] (Atrovent 0.02% (Neb)) 0.5 mg Q4H RESP THERAPY PRN HHN SHORTNESS OF BREATH; Start 06/21/18 at 23:00 Multi-Ingredient Ointment (Eucerin Cream) 1 applic BID TOP Last administered on 06/25/18 21:24; Admin Dose 1 APPLIC; Start 06/22/18 at 00:00 Lorazepam (Ativan) 1 mg Q4H PRN IV AGITATION/ANXIETY; Start 06/22/18 at 01:30 Multivitamins Therapeutic (Theragran) 1 tab DAILY PO Last administered on 06/27/18 08:46; Admin Dose 1 TAB; Start 06/22/18 at 09:00 Folic Acid (Folic Acid) 1 mg DAILY PO Last administered on 06/27/18 08:46; Admin Dose 1 MG; Start 06/22/18 at 09:00 Thiamine HCl (Vitamin B1) 100 mg DAILY PO Last administered on 06/27/18 08:46; Admin Dose 100 MG; Start 06/22/18 at 09:00 Ferrous Sulfate (Ferrous Sulfate (Ec)) 325 mg BID PO Last administered on 06/27/18 08:46; Admin Dose 325 MG; Start 06/22/18 at 09:00 Enoxaparin Sodium (Lovenox) 70 mg BID SC Last administered on 3/11/19at 08:48; Admin Dose 70 MG; Start 06/23/18 at 21:00 Amlodipine Besylate (Norvasc) 5 mg DAILY PO Last administered on 06/27/18at 08:46; Admin Dose 5 MG; Start 06/24/18 at 09:30 Allergies: Coded Allergies: No Known Allergy (Unverified , 06/22/18) Past Surgical History Past Surgical Hx: other Social History Alcohol Use: heavy Smoking Status: Former smoker Drug Use: marijuana Exam/Review of Systems Exam Vitals Vital Signs Date Temp Pulse Resp B/P (MAP) Pulse Ox O2 O2 Flow FiO2 Time Delivery Rate 06/27/18 84 139/84 16:03 (102) 06/27/18 98.6 18 97 Room Air 14:48 Intake and Output 06/26/18 06/26/18 06/27/18 1515:00 23:00 07:00 IntakeIntake Total 250 ml 500 ml BalanceBalance 250 ml 500 ml ENMT: nl external ears & nose, nl lips & teeth, nl nasal mucosa & septum Neck: supple, non-tender Respiratory: clear to auscultation, normal air movement Cardiovascular: regular rate and rhythm, nl pulses Gastrointestinal: soft, nl liver, spleen, non-tender Neurological: 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 II-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 intact, nl mental status, nl speech, nl strength Additional Comments Diminished breath sounds on the right side Results Result Diagram: 06/24/1872606/24/18 07 Medications Medication Current Medications IV Flush (NS 3 ml) 3 ml PER PROTOCOL IV ; Start 06/21/18 at 23:00 Ondansetron HCl (Zofran Inj) 4 mg Q6H PRN IV NAUSEA/VOMITING; Start 06/21/18 at 23:00 Acetaminophen (Tylenol Tab) 650 mg Q6H PRN PO .PAIN 1-3 OR TEMP; Start 06/21/18 at 23:00 Acetaminophen/ Hydrocodone Bitart ([place] (5/325)) 1 tab Q6H PRN PO .PAIN 4-6 Last administered on 06/27/18at 17:49; Admin Dose 1 TAB; Start 06/21/18 at 23:00 Levalbuterol (Xopenex Neb) 1.25 mg Q4H RESP THERAPY PRN HHN SHORTNESS OF BREATH; Start 06/21/18 at 23:00 Ipratropium [place] (Atrovent 0.02% (Neb)) 0.5 mg Q4H RESP THERAPY PRN HHN SHORTNESS OF BREATH; Start 06/21/18 at 23:00 Multi-Ingredient Ointment (Eucerin Cream) 1 applic BID TOP Last administered on 06/25/18 21:24; Admin Dose 1 APPLIC; Start 06/22/18 at 00:00 Lorazepam (Ativan) 1 mg Q4H PRN IV AGITATION/ANXIETY; Start 06/22/18 at 01:30 Multivitamins Therapeutic (Theragran) 1 tab DAILY PO Last administered on 06/27/18 08:46; Admin Dose 1 TAB; Start 06/22/18 at 09:00 Folic Acid (Folic Acid) 1 mg DAILY PO Last administered on 06/27/18 08:46; Admin Dose 1 MG; Start 06/22/18 at 09:00 Thiamine HCl (Vitamin B1) 100 mg DAILY PO Last administered on 06/27/18 08:46; Admin Dose 100 MG; Start 06/22/18 at 09:00 Ferrous Sulfate (Ferrous Sulfate (Ec)) 325 mg BID PO Last administered on 08:46; Admin Dose 325 MG; Start 06/22/18 at 09:00 Enoxaparin Sodium (Lovenox) 70 mg BID SC Last administered on 06/27/18 08:48; Admin Dose 70 MG; Start 06/23/18 at 21:00 Amlodipine Besylate (Norvasc) 5 mg DAILY PO Last administered on 06/27/18 08:46; Admin Dose 5 MG; Start 06/24/18 at 09:30 KARLI DANIEL MD Jun 27, 2018 19:11
[2018-06-27 19:38] VITALS: BP 136/81; PULSE 88; RESP 18
[2018-06-27] MEDS: IPRATROPIUM (NEB) 0.5 MG/2.5 ML AMP HHN PRN (20:23)
[2018-06-27] MEDS: LEVALBUTEROL (NEB) 1.25 MG/0.5 ML AMP HHN PRN (20:23)
[2018-06-28] MEDS: HYDROCODONE/APAP (5/325) TAB PO PRN ×3 (00:45→18:17)
[2018-06-28 02:00] VITALS: BP 143/81; PULSE 81; RESP 18
[2018-06-28] MEDS ORDERED: HYDROCORTISONE 0.5% 28.35 GM CR TOP PRN (06:00)
[2018-06-28 07:10] VITALS: BP 120/76; PULSE 87; RESP 20
[2018-06-28] MEDS: THIAMINE 100 MG TAB PO SCH (09:00)
[2018-06-28] MEDS: FERROUS SULFATE (EC) 325 MG TAB PO SCH ×2 (09:00→20:44)
[2018-06-28] MEDS: MULTIVITAMINS THERAPEUTIC TAB PO SCH (09:00)
[2018-06-28] MEDS: EUCERIN 113 GM CR TOP SCH ×2 (09:00→20:44)
[2018-06-28] MEDS: AMLODIPINE 5 MG TAB PO SCH (09:00)
[2018-06-28] MEDS: FOLIC ACID 1 MG TAB PO SCH (09:00)
[2018-06-28] MEDS: ENOXAPARIN 80 MG/0.8 ML SYG SC SCH ×2 (09:03→20:42)
--- NOTE | 2018-06-28 09:44 | CONS ---
Assessment/Plan Assessment/Plan Assessment/Plan (Daily) Assessment and recommendations; 1. Patient admitted with recurrent shortness of breath due to development of large right hydropneumothorax with a history of multiple chest tube placement in the past because of recurrent pneumothorax and status post failed VATS procedure. 2. Underlying severe bullous emphysema. 3. History of severe Aspergillus pneumonia. 4. Significant right pleural thickening preventing full right lung reexpansion causing significant therapeutic challenge. 5. History of DVT and pulmonary embolism. 6. History of hypertension. Continue current supportive care. Patient has not decided whether he wants to have the Pleurx catheter now or wants to sign out AMA. Consultation Date/Type/Reason Admit Date/Time Jun 21, 2018 at 22:21 Initial Consult Date 06/22/18 Type of Consult Pulmonary Pulmonary consult requested for evaluation of recurrent right pleural effusion/pneumonia. Patient is a 57-year-old male who came into the hospital yesterday with shortness of breath for the last 2 days. Denies any coughing, wheezing, fever or chills. Upon evaluation a chest x-ray was done which is showing what appears to be right pleural effusion. Chronic appearing volume loss on the right side. Past medical history; 1. History of recurrent right pneumothorax status post multiple chest tube placements as well as failed VATS procedure. 2. History of aspergillosis with significant right pleural thickening preventing full right lung reexpansion. 3. COPD. 4. Anemia. 5. History of DVT and pulmonary embolism. Medications; reviewed. Allergies; none. Social history; patient has a long-standing history of smoking. Family history; noncontributory. 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 Review of systems; denies any headache, seizures, sinus symptoms. Any chest pain. Complains of scant cough without any sputum production. Denies any hemoptysis. Shortness of breath is slightly improved. Denies any abdominal pain, nausea vomiting. Any edema. Any melena or hematochezia. Patient has steady weight. General exam; middle-aged male, appears quite emaciated. Awake and alert. Currently no distress. Date/Time of Note DATE: 06/28/18 TIME: 09:41 24 HR Interval Summary Free Text/Dictation Patient's condition is stable. Patient refused Pleurx catheter placement. He wants to go home and come back later. He denies any shortness of breath at rest. General exam; middle-aged male, awake alert, currently in no distress. Exam/Review of Systems Exam Vitals Vital Signs Date Temp Pulse Resp B/P (MAP) Pulse Ox O2 O2 Flow FiO2 Time Delivery Rate 06/28/18 98.6 87 20 120/76 98 Room Air 07:10 (91) 06/27/18 21 20:26 Intake and Output 06/27/18 06/27/18 06/28/18 1515:00 23:00 07:00 IntakeIntake Total 700 ml BalanceBalance 700 ml Exam H EENT exam; supple neck, no JVD. No lymphadenopathy. Midline trachea. No thyromegaly. Patient has few remaining carious teeth. Chest exam; diminished breath sounds bilaterally. More pronounced in right lung. S1-S2 audible, no murmurs. Regular rhythm. Abdomen exam; soft, nondistended. Nontender. Bowel sounds audible. Extremity exam; no peripheral edema clubbing. 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 Results Result Diagram: 06/24/1827 06/24/18726 Medications Medication Current Medications IV Flush (NS 3 ml) 3 ml PER PROTOCOL IV ; Start 06/21/18 at 23:00 Ondansetron HCl (Zofran Inj) 4 mg Q6H PRN IV NAUSEA/VOMITING; Start 06/21/18 at 23:00 Acetaminophen (Tylenol Tab) 650 mg Q6H PRN PO .PAIN 1-3 OR TEMP Last administered on 06/27/18at 22:02; Admin Dose 650 MG; Start 06/21/18 at 23:00 Acetaminophen/ Hydrocodone Bitart ([place] (5/325)) 1 tab Q6H PRN PO .PAIN 4-6 Last administered on 06/28/18at 09:09; Admin Dose 1 TAB; Start 06/21/18 at 23:00 Levalbuterol (Xopenex Neb) 1.25 mg Q4H RESP THERAPY PRN HHN SHORTNESS OF BREATH Last administered on 06/27/18at 20:23; Admin Dose 1.25 MG; Start 06/21/18 at 23:00 Ipratropium [place] (Atrovent 0.02% (Neb)) 0.5 mg Q4H RESP THERAPY PRN HHN SHORTNESS OF BREATH Last administered on 06/27/18 20:23; Admin Dose 0.5 MG; Start 06/21/18 at 23:00 Multi-Ingredient Ointment (Eucerin Cream) 1 applic BID TOP Last administered on 06/25/18 21:24; Admin Dose 1 APPLIC; Start 06/22/18 at 00:00 Lorazepam (Ativan) 1 mg Q4H PRN IV AGITATION/ANXIETY; Start 06/22/18 at 01:30 Multivitamins Therapeutic (Theragran) 1 tab DAILY PO Last administered on 06/28/18 09:00; Admin Dose 1 TAB; Start 06/22/18 at 09:00 Folic Acid (Folic Acid) 1 mg DAILY PO Last administered on 06/28/18 09:00; Admin Dose 1 MG; Start 06/22/18 at 09:00 Thiamine HCl (Vitamin B1) 100 mg DAILY PO Last administered on 06/28/18 09:00; Admin Dose 100 MG; Start 06/22/18 at 09:00 Ferrous Sulfate (Ferrous Sulfate (Ec)) 325 mg BID PO Last administered on 06/28/18 09:00; Admin Dose 325 MG; Start 06/22/18 at 09:00 Enoxaparin Sodium (Lovenox) 70 mg BID SC Last administered on 06/28/18 09:03; Admin Dose 70 MG; Start 06/23/18 at 21:00 Amlodipine Besylate (Norvasc) 5 mg DAILY PO Last administered on 06/28/18 09:00; Admin Dose 5 MG; Start 06/24/18 at 09:30 Hydrocortisone (Hydrocortisone 0.5% Cr) 1 applic BID PRN TOP itching Last administered on 06/28/18 09:06; Admin Dose 1 APPLIC; Start 06/28/18 at 06:00 NEEL BAZZI 12, 2019 09:44
--- NOTE | 2018-06-28 13:48 | PN ---
Date/Time of Note Date/Time of Note DATE: 06/28/18 TIME: 13:47 Assessment/Plan VTE Prophylaxis Risk score (from Ns)>0 risk: 4 SCD applied (from Ns): Yes Pharmacological prophylaxis: NA/contraindicated Pharm contraindication: low risk/ambulating Lines/Catheters IV Catheter Type (from [facility]): Saline Lock Urinary Cath still in place: No Assessment/Plan Hospital Course Pt is a 57-year-old male with COPD, heavy smoking history, and recurrent R sided pleural effusion status post VATS, IR guided pigtail and Pleurx. Presents with shortness of breath and found to have recurrent effusion - CT surgery consultation appreciated, patient to have a Pleurx catheter placed tomorrow CoNS bactremia: - Dc'd vancomycin, likely a contaminant COPD: Patient does not appear to be in any acute exacerbation. Patient is not wheezing on examination. PRN nebs as indicated., anemia1. Recurrent Rt hemopneumothorax; thick pleura. h/o VATS. stable, sp IR guided pigtail, then Pleurx, removed. 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 Chronic microcytic anemia: Continue ferrous sulfate, no signs of bleeding at this time History of possible drug-seeking behavior: Monitor closely and avoid any heavy dose narcotics. Prophylaxis: SCDs Pleurx catheter tomorrow Result Diagram: 06/24/1872606/24/18726 Subjective 24 Hr Interval Summary Constitutional: no complaints Exam/Review of Systems Exam Vitals Vital Signs Date Temp Pulse Resp B/P (MAP) Pulse Ox O2 O2 Flow FiO2 Time Delivery Rate 06/28/18 98.6 87 20 120/76 98 Room Air 07:10 (91) 06/27/18 21 20:26 Intake and Output 06/27/18 06/27/18 06/28/18 1515:00 23:00 07:00 IntakeIntake Total 700 ml BalanceBalance 700 ml Constitutional: alert, oriented Respiratory: clear to auscultation Cardiovascular: regular rate and rhythm Gastrointestinal: soft; No distended Musculoskeletal: nl extremities to inspection Medications Medication Current Medications IV Flush (NS 3 ml) 3 ml PER PROTOCOL IV ; Start 06/21/18 at 23:00 Ondansetron HCl (Zofran Inj) 4 mg Q6H PRN IV NAUSEA/VOMITING; Start 06/21/18 at 23:00 Acetaminophen (Tylenol Tab) 650 mg Q6H PRN PO .PAIN 1-3 OR TEMP Last administered on 06/27/18 22:02; Admin Dose 650 MG; Start 06/21/18 at 23:00 Acetaminophen/ Hydrocodone Bitart ([place] (5/325)) 1 tab Q6H PRN PO .PAIN 4-6 Last administered on 06/28/18 09:09; Admin Dose 1 TAB; Start 06/21/18 at 23:00 Levalbuterol (Xopenex Neb) 1.25 mg Q4H RESP THERAPY PRN HHN SHORTNESS OF BREATH Last administered on 06/27/18 20:23; Admin Dose 1.25 MG; Start 06/21/18 at 23:00 Ipratropium [place] (Atrovent 0.02% (Neb)) 0.5 mg Q4H RESP THERAPY PRN HHN SHORTNESS OF BREATH Last administered on 06/27/18 20:23; Admin Dose 0.5 MG; Start 06/21/18 at 23:00 Multi-Ingredient Ointment (Eucerin Cream) 1 applic BID TOP Last administered on 06/25/18 21:24; Admin Dose 1 APPLIC; Start 06/22/18 at 00:00 Lorazepam (Ativan) 1 mg Q4H PRN IV AGITATION/ANXIETY; Start 06/22/18 at 01:30 Multivitamins Therapeutic (Theragran) 1 tab DAILY PO Last administered on 06/28/18 09:00; Admin Dose 1 TAB; Start 06/22/18 at 09:00 Folic Acid (Folic Acid) 1 mg DAILY PO Last administered on 06/28/18 09:00; Admin Dose 1 MG; Start 06/22/18 at 09:00 Thiamine HCl (Vitamin B1) 100 mg DAILY PO Last administered on 06/28/18 09:00; Admin Dose 100 MG; Start 06/22/18 at 09:00 Ferrous Sulfate (Ferrous Sulfate (Ec)) 325 mg BID PO Last administered on 06/28/18 09:00; Admin Dose 325 MG; Start 06/22/18 at 09:00 Enoxaparin Sodium (Lovenox) 70 mg BID SC Last administered on 06/28/18at 09:03; Admin Dose 70 MG; Start 06/23/18 at 21:00 Amlodipine Besylate (Norvasc) 5 mg DAILY PO Last administered on 06/28/18at 09:00; Admin Dose 5 MG; Start 06/24/18 at 09:30 Hydrocortisone (Hydrocortisone 0.5% Cr) 1 applic BID PRN TOP itching Last administered on 06/28/18 09:06; Admin Dose 1 APPLIC; Start 06/28/18 at 06:00 JULIENNE ALMANZA Jun 28, 2018 13:48
[2018-06-28 14:22] VITALS: BP 117/64; PULSE 75; RESP 20
--- NOTE | 2018-06-28 15:14 | PN ---
Date/Time of Note Date/Time of Note DATE: 06/28/18 TIME: 15:13 Assessment/Plan Lines/Catheters IV Catheter Type (from Nrsg): Saline Lock [place] in Place (from Nrsg): No Assessment/Plan Assessment/Plan Right-sided hydropneumothorax Plan for Pleurx catheter placement tomorrow Subjective 24 Hr Interval Summary Constitutional: improved Pain Control: mild Exam/Review of Systems Vital Signs Vitals Vital Signs Date Temp Pulse Resp B/P (MAP) Pulse Ox O2 O2 Flow FiO2 Time Delivery Rate 06/28/18 98.6 87 20 120/76 98 Room Air 07:10 (91) 06/27/18 21 20:26 Intake and Output 06/27/18 06/27/18 06/28/18 1515:00 23:00 07:00 IntakeIntake Total 700 ml BalanceBalance 700 ml Exam Eyes: nl conjunctiva, EOMI, nl lids, nl sclera ENMT: nl external ears & nose, nl lips & teeth, nl nasal mucosa & septum, mucosa pink and moist Neck: supple, non-tender Respiratory: clear to auscultation, normal air movement Cardiovascular: regular rate and rhythm, nl pulses Gastrointestinal: soft, nl liver, spleen, non-tender Musculoskeletal: nl extremities to inspection, nl gait and stance Extremities: normal pulses Results Result Diagram: 06/24/18 0727 06/24/18 0727 KARLI DANIEL MD Jun 28, 2018 15:14
[2018-06-28 20:32] VITALS: BP 160/87; PULSE 81; RESP 18
[2018-06-29] MEDS: HYDROCODONE/APAP (5/325) TAB PO PRN ×2 (00:19→10:46)
[2018-06-29 02:01] VITALS: BP 154/82; PULSE 87; RESP 18
[2018-06-29 08:06] VITALS: BP 110/62; PULSE 62; RESP 18
[2018-06-29] MEDS ORDERED: FENTAnyl 50 MCG/ML VIAL ONE (09:16)
[2018-06-29] MEDS ORDERED: MIDAZOLAM 1 MG/ML 2 ML INJ ONE (09:16)
[2018-06-29] MEDS ORDERED: LIDOCAINE 1% (MDV) 20 ML INJ ONE (09:42)
[2018-06-29] MEDS ORDERED: SOD CHLORIDE 0.9% 1,000 ML ONE (10:09)
[2018-06-29] MEDS: ENOXAPARIN 80 MG/0.8 ML SYG SC SCH ×2 (10:37→22:12)
[2018-06-29] MEDS: FOLIC ACID 1 MG TAB PO SCH (10:39)
[2018-06-29] MEDS: THIAMINE 100 MG TAB PO SCH (10:40)
[2018-06-29] MEDS: FERROUS SULFATE (EC) 325 MG TAB PO SCH ×2 (10:40→22:06)
[2018-06-29] MEDS: MULTIVITAMINS THERAPEUTIC TAB PO SCH (10:40)
[2018-06-29] MEDS: AMLODIPINE 5 MG TAB PO SCH (10:40)
[2018-06-29] MEDS: EUCERIN 113 GM CR TOP SCH ×2 (10:41→22:06)
--- NOTE | 2018-06-29 11:29 | CONS ---
Consultation Date/Type/Reason Admit Date/Time Jun 21, 2018 at 22:21 Initial Consult Date 06/22/18 Type of Consult Pulmonary Pulmonary consult requested for evaluation of recurrent right pleural effusion/pneumonia. Patient is a 57-year-old male who came into the hospital yesterday with shortness of breath for the last 2 days. Denies any coughing, wheezing, fever or chills. Upon evaluation a chest x-ray was done which is showing what appears to be right pleural effusion. Chronic appearing volume loss on the right side. Past medical history; 1. History of recurrent right pneumothorax status post multiple chest tube placements as well as failed VATS procedure. 2. History of aspergillosis with significant right pleural thickening preventing full right lung reexpansion. 3. COPD. 4. Anemia. 5. History of DVT and pulmonary embolism. Medications; reviewed. Allergies; none. Social history; patient has a long-standing history of smoking. Family history; noncontributory. 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 Review of systems; denies any headache, seizures, sinus symptoms. Any chest pain. Complains of scant cough without any sputum production. Denies any hemoptysis. Shortness of breath is slightly improved. Denies any abdominal pain, nausea vomiting. Any edema. Any melena or hematochezia. Patient has steady weight. General exam; middle-aged male, appears quite emaciated. Awake and alert. Currently no distress. Date/Time of Note DATE: 06/29/18 TIME: 11:26 24 HR Interval Summary Free Text/Dictation Patient's condition is stable. Denies any shortness of breath at rest. General exam; elderly male, awake alert, currently no distress. HEENT exam; supple neck, no neck masses. Chest exam; diminished breath sounds right lung. S1-S2 audible, no murmurs. Abdomen exam; soft, nontender. Bowel sounds audible. Extremity exam; no peripheral edema clubbing. 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 Assessment recommendations; 1. Patient admitted with shortness of breath due to right hydropneumothorax w ith history of multiple chest tube placement in the past with recurrence. Status post failed VATS procedure as well. 2. Bullous emphysema. 3. History of aspergillosis. 4. History of PE and DVT. 5. Significant right pleural thickening preventing full right lung reexpansion. Presenting a therapeutic challenge. Patient scheduled for right Pleurx catheter placement today. Exam/Review of Systems Exam Vitals Vital Signs Date Temp Pulse Resp B/P (MAP) Pulse Ox O2 O2 Flow FiO2 Time Delivery Rate 06/29/18 98.1 62 18 110/62 98 Room Air 08:06 (78) 06/27/18 21 20:26 Intake and Output 06/28/18 06/28/18 06/29/18 1515:00 23:00 07:00 IntakeIntake Total 720 ml 600 ml BalanceBalance 720 ml 600 ml Medications Medication Current Medications IV Flush (NS 3 ml) 3 ml PER PROTOCOL IV ; Start 06/21/18 at 23:00 Ondansetron HCl (Zofran Inj) 4 mg Q6H PRN IV NAUSEA/VOMITING; Start 06/21/18 at 23:00 Acetaminophen (Tylenol Tab) 650 mg Q6H PRN PO .PAIN 1-3 OR TEMP Last administered on 06/27/18 22:02; Admin Dose 650 MG; Start 06/21/18 at 23:00 Acetaminophen/ Hydrocodone Bitart ([place] (5/325)) 1 tab Q6H PRN PO .PAIN 4-6 Last administered on 06/29/18 10:46; Admin Dose 1 TAB; Start 06/21/18 at 23:00 Levalbuterol (Xopenex Neb) 1.25 mg Q4H RESP THERAPY PRN HHN SHORTNESS OF BREATH Last administered on 06/27/18 20:23; Admin Dose 1.25 MG; Start 06/21/18 at 23:00 Ipratropium [place] (Atrovent 0.02% (Neb)) 0.5 mg Q4H RESP THERAPY PRN HHN SHORTNESS OF BREATH Last administered on 06/27/18 20:23; Admin Dose 0.5 MG; Start 06/21/18 at 23:00 Multi-Ingredient Ointment (Eucerin Cream) 1 applic BID TOP Last administered on 06/29/18 10:41; Admin Dose 1 APPLIC; Start 06/22/18 at 00:00 Lorazepam (Ativan) 1 mg Q4H PRN IV AGITATION/ANXIETY; Start 06/22/18 at 01:30 Multivitamins Therapeutic (Theragran) 1 tab DAILY PO Last administered on 06/29/18 10:40; Admin Dose 1 TAB; Start 06/22/18 at 09:00 Folic Acid (Folic Acid) 1 mg DAILY PO Last administered on 06/29/18 10:39; Admin Dose 1 MG; Start 06/22/18 at 09:00 Thiamine HCl (Vitamin B1) 100 mg DAILY PO Last administered on 06/29/18 10:40; Admin Dose 100 MG; Start 06/22/18 at 09:00 Ferrous Sulfate (Ferrous Sulfate (Ec)) 325 mg BID PO Last administered on 06/29/18 10:40; Admin Dose 325 MG; Start 06/22/18 at 09:00 Enoxaparin Sodium (Lovenox) 70 mg BID SC Last administered on 06/29/18 10:37; Admin Dose 70 MG; Start 06/23/18 at 21:00 Amlodipine Besylate (Norvasc) 5 mg DAILY PO Last administered on 06/29/18 10:40; Admin Dose 5 MG; Start 06/24/18 at 09:30 Hydrocortisone (Hydrocortisone 0.5% Cr) 1 applic BID PRN TOP itching Last administered on 06/28/18 09:06; Admin Dose 1 APPLIC; Start 06/28/18 at 06:00 NEEL BAZZI Jun 29, 2018 11:29
--- NOTE | 2018-06-29 12:14 | PN ---
Date/Time of Note Date/Time of Note DATE: 06/29/18 TIME: 12:13 Assessment/Plan VTE Prophylaxis Risk score (from Nsg)>0 risk: 4 Pharmacological prophylaxis: NA/contraindicated Pharm contraindication: low risk/ambulating Lines/Catheters IV Catheter Type (from Nrsg): Peripheral IV Urinary Cath still in place: No Assessment/Plan Hospital Course Pt is a 57-year-old male with COPD, heavy smoking history, and recurrent R sided pleural effusion status post VATS, IR guided pigtail and Pleurx. Presents with shortness of breath and found to have recurrent effusion - CT surgery consultation appreciated, patient is status post Pleurx catheter placement today -Plan is for nurses to teach patient how to drain catheter and then DC tomorrow CoNS bactremia: - Dc'd vancomycin, likely a contaminant COPD: Patient does not appear to be in any acute exacerbation. Patient is not wheezing on examination. PRN nebs as indicated., anemia1. Recurrent Rt hemopneumothorax; thick pleura. h/o VATS. stable, sp IR guided pigtail, then Pleurx, removed. 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 Chronic microcytic anemia: Continue ferrous sulfate, no signs of bleeding at this time History of possible drug-seeking behavior: Monitor closely and avoid any heavy dose narcotics. Prophylaxis: SCDs DC planning: Anticipate DC home tomorrow Subjective 24 Hr Interval Summary Constitutional: no complaints Exam/Review of Systems Exam Vitals Vital Signs Date Temp Pulse Resp B/P (MAP) Pulse Ox O2 O2 Flow FiO2 Time Delivery Rate 06/29/18 98.1 62 18 110/62 98 Room Air 08:06 (78) 06/27/18 21 20:26 Intake and Output 06/28/18 06/28/18 06/29/18 1515:00 23:00 07:00 IntakeIntake Total 720 ml 600 ml BalanceBalance 720 ml 600 ml Constitutional: alert Respiratory: clear to auscultation Cardiovascular: regular rate and rhythm Gastrointestinal: soft; No distended Musculoskeletal: nl extremities to inspection Medications Medication Current Medications IV Flush (NS 3 ml) 3 ml PER PROTOCOL IV ; Start 06/21/18 at 23:00 Ondansetron HCl (Zofran Inj) 4 mg Q6H PRN IV NAUSEA/VOMITING; Start 06/21/18 at 23:00 Acetaminophen (Tylenol Tab) 650 mg Q6H PRN PO .PAIN 1-3 OR TEMP Last administered on 06/27/18 22:02; Admin Dose 650 MG; Start 06/21/18 at 23:00 Acetaminophen/ Hydrocodone Bitart ([place] (5/325)) 1 tab Q6H PRN PO .PAIN 4-6 Last administered on 06/29/18 10:46; Admin Dose 1 TAB; Start 06/21/18 at 23:00 Levalbuterol (Xopenex Neb) 1.25 mg Q4H RESP THERAPY PRN HHN SHORTNESS OF BREATH Last administered on 06/27/18 20:23; Admin Dose 1.25 MG; Start 06/21/18 at 23:00 Ipratropium [place] (Atrovent 0.02% (Neb)) 0.5 mg Q4H RESP THERAPY PRN HHN SHORTNESS OF BREATH Last administered on 06/27/18 20:23; Admin Dose 0.5 MG; Start 06/21/18 at 23:00 Multi-Ingredient Ointment (Eucerin Cream) 1 applic BID TOP Last administered on 06/29/18 10:41; Admin Dose 1 APPLIC; Start 06/22/18 at 00:00 Lorazepam (Ativan) 1 mg Q4H PRN IV AGITATION/ANXIETY; Start 06/22/18 at 01:30 Multivitamins Therapeutic (Theragran) 1 tab DAILY PO Last administered on 06/29/18 10:40; Admin Dose 1 TAB; Start 06/22/18 at 09:00 Folic Acid (Folic Acid) 1 mg DAILY PO Last administered on 06/29/18 10:39; Admin Dose 1 MG; Start 06/22/18 at 09:00 Thiamine HCl (Vitamin B1) 100 mg DAILY PO Last administered on 06/29/18 10:40; Admin Dose 100 MG; Start 06/22/18 at 09:00 Ferrous Sulfate (Ferrous Sulfate (Ec)) 325 mg BID PO Last administered on 06/29/18 10:40; Admin Dose 325 MG; Start 06/22/18 at 09:00 Enoxaparin Sodium (Lovenox) 70 mg BID SC Last administered on 06/29/18 10:37; Admin Dose 70 MG; Start 06/23/18 at 21:00 Amlodipine Besylate (Norvasc) 5 mg DAILY PO Last administered on 06/29/18 10:40; Admin Dose 5 MG; Start 06/24/18 at 09:30 Hydrocortisone (Hydrocortisone 0.5% Cr) 1 applic BID PRN TOP itching Last adm inistered on 06/28/18 09:06; Admin Dose 1 APPLIC; Start 06/28/18 at 06:00 JULIENNE ALMANZA Jun 29, 2018 12:14
[2018-06-29 19:47] VITALS: BP 136/81; PULSE 103; RESP 20
[2018-06-29] MEDS: LEVALBUTEROL (NEB) 1.25 MG/0.5 ML AMP HHN PRN (20:55)
[2018-06-29] MEDS: IPRATROPIUM (NEB) 0.5 MG/2.5 ML AMP HHN PRN (20:55)
[2018-06-30 01:27] VITALS: BP 152/84; PULSE 95; RESP 20
[2018-06-30] MEDS: HYDROCODONE/APAP (5/325) TAB PO PRN ×2 (04:46→19:54)
[2018-06-30 07:56] VITALS: BP 147/76; PULSE 92; RESP 18
[2018-06-30] MEDS: EUCERIN 113 GM CR TOP SCH ×2 (08:13→20:34)
[2018-06-30] MEDS: FOLIC ACID 1 MG TAB PO SCH (08:14)
[2018-06-30] MEDS: MULTIVITAMINS THERAPEUTIC TAB PO SCH (08:14)
[2018-06-30] MEDS: THIAMINE 100 MG TAB PO SCH (08:14)
[2018-06-30] MEDS: AMLODIPINE 5 MG TAB PO SCH (08:14)
[2018-06-30] MEDS: FERROUS SULFATE (EC) 325 MG TAB PO SCH ×2 (08:14→20:32)
[2018-06-30] MEDS: ENOXAPARIN 80 MG/0.8 ML SYG SC SCH ×2 (08:15→20:32)
--- NOTE | 2018-06-30 11:33 | CONS ---
Assessment/Plan Assessment/Plan Assessment/Plan (Daily) Assessment and recommendations; 1. Patient admitted with shortness of breath due to right hydropneumothorax status post right Pleurx catheter placement again yesterday. 2. Status post multiple catheter placement on the right side as well as VATS procedure without any long-lasting results. 3. Severe bullous emphysema. 4. 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 5. History of DVT and PE. Continue current supportive care. Consider transfer to senior care. Patient is homeless and would be at high risk to be discharged back on the street. Consultation Date/Type/Reason Admit Date/Time Jun 21, 2018 at 22:21 Initial Consult Date 06/22/18 Type of Consult Pulmonary Pulmonary consult requested for evaluation of recurrent right pleural effusion/pneumonia. Patient is a 57-year-old male who came into the hospital yesterday with shortness of breath for the last 2 days. Denies any coughing, wheezing, fever or chills. Upon evaluation a chest x-ray was done which is showing what appears to be right pleural effusion. Chronic appearing volume loss on the right side. Past medical history; 1. History of recurrent right pneumothorax status post multiple chest tube placements as well as failed VATS procedure. 2. History of aspergillosis with significant right pleural thickening preventing full right lung reexpansion. 3. COPD. 4. Anemia. 5. History of DVT and pulmonary embolism. Medications; reviewed. Allergies; none. Social history; patient has a long-standing history of smoking. Family history; noncontributory. 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 Review of systems; denies any headache, seizures, sinus symptoms. Any chest pain. Complains of scant cough without any sputum production. Denies any hemo ptysis. Shortness of breath is slightly improved. Denies any abdominal pain, nausea vomiting. Any edema. Any melena or hematochezia. Patient has steady weight. General exam; middle-aged male, appears quite emaciated. Awake and alert. Currently no distress. Date/Time of Note DATE: 06/30/18 TIME: 11:31 24 HR Interval Summary Free Text/Dictation Patient condition is stable. Denies any shortness of breath or chest pain. Complains of chest congestion and coughing. Underwent a right Pleurx catheter placement yesterday. General exam; middle-aged male, awake alert, currently no distress. Ambulatory in the room. Exam/Review of Systems Exam Vitals Vital Signs Date Temp Pulse Resp B/P (MAP) Pulse Ox O2 O2 Flow FiO2 Time Delivery Rate 06/30/18 98.4 92 18 147/76 98 Room Air 07:56 (99) 06/27/18 21 20:26 Intake and Output 06/29/18 06/29/18 06/30/18 1515:00 23:00 07:00 IntakeIntake Total 480 ml 240 ml 740 ml BalanceBalance 480 ml 240 ml 740 ml Exam HEENT exam; supple neck, no JVD. No lymphadenopathy. Midline trachea. No thyromegaly. Patient has few remaining carious teeth. Chest exam; diminished breath sounds bilaterally. Right Pleurx catheter in place. S1-S2 audible, no murmurs. Regular rhythm. Abdomen exam; soft, nontender. No organomegaly. Bowel sounds audible. Extremity exam; no peripheral edema clubbing. CENTRIFUGAL SEPARATOR exam; no focal deficit. Medications Medication Current Medications IV Flush (NS 3 ml) 3 ml PER PROTOCOL IV ; Start 06/21/18 at 23:00 Ondansetron HCl (Zofran Inj) 4 mg Q6H PRN IV NAUSEA/VOMITING; Start 06/21/18 at 23:00 Acetaminophen (Tylenol Tab) 650 mg Q6H PRN PO .PAIN 1-3 OR TEMP Last administered on 06/27/18at 22:02; Admin Dose 650 MG; Start 06/21/18 at 23:00 Acetaminophen/ Hydrocodone Bitart ([place] (5/325)) 1 tab Q6H PRN PO .PAIN 4-6 Last administered on 06/30/18at 04:46; Admin Dose 1 TAB; Start 06/21/18 at 23:00 Levalbuterol (Xopenex Neb) 1.25 mg Q4H RESP THERAPY PRN HHN SHORTNESS OF BREATH Last administered on 06/29/18at 20:55; Admin Dose 1.25 MG; Start 06/21/18 at 23:00 Ipratropium [place] (Atrovent 0.02% (Neb)) 0.5 mg Q4H RESP THERAPY PRN HHN SHORTNESS OF BREATH Last administered on 06/29/18 20:55; Admin Dose 0.5 MG; Start 06/21/18 at 23:00 Multi-Ingredient Ointment (Eucerin Cream) 1 applic BID TOP Last administered on 06/30/18 08:13; Admin Dose 1 APPLIC; Start 06/22/18 at 00:00 Lorazepam (Ativan) 1 mg Q4H PRN IV AGITATION/ANXIETY; Start 06/22/18 at 01:30 Multivitamins Therapeutic (Theragran) 1 tab DAILY PO Last administered on 06/30/18 08:14; Admin Dose 1 TAB; Start 06/22/18 at 09:00 Folic Acid (Folic Acid) 1 mg DAILY PO Last administered on 06/30/18 08:14; Admin Dose 1 MG; Start 06/22/18 at 09:00 Thiamine HCl (Vitamin B1) 100 mg DAILY PO Last administered on 06/30/18 08:14; Admin Dose 100 MG; Start 06/22/18 at 09:00 Ferrous Sulfate (Ferrous Sulfate (Ec)) 325 mg BID PO Last administered on 06/30/18 08:14; Admin Dose 325 MG; Start 06/22/18 at 09:00 Enoxaparin Sodium (Lovenox) 70 mg BID SC Last administered on 06/30/18 08:15; Admin Dose 70 MG; Start 06/23/18 at 21:00 Amlodipine Besylate (Norvasc) 5 mg DAILY PO Last administered on 06/30/18 08:14; Admin Dose 5 MG; Start 06/24/18 at 09:30 Hydrocortisone (Hydrocortisone 0.5% Cr) 1 applic BID PRN TOP itching Last administered on 06/28/18 09:06; Admin Dose 1 APPLIC; Start 06/28/18 at 06:00 NEEL BAZZI Jun 30, 2018 11:33
[2018-06-30 14:00] VITALS: BP 135/72; PULSE 89; RESP 18
--- NOTE | 2018-06-30 15:07 | PN ---
Date/Time of Note Date/Time of Note DATE: 06/30/18 TIME: 15:06 Assessment/Plan VTE Prophylaxis Risk score (from Ns)>0 risk: 4 SCD applied (from Ns): Yes Pharmacological prophylaxis: heparin Lines/Catheters IV Catheter Type (from [facility]): Peripheral IV Urinary Cath still in place: No Assessment/Plan Hospital Course This is a 57-year-old male with COPD, heavy smoking history, and recurrent R sided pleural effusion status post VATS, IR guided pigtail and Pleurx. Presents with shortness of breath and found to have recurrent effusion - s/p pleurex catheter placement CoNS bactremia: - Dc vancomycin, likely a contaminant COPD: Patient does not appear to be in any acute exacerbation. Patient is not wheezing on examination. PRN nebs as indicated., anemia1. Recurrent Rt hemopneumothorax; thick pleura. h/o VATS. stable, sp IR guided pigtail, then Pleurx, removed. 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 #8 chronic microcytic anemia: Continue ferrous sulfate, no signs of bleeding at this time #9 history of possible drug-seeking behavior: Monitor closely and avoid any heavy dose narcotics. #10 DVT GI prophylaxis: SCDs, no GI prophylaxis indicated Subjective 24 Hr Interval Summary Free Text/Dictation Pleurex catheter has been placed Patient states he does not want placement. Watns to be discharged in the AM Exam/Review of Systems Exam Vitals Vital Signs Date Temp Pulse Resp B/P (MAP) Pulse Ox O2 O2 Flow FiO2 Time Delivery Rate 06/30/18 98.4 92 18 147/76 98 Room Air 07:56 (99) 06/27/18 21 20:26 Intake and Output 06/29/18 06/29/18 06/30/18 1515:00 23:00 07:00 IntakeIntake Total 480 ml 240 ml 740 ml BalanceBalance 480 ml 240 ml 740 ml Constitutional: alert, oriented, well developed Psych: no complaints, nl mood/affect Head: normocephalic, atraumatic Eyes: nl conjunctiva, EOMI, nl lids, nl sclera, PERRL ENMT: nl external ears & nose, nl lips & teeth, nl nasal mucosa & septum Neck: supple, non-tender Respiratory: clear to auscultation, normal air movement Cardiovascular: regular rate and rhythm, nl pulses Gastrointestinal: soft, nl liver, spleen, non-tender Musculoskeletal: nl extremities to inspection, nl gait and stance Extremities: normal pulses Neurological: SEALER DRY CELL II-XII intact, nl mental status, nl speech, nl strength Skin: nl turgor; No rash or lesions Lymph: nl lymph nodes Medications Medication Current Medications IV Flush (NS 3 ml) 3 ml PER PROTOCOL IV ; Start 06/21/18 at 23:00 Ondansetron HCl (Zofran Inj) 4 mg Q6H PRN IV NAUSEA/VOMITING; Start 06/21/18 at 23:00 Acetaminophen (Tylenol Tab) 650 mg Q6H PRN PO .PAIN 1-3 OR TEMP Last administered on 06/27/18at 22:02; Admin Dose 650 MG; Start 06/21/18 at 23:00 Acetaminophen/ Hydrocodone Bitart ([place] (5/325)) 1 tab Q6H PRN PO .PAIN 4-6 Last administered on 06/30/18at 04:46; Admin Dose 1 TAB; Start 06/21/18 at 23:00 Levalbuterol (Xopenex Neb) 1.25 mg Q4H RESP THERAPY PRN HHN SHORTNESS OF BREATH Last administered on 06/29/18at 20:55; Admin Dose 1.25 MG; Start 06/21/18 at 23:00 Ipratropium [place] (Atrovent 0.02% (Neb)) 0.5 mg Q4H RESP THERAPY PRN HHN SHORTNESS OF BREATH Last administered on 06/29/18 20:55; Admin Dose 0.5 MG; Start 06/21/18 at 23:00 Multi-Ingredient Ointment (Eucerin Cream) 1 applic BID TOP Last administered on 06/30/18 08:13; Admin Dose 1 APPLIC; Start 06/22/18 at 00:00 Lorazepam (Ativan) 1 mg Q4H PRN IV AGITATION/ANXIETY; Start 06/22/18 at 01:30 Multivitamins Therapeutic (Theragran) 1 tab DAILY PO Last administered on 06/30at 08:14; Admin Dose 1 TAB; Start 06/22/18 at 09:00 Folic Acid (Folic Acid) 1 mg DAILY PO Last administered on 06/30/18 08:14; Admin Dose 1 MG; Start 06/22/18 at 09:00 Thiamine HCl (Vitamin B1) 100 mg DAILY PO Last administered on 06/30/18 08:14; Admin Dose 100 MG; Start 06/22/18 at 09:00 Ferrous Sulfate (Ferrous Sulfate (Ec)) 325 mg BID PO Last administered on 06/30/18 08:14; Admin Dose 325 MG; Start 06/22/18 at 09:00 Enoxaparin Sodium (Lovenox) 70 mg BID SC Last administered on 06/30/18 08:15; Admin Dose 70 MG; Start 06/23/18 at 21:00 Amlodipine Besylate (Norvasc) 5 mg DAILY PO Last administered on 06/30/18 08:14; Admin Dose 5 MG; Start 06/24/18 at 09:30 Hydrocortisone (Hydrocortisone 0.5% Cr) 1 applic BID PRN TOP itching Last administered on 06/28/18 09:06; Admin Dose 1 APPLIC; Start 06/28/18 at 06:00 MAXIM WILLIAMSON MD Jun 30, 2018 15:07
[2018-06-30 20:00] VITALS: BP 151/91; PULSE 85; RESP 19
[2018-07-01 02:00] VITALS: BP 155/90; PULSE 78; RESP 20
[2018-07-01] MEDS: HYDROCODONE/APAP (5/325) TAB PO PRN (03:17)
[2018-07-01 07:56] VITALS: BP 104/57; PULSE 75; RESP 18
[2018-07-01] MEDS: MULTIVITAMINS THERAPEUTIC TAB PO SCH (08:55)
[2018-07-01] MEDS: FERROUS SULFATE (EC) 325 MG TAB PO SCH (08:55)
[2018-07-01] MEDS: ENOXAPARIN 80 MG/0.8 ML SYG SC SCH (08:55)
[2018-07-01] MEDS: AMLODIPINE 5 MG TAB PO SCH (08:56)
[2018-07-01] MEDS: THIAMINE 100 MG TAB PO SCH (08:56)
[2018-07-01] MEDS: FOLIC ACID 1 MG TAB PO SCH (08:56)
[2018-07-01] MEDS: EUCERIN 113 GM CR TOP SCH (09:00)
--- NOTE | 2018-07-01 12:24 | DS ---
Date/Time of Note Date/Time of Note DATE: 07/01/18 TIME: 12:23 Discharge Summary Admission/Discharge Info Admit Date/Time Jun 21, 2018 at 22:21 Discharge Date/Time Jul 01, 2018 at 09:30 Discharge Diagnosis Pleural effusion Patient Condition: Stable Hospital Course This is a 57-year-old male with COPD, heavy smoking history, and recurrent R sided pleural effusion status post VATS, IR guided pigtail and Pleurx. Presents with shortness of breath and found to have recurrent effusion. A pleurex catheter was placed Patient then left the hospital AMA before placement could be arranged Home Meds Active Scripts Hydrocortisone Acetate (ANTI-ITCH) 28 Gm Oint...g., 1 APPLIC TOP BID for 7 Days, #1 5 Refills Prov:KALEY RAYGOZA MD 05/20/18 Docusate Sodium (Dok) 100 Mg Capsule, 100 MG PO BID PRN for CONSTIPATION for 7 Days, CAP otc Prov:KALEY RAYGOZA MD 05/20/18 Oxycodone HCl/Acetaminophen (Oxycodone-Acetaminophen 10-325) 1 Each Tablet, 1 TAB PO Q4H PRN for MODERATE PAIN LEVEL 4-6 for 5 Days, TAB Prov:KALEY RAYGOZA MD 05/20/18 Acetaminophen* (Tylenol*) 325 Mg Tablet, 650 MG PO Q6H PRN for PAIN LEVEL 1-3 OR FEVER for 1 Day, TAB Prov:KALEY RAYGOZA MD 05/20/18 Reported Medications Rivaroxaban* (Xarelto*) 20 Mg Tablet, 20 MG PO WITH DINNER, TAB 04/25/18 Primary Care Provider Not On Staff Doctor MAXIM WILLIAMSON MD Jul 01, 2018 12:24
== END 2018-07-01 09:30 | disposition left against medical advice (07) | DRG 187 ==
LOC: E/R 16:08 → 6WM 22:21 → 5EC 06-25 14:46
PROVIDERS: ADMIT Family Medicine; ATTEND Internal Medicine
PROC: 0W9930Z Drainage of Right Pleural Cavity with Drainage Device, Percutaneous Approach (ICD-10-PCS; principal; 2018-06-29 09:00)
DX: J94.8 Other specified pleural conditions (principal); R65.10 Systemic inflammatory response syndrome (SIRS) of non-infectious origin without acute organ dysfunction; E87.2 Acidosis; D50.9 Iron deficiency anemia, unspecified; J43.9 Emphysema, unspecified; I10 Essential (primary) hypertension; Z86.711 Personal history of pulmonary embolism; Z79.01 Long term (current) use of anticoagulants; Z86.718 Personal history of other venous thrombosis and embolism; Z86.19 Personal history of other infectious and parasitic diseases; Z87.891 Personal history of nicotine dependence; Z59.0 Homelessness
CPT/HCPCS: 32550; 36415; 71045; 71250; 80048; 80053; 80307; 81003; 83036; 83605; 83735; 84443; 84484; 85025; 85610; 85730; 87086; 93005; 94640; 94664; 96374; 96375; J2060; J2250; J2543; J3010; J3370; J7030; J7040; J7050

== ENCOUNTER 2018-07-07 23:26 | Emergency (ER) | payer OTHER ==
[~2018-07-07] VITALS: Ht 170.2 cm; Wt 72.6 kg
[~2018-07-07 23:26] MED LIST changes: -FER325 PO
[2018-07-07 23:36] VITALS: Ht 170.2 cm; Wt 72.6 kg
--- NOTE | 2018-07-08 01:07 | ERD ---
ER Documentation Chief Complaint Chief Complaint STATES HE IS HERE TO DRAIN FLUID FROM CHEST, CHEST TUBE IN PLACE HPI 57-year-old gentleman who presents to the emergency room asking to have his Pleurx catheter drained. Patient has had recent hospitalization with a history of COPD, recurrent right-sided pleural effusion status post VATS, IR guided pigtail and Pleurx catheter. The patient left AMA prior to home health care placement and resources. He states the last drainage was approximately 2 weeks ago. He feels like he needs to have it drained. He denies any shortness of breath chest pain fevers or chills. ROS All systems reviewed and are negative except as per history of present illness. Medications Home Meds Active Scripts Hydrocortisone Acetate (ANTI-ITCH) 28 Gm Oint...g., 1 APPLIC TOP BID for 7 Days, #1 5 Refills Prov:KALEY RAYGOZA MD 05/20/18 Docusate Sodium (Dok) 100 Mg Capsule, 100 MG PO BID PRN for CONSTIPATION for 7 Days, CAP otc Prov:KALEY RAYGOZA MD 05/20/18 Oxycodone HCl/Acetaminophen (Oxycodone-Acetaminophen 10-325) 1 Each Tablet, 1 TAB PO Q4H PRN for MODERATE PAIN LEVEL 4-6 for 5 Days, TAB Prov:KALEY RAYGOZA MD 05/20/18 Acetaminophen* (Tylenol*) 325 Mg Tablet, 650 MG PO Q6H PRN for PAIN LEVEL 1-3 OR FEVER for 1 Day, TAB Prov:KALEY RAYGOZA MD 05/20/18 Reported Medications Rivaroxaban* (Xarelto*) 20 Mg Tablet, 20 MG PO WITH DINNER, TAB 04/25/18 Allergies Allergies: Coded Allergies: No Known Allergy (Unverified , 06/22/18) PMhx/Soc History of Surgery: Yes (Drainage of R pleural cavity with drain.) Anesthesia Reaction: No Hx Neurological Disorder: No Hx Respiratory Disorders: Yes (COPD, S/P R thoracotomy, PE, ) Hx Cardiac Disorders: No Hx Psychiatric Problems: No Hx Miscellaneous Medical Probl: No Hx Alcohol Use: Yes (Budweiser 2 cans today) Hx Substance Use: Yes (Marijuana 30 years ago.) Hx Tobacco Use: Yes FmHx Family History: No diabetes Physical Exam Vitals Vital Signs Date Temp Pulse Resp B/P (MAP) Pulse Ox O2 O2 Flow FiO2 Time Delivery Rate 07/07/18 98.1 102 22 148/71 99 23:36 (96) Physical Exam General: Talking in full sentences, no distress Head: Normocephalic, atraumatic. Eyes: Pupils equally reactive, EOM intact ENT: Moist mucous membranes Neck: Supple, no lymphadenopathy Respiratory: Decreased aeration on the right side of the lung field, no respiratory distress Cardiovascular: RRR, no murmurs, rubs, or gallops Abdominal: Soft, non-tender, non-distended, no peritoneal signs : Deferred MSK: No edema, no unilateral swelling, 5/5 strength Neurologic: Alert and oriented, moving all extremities, normal speech, no focal weakness, no cerebellar signs Skin: Pleurx catheter in good position Psych: Normal mood Procedures/MDM I spoke to Dr. Sol who recommends drainage in the emergency room and then discharged. He states that the patient should have home health care to be draining this. I will put in a case management consultation. Supplies were obtained and the patient had drainage using a Vacutainer. Serosanguineous fluid has been drained consistent with his baseline. Dr. Sol feels that once the patient has drainage in the emergency room he can safely be discharged. Patient tolerated drainage well. The patient does not have an identifiable emergent medical condition that warrants inpatient hospitalization at this time. The patient is deemed safe for discharge with outpatient follow-up. We discussed follow up with the patient's primary care doctor within 24 to 48 hours as needed. We also discussed return to the emergency room for worsening symptoms or worsening condition. Outpatient referral: None required Discharge Medications: None required Departure Diagnosis: Primary Impression: Recurrent pleural effusion on right Condition: Stable GERHARD WOMACK MD Jul 08, 2018 01:07
[2018-07-08 01:37] VITALS: BP 130/72; PULSE 88; RESP 19
== END 2018-07-08 01:40 | disposition home or self-care (01) ==
LOC: E/R 23:26
DX: J90 Pleural effusion, not elsewhere classified (principal); J44.9 Chronic obstructive pulmonary disease, unspecified; Z87.891 Personal history of nicotine dependence
CPT/HCPCS: 99282

== ENCOUNTER 2018-08-27 14:38 | Emergency (ER) | payer OTHER ==
[~2018-08-27] VITALS: Ht 170.2 cm; Wt 70.0 kg
[2018-08-27 14:42] VITALS: Ht 170.2 cm; Wt 70.0 kg
--- NOTE | 2018-08-27 23:57 | ERD ---
ER Documentation Chief Complaint Chief Complaint pt is bib self just dc from [facility], c/o lice and "tube problem" HPI This is a 57-year-old male with a past medical history of previous PE, right- sided pleural effusion status post pleurovac placement, COPD, chronic ambulatory difficulty, ambulatory with a walker, recent diagnosis of lice that is already being treated who is presenting to have his right thoracostomy catheter evaluated. The patient reports that it is not been utilized in over a month and he is told to come to the emergency department to have it removed. The patient's vascular surgeon was Dr. Sol. The patient denies feeling sick recently. The patient denies fever or chills. The patient has had no headache or vision changes. The patient does not endorse neck or back pain. The patient denies lightheadedness or dizziness. The patient has had no chest pain or trouble breathing. The patient denies nausea or vomiting. The patient denies abdominal pain. The patient denies changes to bowel movements or urination. The patient has had no focal deficits. The patient has had no weakness or numbness or tingling to the face or extremities. ROS All systems reviewed and are negative except as per history of present illness. Medications Home Meds Active Scripts Hydrocortisone Acetate (ANTI-ITCH) 28 Gm Oint...g., 1 APPLIC TOP BID for 7 Days, #1 5 Refills Prov:KALEY RAYGOZA MD 05/20/18 Docusate Sodium (Dok) 100 Mg Capsule, 100 MG PO BID PRN for CONSTIPATION for 7 Days, CAP otc Prov:KALEY RAYGOZA MD 05/20/18 Oxycodone HCl/Acetaminophen (Oxycodone-Acetaminophen 10-325) 1 Each Tablet, 1 TAB PO Q4H PRN for MODERATE PAIN LEVEL 4-6 for 5 Days, TAB Prov:KALEY RAYGOZA MD 05/20/18 Acetaminophen* (Tylenol*) 325 Mg Tablet, 650 MG PO Q6H PRN for PAIN LEVEL 1-3 OR FEVER for 1 Day, TAB Prov:KALEY RAYGOZA MD 05/20/18 Reported Medications Rivaroxaban* (Xarelto*) 20 Mg Tablet, 20 MG PO WITH DINNER, TAB 04/25/18 Allergies Allergies: Coded Allergies: No Known Allergy (Unverified , 08/27/18) PMhx/Soc History of Surgery: Yes (Drainage of R pleural cavity with drain.) Anesthesia Reaction: No Hx Neurological Disorder: No Hx Respiratory Disorders: Yes (COPD, S/P R thoracotomy, PE, ) Hx Cardiac Disorders: No Hx Psychiatric Problems: No Hx Miscellaneous Medical Probl: No Hx Alcohol Use: Yes (Budweiser 2 cans today) Hx Substance Use: Yes (Marijuana 30 years ago.) Hx Tobacco Use: Yes FmHx Family History: No diabetes Physical Exam Vitals Vital Signs Date Temp Pulse Resp B/P (MAP) Pulse Ox O2 O2 Flow FiO2 Time Delivery Rate 08/27/18 83 18 168/89 98 Room Air 17:42 (115) 08/27/18 98.3 64 18 226/99 99 14:42 (141) Physical Exam Const: No apparent distress, well-developed, well-nourished. Disheveled Head: Normocephalic, Atraumatic Eyes: Normal Conjunctiva. Extraocular movements intact. Pupils equal, round and reactive to light ENT: Normal External Ears, Nose and Mouth. Neck: Full range of motion. No meningismus. Resp: Decreased breath sounds on the right. No wheezes, rales or rhonchi Cardio: Regular rate and rhythm. No murmurs, rubs or gallops Chest: Right thoracostomy tube in place with clotted material distally. Abd: Soft, non tender, non distended. Normal bowel sounds Skin: No petechiae or rashes Back: No midline tenderness. No CVA tenderness Ext: No cyanosis, or edema Neur: Awake and alert, oriented 4. Cranial nerves intact. No facial droop. Normal strength, sensation and coordination. Psych: Normal Mood and Affect Procedures/MDM MDM The patient's presentation warrants further investigation. Previous medical records, if available, were reviewed. IMAGING Imaging and Radiology interpretation reviewed. CXR FINDINGS: Right chest tube is seen in chronic-appearing right hydropneumothorax with decreased fluid compared to the previous studies and no significant change in the pneumothorax portion compared to the previous CT. Decreased right lung volume is again seen. The left lung is clear. The heart is not enlarged. Tortuosity of the thoracic aorta is again seen. IMPRESSION: Right chest tube is seen in chronic-appearing right hydropneumotho rax with decreased fluid compared to the previous studies and no significant change in the pneumothorax portion compared to the previous CT. Decreased right lung volume is again seen. Electronically viewed and signed by Garrett Eldridge MD on 08/27/2018 19:56 TREATMENT/DISPOSITION The patient presents for evaluation of his thoracostomy. The patient does continue to have a chronic right hydropneumothorax. I spoke with the patient's vascular surgeon, Dr. Sol, who recommended that we attempt to remove the catheter if it is no longer draining. We opened the catheter, but it is occluded and no longer draining. We attempted to attached to vacuum, but it did not drain. Unfortunately, it is a pigtail catheter. We do not have a wire or trocar to place within the tube to uncoil the pigtail and remove the catheter. I recommended to the patient that he follow-up with his vascular surgeon for removal as soon as possible. There is no evidence of tension pneumothorax. The patient is in no distress. The patient's vital signs are stable. There is no deviation of the patient's trachea. I do not feel the patient would benefit from replacement of the catheter. The patient reportedly has lice. I do not see obvious evidence of lice, but the patient is already being treated and does not require any further intervention today. DISCHARGE No emergent diagnoses were identified. At this time, I feel that the patient stable for discharge. The patient was instructed to follow-up with a primary care physician in 1-3 days. The patient will follow up with the vascular surgeon. The patient will be given strict precautions with which to return to the emergency department. Prescriptions: None The patient's blood pressure was elevated at greater than 120/80 while in the em ergency department. The patient was otherwise stable with no evidence of hypertensive urgency or emergency. The patient does not require admission for blood pressure control. I have discussed with the patient the risks of hypertension. I have instructed the patient to return to the ER for any new or worsening symptoms including chest pain, shortness of breath, headache, blurred vision, confusion, nausea, vomiting or LOC. I have advised the patient to follow up with the primary care physician for outpatient monitoring and treatment for hypertension in 1-3 days. Disclaimer: Inadvertent spelling and grammatical errors are likely due to EHR/dictation software use and do not reflect on the overall quality of patient care. Note that the electronic time recorded on this note does not necessarily reflect the actual time of the patient encounter. Departure Diagnosis: Primary Impression: S/P thoracostomy tube placement Additional Impressions: Hydropneumothorax Lice Homeless Condition: Stable Patient Instructions: Lice Treatment Shampoo, Lice Treatment Topical suspension, cleanser, Pneumothorax (Collapsed Lung), Thoracentesis PEE VIEYRA MD August 27, 2018 23:57
[2018-08-28 09:07] VITALS: BP 152/86; PULSE 86; RESP 17
== END 2018-08-28 09:32 | disposition home or self-care (01) ==
LOC: E/R 14:38
DX: B85.2 Pediculosis, unspecified (principal); J94.8 Other specified pleural conditions; J44.9 Chronic obstructive pulmonary disease, unspecified; Z59.0 Homelessness; Z87.891 Personal history of nicotine dependence; Z97.8 Presence of other specified devices
CPT/HCPCS: 71045; Z7502

== ENCOUNTER 2018-10-13 15:50 | Emergency (ER) | payer OTHER ==
[~2018-10-13] VITALS: Ht 172.7 cm; Wt 70.0 kg
[2018-10-13 15:54] VITALS: Ht 172.7 cm; Wt 70.0 kg
[2018-10-13] MEDS ORDERED: RIVA20TA5 PO (17:11)
[2018-10-13] MEDS ORDERED: OXYC-431 PO (17:12)
[2018-10-13 17:47] VITALS: BP 121/86; PULSE 65; RESP 17
--- NOTE | 2018-10-13 19:20 | ERD ---
ER Documentation Chief Complaint Chief Complaint catheter problem ( right pulmonary catherer ) ; unkempt HPI Patient is a 57-year-old male with a history of right chest wall catheter who p resents the morning his right sided catheter removed. He said that he wants it drained and then removed. It was placed by Dr. Sol months ago. He said that he has shortness of breath. Upon review of old medical records the patient has multiple visits to the ER since 2016. Many of these visits were for similar type complaints. Review of the emergency department information exchange system shows visits to 2 separate emergency departments for a total of 11 visits over the past 1 year. ROS All systems reviewed and are negative except as per history of present illness. Medications Home Meds Discontinued Reported Medications Oxycodone HCl/Acetaminophen (Oxycodone-Acetaminophen 10-325) 1 Each Tablet, 1 EACH PO NEEDED, TAB 10/13/18 Rivaroxaban* (Xarelto*) 20 Mg Tablet, 20 MG PO WITH DINNER, TAB 10/13/18 Rivaroxaban* (Xarelto*) 20 Mg Tablet, 20 MG PO WITH DINNER, TAB 04/25/18 Discontinued Scripts Hydrocortisone Acetate (ANTI-ITCH) 28 Gm Oint...g., 1 APPLIC TOP BID for 7 Days, #1 5 Refills Prov:KALEY RAYGOZA MD 05/20/18 Docusate Sodium (Dok) 100 Mg Capsule, 100 MG PO BID PRN for CONSTIPATION for 7 Days, CAP otc Prov:KALEY RAYGOZA MD 05/20/18 Oxycodone HCl/Acetaminophen (Oxycodone-Acetaminophen 10-325) 1 Each Tablet, 1 TAB PO Q4H PRN for MODERATE PAIN LEVEL 4-6 for 5 Days, TAB Prov:KALEY RAYGOZA MD 05/20/18 Acetaminophen* (Tylenol*) 325 Mg Tablet, 650 MG PO Q6H PRN for PAIN LEVEL 1-3 OR FEVER for 1 Day, TAB Prov:KALEY RAYGOZA MD 05/20/18 Allergies Allergies: Coded Allergies: No Known Allergy (Unverified , 10/13/18) PMhx/Soc History of Surgery: Yes (Drainage of R pleural cavity with drain.) Anesthesia Reaction: No Hx Neurological Disorder: No Hx Respiratory Disorders: Yes (COPD, S/P R thoracotomy, PE, ) Hx Cardiac Disorders: No Hx Psychiatric Problems: No Hx Miscellaneous Medical Probl: No Hx Alcohol Use: Yes (Budweiser 2 cans today) Hx Substance Use: Yes (Marijuana 30 years ago.) Hx Tobacco Use: Yes Smoking Status: Current every day smoker FmHx Family History: No diabetes Physical Exam Vitals Vital Signs Date Temp Pulse Resp B/P (MAP) Pulse Ox O2 O2 Flow FiO2 Time Delivery Rate 10/13/18 98.2 65 17 121/86 97 Room Air 17:47 (98) 10/13/18 98.8 112 24 147/87 100 15:54 (107) Physical Exam Const: No acute distress Head: Atraumatic Eyes: Normal Conjunctiva ENT: Normal External Ears, Nose and Mouth. Neck: Full range of motion. No meningismus. Resp: Decreased breath sounds on the right, right chest wall catheter in place Cardio: Regular rate and rhythm, no murmurs Abd: Soft, non tender, non distended. Normal bowel sounds Skin: No petechiae or rashes Back: No midline or flank tenderness Ext: No cyanosis, or edema Neur: Awake and alert Psych: Normal Mood and Affect Procedures/MDM Chest X-ray 1V Interpreted by me: Soft Tissue: No acute abnormalities Bones: No acute abnormalities Mediastinum/Cardiac Silhouette/Lungs: Catheter in the right chest wall, appearance of the right lung appears similar to previous x-ray done approximately 1 month ago Patient is a 57-year-old male who presents requesting removal of a right chest wall catheter. I spoke with Dr. Sol who said that he is unfortunately not available today to remove the catheter but is available tomorrow morning at 9 AM. I told the patient that he could return tomorrow morning to the emergency department and Dr. Sol could be consulted. The patient can return for any worsening symptoms. Departure Diagnosis: Primary Impression: SOB (shortness of breath) Condition: Fair Patient Instructions: Chest Tubes Referrals: KARLI SOL MD Additional Instructions: Return tomorrow AM before 9AM. Dr. oSl said he will be here tomorrow 10/14 at 9:00AM to remove your chest tube. ARMIDA ALEXIS MD Oct 13, 2018 19:20
== END 2018-10-13 18:23 | disposition home or self-care (01) ==
LOC: E/R 15:50
DX: R06.02 Shortness of breath (principal); F17.210 Nicotine dependence, cigarettes, uncomplicated; J44.9 Chronic obstructive pulmonary disease, unspecified
CPT/HCPCS: 71045; Z7502

== ENCOUNTER 2018-10-14 08:53 | Emergency (ER) | payer OTHER ==
[~2018-10-14] VITALS: Ht 167.6 cm; Wt 70.0 kg
[2018-10-14 08:54] VITALS: Ht 167.6 cm; Wt 70.0 kg
[2018-10-14] MEDS ORDERED: LIDOCAINE 1% (MPF) 5 ML VIAL INJ ONE (11:00)
--- NOTE | 2018-10-14 12:33 | ERD ---
ER Documentation Chief Complaint Chief Complaint pt is bib self "I have an appt to have tube removed" HPI This is a 57-year-old who presents to the emergency room for Pleurx catheter removal. The patient was seen here yesterday and a discussion with the patient's cardiothoracic surgeon, Dr. Sol occurred. The patient was to return to the emergency room for removal. Patient otherwise has no complaints. ROS All systems reviewed and are negative except as per history of present illness. Medications Home Meds Discontinued Reported Medications Oxycodone HCl/Acetaminophen (Oxycodone-Acetaminophen 10-325) 1 Each Tablet, 1 EACH PO NEEDED, TAB 10/13/18 Rivaroxaban* (Xarelto*) 20 Mg Tablet, 20 MG PO WITH DINNER, TAB 10/13/18 Rivaroxaban* (Xarelto*) 20 Mg Tablet, 20 MG PO WITH DINNER, TAB 04/25/18 Discontinued Scripts Hydrocortisone Acetate (ANTI-ITCH) 28 Gm Oint...g., 1 APPLIC TOP BID for 7 Days, #1 5 Refills Prov:KALEY RAYGOZA MD 05/20/18 Docusate Sodium (Dok) 100 Mg Capsule, 100 MG PO BID PRN for CONSTIPATION for 7 Days, CAP otc Prov:KALEY RAYGOZA MD 05/20/18 Oxycodone HCl/Acetaminophen (Oxycodone-Acetaminophen 10-325) 1 Each Tablet, 1 TAB PO Q4H PRN for MODERATE PAIN LEVEL 4-6 for 5 Days, TAB Prov:KALEY RAYGOZA MD 05/20/18 Acetaminophen* (Tylenol*) 325 Mg Tablet, 650 MG PO Q6H PRN for PAIN LEVEL 1-3 OR FEVER for 1 Day, TAB Prov:KALEY RAYGOZA MD 05/20/18 Allergies Allergies: Coded Allergies: No Known Allergy (Unverified , 10/14/18) PMhx/Soc History of Surgery: Yes (Drainage of R pleural cavity with drain.) Anesthesia Reaction: No Hx Neurological Disorder: No Hx Respiratory Disorders: Yes (COPD, S/P R thoracotomy, PE, ) Hx Cardiac Disorders: No Hx Psychiatric Problems: No Hx Miscellaneous Medical Probl: No Hx Alcohol Use: Yes (Budweiser 2 cans today) Hx Substance Use: Yes (Marijuana 30 years ago.) Hx Tobacco Use: Yes Smoking Status: Current every day smoker FmHx Family History: No diabetes Physical Exam Vitals Vital Signs Date Temp Pulse Resp B/P (MAP) Pulse Ox O2 O2 Flow FiO2 Time Delivery Rate 10/14/18 98.3 84 16 148/62 96 08:54 (90) Physical Exam General: Disheveled Head: Normocephalic, atraumatic. Eyes: EOM intact ENT: Moist mucous membranes Neck: Full ROM Respiratory: No respiratory distress Cardiovascular: Well perfused distally Abdominal: Nondistended : Deferred MSK: No edema, no unilateral swelling, 5/5 strength Neurologic: Alert and oriented, moving all extremities, normal speech, steady gait Skin: No rash, right chest Pleurx catheter in good position Psych: Normal mood Results 24 hrs Current Medications Medications Dose Sig/Imelda Start Time Status Last (Trade) Ordered Route PRN Stop Time Admin Dose Reason Admin Lidocaine 5 ml ONCE ONCE 10/14/18 DC (Xylocaine INJ 11:00 1% (Mpf)) 10/14/18 11:01 Procedures/MDM Dr. Sol has been to the bedside and remove the Pleurx catheter without complication. The patient can be safely discharged home. No other issues. The patient does not have an identifiable emergent medical condition that warrants inpatient hospitalization at this time. The patient is deemed safe for discharge with outpatient follow-up. We discussed follow up with the patient's primary care doctor within 24 to 48 hours as needed. We also discussed return to the emergency room for worsening symptoms or worsening condition. Outpatient referral: None required Discharge Medications: None required Departure Diagnosis: Primary Impression: Encounter for medical screening examination Condition: Good Patient Instructions: Medical Screening Exam, Nonurgent Referrals: [facility] YOU HAVE RECEIVED A MEDICAL SCREENING EXAM AND THE RESULTS INDICATE THAT YOU DO NOT HAVE A CONDITION THAT REQUIRES URGENT TREATMENT IN THE EMERGENCY DEPARTMENT. FURTHER EVALUATION AND TREATMENT OF YOUR CONDITION CAN WAIT UNTIL YOU ARE SEEN IN YOUR DOCTORS OFFICE WITHIN THE NEXT 1-2 DAYS. IT IS YOUR RESPONSIBILITY TO MAKE AN APPOINTMENT FOR FOLOW-UP CARE. IF YOU HAVE A PRIMARY DOCTOR --you should call your primary doctor and schedule an appointment IF YOU DO NOT HAVE A PRIMARY DOCTOR YOU CAN CALL OUR PHYSICIAN REFERRAL HOTLINE AT IF YOU CAN NOT AFFORD TO SEE A PHYSICIAN YOU CAN CHOSE FROM THE FOLLOWING [facility] [address] [facility] [address] [facility] [address] [facility] [address] [facility] [address] [facility] [facility]. [address] [facility]. [facility] YOU HAVE RECEIVED A MEDICAL SCREENING EXAM AND THE RESULTS INDICATE THAT YOU DO NOT HAVE A CONDITION THAT REQUIRES URGENT TREATMENT IN THE EMERGENCY DEPARTMENT. FURTHER EVALUATION AND TREATMENT OF YOUR CONDITION CAN WAIT UNTIL YOU ARE SEEN IN YOUR DOCTORS OFFICE WITHIN THE NEXT 1-2 DAYS. IT IS YOUR RESPONSIBILITY TO MAKE AN APPOINTMENT FOR FOLOW-UP CARE. IF YOU HAVE A PRIMARY DOCTOR --you should call your primary doctor and schedule and appointment IF YOU DO NOT HAVE A PRIMARY DOCTOR YOU CAN CALL OUR PHYSICIAN REFERRAL HOTLINE AT . IF YOU CAN NOT AFFORD TO SEE A PHYSICIAN YOU CAN CHOSE FROM THE FOLLOWING [facility]: [facility] [address] [place] [address] [facility] [address] [place] [address] [facility] [address] [place] [address] Additional Instructions: Call your primary care doctor TOMORROW for an appointment during the next 1 WEEK.Tell the racing secretary that you were referred from this facility.See the doctor sooner or return here if your condition worsens before your appointment time. GERHARD WOMACK MD Oct 14, 2018 12:33
[2018-10-14 13:27] VITALS: BP 136/78; PULSE 74; RESP 16
--- NOTE | 2018-10-14 17:28 | OPR ---
DATE OF OPERATION: 10/14/2018 PREOPERATIVE DIAGNOSIS: Status post PleurX catheter. POSTOPERATIVE DIAGNOSIS: Status post PleurX catheter. OPERATION PERFORMED: Removal of PleurX catheter. SURGEON: Karli Sol MD ANESTHESIA: Local. CONSENT: Risks, benefits, complications and alternative therapies were explained to the patient, con sent was obtained. OPERATIVE TECHNIQUE: The patient was placed in supine position, prepped and draped in usual sterile fashion. A 5 mL of 1% lidocaine was used throughout the operation for local anesthesia. The cuff of the catheter was released from the surrounding tissue. The catheter and the cuff were removed in th eir entirety. Appropriate dressings applied. The patient tolerated procedure well. Dictated By: KARLI GUNTER/FELY Conf#: [id number] DID#: [id number]
== END 2018-10-14 13:27 | disposition home or self-care (01) ==
LOC: E/R 08:53
DX: Z45.2 Encounter for adjustment and management of vascular access device (principal); Z00.00 Encounter for general adult medical examination without abnormal findings
CPT/HCPCS: Z7502; Z7610; 99282